=== PATIENT | male | born 1950 | race American Indian/Alaskan Native ===

== ENCOUNTER 2022-06-28 13:31 | Inpatient (IN) | payer MEDICARE ==
[2022-06-28] MEDS ORDERED: SODIUM CHLORIDE 0.9% 1000 ML IV SOLN IV ONE (14:08)
--- NOTE | 2022-06-28 14:12 | XRay Report ---
CHEST 1 VIEW 06/28/2022 1:52 PM INDICATION / CLINICAL INFORMATION: COVID + and SOB. COMPARISON: None available. FINDINGS: SUPPORT DEVICES: None. HEART / MEDIASTINUM: The heart size and pulmonary vasculature are normal. LUNGS / PLEURA: There is a focal irregular parenchymal opacity in the left retrocardiac region medial ly. The lungs are otherwise clear. No pleural effusion. No pneumothorax. ADDITIONAL FINDINGS: No significant additional findings. IMPRESSION: Irregular parenchymal opacity in the left retrocardiac region medially may be inflammator y or neoplastic. CT chest may be helpful in further evaluation. Signer Name: Ady Manzanares MD Signed: 06/28/2022 2:07 PM Workstation Name: [facility]
--- NOTE | 2022-06-28 14:14 | Emergency Department Report ---
ED Shortness of Breath HPI - General Chief Complaint: Dyspnea/Respdistress Stated Complaint: SOB Time Seen by Provider: 06/28/22 13:40 Source: EMS, old records reviewed (Patient was here in March for feeding tube placed) Mode of arrival: Stretcher Limitations: Physical Limitation - History of Present Illness Initial Comments: 72-year [facility] with COVID-19 (diagnosed 06/21/2022), chronic renal insufficiency, hypertension, cognitive communication deficit, dysphagia, DVT currently on Eliquis, and hyperlipidemia presents to the hospital with complaints of hypoxia and shortness of breath. EMS reports that patient is on 3 L of nasal cannula [facility] the jail they were unable to obtain a accurate O2 sat. Patient was placed on nonrebreather for transport to the hospital. Patient appears to have mild to moderate respiratory distress on nonrebreather upon ED presentation. Patient does not appear to have a history of diabetes or take diabetes related medication - Related Data Previous Rx's Medication Instructions Recorded Last Taken Type Aspirin 325 mg PO QDAY #30 tablet 03/07/22 Unknown Rx AtorvaSTATin [Lipitor] 40 mg PO QHS 30 Days #30 tab 03/07/22 Unknown Rx Allergies Allergy/AdvReac Type Severity Reaction Status Date / Time No Known Allergies Allergy Verified 06/28/22 13:48 ED Review of Systems ROS: Stated complaint: SOB Other details as noted in HPI Comment: All other systems reviewed and negative ED Past Medical Hx - Past Medical History Previous Medical History?: Yes Hx CVA: Yes Hx Deep Vein Thrombosis: Yes - Surgical History Additional Surgical History: PEG tube - Social History Smoking Status: Never Smoker - Medications Home Medications: Home Medications Medication Instructions Recorded Confirmed Last Taken Type Aspirin 325 mg PO QDAY #30 tablet 03/07/22 Unknown Rx AtorvaSTATin [Lipitor] 40 mg PO QHS 30 Days #30 tab 03/07/22 Unknown Rx ED Physical Exam - General Limitations: Physical Limitation - Other Other exam information: General: Mild respiratory distress Head: Atraumatic Eyes: normal appearance ENT: Dry mucous membranes Neck: Normal appearance, no midline tenderness Chest: Bilateral rhonchi, tachypnea CV: Mild tachycardia regular Abdomen: Soft, normal bowel sounds, nontender, nondistended, no rebound or guarding. No feeding tube at this time Back: Normal inspection Extremity: Normal inspection, full range of motion Neuro: Awake, oriented to self, no facial asymmetry, bilateral handgrip equal, weak bilateral foot dorsiflexion Psych: Appropriate behavior Skin: No rash ED Course Vital Signs 06/28/22 06/28/22 06/28/22 13:44 14:19 14:31 Temperature 95.7 F L Pulse Rate 99 H 121 H Respiratory 20 28 H 22 Rate Blood Pressure 126/83 Blood Pressure 95/57 [Left] O2 Sat by Pulse 94 100 Oximetry 06/28/22 06/28/22 14:45 15:15 Temperature Pulse Rate 112 H 95 H Respiratory 22 19 Rate Blood Pressure 110/90 110/90 Blood Pressure [Left] O2 Sat by Pulse 86 80 L Oximetry - Reevaluation(s) Reevaluation #1: 06/28/22 15:35 The patient had a blood glucose of 14 without sufficient IV access. Awaiting IV placement from IV nurse. Went to bedside and placed a right 20-gauge EJ which was successful after second attempt and administered 2 Amp of D50 with repeat glucose of 101 - EJ/Peripheral Line Neck R Time Out Performed: Yes Indications: nurses unable to establis Skin Cleansed in Sterile Fashion: Yes Size: 20 Dressing Placed: Tegaderm, tape Patient Tolerated Procedure: well, no complications, other (Successful on second attempt) ED Medical Decision Making - Lab Data Result diagrams: 06/28/22 14:57 06/28/22 16:11 Lab Results 06/28/22 06/28/22 06/28/22 Range/Units 14:53 14:57 14:57 WBC 3.5 L (4.5-11.0) K/mm3 RBC 3.22 L (3.65-5.03) M/mm3 Hgb 9.5 L (11.8-15.2) gm/dl Hct 29.6 L (35.5-45.6) % MCV 92 (84-94) fl MCH 30 (28-32) pg MCHC 32 (32-34) % RDW 20.0 H (13.2-15.2) % Plt Count 175 (140-440) K/mm3 Lymph % (Auto) 18.4 (13.4-35.0) % Greene % (Auto) 4.4 (0.0-7.3) % Eos % (Auto) 0.1 (0.0-4.3) % Baso % (Auto) 0.1 (0.0-1.8) % Lymph # (Auto) 0.6 L (1.2-5.4) K/mm3 Greene # (Auto) 0.2 (0.0-0.8) K/mm3 Eos # (Auto) 0.0 (0.0-0.4) K/mm3 Baso # (Auto) 0.0 (0.0-0.1) K/mm3 Seg Neutrophils % 77.0 H (40.0-70.0) % Seg Neutrophils # 2.7 (1.8-7.7) K/mm3 PT 28.4 H (12.2-14.9) Sec. INR 2.31 H (0.87-1.13) APTT 49.0 H (24.2-36.6) Sec. D-Dimer (0-234) ng/mlDDU ABG pH 7.383 (7.350-7.450) pH Units ABG pCO2 19.1 mm Hg ABG pO2 390.9 H (80.0-90.0) mm Hg ABG HCO3 11.1 L (20.0-26.0) mmol/L ABG O2 Saturation 99.5 H (95.0-99.0) % ABG O2 Content 13.5 (0.0-44) ABG Base Excess -12.3 L (-2.0-3.0) mmol/L ABG Hemoglobin 9.0 L (14.0-18.0) gm/dl ABG Carboxyhemoglobin 0.3 (0.0-5.0) % ABG Methemoglobin 0.3 (0.0-1.5) % Oxyhemoglobin 98.9 (95.0-99.0) % FiO2 100 % Sodium (137-145) mmol/L Potassium (3.6-5.0) mmol/L Chloride (98-107) mmol/L Carbon Dioxide (22-30) mmol/L Anion Gap mmol/L BUN (9-20) mg/dL Creatinine (0.8-1.3) mg/dL Estimated GFR ml/min BUN/Creatinine Ratio % Glucose (75-100) mg/dL POC Glucose (70-105) mg/dL Lactic Acid (0.7-2.0) mmol/L Calcium (8.4-10.2) mg/dL Total Bilirubin (0.1-1.2) mg/dL AST (5-40) units/L ALT (7-56) units/L Alkaline Phosphatase (35-129) units/L Lactate Dehydrogenase (91-180) units/L Troponin T (0.00-0.029) ng/mL C-Reactive Protein (0.00-1.30) mg/dL Total Protein (6.3-8.2) g/dL Albumin (3.9-5) g/dL Albumin/Globulin Ratio % Triglycerides (2-149) mg/dL Cholesterol (50-199) mg/dL LDL Cholesterol Direct (50-130) mg/dL HDL Cholesterol (40-59) mg/dL Cholesterol/HDL Ratio % 06/28/22 06/28/22 06/28/22 Range/Units 14:57 14:57 15:01 WBC (4.5-11.0) K/mm3 RBC (3.65-5.03) M/mm3 Hgb (11.8-15.2) gm/dl Hct (35.5-45.6) % MCV (84-94) fl MCH (28-32) pg MCHC (32-34) % RDW (13.2-15.2) % Plt Count (140-440) K/mm3 Lymph % (Auto) (13.4-35.0) % Greene % (Auto) (0.0-7.3) % Eos % (Auto) (0.0-4.3) % Baso % (Auto) (0.0-1.8) % Lymph # (Auto) (1.2-5.4) K/mm3 Greene # (Auto) (0.0-0.8) K/mm3 Eos # (Auto) (0.0-0.4) K/mm3 Baso # (Auto) (0.0-0.1) K/mm3 Seg Neutrophils % (40.0-70.0) % Seg Neutrophils # (1.8-7.7) K/mm3 PT (12.2-14.9) Sec. INR (0.87-1.13) APTT (24.2-36.6) Sec. D-Dimer (0-234) ng/mlDDU ABG pH (7.350-7.450) pH Units ABG pCO2 mm Hg ABG pO2 (80.0-90.0) mm Hg ABG HCO3 (20.0-26.0) mmol/L ABG O2 Saturation (95.0-99.0) % ABG O2 Content (0.0-44) ABG Base Excess (-2.0-3.0) mmol/L ABG Hemoglobin (14.0-18.0) gm/dl ABG Carboxyhemoglobin (0.0-5.0) % ABG Methemoglobin (0.0-1.5) % Oxyhemoglobin (95.0-99.0) % FiO2 % Sodium 134 L (137-145) mmol/L Potassium 4.4 (3.6-5.0) mmol/L Chloride 110.8 H (98-107) mmol/L Carbon Dioxide 13 L (22-30) mmol/L Anion Gap 15 mmol/L BUN 51 H (9-20) mg/dL Creatinine 2.7 H (0.8-1.3) mg/dL Estimated GFR 28 ml/min BUN/Creatinine Ratio 19 % Glucose 75 (75-100) mg/dL POC Glucose 14 L (70-105) mg/dL Lactic Acid 3.40 H* (0.7-2.0) mmol/L Calcium 9.1 (8.4-10.2) mg/dL Total Bilirubin 0.60 (0.1-1.2) mg/dL AST 29 (5-40) units/L ALT 15 (7-56) units/L Alkaline Phosphatase 109 (35-129) units/L Lactate Dehydrogenase (91-180) units/L Troponin T 0.135 H* (0.00-0.029) ng/mL C-Reactive Protein (0.00-1.30) mg/dL Total Protein 4.9 L (6.3-8.2) g/dL Albumin 1.6 L (3.9-5) g/dL Albumin/Globulin Ratio 0.5 % Triglycerides 95 (2-149) mg/dL Cholesterol 74 (50-199) mg/dL LDL Cholesterol Direct 21 L (50-130) mg/dL HDL Cholesterol 22 L (40-59) mg/dL Cholesterol/HDL Ratio 3.36 % 06/28/22 06/28/22 06/28/22 Range/Units 15:32 16:11 16:11 WBC (4.5-11.0) K/mm3 RBC (3.65-5.03) M/mm3 Hgb (11.8-15.2) gm/dl Hct (35.5-45.6) % MCV (84-94) fl MCH (28-32) pg MCHC (32-34) % RDW (13.2-15.2) % Plt Count (140-440) K/mm3 Lymph % (Auto) (13.4-35.0) % Greene % (Auto) (0.0-7.3) % Eos % (Auto) (0.0-4.3) % Baso % (Auto) (0.0-1.8) % Lymph # (Auto) (1.2-5.4) K/mm3 Greene # (Auto) (0.0-0.8) K/mm3 Eos # (Auto) (0.0-0.4) K/mm3 Baso # (Auto) (0.0-0.1) K/mm3 Seg Neutrophils % (40.0-70.0) % Seg Neutrophils # (1.8-7.7) K/mm3 PT (12.2-14.9) Sec. INR (0.87-1.13) APTT (24.2-36.6) Sec. D-Dimer 273.84 H (0-234) ng/mlDDU ABG pH (7.350-7.450) pH Units ABG pCO2 mm Hg ABG pO2 (80.0-90.0) mm Hg ABG HCO3 (20.0-26.0) mmol/L ABG O2 Saturation (95.0-99.0) % ABG O2 Content (0.0-44) ABG Base Excess (-2.0-3.0) mmol/L ABG Hemoglobin (14.0-18.0) gm/dl ABG Carboxyhemoglobin (0.0-5.0) % ABG Methemoglobin (0.0-1.5) % Oxyhemoglobin (95.0-99.0) % FiO2 % Sodium (137-145) mmol/L Potassium (3.6-5.0) mmol/L Chloride (98-107) mmol/L Carbon Dioxide (22-30) mmol/L Anion Gap mmol/L BUN (9-20) mg/dL Creatinine (0.8-1.3) mg/dL Estimated GFR ml/min BUN/Creatinine Ratio % Glucose (75-100) mg/dL POC Glucose 104 (70-105) mg/dL Lactic Acid 3.30 H* (0.7-2.0) mmol/L Calcium (8.4-10.2) mg/dL Total Bilirubin (0.1-1.2) mg/dL AST (5-40) units/L ALT (7-56) units/L Alkaline Phosphatase (35-129) units/L Lactate Dehydrogenase (91-180) units/L Troponin T (0.00-0.029) ng/mL C-Reactive Protein (0.00-1.30) mg/dL Total Protein (6.3-8.2) g/dL Albumin (3.9-5) g/dL Albumin/Globulin Ratio % Triglycerides (2-149) mg/dL Cholesterol (50-199) mg/dL LDL Cholesterol Direct (50-130) mg/dL HDL Cholesterol (40-59) mg/dL Cholesterol/HDL Ratio % // Range/Units 16:11 WBC (4.5-11.0) K/mm3 RBC (3.65-5.03) M/mm3 Hgb (11.8-15.2) gm/dl Hct (35.5-45.6) % MCV (84-94) fl MCH (28-32) pg MCHC (32-34) % RDW (13.2-15.2) % Plt Count (140-440) K/mm3 Lymph % (Auto) (13.4-35.0) % Greene % (Auto) (0.0-7.3) % Eos % (Auto) (0.0-4.3) % Baso % (Auto) (0.0-1.8) % Lymph # (Auto) (1.2-5.4) K/mm3 Greene # (Auto) (0.0-0.8) K/mm3 Eos # (Auto) (0.0-0.4) K/mm3 Baso # (Auto) (0.0-0.1) K/mm3 Seg Neutrophils % (40.0-70.0) % Seg Neutrophils # (1.8-7.7) K/mm3 PT (12.2-14.9) Sec. INR (0.87-1.13) APTT (24.2-36.6) Sec. D-Dimer (0-234) ng/mlDDU ABG pH (7.350-7.450) pH Units ABG pCO2 mm Hg ABG pO2 (80.0-90.0) mm Hg ABG HCO3 (20.0-26.0) mmol/L ABG O2 Saturation (95.0-99.0) % ABG O2 Content (0.0-44) ABG Base Excess (-2.0-3.0) mmol/L ABG Hemoglobin (14.0-18.0) gm/dl ABG Carboxyhemoglobin (0.0-5.0) % ABG Methemoglobin (0.0-1.5) % Oxyhemoglobin (95.0-99.0) % FiO2 % Sodium (137-145) mmol/L Potassium (3.6-5.0) mmol/L Chloride (98-107) mmol/L Carbon Dioxide (22-30) mmol/L Anion Gap mmol/L BUN (9-20) mg/dL Creatinine (0.8-1.3) mg/dL Estimated GFR ml/min BUN/Creatinine Ratio % Glucose 218 H (75-100) mg/dL POC Glucose (70-105) mg/dL Lactic Acid (0.7-2.0) mmol/L Calcium (8.4-10.2) mg/dL Total Bilirubin (0.1-1.2) mg/dL AST (5-40) units/L ALT (7-56) units/L Alkaline Phosphatase (35-129) units/L Lactate Dehydrogenase 199 H (91-180) units/L Troponin T (0.00-0.029) ng/mL C-Reactive Protein 4.60 H (0.00-1.30) mg/dL Total Protein (6.3-8.2) g/dL Albumin (3.9-5) g/dL Albumin/Globulin Ratio % Triglycerides (2-149) mg/dL Cholesterol (50-199) mg/dL LDL Cholesterol Direct (50-130) mg/dL HDL Cholesterol (40-59) mg/dL Cholesterol/HDL Ratio % - EKG Data -: EKG Interpreted by Me (Low voltage, artifact, no STEMI noted) EKG shows normal: sinus rhythm Rate: normal (92) - EKG Data When compared to previous EKG there are: previous EKG unavailable - Radiology Data Radiology results: report reviewed CHEST 1 VIEW 06/28/2022 1:52 PM INDICATION / CLINICAL INFORMATION: COVID + and SOB. COMPARISON: None available. FINDINGS: SUPPORT DEVICES: None. HEART / MEDIASTINUM: The heart size and pulmonary vasculature are normal. LUNGS / PLEURA: There is a focal irregular parenchymal opacity in the left retrocardiac region medially. The lungs are otherwise clear. No pleural effusion. No pneumothorax. ADDITIONAL FINDINGS: No significant additional findings. IMPRESSION: Irregular parenchymal opacity in the left retrocardiac region medially may be inflammatory or neoplastic. CT chest may be helpful in further evaluation. - Medical Decision Making 72-year-old male presents to the hospital with unmeasurable O2 saturation. It is unclear if patient is and how [facility] EMS reports that he is on 3 L. ABG requested on room air however, performed on 100% nonrebreather due to lack of reliable pulse oximetry measurements. This was subsequently titrated down to 50% 2 of NC with saturation 95%. patient has a compensated metabolic acidosis with elevated lactic acid. Patient has significant hypoglycemia which improved with 2 A of D50 and D5 IV drip initiated. Patient does have a history of PEG tube placement 3 months ago which is not currently present on examination. Patient treated as per sepsis protocol with IV hydration, antibiotics for possible pulmonary infiltrate and has a recent positive COVID test. Other diagnoses include acute on chronic renal sufficiency and elevated troponin as well as increased INR with chronic anticoagulation/Eliquis use. Hospitalist admit request admission to [facility] with remote telemetry Critical Care Time: Yes Critical care time in (mins) excluding proc time.: 50 Critical care attestation.: If time is entered above; I have spent that time in minutes in the direct care of this critically ill patient, excluding procedure time. Critical Care Time: 50 minutes of critical care time excluding procedures were used in the care of the patient. I came immediately to the bedside upon patient's arrival. I obtained history from EMS at the bedside. I discussed treatment plan with the nursing team members. I reviewed electronic record. I Patient required multiple interventions and reassessments. ED Disposition Clinical Impression: COVID-19, Hypoglycemia, Acute respiratory failure with hypoxia, Pulmonary infiltrate, Acute on chronic renal failure, Elevated lactic acid level, Lactic acidosis, Elevated INR, custodial current use of anticoagulant, Hx of deep venous thrombosis, Elevated troponin Disposition: 09 ADMITTED INPATIENT Is pt being admited?: Yes Condition: Stable Time of Disposition: 16:37
[2022-06-28] MEDS ORDERED: DEXTROSE 50% IN WATER (25GM) 50 ML SYRINGE IV ONE (15:02)
[2022-06-28 15:08] LABS: ABG Base Excess -12.3 mmol/L (-2.0-3.0); ABG HCO3 11.1 mmol/L (20.0-26.0); ABG Methemoglobin 0.3 % (0.0-1.5); ABG Oxygen Saturation 99.5 % (95.0-99.0); ABG PCO2 19.1 mm Hg; ABG PH 7.383 pH Units (7.350-7.450)
[2022-06-28 15:10] LABS: ABG PO2 390.9 mm Hg (80.0-90.0)
[2022-06-28 15:28] LABS: Basophils % (Auto) 0.1 % (0.0-1.8); Eosinophils % (Auto) 0.1 % (0.0-4.3); Hematocrit 29.6 % (35.5-45.6); Hemoglobin 9.5 gm/dl (11.8-15.2); Lymphocytes # (Auto) 0.6 K/mm3 (1.2-5.4); Lymphocytes % (Auto) 18.4 % (13.4-35.0); Mean Corpuscular HGB Conc 32 % (32-34); Mean Corpuscular Volume 92 fl (84-94); Monocytes # (Auto) 0.2 K/mm3 (0.0-0.8); Monocytes % (Auto) 4.4 % (0.0-7.3); Platelet Count 175 K/mm3 (140-440); Red Blood Count 3.22 M/mm3 (3.65-5.03)
[2022-06-28 15:31] LABS: INR 2.31 (0.87-1.13)
[2022-06-28 15:37] LABS: Albumin 1.6 g/dL (3.9-5); Calcium 9.1 mg/dL (8.4-10.2)
[2022-06-28] MEDS ORDERED: VANCOMYCIN 750 MG in SODIUM CHLORIDE 0.9% 500 ML 500 ML IV ONE (15:47)
[2022-06-28] MEDS ORDERED: CEFEPIME/NS 2 GM/100 ML 2 GM/100 ML BAG IV ONE (15:47)
[2022-06-28] MEDS ORDERED: VANCOMYCIN PHARMACY TO DOSE IV SCH (16:00)
[2022-06-28] MEDS: D5W/0.9% NACL 1,000 ML IV SCH (16:02)
[2022-06-28 16:14] LABS: Chol/HDL Ratio 3.36 %
[2022-06-28] MEDS ORDERED: ACETAMINOPHEN 325 MG TAB PO PRN ×2 (16:37→18:42)
[2022-06-28] MEDS ORDERED: ONDANSETRON 4 MG/2 ML INJ IV PRN ×2 (16:37→18:42)
[2022-06-28 16:47] LABS: C-Reactive Protein 4.6 mg/dL (0.00-1.30)
[2022-06-28] MEDS ORDERED: SODIUM CHLORIDE 0.9% IV SCH (17:00)
[2022-06-28] MEDS ORDERED: VANCOMYCIN IV SCH (17:00)
[2022-06-28] MEDS ORDERED: oxyCODONE /ACETAMINOPHEN 5-325MG TAB PO PRN (18:42)
[2022-06-28] MEDS ORDERED: CEFEPIME/NS 2 GM/100 ML 2 GM/100 ML BAG IV SCH (19:00)
[2022-06-28] MEDS: MORPHINE 2 MG/1 ML INJ IV PRN (19:02)
--- NOTE | 2022-06-28 19:29 | History and Physical Report ---
History of Present Illness Date of examination: 06/28/22 Date of admission: 06/28/22 16:37 Chief complaint: Persistent hypoxia and hypoglycemia 1 day History of present illness: 72-year male with history of CVA and DVT presents from group home with COVID- 19 (diagnosed 06/21/2022), chronic renal insufficiency, hypertension, cognitive communication deficit, dysphagia, DVT currently on Eliquis, and hyperlipidemia with complaints of hypoxia and shortness of breath. EMS reports that patient is on 3 L of nasal cannula at the group home they were unable to obtain a accurate O2 sat. Patient was placed on nonrebreather for transport to the hospital. Patient appears to have mild to moderate respiratory distress on nonrebreather upon ED presentation. Patient is also hyperglycemic initially - Past Medical History --Previous Medical History?: Yes --CVA: Yes --Deep Vein Thrombosis: Yes - Surgical History --Additional Surgical History: PEG tube - Social History Smoking Status: Never Smoker - Medications --Home Medications: Home Medications Medication Instructions Recorded Confirmed Last Taken Type Aspirin 325 mg PO QDAY #30 tablet 03/07/22 Unknown Rx AtorvaSTATin [Lipitor] 40 mg PO QHS 30 Days #30 tab 03/07/22 Unknown Rx Review of Systems ROS: Constitutional persistent hypoglycemia HEENT no sore throat no post nasal drip no diplopia Neck no neck stiffness no lymph gland enlargement Chest and lungs shortness of breath and hypoxia CVS no chest pain no diaphoresis no palpitations GI no nausea no vomiting no diarrhea Genitourinary system no dysuria no flank pain Musculoskeletal system no muscle pains no joint pains CUT ORDER HAND no syncope no seizures Skin no rash no itching Psychiatric no depression no homicidal or suicidal tendencies Hematologic no lymphedema or bruising Endocrine no polydipsia no polyuria no cold intolerance no heat intolerance Medications and Allergies Allergies Allergy/AdvReac Type Severity Reaction Status Date / Time No Known Allergies Allergy Verified 06/28/22 13:48 Home Medications Medication Instructions Recorded Confirmed Last Taken Type Aspirin 325 mg PO QDAY #30 tablet 03/07/22 Unknown Rx AtorvaSTATin [Lipitor] 40 mg PO QHS 30 Days #30 tab 03/07/22 Unknown Rx Active Meds: Active Medications Acetaminophen (Acetaminophen 325 Mg Tab) 650 mg PO Q4H PRN PRN Reason: Pain MILD(1-3)/Fever >100.5/GILES Acetaminophen (Acetaminophen 325 Mg Tab) 650 mg PO Q4H PRN PRN Reason: Pain MILD(1-3)/Fever >100.5/GILES Dextrose/Sodium Chloride (D5ns) 1,000 mls @ 150 mls/hr IV DIRECT PARRISH Last Admin: 06/28/22 16:02 Dose: 150 mls/hr Vancomycin HCl 500 mg/ Sodium (Chloride) 110 mls @ 130 mls/hr IV Q48H PARRISH; Protocol Last Admin: 06/28/22 17:00 Dose: 130 mls/hr Cefepime HCl (Cefepime/Ns 1 Gm/100 Ml) 2 gm in 100 mls @ 200 mls/hr IV Q12H PARRISH; Protocol Morphine Sulfate (Morphine 2 Mg/1 Ml Inj) 2 mg IV Q4H PRN PRN Reason: Pain, Moderate (4-6) Last Admin: 06/28/22 19:02 Dose: 2 mg Ondansetron HCl (Ondansetron 4 Mg/2 Ml Inj) 4 mg IV Q8H PRN PRN Reason: Nausea And Vomiting Ondansetron HCl (Ondansetron 4 Mg/2 Ml Inj) 4 mg IV Q8H PRN PRN Reason: Nausea And Vomiting Oxycodone/Acetaminophen (Oxycodone /Acetaminophen 5-325mg Tab) 1 tab PO Q6H PRN PRN Reason: Pain, Moderate (4-6) Sodium Chloride (Sodium Chloride 0.9% 10 Ml Flush Syringe) 10 ml IV BID PARRISH Sodium Chloride (Sodium Chloride 0.9% 10 Ml Flush Syringe) 10 ml IV PRN PRN PRN Reason: LINE FLUSH Sodium Chloride (Sodium Chloride 0.9% 10 Ml Flush Syringe) 10 ml IV BID PARRISH Sodium Chloride (Sodium Chloride 0.9% 10 Ml Flush Syringe) 10 ml IV PRN PRN PRN Reason: LINE FLUSH Exam - Constitutional Vitals: Temp Pulse Resp BP Pulse Ox 95.7 F L 100 H 17 110/90 68 L 06/28/22 13:44 06/28/22 16:31 06/28/22 16:31 06/28/22 16:31 06/28/22 16:31 General appearance: Present: no acute distress, well-nourished - EENT Eyes: Present: PERRL ENT: hearing intact, clear oral mucosa - Neck Neck: Present: supple, normal ROM - Respiratory Respiratory effort: normal Respiratory: bilateral: CTA - Cardiovascular Heart rate: 78 Rhythm: regular Heart Sounds: Present: S1 & S2. Absent: rub, click - Extremities Extremities: no ischemia, pulses intact, pulses symmetrical, No edema Peripheral Pulses: within normal limits - Abdominal General gastrointestinal: Present: soft, non-tender, non-distended, normal bowel sounds Male genitourinary: Present: normal - Rectal Rectal Exam: deferred - Integumentary Integumentary: Present: clear, warm, dry - Musculoskeletal Musculoskeletal: right sided weakness - Psychiatric Psychiatric: appropriate mood/affect, intact judgment & insight - Neurologic Neurologic: CNII-XII intact, focal deficits HEART Score - HEART Score History: Moderately suspicious Risk factors: 1-2 risk factors Troponin: Troponin T 0.135 ng/mL (0.00-0.029) H* 06/28/22 14:57 Troponin: < normal limit - Critical Actions Critical Actions: 0-3 pts:0.9-1.7%risk of adverse cardiac event.Candidate for discharge Results - Labs CBC & Chem 7: 06/29/22 03:57 06/29/22 03:57 Labs: Laboratory Last Values WBC 3.5 K/mm3 (4.5-11.0) L 06/28/22 14:57 RBC 3.22 M/mm3 (3.65-5.03) L 06/28/22 14:57 Hgb 9.5 gm/dl (11.8-15.2) L 06/28/22 14:57 Hct 29.6 % (35.5-45.6) L 06/28/22 14:57 MCV 92 fl (84-94) 06/28/22 14:57 MCH 30 pg (28-32) 06/28/22 14:57 MCHC 32 % (32-34) 06/28/22 14:57 RDW 20.0 % (13.2-15.2) H 06/28/22 14:57 Plt Count 175 K/mm3 (140-440) 06/28/22 14:57 Lymph % (Auto) 18.4 % (13.4-35.0) 06/28/22 14:57 [place] % (Auto) 4.4 % (0.0-7.3) 06/28/22 14:57 Eos % (Auto) 0.1 % (0.0-4.3) 06/28/22 14:57 Baso % (Auto) 0.1 % (0.0-1.8) 06/28/22 14:57 Lymph # (Auto) 0.6 K/mm3 (1.2-5.4) L 06/28/22 14:57 [place] # (Auto) 0.2 K/mm3 (0.0-0.8) 06/28/22 14:57 Eos # (Auto) 0.0 K/mm3 (0.0-0.4) 06/28/22 14:57 Baso # (Auto) 0.0 K/mm3 (0.0-0.1) 06/28/22 14:57 Seg Neutrophils % 77.0 % (40.0-70.0) H 06/28/22 14:57 Seg Neutrophils # 2.7 K/mm3 (1.8-7.7) 06/28/22 14:57 PT 28.4 Sec. (12.2-14.9) H 06/28/22 14:57 INR 2.31 (0.87-1.13) H 06/28/22 14:57 APTT 49.0 Sec. (24.2-36.6) H 06/28/22 14:57 D-Dimer 273.84 ng/mlDDU (0-234) H 06/28/22 16:11 ABG pH 7.383 pH Units (7.350-7.450) 06/28/22 14:53 ABG pCO2 19.1 mm Hg 06/28/22 14:53 ABG pO2 390.9 mm Hg (80.0-90.0) H 06/28/22 14:53 ABG HCO3 11.1 mmol/L (20.0-26.0) L 06/28/22 14:53 ABG O2 Saturation 99.5 % (95.0-99.0) H 06/28/22 14:53 ABG O2 Content 13.5 (0.0-44) 06/28/22 14:53 ABG Base Excess -12.3 mmol/L (-2.0-3.0) L 06/28/22 14:53 ABG Hemoglobin 9.0 gm/dl (14.0-18.0) L 06/28/22 14:53 ABG Carboxyhemoglobin 0.3 % (0.0-5.0) 06/28/22 14:53 ABG Methemoglobin 0.3 % (0.0-1.5) 06/28/22 14:53 Oxyhemoglobin 98.9 % (95.0-99.0) 06/28/22 14:53 FiO2 100 % 06/28/22 14:53 Sodium 134 mmol/L (137-145) L 06/28/22 14:57 Potassium 4.4 mmol/L (3.6-5.0) 06/28/22 14:57 Chloride 110.8 mmol/L (98-107) H 06/28/22 14:57 Carbon Dioxide 13 mmol/L (22-30) L 06/28/22 14:57 Anion Gap 15 mmol/L 06/28/22 14:57 BUN 51 mg/dL (9-20) H 06/28/22 14:57 Creatinine 2.7 mg/dL (0.8-1.3) H 06/28/22 14:57 Estimated GFR 28 ml/min 06/28/22 14:57 BUN/Creatinine Ratio 19 % 06/28/22 14:57 Glucose 218 mg/dL (75-100) H 06/28/22 16:11 POC Glucose 119 mg/dL (70-105) H 06/28/22 17:25 Lactic Acid 3.30 mmol/L (0.7-2.0) H* 06/28/22 16:11 Calcium 9.1 mg/dL (8.4-10.2) 06/28/22 14:57 Ferritin 2520.0 ng/mL (30.0-300.0) H 06/28/22 16:11 Total Bilirubin 0.60 mg/dL (0.1-1.2) 06/28/22 14:57 AST 29 units/L (5-40) 06/28/22 14:57 ALT 15 units/L (7-56) 06/28/22 14:57 Alkaline Phosphatase 109 units/L (35-129) 06/28/22 14:57 Lactate Dehydrogenase 199 units/L (91-180) H 06/28/22 16:11 Troponin T 0.135 ng/mL (0.00-0.029) H* 06/28/22 14:57 C-Reactive Protein 4.60 mg/dL (0.00-1.30) H 06/28/22 16:11 Total Protein 4.9 g/dL (6.3-8.2) L 06/28/22 14:57 Albumin 1.6 g/dL (3.9-5) L 06/28/22 14:57 Albumin/Globulin Ratio 0.5 % 06/28/22 14:57 Triglycerides 95 mg/dL (2-149) 06/28/22 14:57 Cholesterol 74 mg/dL (50-199) 06/28/22 14:57 LDL Cholesterol Direct 21 mg/dL (50-130) L 06/28/22 14:57 HDL Cholesterol 22 mg/dL (40-59) L 06/28/22 14:57 Cholesterol/HDL Ratio 3.36 % 06/28/22 14:57 Short CBC 06/28/22 06/29/22 06/29/22 Range/Units 14:57 00:09 03:57 WBC 3.5 L 6.2 6.7 (4.5-11.0) K/mm3 Hgb 9.5 L 7.7 L 7.8 L (11.8-15.2) gm/dl Hct 29.6 L 23.1 L D 24.4 L (35.5-45.6) % Plt Count 175 137 L 138 L (140-440) K/mm3 BMP 06/28/22 06/28/22 06/29/22 14:57 16:11 00:09 Sodium 134 L Potassium 4.4 Chloride 110.8 H Carbon Dioxide 13 L BUN 51 H Creatinine 2.7 H 2.5 H Glucose 75 218 H Calcium 9.1 06/29/22 03:57 Sodium 139 Potassium 4.1 Chloride 115.5 H Carbon Dioxide 11 L BUN 50 H Creatinine 2.5 H Glucose 183 H Calcium 8.7 Cardiac Enzymes 06/28/22 Range/Units 14:57 Troponin T 0.135 H* (0.00-0.029) ng/mL Liver Function 06/28/22 06/29/22 Range/Units 14:57 03:57 Total Bilirubin 0.60 0.40 (0.1-1.2) mg/dL AST 29 26 (5-40) units/L ALT 15 13 (7-56) units/L Alkaline Phosphatase 109 93 (35-129) units/L Albumin 1.6 L 1.4 L (3.9-5) g/dL Microbiology: Microbiology 06/28/22 14:57 Peripheral/Venous Blood Culture - Preliminary Culture in Progress - Imaging and Cardiology Imaging and Cardiology: CT chest Suspected left lower lobe pneumonia given the patient history of COVID-19 and shortness of breath which likely account for the abnormality seen on the prior chest radiograph Small left pleural effusion Cholelithiasis without evidence of acute cholecystitis Chest x-ray Irregular parenchymal opacity in the left retrocardiac region medially may be inflammatory or neoplastic. CT chest will be helpful for further evaluation. Assessment and Plan Advance Directives: Yes (Full code) VTE prophylaxis?: Chemical Plan of care discussed with patient/family: Yes - Patient Problems (1) Acute respiratory failure with hypoxia Current Visit: Yes Status: Acute Plan to address problem: Patient is persistently hypoxic Secondary to pneumonia and possibly COVID Oxygen supplementation as necessary (2) Left lower lobe pneumonia Current Visit: Yes Status: Acute Plan to address problem: Patient initiated on Zithromax and Rocephin COVID to be ruled out (3) Acute on chronic renal failure Current Visit: Yes Status: Acute Qualifiers: Acute renal failure type: unspecified Plan to address problem: IV fluids and nephrology consult (4) COVID-19 Current Visit: Yes Status: Acute Plan to address problem: Repeat COVID-19 test (5) Hypoglycemia Current Visit: Yes Status: Acute Plan to address problem: Corrected (6) Anemia Current Visit: Yes Status: Chronic Qualifiers: Anemia type: due to chronic kidney disease Chronic kidney disease stage: stage 3 (moderate) (7) Hx of deep venous thrombosis Current Visit: Yes Status: Chronic Plan to address problem: On Eliquis (8) DVT prophylaxis Current Visit: Yes Status: Acute Plan to address problem: On Eliquis and GI prophylaxis (9) Advance care planning Current Visit: Yes Status: Acute Plan to address problem: Disease education conducted, care plan discussed, diet diagnosis discussed and prognosis discussed. Patient acknowledged understanding with care plan. +30.
[2022-06-28] MEDS ORDERED: APIXABAN 5 MG TAB PO SCH (22:00)
--- NOTE | 2022-06-28 22:48 | Cat Scan Report ---
CT CHEST WITHOUT CONTRAST INDICATION / CLINICAL INFORMATION: sob, possible lung mass. TECHNIQUE: Axial CT images were obtained through the chest without contrast. All CT scans at this [facility] ation are performed using CT dose reduction for ALARA by means of automated exposure control. COMPARISON: One view of the chest performed earlier today. FINDINGS: HEART: No significant abnormality. CORONARY ARTERY CALCIFICATION: Present -- Moderate. THORACIC AORTA: Moderate atherosclerotic calcification without acute abnormality. MEDIASTINUM / SUJEY: No significant abnormality. PLEURA: Small left pleural effusion. No pneumothorax. LUNGS: There is left lower lobe atelectasis versus pneumonia. Probable mild dependent atelectasis is also noted on the right. No other significant abnormality. ADDITIONAL FINDINGS: There is generalized subcutaneous edema. UPPER ABDOMEN: Cholelithiasis is seen without evidence of acute cholecystitis. There is a small amoun t of perihepatic and perisplenic ascites. A right ureteral stent is in expected position as visualize d. There are multiple nonobstructive bilateral renal stones. There is generalized peritoneal edema. SKELETAL SYSTEM: No acute findings. There is moderate spondylosis. IMPRESSION: 1. Suspected left lower lobe pneumonia given the patient's history of covid 19 and shortness of breat h, which likely accounts for the abnormality seen on the prior chest radiograph. 2. Small left pleural effusion. 3. Additional findings as above. Signer Name: Elias Woods MD Signed: 06/28/2022 10:43 PM Workstation Name: [id number]
[2022-06-29 00:48] LABS: Hematocrit 23.1 % (35.5-45.6); Hemoglobin 7.7 gm/dl (11.8-15.2); Mean Corpuscular HGB Conc 33 % (32-34); Mean Corpuscular Volume 90 fl (84-94); Platelet Count 137 K/mm3 (140-440); Red Blood Count 2.59 M/mm3 (3.65-5.03)
[2022-06-29] MEDS: APIXABAN 2.5 MG TAB PO SCH ×3 (01:00→21:30)
[2022-06-29 01:16] LABS: INR 2.49 (0.87-1.13)
[2022-06-29 01:17] LABS: Partial Thromboplastin Time 54.1 Sec. (24.2-36.6)
[2022-06-29] MEDS: D5W/0.9% NACL 1,000 ML IV SCH ×2 (02:36→09:13)
[2022-06-29] MEDS ORDERED: NS IV SCH (04:00)
[2022-06-29] MEDS ORDERED: CEFEPIME IV SCH (04:00)
[2022-06-29 04:47] LABS: Basophils % (Auto) 0.1 % (0.0-1.8); Hematocrit 24.4 % (35.5-45.6); Hemoglobin 7.8 gm/dl (11.8-15.2); Lymphocytes # (Auto) 0.5 K/mm3 (1.2-5.4); Lymphocytes % (Auto) 7.2 % (13.4-35.0); Mean Corpuscular HGB Conc 32 % (32-34); Mean Corpuscular Volume 91 fl (84-94); Monocytes # (Auto) 0.3 K/mm3 (0.0-0.8); Monocytes % (Auto) 4.1 % (0.0-7.3); Platelet Count 138 K/mm3 (140-440); Red Blood Count 2.68 M/mm3 (3.65-5.03); Red Cell Distribution Width 19.6 % (13.2-15.2)
[2022-06-29 05:12] LABS: Albumin 1.4 g/dL (3.9-5); Calcium 8.7 mg/dL (8.4-10.2)
[2022-06-29] MEDS: AZITHROMYCIN/NS 500 MG/250 ML 500 MG/250 ML BAG IV SCH (08:59)
[2022-06-29] MEDS ORDERED: SODIUM BICARB 8.4% 50 MEQ/50 ML SYRINGE IV ONE (09:00)
[2022-06-29] MEDS: dexAMETHasone 4 MG/ML VIAL IV SCH (09:00)
[2022-06-29] MEDS: PANTOPRAZOLE 40 MG INJ IV SCH (09:13)
--- NOTE | 2022-06-29 11:14 | Electrocardiograph Report ---
[facility] Test Date: 2022-06-28 Test Time: 14:00:44 Pat Name: MARIO SANCHEZ Department: Room: A356 Gender: M [employer]: [id number] : 1950 Requested By: TONY DANIELSON Order Number: [id number] Reading MD: Clarence Rebolledo Measurements Intervals [place] Rate: 92 P: 55 DE: 154 QRS: 42 QRSD: 108 T: 81 QT: 332 QTc: 414 Interpretive Statements Poor data quality. Interpretation may be adversely affected Sinus rhythm Low voltage, extremity and precordial leads Nonspecific T abnrm, anterolateral leads No previous ECG available for comparison Electronically Signed On 06-29-2022 11:13:58 EDT by Clarence Rebolledo
--- NOTE | 2022-06-29 11:19 | Progress Note ---
Assessment and Plan Assessment and plan: Persistent hypoxia and hypoglycemia 1 day 72-year male with history of CVA and DVT presents from [facility] with COVID- 19 (diagnosed 06/21/2022), chronic renal insufficiency, hypertension, cognitive communication deficit, dysphagia, DVT currently on Eliquis, and hyperlipidemia with complaints of hypoxia and shortness of breath and hypoglycemia with a blood sugar of 14. EMS reports that patient is on 3 L of nasal cannula at the [facility] they were unable to obtain a accurate O2 sat. Patient was placed on nonrebreather for transport to the hospital. Patient appears to have mild to moderate respiratory distress on nonrebreather upon ED presentation. Patient is also hypoglycemic with a blood sugar of 14 initially 06/28/22 14:57 Peripheral/Venous Blood Culture - Preliminary Culture in Progress CT chest Suspected left lower lobe pneumonia given the patient history of COVID-19 and shortness of breath which likely account for the abnormality seen on the prior chest radiograph Small left pleural effusion Cholelithiasis without evidence of acute cholecystitis Chest x-ray Irregular parenchymal opacity in the left retrocardiac region medially may be inflammatory or neoplastic. CT chest will be helpful for further evaluation. 06/29: Patient seen and examined, Imaging studies on admission showed left lobar pneumonia. BG is improved, will monitor blood sugars patient was initially with a sugar level of 14. At this point he remains with acute encephalopathy and as a result is not tolerating anything p.o. Will obtain swallow evaluation. Keep head of bed elevated. We will continue empiric antibiotic coverage and consult infectious disease for assistance with management. I have asked to have patient wean from Venturi mask and if this is unable to be done in the next 24 hours will obtain pulmonary consultation. In addition to the management listed below he does have metabolic acidosis for which I will give him a dose of bicarb while awaiting nephrology evaluation. He did have severe protein calorie malnutrition it appeared that he had a PEG tube at some point I have tried to call the family to get more information but no one is picking up. I do not have access to the facility where he came from. In the meantime a Dobbhoff may need to be inserted if there is no improvement in mental status for diet. Anemia concern is unknown if the patient who is on Eliquis and with elevated INR has not any bleed. I have asked the nurse to check stool for occult blood. We will monitor H&H closely and start the patient on PPI. Patient remains critically ill and requires to continue in the hospital for full evaluation. (1) Acute respiratory failure with hypoxia Current Visit: Yes Status: Acute Plan to address problem: Patient is persistently hypoxic Secondary to pneumonia and possibly COVID Oxygen supplementation as necessary (2) Left lower lobe pneumonia Current Visit: Yes Status: Acute Plan to address problem: Patient initiated on Zithromax and Rocephin COVID to be ruled out (3) Acute on chronic renal failure Current Visit: Yes Status: Acute Qualifiers: Acute renal failure type: unspecified Plan to address problem: IV fluids and nephrology consult (4) COVID-19 Current Visit: Yes Status: Acute Plan to address problem: Repeat COVID-19 test (5) Acute metabolic encephalopathy Very lethargic not following any commands at this time. Baseline is unknown but apparently it appears that he was able to eat but he is not doing better right now. Aspiration precaution (6) hypoglycemia Current Visit: Yes Status: Acute Plan to address problem: Corrected (7) Anemia ? Etiology Current Visit: Yes Status: Chronic Qualifiers: Anemia type: due to chronic kidney disease Chronic kidney disease stage: stage 3 (moderate) (8) secondary coagulopathy with elevated INR (9) Hx of deep venous thrombosis Current Visit: Yes Status: Chronic Plan to address problem: On Eliquis (10) DVT prophylaxis Current Visit: Yes Status: Acute Plan to address problem: On Eliquis and GI prophylaxis (11) Advance care planning Current Visit: Yes Status: Acute Plan to address problem: Disease education conducted, care plan discussed, diet diagnosis discussed and prognosis discussed. Patient acknowledged understanding with care plan. +30. Critical care time 35 minutes History Interval history: Patient seen and examined this morning remains on 50% Venturi mask does not ap pear to be in any acute distress. He is nonverbal at this time. Hospitalist Physical - Physical exam Narrative exam: VITAL SIGNS: Reviewed. GENERAL: The patient appears normally developed, on Ventimask 50% vital signs as documented. HEAD: No signs of head trauma. EYES: Pupils are equal. Extraocular motions intact. EARS: Hearing grossly intact. MOUTH: Oropharynx is normal. NECK: No adenopathy, no JVD. CHEST: Chest with diminished breath sounds on the right with mild crackles on the left. No increased work of breathing noted. CARDIAC: Regular rate and rhythm. S1 and S2, without murmurs, gallops, or rub s. VASCULAR: No Edema. Peripheral pulses normal and equal in all extremities. ABDOMEN: Soft, non tender and non distended. No rebound or guarding, and no masses palpated. Bowel Sounds normal. MUSCULOSKELETAL: Good range of motion of all major joints on passive movement. Extremities without clubbing, cyanosis. +1 pitting edema bilateral lower extremity cool to the touch. NEUROLOGIC EXAM: Awake but not following any commands. PSYCHIATRIC: Unable to fully assess. SKIN: detail exam as documented in skin assessment - Constitutional Vitals: Temp Pulse Resp BP Pulse Ox 94.5 F L 75 14 131/89 97 06/29/22 09:21 06/29/22 06:30 06/29/22 06:30 06/29/22 09:21 06/29/22 06:30 General appearance: Present: no acute distress, well-nourished HEART Score - HEART Score Risk factors: 1-2 risk factors Troponin: Troponin T 0.135 ng/mL (0.00-0.029) H* 06/28/22 14:57 Troponin: < normal limit - Critical Actions Critical Actions: 0-3 pts:0.9-1.7%risk of adverse cardiac event.Candidate for discharge Results - Labs CBC & Chem 7: 06/29/22 03:57 06/29/22 03:57 Labs: Laboratory Last Values WBC 6.7 K/mm3 (4.5-11.0) 06/29/22 03:57 RBC 2.68 M/mm3 (3.65-5.03) L 06/29/22 03:57 Hgb 7.8 gm/dl (11.8-15.2) L 06/29/22 03:57 Hct 24.4 % (35.5-45.6) L 06/29/22 03:57 MCV 91 fl (84-94) 06/29/22 03:57 MCH 29 pg (28-32) 06/29/22 03:57 MCHC 32 % (32-34) 06/29/22 03:57 RDW 19.6 % (13.2-15.2) H 06/29/22 03:57 Plt Count 138 K/mm3 (140-440) L 06/29/22 03:57 Lymph % (Auto) 7.2 % (13.4-35.0) L 06/29/22 03:57 [place] % (Auto) 4.1 % (0.0-7.3) 06/29/22 03:57 Eos % (Auto) 0.0 % (0.0-4.3) 06/29/22 03:57 Baso % (Auto) 0.1 % (0.0-1.8) 06/29/22 03:57 Lymph # (Auto) 0.5 K/mm3 (1.2-5.4) L 06/29/22 03:57 [place] # (Auto) 0.3 K/mm3 (0.0-0.8) 06/29/22 03:57 Eos # (Auto) 0.0 K/mm3 (0.0-0.4) 06/29/22 03:57 Baso # (Auto) 0.0 K/mm3 (0.0-0.1) 06/29/22 03:57 Seg Neutrophils % 88.6 % (40.0-70.0) H 06/29/22 03:57 Seg Neutrophils # 5.9 K/mm3 (1.8-7.7) 06/29/22 03:57 PT 30.2 Sec. (12.2-14.9) H 06/29/22 00:09 INR 2.49 (0.87-1.13) H 06/29/22 00:09 APTT 54.1 Sec. (24.2-36.6) H 06/29/22 00:09 D-Dimer 273.84 ng/mlDDU (0-234) H 06/28/22 16:11 ABG pH 7.383 pH Units (7.350-7.450) 06/28/22 14:53 ABG pCO2 19.1 mm Hg 06/28/22 14:53 ABG pO2 390.9 mm Hg (80.0-90.0) H 06/28/22 14:53 ABG HCO3 11.1 mmol/L (20.0-26.0) L 06/28/22 14:53 ABG O2 Saturation 99.5 % (95.0-99.0) H 06/28/22 14:53 ABG O2 Content 13.5 (0.0-44) 06/28/22 14:53 ABG Base Excess -12.3 mmol/L (-2.0-3.0) L 06/28/22 14:53 ABG Hemoglobin 9.0 gm/dl (14.0-18.0) L 06/28/22 14:53 ABG Carboxyhemoglobin 0.3 % (0.0-5.0) 06/28/22 14:53 ABG Methemoglobin 0.3 % (0.0-1.5) 06/28/22 14:53 Oxyhemoglobin 98.9 % (95.0-99.0) 06/28/22 14:53 FiO2 100 % 06/28/22 14:53 Sodium 139 mmol/L (137-145) 06/29/22 03:57 Potassium 4.1 mmol/L (3.6-5.0) 06/29/22 03:57 Chloride 115.5 mmol/L (98-107) H 06/29/22 03:57 Carbon Dioxide 11 mmol/L (22-30) L 06/29/22 03:57 Anion Gap 17 mmol/L 06/29/22 03:57 BUN 50 mg/dL (9-20) H 06/29/22 03:57 Creatinine 2.5 mg/dL (0.8-1.3) H 06/29/22 03:57 Estimated GFR 31 ml/min 06/29/22 03:57 BUN/Creatinine Ratio 20 % 06/29/22 03:57 Glucose 183 mg/dL (75-100) H 06/29/22 03:57 POC Glucose 134 mg/dL (70-105) H 06/29/22 05:52 Lactic Acid 3.30 mmol/L (0.7-2.0) H* 06/28/22 16:11 Calcium 8.7 mg/dL (8.4-10.2) 06/29/22 03:57 Ferritin 2520.0 ng/mL (30.0-300.0) H 06/28/22 16:11 Total Bilirubin 0.40 mg/dL (0.1-1.2) 06/29/22 03:57 AST 26 units/L (5-40) 06/29/22 03:57 ALT 13 units/L (7-56) 06/29/22 03:57 Alkaline Phosphatase 93 units/L (35-129) 06/29/22 03:57 Lactate Dehydrogenase 199 units/L (91-180) H 06/28/22 16:11 Troponin T 0.135 ng/mL (0.00-0.029) H* 06/28/22 14:57 C-Reactive Protein 4.60 mg/dL (0.00-1.30) H 06/28/22 16:11 Total Protein 4.2 g/dL (6.3-8.2) L 06/29/22 03:57 Albumin 1.4 g/dL (3.9-5) L 06/29/22 03:57 Albumin/Globulin Ratio 0.5 % 06/29/22 03:57 Triglycerides 95 mg/dL (2-149) 06/28/22 14:57 Cholesterol 74 mg/dL (50-199) 06/28/22 14:57 LDL Cholesterol Direct 21 mg/dL (50-130) L 06/28/22 14:57 HDL Cholesterol 22 mg/dL (40-59) L 06/28/22 14:57 Cholesterol/HDL Ratio 3.36 % 06/28/22 14:57 Procalcitonin 1.63 ng/mL (<0.15) 06/28/22 16:11 Microbiology: Microbiology 06/28/22 14:57 Peripheral/Venous Blood Culture - Preliminary Culture in Progress 06/28/22 14:57 Peripheral/Venous Blood Culture - Preliminary Culture in Progress Boyle/IV: Voiding Method Condom Catheter Active Medications - Current Medications Current Medications: Generic Name Dose Route Start Last Admin Trade Name Freq PRN Reason Stop Dose Admin Acetaminophen 650 mg 06/28/22 18:42 Acetaminophen 325 Mg Tab PO Q4H PRN Pain MILD(1-3)/Fever >100.5/GILES Apixaban 2.5 mg 06/28/22 22:00 06/29/22 09:01 Apixaban 2.5 Mg Tab PO 2.5 mg Q12HR PARRISH Administration Protocol Dexamethasone 8 mg 06/29/22 07:00 06/29/22 09:00 Dexamethasone 4 Mg/Ml Vial IV 07/08/22 10:59 8 mg Q24H PARRISH Administration Dextrose/Sodium Chloride 1,000 mls @ 150 mls/hr 06/28/22 16:00 06/29/22 09:13 D5ns IV 100 mls/hr DIRECT PARRISH Administration Azithromycin 500 mg in 250 mls @ 250 mls/hr 06/29/22 07:00 06/29/22 08:59 Zithromax/Ns IV 07/03/22 07:59 250 mls/hr Q24H PARRISH Administration Cefepime HCl 2 gm in 100 mls @ 200 mls/hr 06/29/22 18:00 Cefepime/Ns 2 Gm/100 Ml IV 07/03/22 19:59 Q24H PARRISH Morphine Sulfate 2 mg 06/28/22 16:55 06/28/22 19:02 Morphine 2 Mg/1 Ml Inj IV 2 mg Q4H PRN Administration Pain, Moderate (4-6) Ondansetron HCl 4 mg 06/28/22 18:42 Ondansetron 4 Mg/2 Ml Inj IV Q8H PRN Nausea And Vomiting Oxycodone/Acetaminophen 1 tab 06/28/22 18:42 Oxycodone /Acetaminophen 5-325mg Tab PO Q6H PRN Pain, Moderate (4-6) Pantoprazole Sodium 40 mg 06/29/22 10:00 06/29/22 09:13 Pantoprazole 40 Mg Inj IV 40 mg QDAY PARRISH Administration Sodium Chloride 10 ml 06/28/22 22:00 06/29/22 09:00 Sodium Chloride 0.9% 10 Ml Flush Syringe IV 10 ml BID PARRISH Administration Sodium Chloride 10 ml 06/28/22 18:42 Sodium Chloride 0.9% 10 Ml Flush Syringe IV PRN PRN LINE FLUSH
--- NOTE | 2022-06-29 12:04 | Consultation ---
History of Present Illness - Reason for Consult Consult date: 06/29/22 acute renal failure Requesting physician: OLGA RYAN - History of Present Illness 72-year male with history of CVA and DVT presents from [facility] with COVID- 19 (diagnosed 06/21/2022), chronic renal insufficiency, hypertension, cognitive communication deficit, dysphagia, DVT currently on Eliquis, and hyperlipidemia with complaints of hypoxia and shortness of breath. EMS reports that patient is on 3 L of nasal cannula at the [facility] they were unable to obtain a accurate O2 sat. Patient was placed on nonrebreather for transport to the hospital. Patient appears to have mild to moderate respiratory distress on nonrebreather upon ED presentation. Patient is also hyperglycemic initially Patient is currently on 50% Ventimask. Poor historian. Unable to get any additional information from patient. Renal consult requested for serum creatinine of 2.5. Review of records indicate that he had a serum creatinine of 1.8-2.0 in March 2022. Past History Past Medical History: hypertension, stroke, other (Chronic kidney disease and history of DVT) Past Surgical History: Other (Unknown) Social history: other (Unknown) Family history: other (Unknown) Medications and Allergies Allergies Allergy/AdvReac Type Severity Reaction Status Date / Time No Known Allergies Allergy Verified 06/28/22 13:48 Home Medications Medication Instructions Recorded Confirmed Last Taken Type Aspirin 325 mg PO QDAY #30 tablet 03/07/22 Unknown Rx AtorvaSTATin [Lipitor] 40 mg PO QHS 30 Days #30 tab 03/07/22 Unknown Rx Active Meds: Active Medications Acetaminophen (Acetaminophen 325 Mg Tab) 650 mg PO Q4H PRN PRN Reason: Pain MILD(1-3)/Fever >100.5/GILES Apixaban (Apixaban 2.5 Mg Tab) 2.5 mg PO Q12HR PARRISH; Protocol Last Admin: 06/29/22 09:01 Dose: 2.5 mg Dexamethasone (Dexamethasone 4 Mg/Ml Vial) 8 mg IV Q24H PARRISH Stop: 07/08/22 10:59 Last Admin: 06/29/22 09:00 Dose: 8 mg Dextrose/Sodium Chloride (D5ns) 1,000 mls @ 150 mls/hr IV DIRECT PARRISH Last Admin: 06/29/22 09:13 Dose: 100 mls/hr Azithromycin (Zithromax/Ns) 500 mg in 250 mls @ 250 mls/hr IV Q24H [facility] Stop: 07/03/22 07:59 Last Admin: 06/29/22 08:59 Dose: 250 mls/hr Cefepime HCl (Cefepime/Ns 2 Gm/100 Ml) 2 gm in 100 mls @ 200 mls/hr IV Q24H [facility] Stop: 07/03/22 19:59 Morphine Sulfate (Morphine 2 Mg/1 Ml Inj) 2 mg IV Q4H PRN PRN Reason: Pain, Moderate (4-6) Last Admin: 06/28/22 19:02 Dose: 2 mg Ondansetron HCl (Ondansetron 4 Mg/2 Ml Inj) 4 mg IV Q8H PRN PRN Reason: Nausea And Vomiting Oxycodone/Acetaminophen (Oxycodone /Acetaminophen 5-325mg Tab) 1 tab PO Q6H PRN PRN Reason: Pain, Moderate (4-6) Pantoprazole Sodium (Pantoprazole 40 Mg Inj) 40 mg IV QDAY [facility] Last Admin: 06/29/22 09:13 Dose: 40 mg Sodium Chloride (Sodium Chloride 0.9% 10 Ml Flush Syringe) 10 ml IV BID [facility] Last Admin: 06/29/22 09:00 Dose: 10 ml Sodium Chloride (Sodium Chloride 0.9% 10 Ml Flush Syringe) 10 ml IV PRN PRN PRN Reason: LINE FLUSH Review of Systems ROS unobtainable: due to mental status Exam - Vital Signs Vital signs: Vital Signs Temp Pulse Resp BP 95.7 F L 99 H 20 95/57 06/28/22 13:44 06/28/22 13:44 06/28/22 13:44 06/28/22 13:44 - General Appearance General appearance: chronically ill, frail, other (Pleasant -[place] male.) EENT: other (Ventimask in place) Neck: Present: neck supple, trachea midline. Absent: JVD/HJR, Masses Respiratory: Ronchi (Few scattered rhonchi) Heart: regular, normal heart rate, S1S2, no murmurs Gastrointestinal: Present: normal, normoactive bowel sounds Integumentary: other (1+ edema) Results - Lab Results 06/29/22 03:57 06/29/22 03:57 Most recent lab results ABG pH 7.383 pH Units (7.350-7.450) 06/28/22 14:53 ABG pCO2 19.1 mm Hg 06/28/22 14:53 ABG pO2 390.9 mm Hg (80.0-90.0) H 06/28/22 14:53 ABG HCO3 11.1 mmol/L (20.0-26.0) L 06/28/22 14:53 ABG O2 Saturation 99.5 % (95.0-99.0) H 06/28/22 14:53 Calcium 8.7 mg/dL (8.4-10.2) 06/29/22 03:57 Assessment and Plan Impression * Acute on chronic renal failure. Baseline creatinine 1.8-2.0 from March 2022 * metabolic acidosis. Lactic acidosis * Altered mental status * Sepsis * History of CVA * History of hypertension * History of DVT * Anemia Recommendations * Shall check a UA as well as fractional excretion of sodium * Renal ultrasound to assess kidney size and echogenicity and to rule out obstruction * Shall place him on a bicarbonate drip * Check vasculitis work-up to rule out pulmonary renal syndrome * Avoid nephrotoxins * Monitor fluid status and electrolytes closely * No urgent indication for renal replacement therapy today * Thank you very much for the consultation. Shall follow along with you
[2022-06-29] MEDS: CEFEPIME/NS 2 GM/100 ML 2 GM/100 ML BAG IV SCH (18:08)
[2022-06-29] MEDS: SODIUM BICARBONATE 150 MEQ in DEXTROSE 5% IN WATER 1,000 ML IV SCH (20:17)
[2022-06-30] MEDS: dexAMETHasone 4 MG/ML VIAL IV SCH (06:24)
[2022-06-30] MEDS: AZITHROMYCIN/NS 500 MG/250 ML 500 MG/250 ML BAG IV SCH (06:25)
--- NOTE | 2022-06-30 09:51 | Progress Note ---
Assessment and Plan Assessment and plan: Persistent hypoxia and hypoglycemia 1 day 72-year male with history of CVA and DVT presents from group home with COVID- 19 (diagnosed 06/21/2022), chronic renal insufficiency, hypertension, cognitive communication deficit, dysphagia, DVT currently on Eliquis, and hyperlipidemia with complaints of hypoxia and shortness of breath and hypoglycemia with a blood sugar of 14. EMS reports that patient is on 3 L of nasal cannula at the group home they were unable to obtain a accurate O2 sat. Patient was placed on nonrebreather for transport to the hospital. Patient appears to have mild to moderate respiratory distress on nonrebreather upon ED presentation. Patient is also hypoglycemic with a blood sugar of 14 initially 06/28/22 14:57 Peripheral/Venous Blood Culture - Preliminary Culture in Progress CT chest Suspected left lower lobe pneumonia given the patient history of COVID-19 and shortness of breath which likely account for the abnormality seen on the prior chest radiograph Small left pleural effusion Cholelithiasis without evidence of acute cholecystitis Chest x-ray Irregular parenchymal opacity in the left retrocardiac region medially may be inflammatory or neoplastic. CT chest will be helpful for further evaluation. 06/29: Patient seen and examined, Imaging studies on admission showed left lobar pneumonia. BG is improved, will monitor blood sugars patient was initially with a sugar level of 14. At this point he remains with acute encephalopathy and as a result is not tolerating anything p.o. Will obtain swallow evaluation. Keep head of bed elevated. We will continue empiric antibiotic coverage and consult infectious disease for assistance with management. I have asked to have patient wean from Venturi mask and if this is unable to be done in the next 24 hours will obtain pulmonary consultation. In addition to the management listed below he does have metabolic acidosis for which I will give him a dose of bicarb while awaiting nephrology evaluation. He did have severe protein calorie malnutrition it appeared that he had a PEG tube at some point I have tried to call the family to get more information but no one is picking up. I do not have access to the facility where he came from. In the meantime a Dobbhoff may need to be inserted if there is no improvement in mental status for diet. Anemia concern is unknown if the patient who is on Eliquis and with elevated INR has not any bleed. I have asked the nurse to check stool for occult blood. We will monitor H&H closely and start the patient on PPI. Patient remains critically ill and requires to continue in the hospital for full evaluation. 06/30: Patient seen and examined this morning no worsening respiratory distress discussed with nurse and respiratory therapist to wean oxygen off. Does not have any fever. Still awaiting for a.m. labs. Was reported that he does have urinary retention mentioned yesterday on the notes. We will obtain a CT abdomen and pelvis have asked the nurse to place a Boyle catheter if unable to place and patient does not void will obtain urology consultation. He does not exhibit any pain during my examination. For now continue antibiotics continue steroids. There is no mention of hematuria or blood around the penis. (1) Acute respiratory failure with hypoxia Current Visit: Yes Status: Acute Plan to address problem: Patient is persistently hypoxic Secondary to pneumonia and possibly COVID Oxygen supplementation as necessary (2) Left lower lobe pneumonia Current Visit: Yes Status: Acute Plan to address problem: Patient initiated on Zithromax and Rocephin COVID to be ruled out (3) Acute on chronic renal failure Current Visit: Yes Status: Acute Qualifiers: Acute renal failure type: unspecified Plan to address problem: IV fluids and nephrology consult (4) COVID-19 Current Visit: Yes Status: Acute Plan to address problem: Repeat COVID-19 test (5) Acute metabolic encephalopathy Very lethargic not following any commands at this time. Baseline is unknown but apparently it appears that he was able to eat but he is not doing better right now. Aspiration precaution (6) hypoglycemia Current Visit: Yes Status: Acute Plan to address problem: Corrected (7) Anemia ? Etiology Current Visit: Yes Status: Chronic Qualifiers: Anemia type: due to chronic kidney disease Chronic kidney disease stage: stage 3 (moderate) (8) Urinary retention (9) secondary coagulopathy with elevated INR (10) Hx of deep venous thrombosis Current Visit: Yes Status: Chronic Plan to address problem: On Eliquis (11) DVT prophylaxis Current Visit: Yes Status: Acute Plan to address problem: On Eliquis and GI prophylaxis (12) Advance care planning Current Visit: Yes Status: Acute Plan to address problem: Disease education conducted, care plan discussed, diet diagnosis discussed and prognosis discussed. Patient acknowledged understanding with care plan. +30. Critical care time 35 minutes History Interval history: Patient seen and examined this morning remains on 50% Venturi mask does not appear to be in any acute distress. He does speak but appears withdrawn. Hospitalist Physical - Physical exam Narrative exam: VITAL SIGNS: Reviewed. GENERAL: The patient appears normally developed, on Ventimask 50% vital signs as documented. HEAD: No signs of head trauma. EYES: Pupils are equal. Extraocular motions intact. EARS: Hearing grossly intact. MOUTH: Oropharynx is normal. NECK: No adenopathy, no JVD. CHEST: Chest with diminished breath sounds on the right with mild crackles on the left. No increased work of breathing noted. CARDIAC: Regular rate and rhythm. S1 and S2, without murmurs, gallops, or rubs. VASCULAR: No Edema. Peripheral pulses normal and equal in all extremities. ABDOMEN: Soft, non tender and non distended. No rebound or guarding, and no masses palpated. Bowel Sounds normal. MUSCULOSKELETAL: Good range of motion of all major joints on passive movement. Extremities without clubbing, cyanosis. +1 pitting edema bilateral lower extremity cool to the touch. NEUROLOGIC EXAM: Awake but not following any commands appears to be by choice. Asked me to leave him alone [place] exam. PSYCHIATRIC: Unable to fully assess. SKIN: detail exam as documented in skin assessment - Constitutional Vitals: Temp Pulse Resp BP Pulse Ox 94 F L 84 16 100/73 97 06/29/22 17:00 06/29/22 17:00 06/30/22 05:10 06/30/22 05:10 06/29/22 20:00 General appearance: Present: no acute distress, well-nourished HEART Score - HEART Score Risk factors: 1-2 risk factors Troponin: Troponin T 0.135 ng/mL (0.00-0.029) H* 06/28/22 14:57 Troponin: < normal limit - Critical Actions Critical Actions: 0-3 pts:0.9-1.7%risk of adverse cardiac event.Candidate for discharge Results - Labs CBC & Chem 7: 06/29/22 03:57 06/29/22 03:57 Labs: Laboratory Last Values WBC 6.7 K/mm3 (4.5-11.0) 06/29/22 03:57 RBC 2.68 M/mm3 (3.65-5.03) L 06/29/22 03:57 Hgb 7.8 gm/dl (11.8-15.2) L 06/29/22 03:57 Hct 24.4 % (35.5-45.6) L 06/29/22 03:57 MCV 91 fl (84-94) 06/29/22 03:57 MCH 29 pg (28-32) 06/29/22 03:57 MCHC 32 % (32-34) 06/29/22 03:57 RDW 19.6 % (13.2-15.2) H 06/29/22 03:57 Plt Count 138 K/mm3 (140-440) L 06/29/22 03:57 Lymph % (Auto) 7.2 % (13.4-35.0) L 06/29/22 03:57 [place] % (Auto) 4.1 % (0.0-7.3) 06/29/22 03:57 Eos % (Auto) 0.0 % (0.0-4.3) 06/29/22 03:57 Baso % (Auto) 0.1 % (0.0-1.8) 06/29/22 03:57 Lymph # (Auto) 0.5 K/mm3 (1.2-5.4) L 06/29/22 03:57 [place] # (Auto) 0.3 K/mm3 (0.0-0.8) 06/29/22 03:57 Eos # (Auto) 0.0 K/mm3 (0.0-0.4) 06/29/22 03:57 Baso # (Auto) 0.0 K/mm3 (0.0-0.1) 06/29/22 03:57 Seg Neutrophils % 88.6 % (40.0-70.0) H 06/29/22 03:57 Seg Neutrophils # 5.9 K/mm3 (1.8-7.7) 06/29/22 03:57 PT 30.2 Sec. (12.2-14.9) H 06/29/22 00:09 INR 2.49 (0.87-1.13) H 06/29/22 00:09 APTT 54.1 Sec. (24.2-36.6) H 06/29/22 00:09 D-Dimer 273.84 ng/mlDDU (0-234) H 06/28/22 16:11 ABG pH 7.383 pH Units (7.350-7.450) 06/28/22 14:53 ABG pCO2 19.1 mm Hg 06/28/22 14:53 ABG pO2 390.9 mm Hg (80.0-90.0) H 06/28/22 14:53 ABG HCO3 11.1 mmol/L (20.0-26.0) L 06/28/22 14:53 ABG O2 Saturation 99.5 % (95.0-99.0) H 06/28/22 14:53 ABG O2 Content 13.5 (0.0-44) 06/28/22 14:53 ABG Base Excess -12.3 mmol/L (-2.0-3.0) L 06/28/22 14:53 ABG Hemoglobin 9.0 gm/dl (14.0-18.0) L 06/28/22 14:53 ABG Carboxyhemoglobin 0.3 % (0.0-5.0) 06/28/22 14:53 ABG Methemoglobin 0.3 % (0.0-1.5) 06/28/22 14:53 Oxyhemoglobin 98.9 % (95.0-99.0) 06/28/22 14:53 FiO2 100 % 06/28/22 14:53 Sodium 139 mmol/L (137-145) 06/29/22 03:57 Potassium 4.1 mmol/L (3.6-5.0) 06/29/22 03:57 Chloride 115.5 mmol/L (98-107) H 06/29/22 03:57 Carbon Dioxide 11 mmol/L (22-30) L 06/29/22 03:57 Anion Gap 17 mmol/L 06/29/22 03:57 BUN 50 mg/dL (9-20) H 06/29/22 03:57 Creatinine 2.5 mg/dL (0.8-1.3) H 06/29/22 03:57 Estimated GFR 31 ml/min 06/29/22 03:57 BUN/Creatinine Ratio 20 % 06/29/22 03:57 Glucose 183 mg/dL (75-100) H 06/29/22 03:57 POC Glucose 147 mg/dL (70-105) H 06/30/22 05:39 Lactic Acid 3.30 mmol/L (0.7-2.0) H* 06/28/22 16:11 Calcium 8.7 mg/dL (8.4-10.2) 06/29/22 03:57 Ferritin 2520.0 ng/mL (30.0-300.0) H 06/28/22 16:11 Total Bilirubin 0.40 mg/dL (0.1-1.2) 06/29/22 03:57 AST 26 units/L (5-40) 06/29/22 03:57 ALT 13 units/L (7-56) 06/29/22 03:57 Alkaline Phosphatase 93 units/L (35-129) 06/29/22 03:57 Lactate Dehydrogenase 199 units/L (91-180) H 06/28/22 16:11 Troponin T 0.135 ng/mL (0.00-0.029) H* 06/28/22 14:57 C-Reactive Protein 4.60 mg/dL (0.00-1.30) H 06/28/22 16:11 Total Protein 4.2 g/dL (6.3-8.2) L 06/29/22 03:57 Albumin 1.4 g/dL (3.9-5) L 06/29/22 03:57 Albumin/Globulin Ratio 0.5 % 06/29/22 03:57 Triglycerides 95 mg/dL (2-149) 06/28/22 14:57 Cholesterol 74 mg/dL (50-199) 06/28/22 14:57 LDL Cholesterol Direct 21 mg/dL (50-130) L 06/28/22 14:57 HDL Cholesterol 22 mg/dL (40-59) L 06/28/22 14:57 Cholesterol/HDL Ratio 3.36 % 06/28/22 14:57 Procalcitonin 1.63 ng/mL (<0.15) 06/28/22 16:11 Microbiology: Microbiology 06/28/22 14:57 Peripheral/Venous Blood Culture - Preliminary NO GROWTH AFTER 24 HOURS 06/28/22 14:57 Peripheral/Venous Blood Culture - Preliminary NO GROWTH AFTER 24 HOURS Boyle/IV: Voiding Method Condom Catheter Active Medications - Current Medications Current Medications: Generic Name Dose Route Start Last Admin Trade Name Freq PRN Reason Stop Dose Admin Acetaminophen 650 mg 06/28/22 18:42 Acetaminophen 325 Mg Tab PO Q4H PRN Pain MILD(1-3)/Fever >100.5/GILES Apixaban 2.5 mg 06/28/22 22:00 06/29/22 21:30 Apixaban 2.5 Mg Tab PO 2.5 mg Q12HR PARRISH Administration Protocol Dexamethasone 8 mg 06/29/22 07:00 06/30/22 06:24 Dexamethasone 4 Mg/Ml Vial IV 07/08/22 10:59 8 mg Q24H PARRISH Administration Dextrose/Sodium Chloride 1,000 mls @ 150 mls/hr 06/28/22 16:00 06/29/22 09:13 D5ns IV 100 mls/hr DIRECT PARRISH Administration Azithromycin 500 mg in 250 mls @ 250 mls/hr 06/29/22 07:00 06/30/22 07:52 Zithromax/Ns IV 07/03/22 07:59 Infused Q24H PARRISH Infusion Cefepime HCl 2 gm in 100 mls @ 200 mls/hr 06/29/22 18:00 06/29/22 18:08 Cefepime/Ns 2 Gm/100 Ml IV 07/03/22 19:59 200 mls/hr Q24H PARRISH Administration Sodium Bicarbonate 150 meq/ 1,150 mls @ 75 mls/hr 06/29/22 14:00 06/29/22 20:17 Dextrose IV 75 mls/hr DIRECT PARRISH Administration Morphine Sulfate 2 mg 06/28/22 16:55 06/28/22 19:02 Morphine 2 Mg/1 Ml Inj IV 2 mg Q4H PRN Administration Pain, Moderate (4-6) Ondansetron HCl 4 mg 06/28/22 18:42 Ondansetron 4 Mg/2 Ml Inj IV Q8H PRN Nausea And Vomiting Oxycodone/Acetaminophen 1 tab 06/28/22 18:42 Oxycodone /Acetaminophen 5-325mg Tab PO Q6H PRN Pain, Moderate (4-6) Pantoprazole Sodium 40 mg 06/29/22 10:00 06/29/22 09:13 Pantoprazole 40 Mg Inj IV 40 mg QDAY PARRISH Administration Sodium Chloride 10 ml 06/28/22 22:00 06/29/22 21:30 Sodium Chloride 0.9% 10 Ml Flush Syringe IV 10 ml BID PARRISH Administration Sodium Chloride 10 ml 06/28/22 18:42 Sodium Chloride 0.9% 10 Ml Flush Syringe IV PRN PRN LINE FLUSH
[2022-06-30] MEDS: PANTOPRAZOLE 40 MG INJ IV SCH (10:41)
[2022-06-30] MEDS: APIXABAN 2.5 MG TAB PO SCH ×2 (10:41→21:36)
--- NOTE | 2022-06-30 12:04 | Consultation ---
History of Present Illness - Reason for Consult Consult date: 06/30/22 Reason for consult: possible depression - History of Present Psychiatric Illness HPI: 72-year male presents from retirement with COVID-19 (diagnosed 06/21/2022), chronic renal insufficiency, hypertension, cognitive communication deficit, dysphagia, DVT currently on Eliquis, and hyperlipidemia presents to the hospital with complaints of hypoxia and shortness of breath. EMS reports that patient is on 3 L of nasal cannula at the retirement they were unable to obtain a accurate O2 sat. Patient was placed on nonrebreather for transport to the hospital. Patient appears to have mild to moderate respiratory distress on nonrebreather upon ED presentation. The patient was seen today. Psych services was consulted for possible depression, per statistical secretary. He is lying in bed resting. He responds when I call his name. He is confused. He says "I don't know" when I'm trying to evaluate him. PAST PSYCHIATRIC HISTORY: Unable to assess PAST MEDICAL HISTORY: Unable to obtain Family Psychiatric History Unable to obtain SOCIAL HISTORY Unable to assess REVIEW OF SYSTEMS Unable to obtain Diagnoses: Dementia w/Behavioral Disturbance Treatment Plan Start Mirtazapine 7.5 qhs to promote rest and stimulate appetite. Medical: per primary Sitter: Defer to primary Disposition: Do not recommend acute psychiatric inpatient treatment Will follow for med management. Thanks Case staffed with Dr. Arce Medications and Allergies Allergies Allergy/AdvReac Type Severity Reaction Status Date / Time No Known Allergies Allergy Verified 06/28/22 13:48 Home Medications Medication Instructions Recorded Confirmed Last Taken Type Aspirin 325 mg PO QDAY #30 tablet 03/07/22 Unknown Rx AtorvaSTATin [Lipitor] 40 mg PO QHS 30 Days #30 tab 03/07/22 Unknown Rx Active Meds: Active Medications Acetaminophen (Acetaminophen 325 Mg Tab) 650 mg PO Q4H PRN PRN Reason: Pain MILD(1-3)/Fever >100.5/GILES Apixaban (Apixaban 2.5 Mg Tab) 2.5 mg PO Q12HR PARRISH; Protocol Last Admin: 06/30/22 10:41 Dose: 2.5 mg Dexamethasone (Dexamethasone 4 Mg/Ml Vial) 8 mg IV Q24H PARRISH Stop: 07/08/22 10:59 Last Admin: 06/30/22 06:24 Dose: 8 mg Dextrose/Sodium Chloride (D5ns) 1,000 mls @ 150 mls/hr IV DIRECT PARRISH Last Admin: 06/29/22 09:13 Dose: 100 mls/hr Azithromycin (Zithromax/Ns) 500 mg in 250 mls @ 250 mls/hr IV Q24H [facility] Stop: 07/03/22 07:59 Last Infusion: 06/30/22 07:52 Dose: Infused Cefepime HCl (Cefepime/Ns 2 Gm/100 Ml) 2 gm in 100 mls @ 200 mls/hr IV Q24H [facility] Stop: 07/03/22 19:59 Last Admin: 06/29/22 18:08 Dose: 200 mls/hr Sodium Bicarbonate 150 meq/ (Dextrose) 1,150 mls @ 75 mls/hr IV DIRECT [facility] Last Admin: 06/29/22 20:17 Dose: 75 mls/hr Morphine Sulfate (Morphine 2 Mg/1 Ml Inj) 2 mg IV Q4H PRN PRN Reason: Pain, Moderate (4-6) Last Admin: 06/28/22 19:02 Dose: 2 mg Ondansetron HCl (Ondansetron 4 Mg/2 Ml Inj) 4 mg IV Q8H PRN PRN Reason: Nausea And Vomiting Oxycodone/Acetaminophen (Oxycodone /Acetaminophen 5-325mg Tab) 1 tab PO Q6H PRN PRN Reason: Pain, Moderate (4-6) Pantoprazole Sodium (Pantoprazole 40 Mg Inj) 40 mg IV QDAY [facility] Last Admin: 06/30/22 10:41 Dose: 40 mg Sodium Chloride (Sodium Chloride 0.9% 10 Ml Flush Syringe) 10 ml IV BID [facility] Last Admin: 06/30/22 10:41 Dose: 10 ml Sodium Chloride (Sodium Chloride 0.9% 10 Ml Flush Syringe) 10 ml IV PRN PRN PRN Reason: LINE FLUSH Mental Status Exam - Vital signs Last Vital Signs Temp 94 F L 06/29/22 17:00 Pulse 84 06/29/22 17:00 Resp 16 06/30/22 05:10 BP 100/73 06/30/22 05:10 Pulse Ox 100 06/30/22 09:30 Results Result Diagrams: 06/29/22 03:57 06/29/22 03:57 Abnormal lab results 06/29/22 06/29/22 06/30/22 Range/Units 23:26 Unknown 05:39 POC Glucose 170 H 147 H (70-105) mg/dL Coronavirus (PCR) Positive A (Negative) 06/30/22 Range/Units 11:32 POC Glucose 136 H (70-105) mg/dL Coronavirus (PCR) (Negative) All other labs normal.
--- NOTE | 2022-06-30 12:17 | Cat Scan Report ---
CT ABDOMEN AND PELVIS WITHOUT CONTRAST, 06/30/2022 INDICATION: Urinary retention TECHNICAL: Multiple axial CT images of the abdomen and pelvis were acquired without intravenous contr ast. Sagittal and coronal reformats were obtained. All CTs at this facility utilize dose reduction techniques including automated exposure control, iterative reconstruction and weight based dosing whe n appropriate to reduce patient radiation dose to as low as reasonable achievable. COMPARISON: No prior abdominal and pelvic imaging is available for comparison. CT of the chest withou t contrast was reviewed. FINDINGS: Lung bases: Limited imaging of the bilateral lung bases demonstrate a moderate sized left-sided pleur al effusion and associated consolidation similar to the recent previous study. ABDOMEN: Evaluation is very limited without the use of intravenous contrast and due to the paucity of abdomina l fat. LIVER/BILE DUCTS: No significant abnormality. GALL BLADDER: No significant abnormality. STOMACH: No significant abnormality. PANCREAS: No significant abnormality. SPLEEN: No significant abnormality. ADRENALS: No significant abnormality. RIGHT KIDNEY / URETER: The right kidney appears atrophic. There is a right-sided ureteral catheter wi th superior end within the right renal pelvis. LEFT KIDNEY / URETER: The left kidney appears atrophic. AORTA: The abdominal aorta is normal in caliber with dense atherosclerotic calcified calcifications. There is a filter within the infrarenal vena cava. SMALL AND LARGE BOWEL: Small and large bowel appear grossly normal in caliber. APPENDIX: The appendix is not clearly identified. PELVIS: REPRODUCTIVE: No significant abnormality. BLADDER: There is moderate circumferential thickening of the urinary bladder wall. The urinary bladde r is mildly distended. The inferior end of the right-sided ureteral catheter resides in the bladder. FREE FLUID: There is small to moderate amount of free abdominopelvic fluid and generalized mesenteric stranding. BONES : There is moderate multilevel degenerative change throughout the thoracolumbar spine. SOFT TISSUES: There is generalized soft tissue edema particularly involving the left flank and left h ip. IMPRESSION: 1. Mild distention and circumferential wall thickening of the urinary bladder. This is nonspecific bu t may suggest cystitis in the appropriate clinical setting. 2. Small to moderate amount of free abdominopelvic fluid. 3. Left basilar consolidation with associated pleural effusion. 4. Generalized anasarca. Signer Name: Roxana Hernandez MD Signed: 06/30/2022 12:13 PM Workstation Name: [email or web address]
--- NOTE | 2022-06-30 12:30 | Progress Note ---
Assessment and Plan Impression * Acute on chronic renal failure. Baseline creatinine 1.8-2.0 from March 2022 * metabolic acidosis. Lactic acidosis * Altered mental status * Sepsis * History of CVA * History of hypertension * History of DVT * Anemia Recommendations * Follow-up results of UA as well as fractional excretion of sodium * CT scan of his abdomen shows mildly distended bladder. Patient currently has a condom catheter in place. * Shall place a Boyle catheter for now * Continue bicarbonate drip * Follow-up results of vasculitis work-up to rule out pulmonary renal syndrome * Avoid nephrotoxins * Monitor fluid status and electrolytes closely * No urgent indication for renal replacement therapy today * Today's labs are still pending Subjective Date of service: 06/30/22 Interval history: Patient is comfortable today. Currently on oxygen at 2 L/min via nasal cannula. He has a condom catheter in place. Objective - Vital Signs Vital signs: Vital Signs - 12hr 06/30/22 06/30/22 05:10 09:30 Respiratory 16 Rate Blood Pressure 100/73 O2 Sat by Pulse 100 Oximetry - General Appearance General appearance: well-developed, well-nourished, appears stated age EENT: PERRL, mucous membranes moist Neck: no JVD, no thyromegaly, no carotid bruit, supple Respiratory: Present: Clear to Ascultation Cardiology: regular, normal heart rate Gastrointestinal: normal, normoactive bowel sounds Integumentary: other (1+ edema) - Lab 06/29/22 03:57 06/29/22 03:57 Most recent lab results ABG pH 7.383 pH Units (7.350-7.450) 06/28/22 14:53 ABG pCO2 19.1 mm Hg 06/28/22 14:53 ABG pO2 390.9 mm Hg (80.0-90.0) H 06/28/22 14:53 ABG HCO3 11.1 mmol/L (20.0-26.0) L 06/28/22 14:53 ABG O2 Saturation 99.5 % (95.0-99.0) H 06/28/22 14:53 Calcium 8.7 mg/dL (8.4-10.2) 06/29/22 03:57 Medications & Allergies - Medications Allergies/Adverse Reactions: Allergies No Known Allergies Allergy (Verified 06/28/22 13:48) Home Medications: Home Medications Medication Instructions Recorded Confirmed Last Taken Type Aspirin 325 mg PO QDAY #30 tablet 03/07/22 Unknown Rx AtorvaSTATin [Lipitor] 40 mg PO QHS 30 Days #30 tab 03/07/22 Unknown Rx Active Medications: Generic Name Dose Route Start Last Admin Trade Name Freq PRN Reason Stop Dose Admin Acetaminophen 650 mg 06/28/22 18:42 Acetaminophen 325 Mg Tab PO Q4H PRN Pain MILD(1-3)/Fever >100.5/GILES Apixaban 2.5 mg 06/28/22 22:00 06/30/22 10:41 Apixaban 2.5 Mg Tab PO 2.5 mg Q12HR PARRISH Administration Protocol Dexamethasone 8 mg 06/29/22 07:00 06/30/22 06:24 Dexamethasone 4 Mg/Ml Vial IV 07/08/22 10:59 8 mg Q24H PARRISH Administration Dextrose/Sodium Chloride 1,000 mls @ 150 mls/hr 06/28/22 16:00 06/29/22 09:13 D5ns IV 100 mls/hr DIRECT PARRISH Administration Azithromycin 500 mg in 250 mls @ 250 mls/hr 06/29/22 07:00 06/30/22 07:52 Zithromax/Ns IV 07/03/22 07:59 Infused Q24H PARRISH Infusion Cefepime HCl 2 gm in 100 mls @ 200 mls/hr 06/29/22 18:00 06/29/22 18:08 Cefepime/Ns 2 Gm/100 Ml IV 07/03/22 19:59 200 mls/hr Q24H PARRISH Administration Sodium Bicarbonate 150 meq/ 1,150 mls @ 75 mls/hr 06/29/22 14:00 06/29/22 20:17 Dextrose IV 75 mls/hr DIRECT PARRISH Administration Mirtazapine 7.5 mg 06/30/22 22:00 Mirtazapine 15 Mg Tab PO QHS PARRISH Morphine Sulfate 2 mg 06/28/22 16:55 06/28/22 19:02 Morphine 2 Mg/1 Ml Inj IV 2 mg Q4H PRN Administration Pain, Moderate (4-6) Ondansetron HCl 4 mg 06/28/22 18:42 Ondansetron 4 Mg/2 Ml Inj IV Q8H PRN Nausea And Vomiting Oxycodone/Acetaminophen 1 tab 06/28/22 18:42 Oxycodone /Acetaminophen 5-325mg Tab PO Q6H PRN Pain, Moderate (4-6) Pantoprazole Sodium 40 mg 06/29/22 10:00 06/30/22 10:41 Pantoprazole 40 Mg Inj IV 40 mg QDAY PARRISH Administration Sodium Chloride 10 ml 06/28/22 22:00 06/30/22 10:41 Sodium Chloride 0.9% 10 Ml Flush Syringe IV 10 ml BID PARRISH Administration Sodium Chloride 10 ml 06/28/22 18:42 Sodium Chloride 0.9% 10 Ml Flush Syringe IV PRN PRN LINE FLUSH
[2022-06-30] MEDS: CEFEPIME/NS 2 GM/100 ML 2 GM/100 ML BAG IV SCH (18:21)
[2022-06-30] MEDS: MIRTAZAPINE 15 MG TAB PO SCH (21:35)
[2022-06-30] MEDS: SODIUM BICARBONATE 150 MEQ in DEXTROSE 5% IN WATER 1,000 ML IV SCH (22:29)
[2022-07-01] MEDS: dexAMETHasone 4 MG/ML VIAL IV SCH (06:07)
[2022-07-01] MEDS: AZITHROMYCIN/NS 500 MG/250 ML 500 MG/250 ML BAG IV SCH (06:08)
[2022-07-01] MEDS: APIXABAN 2.5 MG TAB PO SCH (10:37)
[2022-07-01] MEDS: PANTOPRAZOLE 40 MG TAB PO SCH (10:37)
--- NOTE | 2022-07-01 10:44 | Consultation ---
History of Present Illness - Reason for Consult Consult date: 07/01/22 COVID, LLL pneumonia Requesting physician: ANIL GROVE - History of Present Illness The patient is a 72-year-old male with prior CVA, DVT on anticoagulation, CKD, hypertension, dysphagia [facility] being diagnosed with COVID and noted to have shortness of breath with hypoxia. Upon evaluation in the ED, he was on nonrebreather. Hypothermic, labs showed leukopenia, mild thrombocytopenia, creatinine 2.7, elevated lactate, procalcitonin 1.63, CRP 4.6, ferritin 2520. Tested positive for COVID-19. Infectious diseases was consulted for additional evaluation. CT abdomen and pelvis showed left basilar consolidation, pleural effusion, generalized anasarca, mild distention and wall thickening of urinary bladder suggesting possible cystitis. Chest x-ray showed a subtle left retrocardiac opacity. CT chest showed left lower lobe pneumonia. Patient currently on 2 L oxygen by nasal cannula, mild bradycardia. Receiving azithromycin, cefepime, Decadron. Review of Systems: Drowsy, limited due to mental status Past History Past Medical History: hypertension, stroke, other (Chronic kidney disease and history of DVT) Past Surgical History: Other (Unknown) Social history: other (Unknown) Family history: other (Unknown) Medications and Allergies Allergies Allergy/AdvReac Type Severity Reaction Status Date / Time No Known Allergies Allergy Verified 06/28/22 13:48 Home Medications Medication Instructions Recorded Confirmed Last Taken Type Aspirin 325 mg PO QDAY #30 tablet 03/07/22 Unknown Rx AtorvaSTATin [Lipitor] 40 mg PO QHS 30 Days #30 tab 03/07/22 Unknown Rx Active Meds: Active Medications Acetaminophen (Acetaminophen 325 Mg Tab) 650 mg PO Q4H PRN PRN Reason: Pain MILD(1-3)/Fever >100.5/GILES Apixaban (Apixaban 2.5 Mg Tab) 2.5 mg PO Q12HR [facility]; Protocol Last Admin: 07/01/22 10:37 Dose: 2.5 mg Dexamethasone (Dexamethasone 4 Mg/Ml Vial) 8 mg IV Q24H [facility] Stop: 07/08/22 10:59 Last Admin: 07/01/22 06:07 Dose: 8 mg Azithromycin (Zithromax/Ns) 500 mg in 250 mls @ 250 mls/hr IV Q24H [facility] Stop: 07/03/22 07:59 Last Admin: 07/01/22 06:08 Dose: 250 mls/hr Cefepime HCl (Cefepime/Ns 2 Gm/100 Ml) 2 gm in 100 mls @ 200 mls/hr IV Q24H [facility] Stop: 07/03/22 19:59 Last Admin: 06/30/22 18:21 Dose: 200 mls/hr Sodium Bicarbonate 150 meq/ (Dextrose) 1,150 mls @ 75 mls/hr IV DIRECT [facility] Last Admin: 06/30/22 22:29 Dose: 75 mls/hr Mirtazapine (Mirtazapine 15 Mg Tab) 7.5 mg PO QHS [facility] Last Admin: 06/30/22 21:35 Dose: 7.5 mg Morphine Sulfate (Morphine 2 Mg/1 Ml Inj) 2 mg IV Q4H PRN PRN Reason: Pain, Moderate (4-6) Last Admin: 06/28/22 19:02 Dose: 2 mg Ondansetron HCl (Ondansetron 4 Mg/2 Ml Inj) 4 mg IV Q8H PRN PRN Reason: Nausea And Vomiting Oxycodone/Acetaminophen (Oxycodone /Acetaminophen 5-325mg Tab) 1 tab PO Q6H PRN PRN Reason: Pain, Moderate (4-6) Pantoprazole Sodium (Pantoprazole 40 Mg Tab) 40 mg PO QAMDIAB [facility] Last Admin: 07/01/22 10:37 Dose: 40 mg Sodium Chloride (Sodium Chloride 0.9% 10 Ml Flush Syringe) 10 ml IV BID [facility] Last Admin: 07/01/22 10:37 Dose: 10 ml Sodium Chloride (Sodium Chloride 0.9% 10 Ml Flush Syringe) 10 ml IV PRN PRN PRN Reason: LINE FLUSH Physical Examination - Physical Exam Narrative exam: Physical Exam: Constitutional: Drowsy, no distress Head, Ears, Nose: Normocephalic, atraumatic. External ears, nose normal Eyes: Conjunctivae/corneas clear. No icterus. No ptosis. Neck: Supple, no meningeal signs Oral: Unable to examine Cardiovascular: S1, S2 + Respiratory: Good air entry, clear to auscultation bilaterally GI: Soft, non-tender; bowel sounds normal. No peritoneal signs Musculoskeletal: No pedal edema, no cyanosis. Skin: No rash or abscess Hem/Lymphatic: No palpable cervical or supraclavicular nodes. No lymphangitis Psych: Drowsy, no agitation Neurological: Drowsy - Constitutional Vitals: Vital Signs Temp Pulse Resp BP Pulse Ox 97.9 F 53 L 16 91/61 94 07/01/22 04:28 07/01/22 04:28 07/01/22 04:28 07/01/22 04:28 07/01/22 07:47 Temperature -Last 24 Hours Temperature 97.9 F Temperature 91 F Results - Labs CBC & Chem 7: 06/29/22 03:57 06/29/22 03:57 Labs: Abnormal lab results 06/29/22 06/30/22 06/30/22 Range/Units Unknown 11:32 17:33 POC Glucose 136 H 136 H (70-105) mg/dL Coronavirus (PCR) Positive A (Negative) 06/30/22 07/01/22 Range/Units 21:42 06:26 POC Glucose 125 H 130 H (70-105) mg/dL Coronavirus (PCR) (Negative) - Imaging and Cardiology Chest x-ray: report reviewed, image reviewed (LLL pna) CT scan - chest: report reviewed, image reviewed (LLL pneumonia. ) Assessment and Plan Cultures: SARS CoV2 PCR: positive 06/28/2022 blood culture: No growth A/P: 72-year-old male with prior CVA, DVT on anticoagulation, CKD, hypertension, dysphagia [facility] after being diagnosed with COVID and noted to have shortness of breath with hypoxia: #COVID-19 pneumonia: PCR positive, hypoxic requiring supplemental oxygen. CT chest with left lower lobe pneumonia. #Acute hypoxic respiratory failure: On nasal cannula #MALIHA on CKD: Renally adjust antibiotics. Nephrology following. #Leukopenia: Likely related to viral illness. Improved. #Mild thrombocytopenia Recs: -Continue IV/PO Dexamethasone x 10 days -Not a candidate for remdesivir due to CKD/elevated creatinine -Complete 5 days of cefepime (renally dosed), azithromycin, will cover for bacterial pneumonia due to elevated procalcitonin and also cover for possible cy stitis. No UA available -Already on apixaban for anticoagulation -trend CRP every 2-3 days Deyanira Sutherland MD, FACP, [facility] O: [phone] F: [phone] C: [phone]
--- NOTE | 2022-07-01 10:51 | Consultation ---
History of Present Illness - Reason for Consult Consult date: 07/01/22 - History of Present Illness NEW TO [facility] COVID 19 INFECTION RENAL INSUFFICIENCY 72-year male with history of CVA and DVT [facility]- [facility] (diagnosed 06/21/2022), chronic renal insufficiency, hypertension, cognitive communication deficit, dysphagia, DVT currently on Eliquis, and hyperlipid emia with complaints of hypoxia and shortness of breath. EMS reports that patient is on 3 L of nasal cannula [facility] they were unable to obtain a accurate O2 sat. Patient was placed on nonrebreather for transport to the hospital. Patient appears to have mild to moderate respiratory distress on nonrebreather upon ED presentation. Pt resting well, hard to wake up. Nurse just spoke with pt and he was fine. Recently voided 300cc per nurse. g-tube from last visit removed. pt eating. + blood thinner CTAP--- mild bladder distenstion, rt jj stent ( not placed here) --- bilat atrophic kidneys abd soft condom catheter a/p bph atrophic kidneys blood thinner creatinine 2.5 now---- last visit 1.8--2 start flomax 1qd hold newberry for now Past History Past Medical History: hypertension, stroke, other (Chronic kidney disease and history of DVT) Past Surgical History: Other (Unknown) Social history: other (Unknown) Family history: other (Unknown) Medications and Allergies Allergies Allergy/AdvReac Type Severity Reaction Status Date / Time No Known Allergies Allergy Verified 06/28/22 13:48 Home Medications Medication Instructions Recorded Confirmed Last Taken Type Aspirin 325 mg PO QDAY #30 tablet 03/07/22 Unknown Rx AtorvaSTATin [Lipitor] 40 mg PO QHS 30 Days #30 tab 03/07/22 Unknown Rx Active Meds: Active Medications Acetaminophen (Acetaminophen 325 Mg Tab) 650 mg PO Q4H PRN PRN Reason: Pain MILD(1-3)/Fever >100.5/GILES Apixaban (Apixaban 2.5 Mg Tab) 2.5 mg PO Q12HR [facility]; Protocol Last Admin: 07/01/22 10:37 Dose: 2.5 mg Dexamethasone (Dexamethasone 4 Mg/Ml Vial) 8 mg IV Q24H [facility] Stop: 07/08/22 10:59 Last Admin: 07/01/22 06:07 Dose: 8 mg Azithromycin (Zithromax/Ns) 500 mg in 250 mls @ 250 mls/hr IV Q24H [facility] Stop: 07/03/22 07:59 Last Admin: 07/01/22 06:08 Dose: 250 mls/hr Cefepime HCl (Cefepime/Ns 2 Gm/100 Ml) 2 gm in 100 mls @ 200 mls/hr IV Q24H [facility] Stop: 07/03/22 19:59 Last Admin: 06/30/22 18:21 Dose: 200 mls/hr Sodium Bicarbonate 150 meq/ (Dextrose) 1,150 mls @ 75 mls/hr IV DIRECT [facility] Last Admin: 06/30/22 22:29 Dose: 75 mls/hr Mirtazapine (Mirtazapine 15 Mg Tab) 7.5 mg PO QHS [facility] Last Admin: 06/30/22 21:35 Dose: 7.5 mg Morphine Sulfate (Morphine 2 Mg/1 Ml Inj) 2 mg IV Q4H PRN PRN Reason: Pain, Moderate (4-6) Last Admin: 06/28/22 19:02 Dose: 2 mg Ondansetron HCl (Ondansetron 4 Mg/2 Ml Inj) 4 mg IV Q8H PRN PRN Reason: Nausea And Vomiting Oxycodone/Acetaminophen (Oxycodone /Acetaminophen 5-325mg Tab) 1 tab PO Q6H PRN PRN Reason: Pain, Moderate (4-6) Pantoprazole Sodium (Pantoprazole 40 Mg Tab) 40 mg PO QAMDIAB [facility] Last Admin: 07/01/22 10:37 Dose: 40 mg Sodium Chloride (Sodium Chloride 0.9% 10 Ml Flush Syringe) 10 ml IV BID [facility] Last Admin: 07/01/22 10:37 Dose: 10 ml Sodium Chloride (Sodium Chloride 0.9% 10 Ml Flush Syringe) 10 ml IV PRN PRN PRN Reason: LINE FLUSH Exam - Constitutional Vitals: Temp Pulse Resp BP Pulse Ox 97.9 F 53 L 16 91/61 94 07/01/22 04:28 07/01/22 04:28 07/01/22 04:28 07/01/22 04:28 07/01/22 07:47 Results - Labs CBC & Chem 7: 06/29/22 03:57 06/29/22 03:57 Labs: Abnormal lab results 06/29/22 06/30/22 06/30/22 Range/Units Unknown 11:32 17:33 POC Glucose 136 H 136 H (70-105) mg/dL Coronavirus (PCR) Positive A (Negative) 06/30/22 07/01/22 Range/Units 21:42 06:26 POC Glucose 125 H 130 H (70-105) mg/dL Coronavirus (PCR) (Negative)
--- NOTE | 2022-07-01 12:45 | Progress Note ---
Subjective - Reason for Consult Consult date: 07/01/22 Reason for consult: AMS - Chief Complaint Chief complaint: The patient was seen today. Consulted psych for possible depression, poor intake. The patient was sleeping and could not be arouses enough to engage in the evaluation. PAST PSYCHIATRIC HISTORY: Unable to assess PAST MEDICAL HISTORY: Unable to obtain Family Psychiatric History Unable to obtain SOCIAL HISTORY Unable to assess REVIEW OF SYSTEMS Unable to obtain Diagnoses: Dementia w/Behavioral Disturbance Treatment Plan Continue Mirtazapine 7.5 qhs to promote rest and stimulate appetite. Medical: per primary Sitter: Defer to primary Disposition: Do not recommend acute psychiatric inpatient treatment Will follow for med management. Thanks Case staffed with Dr. Arce Mental Status Exam - Vital signs Last Vital Signs Temp 97.9 F 07/01/22 04:28 Pulse 53 L 07/01/22 04:28 Resp 16 07/01/22 04:28 BP 91/61 07/01/22 04:28 Pulse Ox 94 07/01/22 07:47
[2022-07-01] MEDS: TAMSULOSIN 0.4 MG CAP PO SCH (13:45)
--- NOTE | 2022-07-01 13:51 | Progress Note ---
Assessment and Plan Assessment and plan: Persistent hypoxia and hypoglycemia 1 day 72-year male with history of CVA and DVT presents from retirement with COVID- 19 (diagnosed 06/21/2022), chronic renal insufficiency, hypertension, cognitive communication deficit, dysphagia, DVT currently on Eliquis, and hyperlipidemia with complaints of hypoxia and shortness of breath and hypoglycemia with a blood sugar of 14. EMS reports that patient is on 3 L of nasal cannula at the retirement they were unable to obtain a accurate O2 sat. Patient was placed on nonrebreather for transport to the hospital. Patient appears to have mild to moderate respiratory distress on nonrebreather upon ED presentation. Patient is also hypoglycemic with a blood sugar of 14 initially 06/28/22 14:57 Peripheral/Venous Blood Culture - Preliminary Culture in Progress CT chest Suspected left lower lobe pneumonia given the patient history of COVID-19 and shortness of breath which likely account for the abnormality seen on the prior chest radiograph Small left pleural effusion Cholelithiasis without evidence of acute cholecystitis Chest x-ray Irregular parenchymal opacity in the left retrocardiac region medially may be inflammatory or neoplastic. CT chest will be helpful for further evaluation. 06/29: Patient seen and examined, Imaging studies on admission showed left lobar pneumonia. BG is improved, will monitor blood sugars patient was initially with a sugar level of 14. At this point he remains with acute encephalopathy and as a result is not tolerating anything p.o. Will obtain swallow evaluation. Keep head of bed elevated. We will continue empiric antibiotic coverage and consult infectious disease for assistance with management. I have asked to have patient wean from Venturi mask and if this is unable to be done in the next 24 hours will obtain pulmonary consultation. In addition to the management listed below he does have metabolic acidosis for which I will give him a dose of bicarb while awaiting nephrology evaluation. He did have severe protein calorie malnutrition it appeared that he had a PEG tube at some point I have tried to call the family to get more information but no one is picking up. I do not have access to the facility where he came from. In the meantime a Dobbhoff may need to be inserted if there is no improvement in mental status for diet. Anemia concern is unknown if the patient who is on Eliquis and with elevated INR has not any bleed. I have asked the nurse to check stool for occult blood. We will monitor H&H closely and start the patient on PPI. Patient remains critically ill and requires to continue in the hospital for full evaluation. 06/30: Patient seen and examined this morning no worsening respiratory distress discussed with nurse and respiratory therapist to wean oxygen off. Does not have any fever. Still awaiting for a.m. labs. Was reported that he does have urinary retention mentioned yesterday on the notes. We will obtain a CT abdomen and pelvis have asked the nurse to place a Boyle catheter if unable to place and patient does not void will obtain urology consultation. He does not exhibit any pain during my examination. For now continue antibiotics continue steroids. There is no mention of hematuria or blood around the penis. 07/01: Patient seen and examined no worsening distress. Unable to place Boyle due to pain and hematuria. Urologist input noted CTAP showed mild bladder distention with right JJ stent that was placed elsewhere. Bilateral atrophic kidneys. Patient remains on Eliquis and could be the consideration of the hematuria. Urology recommends to start Flomax on hold Boyle at this time. Still waiting for repeat labs from yesterday and today. ID input is also noted patient was restarted on steroid therapy. Again does not appear to be in any significant distress. Speech therapist recommended pured diet with nectar thick fluids. Patient will need assistance with home enteral feeding at this time. I have tried to call the family multiple times unable to reach family Case management is also assisting. Would like to discuss goals of care with the family. Anticipate discharge in 24 to 48 hours once all goals of care is established (1) Acute respiratory failure with hypoxia Current Visit: Yes Status: Acute Plan to address problem: Patient is persistently hypoxic Secondary to pneumonia and possibly COVID Oxygen supplementation as necessary (2) Left lower lobe pneumonia Current Visit: Yes Status: Acute Plan to address problem: Patient initiated on Zithromax and Rocephin COVID to be ruled out (3) Acute on chronic renal failure Current Visit: Yes Status: Acute Qualifiers: Acute renal failure type: unspecified Plan to address problem: IV fluids and nephrology consult (4) COVID-19 Current Visit: Yes Status: Acute Plan to address problem: Repeat COVID-19 test (5) Acute metabolic encephalopathy Very lethargic not following any commands at this time. Baseline is unknown but apparently it appears that he was able to eat but he is not doing better right now. Aspiration precaution (6) hypoglycemia Current Visit: Yes Status: Acute Plan to address problem: Corrected (7) Anemia ? Etiology Current Visit: Yes Status: Chronic Qualifiers: Anemia type: due to chronic kidney disease Chronic kidney disease stage: stage 3 (moderate) (8) Urinary retention (9) secondary coagulopathy with elevated INR (10) Hx of deep venous thrombosis Current Visit: Yes Status: Chronic Plan to address problem: On Eliquis (11) DVT prophylaxis Current Visit: Yes Status: Acute Plan to address problem: On Eliquis and GI prophylaxis (12) Advance care planning Current Visit: Yes Status: Acute Plan to address problem: Disease education conducted, care plan discussed, diet diagnosis discussed and prognosis discussed. Patient acknowledged understanding with care plan. +30. Critical care time 35 minutes History Interval history: Patient seen and examined this morning not on 2 L nasal cannula no acute distress. Does not follow commands but responds to noxious stimuli and actually does speak. Hospitalist Physical - Physical exam Narrative exam: VITAL SIGNS: Reviewed. GENERAL: The patient appears normally developed, on 2 L nasal cannula vital signs as documented. HEAD: No signs of head trauma. EYES: Pupils are equal. Extraocular motions intact. EARS: Hearing grossly intact. MOUTH: Oropharynx is normal. NECK: No adenopathy, no JVD. CHEST: Chest with diminished breath sounds on the right with mild crackles on the left. No increased work of breathing noted. CARDIAC: Regular rate and rhythm. S1 and S2, without murmurs, gallops, or rubs. VASCULAR: No Edema. Peripheral pulses normal and equal in all extremities. ABDOMEN: Soft, non tender and non distended. No rebound or guarding, and no masses palpated. Bowel Sounds normal. MUSCULOSKELETAL: Good range of motion of all major joints on passive movement. Extremities without clubbing, cyanosis. +1 pitting edema bilateral lower extremity cool to the touch. NEUROLOGIC EXAM: Awake but not following any commands appears to be by choice. Asked me to leave him alone [place] exam. PSYCHIATRIC: Unable to fully assess. SKIN: detail exam as documented in skin assessment - Constitutional Vitals: Temp Pulse Resp BP Pulse Ox 97.9 F 53 L 16 91/61 94 07/01/22 04:28 07/01/22 04:28 07/01/22 04:28 07/01/22 04:28 07/01/22 07:47 General appearance: Present: no acute distress, well-nourished HEART Score - HEART Score Risk factors: 1-2 risk factors Troponin: Troponin T 0.135 ng/mL (0.00-0.029) H* 06/28/22 14:57 Troponin: < normal limit - Critical Actions Critical Actions: 0-3 pts:0.9-1.7%risk of adverse cardiac event.Candidate for discharge Results - Labs CBC & Chem 7: 06/29/22 03:57 06/29/22 03:57 Labs: Laboratory Last Values WBC 6.7 K/mm3 (4.5-11.0) 06/29/22 03:57 RBC 2.68 M/mm3 (3.65-5.03) L 06/29/22 03:57 Hgb 7.8 gm/dl (11.8-15.2) L 06/29/22 03:57 Hct 24.4 % (35.5-45.6) L 06/29/22 03:57 MCV 91 fl (84-94) 06/29/22 03:57 MCH 29 pg (28-32) 06/29/22 03:57 MCHC 32 % (32-34) 06/29/22 03:57 RDW 19.6 % (13.2-15.2) H 06/29/22 03:57 Plt Count 138 K/mm3 (140-440) L 06/29/22 03:57 Lymph % (Auto) 7.2 % (13.4-35.0) L 06/29/22 03:57 [place] % (Auto) 4.1 % (0.0-7.3) 06/29/22 03:57 Eos % (Auto) 0.0 % (0.0-4.3) 06/29/22 03:57 Baso % (Auto) 0.1 % (0.0-1.8) 06/29/22 03:57 Lymph # (Auto) 0.5 K/mm3 (1.2-5.4) L 06/29/22 03:57 [place] # (Auto) 0.3 K/mm3 (0.0-0.8) 06/29/22 03:57 Eos # (Auto) 0.0 K/mm3 (0.0-0.4) 06/29/22 03:57 Baso # (Auto) 0.0 K/mm3 (0.0-0.1) 06/29/22 03:57 Seg Neutrophils % 88.6 % (40.0-70.0) H 06/29/22 03:57 Seg Neutrophils # 5.9 K/mm3 (1.8-7.7) 06/29/22 03:57 PT 30.2 Sec. (12.2-14.9) H 06/29/22 00:09 INR 2.49 (0.87-1.13) H 06/29/22 00:09 APTT 54.1 Sec. (24.2-36.6) H 06/29/22 00:09 D-Dimer 273.84 ng/mlDDU (0-234) H 06/28/22 16:11 ABG pH 7.383 pH Units (7.350-7.450) 06/28/22 14:53 ABG pCO2 19.1 mm Hg 06/28/22 14:53 ABG pO2 390.9 mm Hg (80.0-90.0) H 06/28/22 14:53 ABG HCO3 11.1 mmol/L (20.0-26.0) L 06/28/22 14:53 ABG O2 Saturation 99.5 % (95.0-99.0) H 06/28/22 14:53 ABG O2 Content 13.5 (0.0-44) 06/28/22 14:53 ABG Base Excess -12.3 mmol/L (-2.0-3.0) L 06/28/22 14:53 ABG Hemoglobin 9.0 gm/dl (14.0-18.0) L 06/28/22 14:53 ABG Carboxyhemoglobin 0.3 % (0.0-5.0) 06/28/22 14:53 ABG Methemoglobin 0.3 % (0.0-1.5) 06/28/22 14:53 Oxyhemoglobin 98.9 % (95.0-99.0) 06/28/22 14:53 FiO2 100 % 06/28/22 14:53 Sodium 139 mmol/L (137-145) 06/29/22 03:57 Potassium 4.1 mmol/L (3.6-5.0) 06/29/22 03:57 Chloride 115.5 mmol/L (98-107) H 06/29/22 03:57 Carbon Dioxide 11 mmol/L (22-30) L 06/29/22 03:57 Anion Gap 17 mmol/L 06/29/22 03:57 BUN 50 mg/dL (9-20) H 06/29/22 03:57 Creatinine 2.5 mg/dL (0.8-1.3) H 06/29/22 03:57 Estimated GFR 31 ml/min 06/29/22 03:57 BUN/Creatinine Ratio 20 % 06/29/22 03:57 Glucose 183 mg/dL (75-100) H 06/29/22 03:57 POC Glucose 135 mg/dL (70-105) H 07/01/22 11:01 Lactic Acid 3.30 mmol/L (0.7-2.0) H* 06/28/22 16:11 Calcium 8.7 mg/dL (8.4-10.2) 06/29/22 03:57 Ferritin 2520.0 ng/mL (30.0-300.0) H 06/28/22 16:11 Total Bilirubin 0.40 mg/dL (0.1-1.2) 06/29/22 03:57 AST 26 units/L (5-40) 06/29/22 03:57 ALT 13 units/L (7-56) 06/29/22 03:57 Alkaline Phosphatase 93 units/L (35-129) 06/29/22 03:57 Lactate Dehydrogenase 199 units/L (91-180) H 06/28/22 16:11 Troponin T 0.135 ng/mL (0.00-0.029) H* 06/28/22 14:57 C-Reactive Protein 4.60 mg/dL (0.00-1.30) H 06/28/22 16:11 Total Protein 4.2 g/dL (6.3-8.2) L 06/29/22 03:57 Albumin 1.4 g/dL (3.9-5) L 06/29/22 03:57 Albumin/Globulin Ratio 0.5 % 06/29/22 03:57 Triglycerides 95 mg/dL (2-149) 06/28/22 14:57 Cholesterol 74 mg/dL (50-199) 06/28/22 14:57 LDL Cholesterol Direct 21 mg/dL (50-130) L 06/28/22 14:57 HDL Cholesterol 22 mg/dL (40-59) L 06/28/22 14:57 Cholesterol/HDL Ratio 3.36 % 06/28/22 14:57 Procalcitonin 1.63 ng/mL (<0.15) 06/28/22 16:11 Coronavirus (PCR) Positive (Negative) A 06/29/22 Unknown Microbiology: Microbiology 06/28/22 14:57 Peripheral/Venous Blood Culture - Preliminary NO GROWTH AFTER 48 HOURS 06/28/22 14:57 Peripheral/Venous Blood Culture - Preliminary NO GROWTH AFTER 48 HOURS Boyle/IV: Voiding Method Condom Catheter Active Medications - Current Medications Current Medications: Generic Name Dose Route Start Last Admin Trade Name Freq PRN Reason Stop Dose Admin Acetaminophen 650 mg 06/28/22 18:42 Acetaminophen 325 Mg Tab PO Q4H PRN Pain MILD(1-3)/Fever >100.5/GILES Apixaban 2.5 mg 06/28/22 22:00 07/01/22 10:37 Apixaban 2.5 Mg Tab PO 2.5 mg Q12HR PARRISH Administration Protocol Dexamethasone 8 mg 06/29/22 07:00 07/01/22 06:07 Dexamethasone 4 Mg/Ml Vial IV 07/08/22 10:59 8 mg Q24H PARRISH Administration Azithromycin 500 mg in 250 mls @ 250 mls/hr 06/29/22 07:00 07/01/22 06:08 Zithromax/Ns IV 07/03/22 07:59 250 mls/hr Q24H PARRISH Administration Cefepime HCl 2 gm in 100 mls @ 200 mls/hr 06/29/22 18:00 06/30/22 18:21 Cefepime/Ns 2 Gm/100 Ml IV 07/03/22 19:59 200 mls/hr Q24H PARRISH Administration Sodium Bicarbonate 150 meq/ 1,150 mls @ 75 mls/hr 06/29/22 14:00 06/30/22 22:29 Dextrose IV 75 mls/hr DIRECT PARRISH Administration Mirtazapine 7.5 mg 06/30/22 22:00 06/30/22 21:35 Mirtazapine 15 Mg Tab PO 7.5 mg QHS PARRISH Administration Morphine Sulfate 2 mg 06/28/22 16:55 06/28/22 19:02 Morphine 2 Mg/1 Ml Inj IV 2 mg Q4H PRN Administration Pain, Moderate (4-6) Ondansetron HCl 4 mg 06/28/22 18:42 Ondansetron 4 Mg/2 Ml Inj IV Q8H PRN Nausea And Vomiting Oxycodone/Acetaminophen 1 tab 06/28/22 18:42 Oxycodone /Acetaminophen 5-325mg Tab PO Q6H PRN Pain, Moderate (4-6) Pantoprazole Sodium 40 mg 07/01/22 09:30 07/01/22 10:37 Pantoprazole 40 Mg Tab PO 40 mg QAMDIAB PARRISH Administration Sodium Chloride 10 ml 06/28/22 22:00 07/01/22 10:37 Sodium Chloride 0.9% 10 Ml Flush Syringe IV 10 ml BID PARRISH Administration Sodium Chloride 10 ml 06/28/22 18:42 Sodium Chloride 0.9% 10 Ml Flush Syringe IV PRN PRN LINE FLUSH Tamsulosin HCl 0.4 mg 07/01/22 11:00 07/01/22 13:45 Tamsulosin 0.4 Mg Cap PO 0.4 mg QDAY PARRISH Administration Nutrition/Malnutrition Assess - Dietary Evaluation Nutrition/Malnutrition Findings: Nutrition Notes Start: 06/30/22 11:11 Freq: Status: Active Protocol: Document 06/30/22 11:11 TW (Rec: 06/30/22 12:02 TW [id number]) Nutrition Notes Need for Assessment generated from: planning rn Initial or Follow up Assessment Current Diagnosis Hypertension,Respiratory Failure,Hyperlipidemia Other Pertinent Diagnosis CVA, DVT, Covid, dysphagia, chronic renal insufficiency, anemia Current Diet Renal diet Labs/Tests POC Glucose 147, Glucose 183, Cl 115, CO2 11, BUN 50, Creatinine 2.5, Total Protein 4.2, Albumin 1.4 Pertinent Medications Eliquis, Cefepime, Decardon, Zofran, Protonix Height 5 ft 11 in Weight 40.832 kg [place] Body Weight (kg) 78.18 BMI 12.5 Weight Status Underweight Subjective/Other Information RD consult for hx of difficulty chewing. Pt presents with persistent hypoxia and hypoglycemia. Notes state pt eats very little and refuses most things /let it roll out of mouth. 0% of meals consumed will assess at F/U. Burn Absent Trauma Absent Difficulty In Chewing #1 Nutrition Diagnosis Inadequate protein-energy intake Etiology acute encephalopathy and difficulty chewing As Evidenced by Signs and Symptoms PO intake 0% of meals since admission Is patient on ventilator? No Is Patient Ambulatory and/or Out of Bed No REE-([facility]-confined to bed) 4548.864 Calculation Used for Recommendations Kcal/kg Additional Notes 1985 kcal for weight gain 24-33g Protein/day Fluid 1ml/kcal or per MD Nutrition Intervention Change Diet Order: Continue Renal Diet. Recommend ONS Add Supplement/Snack (indicate name/kcal Start 8 fl oz Nepro w/ /protein ) Carbsteady, TID Provides kCal: 1,275 Provides Protein (gm) 57 Goal #1 Pt to tolerate ONS and advance PO intake. Follow-Up By: 07/02/22
--- NOTE | 2022-07-01 14:13 | Ultrasound Report ---
ULTRASOUND RENAL INDICATION / CLINICAL INFORMATION: Acute on chronic renal failure. COMPARISON: None available. FINDINGS: RIGHT KIDNEY: Length = 7.5 cm. - Echogenicity: Normal. - Cortical Thickness: Normal. - Hydronephrosis: None. - Cyst or mass: No significant abnormality. - Stones: Nonobstructing right renal stones Examination is limited due to ascites, bowel loops. Left kidney is not visualized. ADDITIONAL FINDING S: None. IMPRESSION: 1. Nonobstructing right renal stones. Right kidney atrophy 2. Limited examination. Abdominal ascites. Left kidney is not well-seen 3. Single stone with complex density in the bladder Signer Name: Claudy Choudhary MD Signed: 07/01/2022 2:09 PM Workstation Name: [email or web address]
--- NOTE | 2022-07-01 14:33 | Progress Note ---
Subjective Date of service: 07/01/22 Principal diagnosis: monica on ckd Interval history: Impression * Acute on chronic renal failure. Baseline creatinine 1.8-2.0 from March 2022 * metabolic acidosis. Lactic acidosis * Altered mental status * Sepsis * History of CVA * History of hypertension * History of DVT * Anemia Recommendations * Follow-up results of UA as well as fractional excretion of sodium * CT scan of his abdomen shows mildly distended bladder. Patient currently has a condom catheter in place. * urology consult noted * Continue iVFS * follow up am lytes * Follow-up results of vasculitis work-up to rule out pulmonary renal syndrome * Avoid nephrotoxins * Monitor fluid status and electrolytes closely * No urgent indication for renal replacement therapy today Subjective Interval history: Patient is comfortable today. labs and chart reviewed Objective - General Appearance General appearance: well-developed, well-nourished, appears stated age EENT: PERRL, mucous membranes moist Neck: no JVD, no thyromegaly, no carotid bruit, supple Respiratory: Present: Clear to Ascultation Cardiology: regular, normal heart rate Gastrointestinal: normal, normoactive bowel sounds Integumentary: other (1+ edema) Objective - Vital Signs Vital signs: Vital Signs - 12hr 07/01/22 07/01/22 04:28 07:47 Temperature 97.9 F Pulse Rate 53 L Respiratory 16 Rate Blood Pressure 91/61 O2 Sat by Pulse 85 94 Oximetry - Lab 06/29/22 03:57 06/29/22 03:57 Most recent lab results ABG pH 7.383 pH Units (7.350-7.450) 06/28/22 14:53 ABG pCO2 19.1 mm Hg 06/28/22 14:53 ABG pO2 390.9 mm Hg (80.0-90.0) H 06/28/22 14:53 ABG HCO3 11.1 mmol/L (20.0-26.0) L 06/28/22 14:53 ABG O2 Saturation 99.5 % (95.0-99.0) H 06/28/22 14:53 Calcium 8.7 mg/dL (8.4-10.2) 06/29/22 03:57 Medications & Allergies - Medications Allergies/Adverse Reactions: Allergies No Known Allergies Allergy (Verified 06/28/22 13:48) Home Medications: Home Medications Medication Instructions Recorded Confirmed Last Taken Type Aspirin 325 mg PO QDAY #30 tablet 03/07/22 Unknown Rx AtorvaSTATin [Lipitor] 40 mg PO QHS 30 Days #30 tab 03/07/22 Unknown Rx Active Medications: Generic Name Dose Route Start Last Admin Trade Name Freq PRN Reason Stop Dose Admin Acetaminophen 650 mg 06/28/22 18:42 Acetaminophen 325 Mg Tab PO Q4H PRN Pain MILD(1-3)/Fever >100.5/GILES Dexamethasone 8 mg 06/29/22 07:00 07/01/22 06:07 Dexamethasone 4 Mg/Ml Vial IV 07/08/22 10:59 8 mg Q24H PARRISH Administration Azithromycin 500 mg in 250 mls @ 250 mls/hr 06/29/22 07:00 07/01/22 13:47 Zithromax/Ns IV 07/03/22 07:59 Infused Q24H PARRISH Infusion Cefepime HCl 2 gm in 100 mls @ 200 mls/hr 06/29/22 18:00 06/30/22 18:21 Cefepime/Ns 2 Gm/100 Ml IV 07/03/22 19:59 200 mls/hr Q24H PARRISH Administration Sodium Bicarbonate 150 meq/ 1,150 mls @ 75 mls/hr 06/29/22 14:00 06/30/22 22:29 Dextrose IV 75 mls/hr DIRECT PARRISH Administration Mirtazapine 7.5 mg 06/30/22 22:00 06/30/22 21:35 Mirtazapine 15 Mg Tab PO 7.5 mg QHS PARRISH Administration Morphine Sulfate 2 mg 06/28/22 16:55 06/28/22 19:02 Morphine 2 Mg/1 Ml Inj IV 2 mg Q4H PRN Administration Pain, Moderate (4-6) Ondansetron HCl 4 mg 06/28/22 18:42 Ondansetron 4 Mg/2 Ml Inj IV Q8H PRN Nausea And Vomiting Oxycodone/Acetaminophen 1 tab 06/28/22 18:42 Oxycodone /Acetaminophen 5-325mg Tab PO Q6H PRN Pain, Moderate (4-6) Pantoprazole Sodium 40 mg 07/01/22 09:30 07/01/22 10:37 Pantoprazole 40 Mg Tab PO 40 mg QAMDIAB PARRISH Administration Sodium Chloride 10 ml 06/28/22 22:00 07/01/22 10:37 Sodium Chloride 0.9% 10 Ml Flush Syringe IV 10 ml BID PARRISH Administration Sodium Chloride 10 ml 06/28/22 18:42 Sodium Chloride 0.9% 10 Ml Flush Syringe IV PRN PRN LINE FLUSH Tamsulosin HCl 0.4 mg 07/01/22 11:00 07/01/22 13:45 Tamsulosin 0.4 Mg Cap PO 0.4 mg QDAY PARRISH Administration
[2022-07-01] MEDS: CEFEPIME/NS 2 GM/100 ML 2 GM/100 ML BAG IV SCH (17:36)
[2022-07-01 19:49] LABS: Hematocrit 23.1 % (35.5-45.6); Hemoglobin 7.7 gm/dl (11.8-15.2); Mean Corpuscular HGB Conc 33 % (32-34); Mean Corpuscular Volume 90 fl (84-94); Red Blood Count 2.57 M/mm3 (3.65-5.03)
[2022-07-01 19:53] LABS: Platelet Count 68 K/mm3 (140-440)
[2022-07-01 20:02] LABS: INR 2.16 (0.87-1.13)
[2022-07-01 20:05] LABS: Hepatitis B Surface Antigen Non-Reactive (Negative); Hepatitis C Virus Antibody Non-Reactive (NonReactive)
[2022-07-01] MEDS: MIRTAZAPINE 15 MG TAB PO SCH (22:14)
[2022-07-02 08:01] LABS: Hematocrit 22.5 % (35.5-45.6); Hemoglobin 7.7 gm/dl (11.8-15.2); Mean Corpuscular HGB Conc 34 % (32-34); Mean Corpuscular Volume 89 fl (84-94); Red Blood Count 2.54 M/mm3 (3.65-5.03); Red Cell Distribution Width 19.4 % (13.2-15.2)
[2022-07-02 08:18] LABS: Calcium 8.7 mg/dL (8.4-10.2)
[2022-07-02 08:39] LABS: Platelet Count 60 K/mm3 (140-440)
[2022-07-02] MEDS: dexAMETHasone 4 MG/ML VIAL IV SCH (08:50)
[2022-07-02] MEDS: PANTOPRAZOLE 40 MG TAB PO SCH (08:50)
[2022-07-02] MEDS: AZITHROMYCIN/NS 500 MG/250 ML 500 MG/250 ML BAG IV SCH (08:50)
[2022-07-02] MEDS: TAMSULOSIN 0.4 MG CAP PO SCH (08:55)
[2022-07-02 09:52] LABS: Basophils % (Manual) 0 % (0.0-1.8); Eosinophils % (Manual) 0 % (0.0-4.3); Monocytes % (Manual) 0 % (0.0-7.3); Total Cells Counted 100
[2022-07-02 09:55] LABS: Anisocytosis 1+; Hypochromasia 2+; Poikilocytosis 1+
[2022-07-02 09:56] LABS: Platelet Estimate 1; Spherocytes 1+; Target Cells 1+
--- NOTE | 2022-07-02 09:58 | Progress Note ---
Assessment and Plan Assessment and plan: 72-year male with history of CVA and DVT presents from [facility] with COVID- 19 (diagnosed 06/21/2022), chronic renal insufficiency, hypertension, cognitive communication deficit, dysphagia, DVT currently on Eliquis, and hyperlipidemia with complaints of hypoxia and shortness of breath and hypoglycemia with a blood sugar of 14. EMS reports that patient is on 3 L of nasal cannula at the alf they were unable to obtain a accurate O2 sat. Patient was placed on nonrebreather for transport to the hospital. Patient appears to have mild to moderate respiratory distress on nonrebreather upon ED presentation. Patient is also hypoglycemic with a blood sugar of 14 initially Acute hypoxic respiratory failure Left lower lobe pneumonia/COVID-19 Sepsis Acute on chronic renal failure Toxic metabolic encephalopathy Hypoglycemia Anemia Urinary retention Coagulopathy/elevated INR History of DVT 06/28/22 Peripheral/Venous Blood Culture - Preliminary Culture in Progress CT chest Suspected left lower lobe pneumonia given the patient history of COVID-19 and shortness of breath which likely account for the abnormality seen on the prior chest radiograph Small left pleural effusion Cholelithiasis without evidence of acute cholecystitis Chest x-ray Irregular parenchymal opacity in the left retrocardiac region medially may be inflammatory or neoplastic. CT chest will be helpful for further evaluation. 06/29: Patient seen and examined, Imaging studies on admission showed left lobar pneumonia. BG is improved, will monitor blood sugars patient was initially with a sugar level of 14. At this point he remains with acute encephalopathy and as a result is not tolerating anything p.o. Will obtain swallow evaluation. Keep head of bed elevated. We will continue empiric antibiotic coverage and consult infectious disease for assistance with management. I have asked to have patient wean from Venturi mask and if this is unable to be done in the next 24 hours will obtain pulmonary consultation. In addition to the management listed below he does have metabolic acidosis for which I will give him a dose of bicarb while awaiting nephrology evaluation. He did have severe protein calorie malnutrition it appeared that he had a PEG tube at some point I have tried to call the family to get more information but no one is picking up. I do not have access to the facility where he came from. In the meantime a Dobbhoff may need to be inserted if there is no improvement in mental status for diet. Anemia concern is unknown if the patient who is on Eliquis and with elevated INR has not any bleed. I have asked the nurse to check stool for occult blood. We will monitor H&H closely and start the patient on PPI. Patient remains critically ill and requires to continue in the hospital for full evaluation. 06/30: Patient seen and examined this morning no worsening respiratory distress discussed with nurse and respiratory therapist to wean oxygen off. Does not have any fever. Still awaiting for a.m. labs. Was reported that he does have urinary retention mentioned yesterday on the notes. We will obtain a CT abdomen and pelvis have asked the nurse to place a Boyle catheter if unable to place and patient does not void will obtain urology consultation. He does not exhibit any pain during my examination. For now continue antibiotics continue steroids. There is no mention of hematuria or blood around the penis. 07/01: Patient seen and examined no worsening distress. Unable to place Boyle due to pain and hematuria. Urologist input noted CTAP showed mild bladder dis tention with right JJ stent that was placed elsewhere. Bilateral atrophic kidneys. Patient remains on Eliquis and could be the consideration of the hematuria. Urology recommends to start Flomax on hold Boyle at this time. Still waiting for repeat labs from yesterday and today. ID input is also noted patient was restarted on steroid therapy. Again does not appear to be in any significant distress. Speech therapist recommended pured diet with nectar thick fluids. Patient will need assistance with home enteral feeding at this time. I have tried to call the family multiple times unable to reach family Case management is also assisting. Would like to discuss goals of care with the family. Anticipate discharge in 24 to 48 hours once all goals of care is established Dr. Fam SPOKE to daughter who told himn that the patient was very conversational although has not been able to walk for years but regressed in the last month due Covid. Daughter stated that the patient was feeding himself and was ordering stuff on [facility] [employer]. She acknowledges that while he may be stubborn and sometimes does not want to interact that he is also been depressed since losing his in January. She informed us that he had a gastric bypass a few years ago and had lost significant amount of weight since then. She states that if he continues refusing diet that we should go ahead and proceed placing a feeding tube in place. We will consult surgery to evaluate in the meantime we will hold the Eliquis. 07/02: I attempted to reach the daughter and spouse but unsuccessful. We need to obtain information/old records regarding gastric bypass regarding anatomy for possible PEG placement. Eliquis stopped in anticipation for possible PEG placement. CTAP showed mild bladder distention with right JJ stent that was placed elsewhere. Bilateral atrophic kidneys. Urology recommended Flomax and hold on Boyle for now. We will continue dexamethasone for total of 10 days. Patient not a candidate for remdesivir due to CKD. Complete 5 days of cefepime, azithromycin for superimposed bacterial pneumonia with elevated procalcitonin. Continue to trend CRP. ID following History Interval history: No new issues overnight Hospitalist Physical - Constitutional Vitals: Temp Pulse Resp BP Pulse Ox 97.5 F L 99 H 16 104/83 93 07/02/22 05:01 07/02/22 05:01 07/02/22 05:01 07/02/22 05:01 07/02/22 05:01 General appearance: Present: no acute distress, well-nourished - EENT Eyes: Present: PERRL, EOM intact ENT: hearing intact, clear oral mucosa, dentition normal - Neck Neck: Present: supple, normal ROM - Respiratory Respiratory effort: normal Respiratory: bilateral: CTA - Cardiovascular Rhythm: regular Heart Sounds: Present: S1 & S2. Absent: gallop, rub - Extremities Extremities: no ischemia, No edema, Full ROM - Abdominal General gastrointestinal: soft, non-tender, non-distended, normal bowel sounds - Integumentary Integumentary: Present: clear, warm, dry - Neurologic Neurologic: CNII-XII intact, moves all extremities HEART Score - HEART Score Risk factors: 1-2 risk factors Troponin: Troponin T 0.135 ng/mL (0.00-0.029) H* 06/28/22 14:57 Troponin: < normal limit - Critical Actions Critical Actions: 0-3 pts:0.9-1.7%risk of adverse cardiac event.Candidate for discharge Results - Labs CBC & Chem 7: 07/02/22 07:18 07/02/22 07:18 Labs: Laboratory Last Values WBC 7.9 K/mm3 (4.5-11.0) 07/02/22 07:18 RBC 2.54 M/mm3 (3.65-5.03) L 07/02/22 07:18 Hgb 7.7 gm/dl (11.8-15.2) L 07/02/22 07:18 Hct 22.5 % (35.5-45.6) L 07/02/22 07:18 MCV 89 fl (84-94) 07/02/22 07:18 MCH 30 pg (28-32) 07/02/22 07:18 MCHC 34 % (32-34) 07/02/22 07:18 RDW 19.4 % (13.2-15.2) H 07/02/22 07:18 Plt Count 60 K/mm3 (140-440) L 07/02/22 07:18 Lymph % (Auto) 7.2 % (13.4-35.0) L 06/29/22 03:57 [place] % (Auto) 4.1 % (0.0-7.3) 06/29/22 03:57 Eos % (Auto) 0.0 % (0.0-4.3) 06/29/22 03:57 Baso % (Auto) 0.1 % (0.0-1.8) 06/29/22 03:57 Lymph # (Auto) 0.5 K/mm3 (1.2-5.4) L 06/29/22 03:57 [place] # (Auto) 0.3 K/mm3 (0.0-0.8) 06/29/22 03:57 Eos # (Auto) 0.0 K/mm3 (0.0-0.4) 06/29/22 03:57 Baso # (Auto) 0.0 K/mm3 (0.0-0.1) 06/29/22 03:57 Seg Neutrophils % Employment Programs Analyst 07/02/22 07:18 Seg Neutrophils # 5.9 K/mm3 (1.8-7.7) 06/29/22 03:57 PT 27.4 Sec. (12.2-14.9) H 07/01/22 19:20 INR 2.16 (0.87-1.13) H 07/01/22 19:20 APTT 54.1 Sec. (24.2-36.6) H 06/29/22 00:09 D-Dimer 273.84 ng/mlDDU (0-234) H 06/28/22 16:11 ABG pH 7.383 pH Units (7.350-7.450) 06/28/22 14:53 ABG pCO2 19.1 mm Hg 06/28/22 14:53 ABG pO2 390.9 mm Hg (80.0-90.0) H 06/28/22 14:53 ABG HCO3 11.1 mmol/L (20.0-26.0) L 06/28/22 14:53 ABG O2 Saturation 99.5 % (95.0-99.0) H 06/28/22 14:53 ABG O2 Content 13.5 (0.0-44) 06/28/22 14:53 ABG Base Excess -12.3 mmol/L (-2.0-3.0) L 06/28/22 14:53 ABG Hemoglobin 9.0 gm/dl (14.0-18.0) L 06/28/22 14:53 ABG Carboxyhemoglobin 0.3 % (0.0-5.0) 06/28/22 14:53 ABG Methemoglobin 0.3 % (0.0-1.5) 06/28/22 14:53 Oxyhemoglobin 98.9 % (95.0-99.0) 06/28/22 14:53 FiO2 100 % 06/28/22 14:53 Sodium 141 mmol/L (137-145) 07/02/22 07:18 Potassium 3.6 mmol/L (3.6-5.0) 07/02/22 07:18 Chloride 114.0 mmol/L (98-107) H 07/02/22 07:18 Carbon Dioxide 19 mmol/L (22-30) L 07/02/22 07:18 Anion Gap 12 mmol/L 07/02/22 07:18 BUN 45 mg/dL (9-20) H 07/02/22 07:18 Creatinine 2.5 mg/dL (0.8-1.3) H 07/02/22 07:18 Estimated GFR 31 ml/min 07/02/22 07:18 BUN/Creatinine Ratio 18 % 07/02/22 07:18 Glucose 110 mg/dL (75-100) H 07/02/22 07:18 POC Glucose 102 mg/dL (70-105) 07/02/22 08:14 Lactic Acid 3.30 mmol/L (0.7-2.0) H* 06/28/22 16:11 Calcium 8.7 mg/dL (8.4-10.2) 07/02/22 07:18 Ferritin 2520.0 ng/mL (30.0-300.0) H 06/28/22 16:11 Total Bilirubin 0.40 mg/dL (0.1-1.2) 06/29/22 03:57 AST 26 units/L (5-40) 06/29/22 03:57 ALT 13 units/L (7-56) 06/29/22 03:57 Alkaline Phosphatase 93 units/L (35-129) 06/29/22 03:57 Lactate Dehydrogenase 199 units/L (91-180) H 06/28/22 16:11 Troponin T 0.135 ng/mL (0.00-0.029) H* 06/28/22 14:57 C-Reactive Protein 4.60 mg/dL (0.00-1.30) H 06/28/22 16:11 Total Protein 4.2 g/dL (6.3-8.2) L 06/29/22 03:57 Albumin 1.4 g/dL (3.9-5) L 06/29/22 03:57 Albumin/Globulin Ratio 0.5 % 06/29/22 03:57 Triglycerides 95 mg/dL (2-149) 06/28/22 14:57 Cholesterol 74 mg/dL (50-199) 06/28/22 14:57 LDL Cholesterol Direct 21 mg/dL (50-130) L 06/28/22 14:57 HDL Cholesterol 22 mg/dL (40-59) L 06/28/22 14:57 Cholesterol/HDL Ratio 3.36 % 06/28/22 14:57 Procalcitonin 0.47 ng/mL (<0.15) 07/01/22 19:20 Coronavirus (PCR) Positive (Negative) A 06/29/22 Unknown Hepatitis A IgM Ab Non-reactive (NonReactive) 07/01/22 19:20 Hep Bs Antigen Non-reactive (Negative) 07/01/22 19:20 Hep B Core IgM Ab Non-reactive (NonReactive) 07/01/22 19:20 Hepatitis C Antibody Non-reactive (NonReactive) 07/01/22 19:20 Microbiology: Microbiology 06/28/22 14:57 Peripheral/Venous Blood Culture - Preliminary NO GROWTH AFTER 72 HOURS 06/28/22 14:57 Peripheral/Venous Blood Culture - Preliminary NO GROWTH AFTER 72 HOURS Boyle/IV: Voiding Method Condom Catheter Active Medications - Current Medications Current Medications: Generic Name Dose Route Start Last Admin Trade Name Freq PRN Reason Stop Dose Admin Acetaminophen 650 mg 06/28/22 18:42 Acetaminophen 325 Mg Tab PO Q4H PRN Pain MILD(1-3)/Fever >100.5/GILES Dexamethasone 8 mg 06/29/22 07:00 07/02/22 08:50 Dexamethasone 4 Mg/Ml Vial IV 07/08/22 10:59 8 mg Q24H PARRISH Administration Azithromycin 500 mg in 250 mls @ 250 mls/hr 06/29/22 07:00 07/02/22 08:50 Zithromax/Ns IV 07/03/22 07:59 250 mls/hr Q24H PARRISH Administration Cefepime HCl 2 gm in 100 mls @ 200 mls/hr 06/29/22 18:00 07/01/22 18:46 Cefepime/Ns 2 Gm/100 Ml IV 07/03/22 19:59 Infused Q24H PARRISH Infusion Sodium Bicarbonate 150 meq/ 1,150 mls @ 75 mls/hr 06/29/22 14:00 06/30/22 22:29 Dextrose IV 75 mls/hr DIRECT PARRISH Administration Mirtazapine 7.5 mg 06/30/22 22:00 07/01/22 22:14 Mirtazapine 15 Mg Tab PO 7.5 mg QHS PARRISH Administration Morphine Sulfate 2 mg 06/28/22 16:55 06/28/22 19:02 Morphine 2 Mg/1 Ml Inj IV 2 mg Q4H PRN Administration Pain, Moderate (4-6) Ondansetron HCl 4 mg 06/28/22 18:42 Ondansetron 4 Mg/2 Ml Inj IV Q8H PRN Nausea And Vomiting Oxycodone/Acetaminophen 1 tab 06/28/22 18:42 Oxycodone /Acetaminophen 5-325mg Tab PO Q6H PRN Pain, Moderate (4-6) Pantoprazole Sodium 40 mg 07/01/22 09:30 07/02/22 08:50 Pantoprazole 40 Mg Tab PO 40 mg QAMDIAB APRRISH Administration Sodium Chloride 10 ml 06/28/22 22:00 07/01/22 22:17 Sodium Chloride 0.9% 10 Ml Flush Syringe IV 10 ml BID PARRISH Administration Sodium Chloride 10 ml 06/28/22 18:42 Sodium Chloride 0.9% 10 Ml Flush Syringe IV PRN PRN LINE FLUSH Tamsulosin HCl 0.4 mg 07/01/22 11:00 07/01/22 13:45 Tamsulosin 0.4 Mg Cap PO 0.4 mg QDAY PARRISH Administration Nutrition/Malnutrition Assess - Dietary Evaluation Nutrition/Malnutrition Findings: Nutrition Notes Start: 06/30/22 1 1:11 Freq: Status: Active Protocol: Document 07/01/22 16:33 LEANNA (Rec: 07/01/22 17:13 LEANNA [id number]) Nutrition Notes Initial or Follow up Brief Note Current Diagnosis Acute Kidney Injury,CKD(stage I-IV),Sepsis,Hypertension, Respiratory Failure,Stroke, Hyperlipidemia Other Pertinent Diagnosis DVT, COVID-19, Dysphagia, Pneumonia, Anemia, Metabolic & Lactic Acidosis... Current Diet Pureed Diet (since L 07/01), D Suppl (from B 07/02). 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 No body weight change reported in 1 day. Weight Status Underweight Subjective/Other Information RD consult for Low BMI assessment. Pt's PO intake of meals has been Negligible (0%), according to ADL notes. This morning OBSTETRICS SPECIALIST recommended Mechanical/Textural change in PO diet, will assess advancement at F/U. OBSTETRICS SPECIALIST note on 07/01/22 10:39: Swallowing function has been conducted. Patient demonstrates an oral/ pharyngeal phase dysphagia with prolonged mastication with pureed and aspiration on thins. Patient exhibits a wet vocal quality indicative of laryngeal penetration. Recommend downgrading the patient's diet to a pureed with nectar thickened liquids. Informed the patient's nurse Vianey. Will continue to follow. - END OF NOTE Pt is on Nasal Cannula, O2 saturation @ 94%, according to Physical Assessment History notes. Pt has missing teeth, according to Physical Assessment History notes. has discussed with family the possibility for PEG-tube placement before discharging back to SNF, according to Progress notes. Pt presents bilateral -LE Pitting Edema 2+, according to Physical Assessment History notes. Pt is a SNF resident, according to Progress notes. Pt's Low BMI seems to correspond to a natural body composition, and not related to a sudden loss of body weight but possibly to chronic malnutrition, since some signs of concern were mentioned in the Physical Assessment History or the Progress notes.Pt's Low BMI seems to correspond to a natural body composition, and not related to a sudden loss of body weight but possibly to chronic malnutrition, since some signs of concern were mentioned in the Physical Assessment History or the Progress notes. Percent of energy/protein needs met: Prescribed Pureed Diet provides for energy/protein needs (1,804 Kcal/77 g) during LOS. Burn Absent Trauma Absent GI Symptoms None Difficulty In Swallowing Food Allergy No Current % PO Negligible Minimum of two criteria No Fluid Accumulation Moderate to Severe (severe) Reduced Supply Analyst Strength N/A (non-severe) Protein-Calorie Malnutrition N\A #2 Nutrition Diagnosis Underweight Comments: Pt's Low BMI seems to correspond to a natural body composition, and not related to a sudden loss of body weight but possibly to chronic malnutrition, since some signs of concern were mentioned in the Physical Assessment History or the Progress notes. Etiology Possibly associated with CVA. As Evidenced by Signs and Symptoms BMI: 12.5 Kg/m2. Pt presents bilateral -LE Pitting Edema 2+ , according to Physical Assessment History notes. #1 Nutrition Diagnosis Inadequate protein-energy intake Comments: Pt's PO intake of meals has been Negligible (0%), according to ADL notes. This morning OBSTETRICS SPECIALIST recommended Mechanical/Textural change in PO diet, will assess advancement at F/U. OBSTETRICS SPECIALIST note on 07/01/22 10:39: Swallowing function has been conducted. Patient demonstrates an oral/ pharyngeal phase dysphagia with prolonged mastication with pureed and aspiration on thins. Patient exhibits a wet vocal quality indicative of laryngeal penetration. Recommend downgrading the patient's diet to a pureed with nectar thickened liquids. Informed the patient's nurse Vianey. Will continue to follow. - END OF NOTE Etiology Dysphagia. Diagnosis Progress(for reassessment Continues documentation) Is patient on ventilator? No Is Patient Ambulatory and/or Out of Bed No REE-([facility]-confined to bed) 1428.864 Kcal/Kg value to use for calculation 52 Approximate Energy Requirements Using 2123 kcal/Kg Calculation Used for Recommendations Kcal/kg Additional Notes Protein: 1-1.2 g/Kg ABW; 41-49 g/day. Fluids: 1 ml/Kcal, or as per MD. Nutrition Intervention Change Diet Order: Continue Pureed Diet. Nutrition Support: Strongly recommend start TF. Add Supplement/Snack (indicate name/kcal Continue 8 fl oz Nepro w/ /protein ) CARBSTEADY; TID. Provides kCal: 1,275 Provides Protein (gm) 57 Goal #1 Compensate, through dietary supplementation, for possible poor or insufficient PO intake of meals during LOS. Goal #2 Facilitate PO intake of meals with elemental, textural, or mechanical modification during LOS. Follow-Up By: 07/02/22 Additional Comments Continue monitoring food tolerance, %PO intake of meals , dietary supplements, and BM.
--- NOTE | 2022-07-02 11:04 | Consultation ---
History of Present Illness Consult date: 07/02/22 - History of present illness History of present illness: 72-year male with history of CVA and DVT presents from assisted with COVID- 19 (diagnosed 06/21/2022), chronic renal insufficiency, hypertension, cognitive communication deficit, dysphagia, DVT currently on Eliquis, and hyperlipidemia with complaints of hypoxia and shortness of breath and hypoglycemia with a blood sugar of 14. EMS reports that patient is on 3 L of nasal cannula at the assisted they were unable to obtain a accurate O2 sat. Patient was placed on nonrebreather for transport to the hospital. Patient appears to have mild to moderate respiratory distress on nonrebreather upon ED presentation. Patient is also hypoglycemic with a blood sugar of 14 initially. Surgical consult is for placement of a feeding tube. Pt records indicate that he is sp a gastric bypass. Not clear if an op report can be found and it is not clear where the surgery was done. Pt is unable to help with the history. Past History Past Medical History: hypertension, stroke, other (Chronic kidney disease and history of DVT) Past Surgical History: Other (Unknown) Social history: other (Unknown) Family history: other (Unknown) Medications and Allergies Allergies Allergy/AdvReac Type Severity Reaction Status Date / Time No Known Allergies Allergy Verified 06/28/22 13:48 Home Medications Medication Instructions Recorded Confirmed Last Taken Type Aspirin 325 mg PO QDAY #30 tablet 03/07/22 07/01/22 Unknown Rx AtorvaSTATin [Lipitor] 40 mg PO QHS 30 Days #30 tab 03/07/22 07/01/22 Unknown Rx Active Meds: Active Medications Acetaminophen (Acetaminophen 325 Mg Tab) 650 mg PO Q4H PRN PRN Reason: Pain MILD(1-3)/Fever >100.5/GILES Dexamethasone (Dexamethasone 4 Mg/Ml Vial) 8 mg IV Q24H PARRISH Stop: 07/08/22 10:59 Last Admin: 07/02/22 08:50 Dose: 8 mg Azithromycin (Zithromax/Ns) 500 mg in 250 mls @ 250 mls/hr IV Q24H PARRISH Stop: 07/03/22 07:59 Last Admin: 07/02/22 08:50 Dose: 250 mls/hr Cefepime HCl (Cefepime/Ns 2 Gm/100 Ml) 2 gm in 100 mls @ 200 mls/hr IV Q24H PARRISH Stop: 07/03/22 19:59 Last Infusion: 07/01/22 18:46 Dose: Infused Sodium Bicarbonate 150 meq/ (Dextrose) 1,150 mls @ 75 mls/hr IV DIRECT [facility] Last Admin: 06/30/22 22:29 Dose: 75 mls/hr Mirtazapine (Mirtazapine 15 Mg Tab) 7.5 mg PO QHS [facility] Last Admin: 07/01/22 22:14 Dose: 7.5 mg Morphine Sulfate (Morphine 2 Mg/1 Ml Inj) 2 mg IV Q4H PRN PRN Reason: Pain, Moderate (4-6) Last Admin: 06/28/22 19:02 Dose: 2 mg Ondansetron HCl (Ondansetron 4 Mg/2 Ml Inj) 4 mg IV Q8H PRN PRN Reason: Nausea And Vomiting Oxycodone/Acetaminophen (Oxycodone /Acetaminophen 5-325mg Tab) 1 tab PO Q6H PRN PRN Reason: Pain, Moderate (4-6) Pantoprazole Sodium (Pantoprazole 40 Mg Tab) 40 mg PO QAMDIAB [facility] Last Admin: 07/02/22 08:50 Dose: 40 mg Sodium Chloride (Sodium Chloride 0.9% 10 Ml Flush Syringe) 10 ml IV BID [facility] Last Admin: 07/01/22 22:17 Dose: 10 ml Sodium Chloride (Sodium Chloride 0.9% 10 Ml Flush Syringe) 10 ml IV PRN PRN PRN Reason: LINE FLUSH Tamsulosin HCl (Tamsulosin 0.4 Mg Cap) 0.4 mg PO QDAY [facility] Last Admin: 07/01/22 13:45 Dose: 0.4 mg Exam Vital Signs Temp Pulse Resp BP 95.7 F L 99 H 20 95/57 06/28/22 13:44 06/28/22 13:44 06/28/22 13:44 06/28/22 13:44 - General physical appearance Positive: well developed, other (does not respond to verbal stim) - Eyes Positive: PERRL - Neck Positive: no masses, no bruits, trachea midline - Respiratory Positive: normal expansion - Cardiovascular Rhythm: regular - Extremities Extremities: no ischemia, No edema - Abdomen Abdomen: Present: soft. Absent: tender, distended, masses Hernia: none Results - Labs 07/02/22 07:18 07/02/22 07:18 Abnormal lab results 07/01/22 07/01/22 07/01/22 Range/Units 11:01 17:18 19:20 RBC 2.57 L (3.65-5.03) M/mm3 Hgb 7.7 L (11.8-15.2) gm/dl Hct 23.1 L (35.5-45.6) % RDW 20.0 H (13.2-15.2) % Plt Count 68 L (140-440) K/mm3 Seg Neuts % (Manual) (40.0-70.0) % Lymphocytes % (Manual) (13.4-35.0) % Seg Neutrophils # Man (1.8-7.7) K/mm3 Lymphocytes # (Manual) (1.2-5.4) K/mm3 PT (12.2-14.9) Sec. INR (0.87-1.13) Chloride (98-107) mmol/L Carbon Dioxide (22-30) mmol/L BUN (9-20) mg/dL Creatinine (0.8-1.3) mg/dL Glucose (75-100) mg/dL POC Glucose 135 H 119 H (70-105) mg/dL 07/01/22 07/01/22 07/01/22 Range/Units 19:20 19:20 23:19 RBC (3.65-5.03) M/mm3 Hgb (11.8-15.2) gm/dl Hct (35.5-45.6) % RDW (13.2-15.2) % Plt Count (140-440) K/mm3 Seg Neuts % (Manual) (40.0-70.0) % Lymphocytes % (Manual) (13.4-35.0) % Seg Neutrophils # Man (1.8-7.7) K/mm3 Lymphocytes # (Manual) (1.2-5.4) K/mm3 PT 27.4 H (12.2-14.9) Sec. INR 2.16 H (0.87-1.13) Chloride 113.0 H (98-107) mmol/L Carbon Dioxide 18 L D (22-30) mmol/L BUN 46 H (9-20) mg/dL Creatinine 2.3 H (0.8-1.3) mg/dL Glucose 181 H (75-100) mg/dL POC Glucose 121 H (70-105) mg/dL 07/02/22 07/02/22 Range/Units 07:18 07:18 RBC 2.54 L (3.65-5.03) M/mm3 Hgb 7.7 L (11.8-15.2) gm/dl Hct 22.5 L (35.5-45.6) % RDW 19.4 H (13.2-15.2) % Plt Count 60 L (140-440) K/mm3 Seg Neuts % (Manual) 99.0 H (40.0-70.0) % Lymphocytes % (Manual) 1.0 L (13.4-35.0) % Seg Neutrophils # Man 7.8 H (1.8-7.7) K/mm3 Lymphocytes # (Manual) 0.1 L (1.2-5.4) K/mm3 PT (12.2-14.9) Sec. INR (0.87-1.13) Chloride 114.0 H (98-107) mmol/L Carbon Dioxide 19 L (22-30) mmol/L BUN 45 H (9-20) mg/dL Creatinine 2.5 H (0.8-1.3) mg/dL Glucose 110 H (75-100) mg/dL POC Glucose (70-105) mg/dL Diabetes panel 07/01/22 07/02/22 Range/Units 19:20 07:18 Sodium 143 141 (137-145) mmol/L Potassium 3.8 3.6 (3.6-5.0) mmol/L Chloride 113.0 H 114.0 H (98-107) mmol/L Carbon Dioxide 18 L D 19 L (22-30) mmol/L BUN 46 H 45 H (9-20) mg/dL Creatinine 2.3 H 2.5 H (0.8-1.3) mg/dL Glucose 181 H 110 H (75-100) mg/dL Calcium 9.0 8.7 (8.4-10.2) mg/dL Calcium panel 07/01/22 07/02/22 Range/Units 19:20 07:18 Calcium 9.0 8.7 (8.4-10.2) mg/dL Pituitary panel 08/01/22 08/02/22 Range/Units 19:20 07:18 Sodium 143 141 (137-145) mmol/L Potassium 3.8 3.6 (3.6-5.0) mmol/L Chloride 113.0 H 114.0 H (98-107) mmol/L Carbon Dioxide 18 L D 19 L (22-30) mmol/L BUN 46 H 45 H (9-20) mg/dL Creatinine 2.3 H 2.5 H (0.8-1.3) mg/dL Glucose 181 H 110 H (75-100) mg/dL Calcium 9.0 8.7 (8.4-10.2) mg/dL Adrenal panel 07/01/22 07/02/22 Range/Units 19:20 07:18 Sodium 143 141 (137-145) mmol/L Potassium 3.8 3.6 (3.6-5.0) mmol/L Chloride 113.0 H 114.0 H (98-107) mmol/L Carbon Dioxide 18 L D 19 L (22-30) mmol/L BUN 46 H 45 H (9-20) mg/dL Creatinine 2.3 H 2.5 H (0.8-1.3) mg/dL Glucose 181 H 110 H (75-100) mg/dL Calcium 9.0 8.7 (8.4-10.2) mg/dL Assessment and Plan Surgical consult is for placement of a feeding tube. Pt records indicate that he is sp a gastric bypass. Not clear if an op report can be found and it is not clear where the surgery was done. Pt is unable to help with the history. Pt with positive covid on 06/21/22, pos retest on 06/29/22. No further testing is needed. Will schedule feeding tube placement for two weeks from 06/21/22. Which would put surgical date on Friday07/08/22. Pt will need to have elliquist held on Friday07/05/22. All tube feeding should be held after midnight on Friday07/07/22. Will need to find family and surgical report.
--- NOTE | 2022-07-02 12:27 | Progress Note ---
Subjective - Reason for Consult Consult date: 07/02/22 Reason for consult: not eating - Chief Complaint Chief complaint: The patient was seen today. He is sleeping. The patient moves slightly when I call his name, other than that he does not respond. PAST PSYCHIATRIC HISTORY: Unable to assess PAST MEDICAL HISTORY: Unable to obtain Family Psychiatric History Unable to obtain SOCIAL HISTORY Unable to assess REVIEW OF SYSTEMS Unable to obtain Diagnoses: Dementia w/Behavioral Disturbance Treatment Plan Continue Mirtazapine 7.5 qhs to promote rest and stimulate appetite. Medical: per primary Sitter: Defer to primary Disposition: Do not recommend acute psychiatric inpatient treatment. This patient is unlikely to benefit from psychiatric services due to acute and complex medical conditions. Will sign off. Thanks Case staffed with Dr. Arce Mental Status Exam - Vital signs Last Vital Signs Temp 97.5 F L 07/02/22 05:01 Pulse 99 H 07/02/22 05:01 Resp 16 07/02/22 05:01 BP 104/83 07/02/22 05:01 Pulse Ox 93 07/02/22 05:01
--- NOTE | 2022-07-02 12:45 | Progress Note ---
Subjective Date of service: 07/02/22 Principal diagnosis: monica on ckd Interval history: NEW TO OUR SERV[facility] COVID 19 INFECTION RENAL INSUFFICIENCY 72-year male with history of CVA and DVT presents from sn[facility] with COVID- 19 (diagnosed 06/21/2022), chronic renal insufficiency, hypertension, cognitive communication deficit, dysphagia, DVT currently on Eliquis, and hyperlipidemia with complaints of hypoxia and shortness of breath. EMS reports that patient is on 3 L of nasal cannula at the sn[facility] they were unable to obtain a accurate O2 sat. Patient was placed on nonrebreather for transport to the hospital. Patient appears to have mild to moderate respiratory distress on nonrebreather upon ED presentation. Pt resting well, hard to wake up. Nurse just spoke with pt and he was fine. Recently voided 300cc per nurse. g-tube from last visit removed. pt eating. + blood thinner obtain op note from [facility]--- pt had removal of penile prosthesis & stent placement by Dr. Gabe Gordon [facility] CTAP--- mild bladder distenstion, rt jj stent ( not placed here) --- bilat atrophic kidneys abd soft condom catheter a/p bph atrophic kidneys blood thinner creatinine 2.5 now---- last visit 1.8--2 started flomax 1qd yesterday hold newberry for now re eval in am---consider newberry placement Objective - Constitutional Vitals: Vital Signs - 12hr 07/02/22 05:01 Temperature 97.5 F L Pulse Rate 99 H Respiratory 16 Rate Blood Pressure 104/83 [Left] O2 Sat by Pulse 93 Oximetry - Labs CBC & Chem 7: 07/02/22 07:18 07/02/22 07:18 Labs: Abnormal lab results 07/01/22 07/01/22 07/01/22 Range/Units 17:18 19:20 19:20 RBC 2.57 L (3.65-5.03) M/mm3 Hgb 7.7 L (11.8-15.2) gm/dl Hct 23.1 L (35.5-45.6) % RDW 20.0 H (13.2-15.2) % Plt Count 68 L (140-440) K/mm3 Seg Neuts % (Manual) (40.0-70.0) % Lymphocytes % (Manual) (13.4-35.0) % Seg Neutrophils # Man (1.8-7.7) K/mm3 Lymphocytes # (Manual) (1.2-5.4) K/mm3 PT (12.2-14.9) Sec. INR (0.87-1.13) Chloride 113.0 H (98-107) mmol/L Carbon Dioxide 18 L D (22-30) mmol/L BUN 46 H (9-20) mg/dL Creatinine 2.3 H (0.8-1.3) mg/dL Glucose 181 H (75-100) mg/dL POC Glucose 119 H (70-105) mg/dL 07/01/22 07/01/22 07/02/22 Range/Units 19:20 23:19 07:18 RBC 2.54 L (3.65-5.03) M/mm3 Hgb 7.7 L (11.8-15.2) gm/dl Hct 22.5 L (35.5-45.6) % RDW 19.4 H (13.2-15.2) % Plt Count 60 L (140-440) K/mm3 Seg Neuts % (Manual) 99.0 H (40.0-70.0) % Lymphocytes % (Manual) 1.0 L (13.4-35.0) % Seg Neutrophils # Man 7.8 H (1.8-7.7) K/mm3 Lymphocytes # (Manual) 0.1 L (1.2-5.4) K/mm3 PT 27.4 H (12.2-14.9) Sec. INR 2.16 H (0.87-1.13) Chloride (98-107) mmol/L Carbon Dioxide (22-30) mmol/L BUN (9-20) mg/dL Creatinine (0.8-1.3) mg/dL Glucose (75-100) mg/dL POC Glucose 121 H (70-105) mg/dL 07/02/22 Range/Units 07:18 RBC (3.65-5.03) M/mm3 Hgb (11.8-15.2) gm/dl Hct (35.5-45.6) % RDW (13.2-15.2) % Plt Count (140-440) K/mm3 Seg Neuts % (Manual) (40.0-70.0) % Lymphocytes % (Manual) (13.4-35.0) % Seg Neutrophils # Man (1.8-7.7) K/mm3 Lymphocytes # (Manual) (1.2-5.4) K/mm3 PT (12.2-14.9) Sec. INR (0.87-1.13) Chloride 114.0 H (98-107) mmol/L Carbon Dioxide 19 L (22-30) mmol/L BUN 45 H (9-20) mg/dL Creatinine 2.5 H (0.8-1.3) mg/dL Glucose 110 H (75-100) mg/dL POC Glucose (70-105) mg/dL Medications & Allergies - Medications Allergies/Adverse Reactions: Allergies No Known Allergies Allergy (Verified 06/28/22 13:48) Home Medications: Home Medications Medication Instructions Recorded Confirmed Last Taken Type Aspirin 325 mg PO QDAY #30 tablet 03/07/22 07/01/22 Unknown Rx AtorvaSTATin [Lipitor] 40 mg PO QHS 30 Days #30 tab 03/07/22 07/01/22 Unknown Rx Active Medications: Generic Name Dose Route Start Last Admin Trade Name Freq PRN Reason Stop Dose Admin Acetaminophen 650 mg 06/28/22 18:42 Acetaminophen 325 Mg Tab PO Q4H PRN Pain MILD(1-3)/Fever >100.5/GILES Dexamethasone 8 mg 06/29/22 07:00 07/02/22 08:50 Dexamethasone 4 Mg/Ml Vial IV 07/08/22 10:59 8 mg Q24H PARRISH Administration Azithromycin 500 mg in 250 mls @ 250 mls/hr 06/29/22 07:00 07/02/22 08:50 Zithromax/Ns IV 07/03/22 07:59 250 mls/hr Q24H PARRISH Administration Cefepime HCl 2 gm in 100 mls @ 200 mls/hr 06/29/22 18:00 07/01/22 18:46 Cefepime/Ns 2 Gm/100 Ml IV 07/03/22 19:59 Infused Q24H PARRISH Infusion Sodium Bicarbonate 150 meq/ 1,150 mls @ 75 mls/hr 06/29/22 14:00 06/30/22 22:29 Dextrose IV 75 mls/hr DIRECT PARRISH Administration Mirtazapine 7.5 mg 06/30/22 22:00 07/01/22 22:14 Mirtazapine 15 Mg Tab PO 7.5 mg QHS PARRISH Administration Morphine Sulfate 2 mg 06/28/22 16:55 06/28/22 19:02 Morphine 2 Mg/1 Ml Inj IV 2 mg Q4H PRN Administration Pain, Moderate (4-6) Ondansetron HCl 4 mg 06/28/22 18:42 Ondansetron 4 Mg/2 Ml Inj IV Q8H PRN Nausea And Vomiting Oxycodone/Acetaminophen 1 tab 06/28/22 18:42 Oxycodone /Acetaminophen 5-325mg Tab PO Q6H PRN Pain, Moderate (4-6) Pantoprazole Sodium 40 mg 07/01/22 09:30 07/02/22 08:50 Pantoprazole 40 Mg Tab PO 40 mg QAMDIAB PARRISH Administration Sodium Chloride 10 ml 06/28/22 22:00 07/01/22 22:17 Sodium Chloride 0.9% 10 Ml Flush Syringe IV 10 ml BID PARRISH Administration Sodium Chloride 10 ml 06/28/22 18:42 Sodium Chloride 0.9% 10 Ml Flush Syringe IV PRN PRN LINE FLUSH Tamsulosin HCl 0.4 mg 07/01/22 11:00 07/01/22 13:45 Tamsulosin 0.4 Mg Cap PO 0.4 mg QDAY PARRISH Administration HEART Score - HEART Score Risk factors: 1-2 risk factors Troponin: Troponin T 0.135 ng/mL (0.00-0.029) H* 06/28/22 14:57 Troponin: < normal limit - Critical Actions Critical Actions: 0-3 pts:0.9-1.7%risk of adverse cardiac event.Candidate for discharge
--- NOTE | 2022-07-02 12:50 | Progress Note ---
Assessment and Plan Cultures: SARS CoV2 PCR: positive 06/28/2022 blood culture: No growth A/P: 72-year-old male with prior CVA, DVT on anticoagulation, CKD, hypertension, dysphagia was admitted from the [facility] after being diagnosed with COVID and noted to have shortness of breath with hypoxia: #COVID-19 pneumonia: PCR positive, hypoxic requiring supplemental oxygen. CT chest with left lower lobe pneumonia. #Acute hypoxic respiratory failure: On nasal cannula #MALIHA on CKD: Renally adjust antibiotics. Nephrology following. #Leukopenia: Likely related to viral illness. Improved. #Mild thrombocytopenia Recs: -Continue IV/PO Dexamethasone x 10 days -Not a candidate for remdesivir due to CKD/elevated creatinine -Complete 5 days of cefepime (renally dosed), azithromycin, will cover for bacterial pneumonia due to elevated procalcitonin and also cover for possible cystitis. No UA available -Already on apixaban for anticoagulation -trend CRP every 2-3 days Deyanira Sutherland MD, FACP, [facility] ([facility] O: [phone] F: [phone] C: [phone] Subjective Date of service: 07/02/22 Principal diagnosis: maliha on ckd Interval history: No fever. Stable on 2 L/min by nasal cannula. Drowsy. Objective - Exam Narrative Exam: Physical Exam: Constitutional: Drowsy, no distress Head, Ears, Nose: Normocephalic, atraumatic. External ears, nose normal Eyes: Conjunctivae/corneas clear. No icterus. No ptosis. Neck: Supple, no meningeal signs Oral: Unable to examine Cardiovascular: S1, S2 + Respiratory: Good air entry, clear to auscultation bilaterally GI: Soft, non-tender; bowel sounds normal. No peritoneal signs Musculoskeletal: No pedal edema, no cyanosis. Skin: No rash or abscess Hem/Lymphatic: No palpable cervical or supraclavicular nodes. No lymphangitis Psych: Drowsy, no agitation Neurological: Drowsy - Constitutional Vitals: Vital Signs Temp Pulse Resp BP Pulse Ox 97.5 F L 99 H 16 104/83 93 07/02/22 05:01 07/02/22 05:01 07/02/22 05:01 07/02/22 05:01 07/02/22 05:01 Temperature -Last 24 Hours Temperature 97.5 F - Labs CBC & Chem 7: 07/02/22 07:18 07/02/22 07:18 Labs: Abnormal lab results 07/01/22 07/01/22 07/01/22 Range/Units 17:18 19:20 19:20 RBC 2.57 L (3.65-5.03) M/mm3 Hgb 7.7 L (11.8-15.2) gm/dl Hct 23.1 L (35.5-45.6) % RDW 20.0 H (13.2-15.2) % Plt Count 68 L (140-440) K/mm3 Seg Neuts % (Manual) (40.0-70.0) % Lymphocytes % (Manual) (13.4-35.0) % Seg Neutrophils # Man (1.8-7.7) K/mm3 Lymphocytes # (Manual) (1.2-5.4) K/mm3 PT (12.2-14.9) Sec. INR (0.87-1.13) Chloride 113.0 H (98-107) mmol/L Carbon Dioxide 18 L D (22-30) mmol/L BUN 46 H (9-20) mg/dL Creatinine 2.3 H (0.8-1.3) mg/dL Glucose 181 H (75-100) mg/dL POC Glucose 119 H (70-105) mg/dL 07/01/22 07/01/22 07/02/22 Range/Units 19:20 23:19 07:18 RBC 2.54 L (3.65-5.03) M/mm3 Hgb 7.7 L (11.8-15.2) gm/dl Hct 22.5 L (35.5-45.6) % RDW 19.4 H (13.2-15.2) % Plt Count 60 L (140-440) K/mm3 Seg Neuts % (Manual) 99.0 H (40.0-70.0) % Lymphocytes % (Manual) 1.0 L (13.4-35.0) % Seg Neutrophils # Man 7.8 H (1.8-7.7) K/mm3 Lymphocytes # (Manual) 0.1 L (1.2-5.4) K/mm3 PT 27.4 H (12.2-14.9) Sec. INR 2.16 H (0.87-1.13) Chloride (98-107) mmol/L Carbon Dioxide (22-30) mmol/L BUN (9-20) mg/dL Creatinine (0.8-1.3) mg/dL Glucose (75-100) mg/dL POC Glucose 121 H (70-105) mg/dL 07/02/22 Range/Units 07:18 RBC (3.65-5.03) M/mm3 Hgb (11.8-15.2) gm/dl Hct (35.5-45.6) % RDW (13.2-15.2) % Plt Count (140-440) K/mm3 Seg Neuts % (Manual) (40.0-70.0) % Lymphocytes % (Manual) (13.4-35.0) % Seg Neutrophils # Man (1.8-7.7) K/mm3 Lymphocytes # (Manual) (1.2-5.4) K/mm3 PT (12.2-14.9) Sec. INR (0.87-1.13) Chloride 114.0 H (98-107) mmol/L Carbon Dioxide 19 L (22-30) mmol/L BUN 45 H (9-20) mg/dL Creatinine 2.5 H (0.8-1.3) mg/dL Glucose 110 H (75-100) mg/dL POC Glucose (70-105) mg/dL
--- NOTE | 2022-07-02 13:22 | Progress Note ---
Subjective Date of service: 07/02/22 Principal diagnosis: monica on ckd Interval history: Impression * Acute on chronic renal failure. Baseline creatinine 1.8-2.0 from March 2022 * metabolic acidosis. Lactic acidosis * Altered mental status * Sepsis * History of CVA * History of hypertension * History of DVT * Anemia Recommendations * Follow-up results of UA as well as fractional excretion of sodium * CT scan of his abdomen shows mildly distended bladder. Patient currently has a condom catheter in place. * urology consult noted * Continue iVFS * follow up am lytes * Follow-up results of vasculitis work-up to rule out pulmonary renal syndrome * Avoid nephrotoxins * Monitor fluid status and electrolytes closely * No urgent indication for renal replacement therapy today Subjective Interval history: Patient is comfortable today. labs and chart reviewed Objective - General Appearance General appearance: well-developed, well-nourished, appears stated age EENT: PERRL, mucous membranes moist Neck: no JVD, no thyromegaly, no carotid bruit, supple Respiratory: Present: Clear to Ascultation Cardiology: regular, normal heart rate Gastrointestinal: normal, normoactive bowel sounds Integumentary: other (1+ edema) Objective - Vital Signs Vital signs: Vital Signs - 12hr 07/02/22 05:01 Temperature 97.5 F L Pulse Rate 99 H Respiratory 16 Rate Blood Pressure 104/83 [Left] O2 Sat by Pulse 93 Oximetry - Lab 07/02/22 07:18 07/02/22 07:18 Most recent lab results ABG pH 7.383 pH Units (7.350-7.450) 06/28/22 14:53 ABG pCO2 19.1 mm Hg 06/28/22 14:53 ABG pO2 390.9 mm Hg (80.0-90.0) H 06/28/22 14:53 ABG HCO3 11.1 mmol/L (20.0-26.0) L 06/28/22 14:53 ABG O2 Saturation 99.5 % (95.0-99.0) H 06/28/22 14:53 Calcium 8.7 mg/dL (8.4-10.2) 07/02/22 07:18 Medications & Allergies - Medications Allergies/Adverse Reactions: Allergies No Known Allergies Allergy (Verified 06/28/22 13:48) Home Medications: Home Medications Medication Instructions Recorded Confirmed Last Taken Type Aspirin 325 mg PO QDAY #30 tablet 03/07/22 07/01/22 Unknown Rx AtorvaSTATin [Lipitor] 40 mg PO QHS 30 Days #30 tab 03/07/22 07/01/22 Unknown Rx Active Medications: Generic Name Dose Route Start Last Admin Trade Name Freq PRN Reason Stop Dose Admin Acetaminophen 650 mg 06/28/22 18:42 Acetaminophen 325 Mg Tab PO Q4H PRN Pain MILD(1-3)/Fever >100.5/GILES Dexamethasone 8 mg 06/29/22 07:00 07/02/22 08:50 Dexamethasone 4 Mg/Ml Vial IV 07/08/22 10:59 8 mg Q24H PARRISH Administration Azithromycin 500 mg in 250 mls @ 250 mls/hr 06/29/22 07:00 07/02/22 08:50 Zithromax/Ns IV 07/03/22 07:59 250 mls/hr Q24H PARRISH Administration Cefepime HCl 2 gm in 100 mls @ 200 mls/hr 06/29/22 18:00 07/01/22 18:46 Cefepime/Ns 2 Gm/100 Ml IV 07/03/22 19:59 Infused Q24H PARRISH Infusion Sodium Bicarbonate 150 meq/ 1,150 mls @ 75 mls/hr 06/29/22 14:00 06/30/22 22:29 Dextrose IV 75 mls/hr DIRECT PARRISH Administration Mirtazapine 7.5 mg 06/30/22 22:00 07/01/22 22:14 Mirtazapine 15 Mg Tab PO 7.5 mg QHS PARRISH Administration Morphine Sulfate 2 mg 06/28/22 16:55 06/28/22 19:02 Morphine 2 Mg/1 Ml Inj IV 2 mg Q4H PRN Administration Pain, Moderate (4-6) Ondansetron HCl 4 mg 06/28/22 18:42 Ondansetron 4 Mg/2 Ml Inj IV Q8H PRN Nausea And Vomiting Oxycodone/Acetaminophen 1 tab 06/28/22 18:42 Oxycodone /Acetaminophen 5-325mg Tab PO Q6H PRN Pain, Moderate (4-6) Pantoprazole Sodium 40 mg 07/01/22 09:30 07/02/22 08:50 Pantoprazole 40 Mg Tab PO 40 mg QAMDIAB PARRISH Administration Sodium Chloride 10 ml 06/28/22 22:00 07/01/22 22:17 Sodium Chloride 0.9% 10 Ml Flush Syringe IV 10 ml BID PARRISH Administration Sodium Chloride 10 ml 06/28/22 18:42 Sodium Chloride 0.9% 10 Ml Flush Syringe IV PRN PRN LINE FLUSH Tamsulosin HCl 0.4 mg 07/01/22 11:00 07/01/22 13:45 Tamsulosin 0.4 Mg Cap PO 0.4 mg QDAY PARRISH Administration
[2022-07-02] MEDS: CEFEPIME/NS 2 GM/100 ML 2 GM/100 ML BAG IV SCH (18:44)
[2022-07-02] MEDS: MIRTAZAPINE 15 MG TAB PO SCH (22:02)
[2022-07-03] MEDS: MORPHINE 2 MG/1 ML INJ IV PRN (01:48)
--- NOTE | 2022-07-03 08:14 | Progress Note ---
Assessment and Plan Cultures: SARS CoV2 PCR: positive 06/28/2022 blood culture: No growth A/P: 72-year-old male with prior CVA, DVT on anticoagulation, CKD, hypertension, dysphagia was admitted from the skilled nursing after being diagnosed with COVID and noted to have shortness of breath with hypoxia: #COVID-19 pneumonia: PCR positive, hypoxic requiring supplemental oxygen. CT chest with left lower lobe pneumonia. #Acute hypoxic respiratory failure: On nasal cannula #MALIHA on CKD: Renally adjust antibiotics. Nephrology following. #Leukopenia: Likely related to viral illness. Improved. #Mild thrombocytopenia Recs: -Continue IV/PO Dexamethasone x 10 days -Not a candidate for remdesivir due to CKD/elevated creatinine -Completed azithromycin. Completes 5 days of cefepime today -Already on apixaban for anticoagulation Deyanira Sutherland MD, FACP, [facility] ([facility] O: [phone] F: [phone] C: [phone] Subjective Date of service: 07/03/22 Principal diagnosis: maliha on ckd Interval history: No fever. Stable on oxygen - 2 L/min by nasal cannula. Drowsy. Objective - Exam Narrative Exam: Physical Exam: Constitutional: Drowsy, no distress Head, Ears, Nose: Normocephalic, atraumatic. External ears, nose normal Eyes: Conjunctivae/corneas clear. No icterus. No ptosis. Neck: Supple, no meningeal signs Oral: Unable to examine Cardiovascular: S1, S2 + Respiratory: Good air entry, clear to auscultation bilaterally GI: Soft, non-tender; bowel sounds normal. No peritoneal signs Musculoskeletal: No pedal edema, no cyanosis. Skin: No rash or abscess Hem/Lymphatic: No palpable cervical or supraclavicular nodes. No lymphangitis Psych: Drowsy, no agitation Neurological: Drowsy - Constitutional Vitals: Vital Signs Temp Pulse Resp BP Pulse Ox 97.5 F L 119 H 22 102/57 94 07/03/22 05:53 07/03/22 05:53 07/03/22 05:53 07/03/22 05:53 07/03/22 05:53 Temperature -Last 24 Hours Temperature 97.5 F Temperature 98.0 F Temperature 97.0 F - Labs CBC & Chem 7: 07/02/22 07:18 07/02/22 07:18 Labs: Abnormal lab results 07/02/22 07/02/22 Range/Units 07:18 07:18 RBC 2.54 L (3.65-5.03) M/mm3 Hgb 7.7 L (11.8-15.2) gm/dl Hct 22.5 L (35.5-45.6) % RDW 19.4 H (13.2-15.2) % Plt Count 60 L (140-440) K/mm3 Seg Neuts % (Manual) 99.0 H (40.0-70.0) % Lymphocytes % (Manual) 1.0 L (13.4-35.0) % Seg Neutrophils # Man 7.8 H (1.8-7.7) K/mm3 Lymphocytes # (Manual) 0.1 L (1.2-5.4) K/mm3 Chloride 114.0 H (98-107) mmol/L Carbon Dioxide 19 L (22-30) mmol/L BUN 45 H (9-20) mg/dL Creatinine 2.5 H (0.8-1.3) mg/dL Glucose 110 H (75-100) mg/dL
--- NOTE | 2022-07-03 08:50 | Progress Note ---
Assessment and Plan Assessment and plan: 72-year male with history of CVA and DVT presents from shelter with COVID- 19 (diagnosed 06/21/2022), chronic renal insufficiency, hypertension, cognitive communication deficit, dysphagia, DVT currently on Eliquis, and hyperlipidemia with complaints of hypoxia and shortness of breath and hypoglycemia with a blood sugar of 14. EMS reports that patient is on 3 L of nasal cannula at the shelter they were unable to obtain a accurate O2 sat. Patient was placed on nonrebreather for transport to the hospital. Patient appears to have mild to moderate respiratory distress on nonrebreather upon ED presentation. Patient is also hypoglycemic with a blood sugar of 14 initially Acute hypoxic respiratory failure Left lower lobe pneumonia/COVID-19 Sepsis Acute on chronic renal failure Toxic metabolic encephalopathy Hypoglycemia Anemia Urinary retention Coagulopathy/elevated INR History of DVT 06/28/22 Peripheral/Venous Blood Culture - Preliminary Culture in Progress CT chest Suspected left lower lobe pneumonia given the patient history of COVID-19 and shortness of breath which likely account for the abnormality seen on the prior chest radiograph Small left pleural effusion Cholelithiasis without evidence of acute cholecystitis Chest x-ray Irregular parenchymal opacity in the left retrocardiac region medially may be inflammatory or neoplastic. CT chest will be helpful for further evaluation. 06/29: Patient seen and examined, Imaging studies on admission showed left lobar pneumonia. BG is improved, will monitor blood sugars patient was initially with a sugar level of 14. At this point he remains with acute encephalopathy and as a result is not tolerating anything p.o. Will obtain swallow evaluation. Keep head of bed elevated. We will continue empiric antibiotic coverage and consult infectious disease for assistance with management. I have asked to have patient wean from Venturi mask and if this is unable to be done in the next 24 hours will obtain pulmonary consultation. In addition to the management listed below he does have metabolic acidosis for which I will give him a dose of bicarb while awaiting nephrology evaluation. He did have severe protein calorie malnutrition it appeared that he had a PEG tube at some point I have tried to call the family to get more information but no one is picking up. I do not have access to the facility where he came from. In the meantime a Dobbhoff may need to be inserted if there is no improvement in mental status for diet. Anemia concern is unknown if the patient who is on Eliquis and with elevated INR has not any bleed. I have asked the nurse to check stool for occult blood. We will monitor H&H closely and start the patient on PPI. Patient remains critically ill and requires to continue in the hospital for full evaluation. 06/30: Patient seen and examined this morning no worsening respiratory distress discussed with nurse and respiratory therapist to wean oxygen off. Does not have any fever. Still awaiting for a.m. labs. Was reported that he does have urinary retention mentioned yesterday on the notes. We will obtain a CT abdomen and pelvis have asked the nurse to place a Boyle catheter if unable to place and patient does not void will obtain urology consultation. He does not exhibit any pain during my examination. For now continue antibiotics continue steroids. There is no mention of hematuria or blood around the penis. 07/01: Patient seen and examined no worsening distress. Unable to place Boyle due to pain and hematuria. Urologist input noted CTAP showed mild bladder dis tention with right JJ stent that was placed elsewhere. Bilateral atrophic kidneys. Patient remains on Eliquis and could be the consideration of the hematuria. Urology recommends to start Flomax on hold Boyle at this time. Still waiting for repeat labs from yesterday and today. ID input is also noted patient was restarted on steroid therapy. Again does not appear to be in any significant distress. Speech therapist recommended pured diet with nectar thick fluids. Patient will need assistance with home enteral feeding at this time. I have tried to call the family multiple times unable to reach family Case management is also assisting. Would like to discuss goals of care with the family. Anticipate discharge in 24 to 48 hours once all goals of care is established Dr. Fam SPOKE to daughter who told himn that the patient was very conversational although has not been able to walk for years but regressed in the last month due Covid. Daughter stated that the patient was feeding himself and was ordering stuff on [employer]. She acknowledges that while he may be stubborn and sometimes does not want to interact that he is also been depressed since losing his in January. She informed us that he had a gastric bypass a few years ago and had lost significant amount of weight since then. She states that if he continues refusing diet that we should go ahead and proceed placing a feeding tube in place. We will consult surgery to evaluate in the meantime we will hold the Eliquis. 07/02: I attempted to reach the daughter and spouse but unsuccessful. We need to obtain information/old records regarding gastric bypass regarding anatomy for possible PEG placement. Eliquis stopped in anticipation for possible PEG placement. CTAP showed mild bladder distention with right JJ stent that was placed elsewhere. Bilateral atrophic kidneys. Urology recommended Flomax and hold on Boyle for now. We will continue dexamethasone for total of 10 days. Patient not a candidate for remdesivir due to CKD. Complete 5 days of cefepime, azithromycin for superimposed bacterial pneumonia with elevated procalcitonin. Continue to trend CRP. ID following 07/03: We will continue to attempt to contact the family regarding records of gastric bypass surgery for PEG placement. Eliquis stopped in anticipation for possible PEG placement. Continue dexamethasone. Patient with saturations at 95% on 2 L nasal cannula. Complete 5 days of cefepime, azithromycin for superimposed bacterial pneumonia with elevated procalcitonin per ID recommendations. Continue to trend CRP. ID following History Interval history: No new issues overnight Hospitalist Physical - Constitutional Vitals: Temp Pulse Resp BP Pulse Ox 97.5 F L 119 H 22 102/57 94 07/03/22 05:53 07/03/22 05:53 07/03/22 05:53 07/03/22 05:53 07/03/22 05:53 General appearance: Present: no acute distress, well-nourished - EENT Eyes: Present: PERRL, EOM intact ENT: hearing intact, clear oral mucosa, dentition normal - Neck Neck: Present: supple, normal ROM - Respiratory Respiratory effort: normal Respiratory: bilateral: CTA - Cardiovascular Rhythm: regular Heart Sounds: Present: S1 & S2. Absent: gallop, rub - Extremities Extremities: no ischemia, No edema, Full ROM - Abdominal General gastrointestinal: soft, non-tender, non-distended, normal bowel sounds - Integumentary Integumentary: Present: clear, warm, dry - Neurologic Neurologic: CNII-XII intact, moves all extremities HEART Score - HEART Score Risk factors: 1-2 risk factors Troponin: Troponin T 0.135 ng/mL (0.00-0.029) H* 06/28/22 14:57 Troponin: < normal limit - Critical Actions Critical Actions: 0-3 pts:0.9-1.7%risk of adverse cardiac event.Candidate for discharge Results - Labs CBC & Chem 7: 07/02/22 07:18 07/02/22 07:18 Labs: Laboratory Last Values WBC 7.9 K/mm3 (4.5-11.0) 07/02/22 07:18 RBC 2.54 M/mm3 (3.65-5.03) L 07/02/22 07:18 Hgb 7.7 gm/dl (11.8-15.2) L 07/02/22 07:18 Hct 22.5 % (35.5-45.6) L 07/02/22 07:18 MCV 89 fl (84-94) 07/02/22 07:18 MCH 30 pg (28-32) 07/02/22 07:18 MCHC 34 % (32-34) 07/02/22 07:18 RDW 19.4 % (13.2-15.2) H 07/02/22 07:18 Plt Count 60 K/mm3 (140-440) L 07/02/22 07:18 Lymph % (Auto) 7.2 % (13.4-35.0) L 06/29/22 03:57 [place] % (Auto) 4.1 % (0.0-7.3) 06/29/22 03:57 Eos % (Auto) 0.0 % (0.0-4.3) 06/29/22 03:57 Baso % (Auto) 0.1 % (0.0-1.8) 06/29/22 03:57 Lymph # (Auto) 0.5 K/mm3 (1.2-5.4) L 06/29/22 03:57 [place] # (Auto) 0.3 K/mm3 (0.0-0.8) 06/29/22 03:57 Eos # (Auto) 0.0 K/mm3 (0.0-0.4) 06/29/22 03:57 Baso # (Auto) 0.0 K/mm3 (0.0-0.1) 06/29/22 03:57 Add Manual Diff Complete 07/02/22 07:18 Total Counted 100 07/02/22 07:18 Seg Neutrophils % Finished Metal Repairer 07/02/22 07:18 Seg Neuts % (Manual) 99.0 % (40.0-70.0) H 07/02/22 07:18 Band Neutrophils % 0 % 07/02/22 07:18 Lymphocytes % (Manual) 1.0 % (13.4-35.0) L 07/02/22 07:18 Reactive Lymphs % (Man) 0 % 07/02/22 07:18 Monocytes % (Manual) 0 % (0.0-7.3) 07/02/22 07:18 Eosinophils % (Manual) 0 % (0.0-4.3) 07/02/22 07:18 Basophils % (Manual) 0 % (0.0-1.8) 07/02/22 07:18 Metamyelocytes % 0 % 07/02/22 07:18 Myelocytes % 0 % 07/02/22 07:18 Promyelocytes % 0 % 07/02/22 07:18 Blast Cells % 0 % 07/02/22 07:18 Nucleated RBC % Not Reportable 07/02/22 07:18 Seg Neutrophils # 5.9 K/mm3 (1.8-7.7) 06/29/22 03:57 Seg Neutrophils # Man 7.8 K/mm3 (1.8-7.7) H 07/02/22 07:18 Band Neutrophils # 0.0 K/mm3 07/02/22 07:18 Lymphocytes # (Manual) 0.1 K/mm3 (1.2-5.4) L 07/02/22 07:18 Abs React Lymphs (Man) 0.0 K/mm3 07/02/22 07:18 Monocytes # (Manual) 0.0 K/mm3 (0.0-0.8) 07/02/22 07:18 Eosinophils # (Manual) 0.0 K/mm3 (0.0-0.4) 07/02/22 07:18 Basophils # (Manual) 0.0 K/mm3 (0.0-0.1) 07/02/22 07:18 Metamyelocytes # 0.0 K/mm3 07/02/22 07:18 Myelocytes # 0.0 K/mm3 07/02/22 07:18 Promyelocytes # 0.0 K/mm3 07/02/22 07:18 Blast Cells # 0.0 K/mm3 07/02/22 07:18 WBC Morphology Not Reportable 07/02/22 07:18 Hypersegmented Neuts Not Reportable 07/02/22 07:18 Hyposegmented Neuts Not Reportable 07/02/22 07:18 Hypogranular Neuts Not Reportable 07/02/22 07:18 Smudge Cells Not Reportable 07/02/22 07:18 Toxic Granulation Not Reportable 07/02/22 07:18 Toxic Vacuolation Not Reportable 07/02/22 07:18 Dohle Bodies Not Reportable 07/02/22 07:18 Pelger-Huet Anomaly Not Reportable 07/02/22 07:18 Sonja Rods Not Reportable 07/02/22 07:18 Platelet Estimate 1 07/02/22 07:18 Clumped Platelets Not Reportable 07/02/22 07:18 Plt Clumps, EDTA Not Reportable 07/02/22 07:18 Large Platelets Not Reportable 07/02/22 07:18 Giant Platelets Not Reportable 07/02/22 07:18 Platelet Satelliting Not Reportable 07/02/22 07:18 Plt Morphology Comment Not Reportable 07/02/22 07:18 RBC Morphology Not Reportable 07/02/22 07:18 Dimorphic RBCs Not Reportable 07/02/22 07:18 Polychromasia Not Reportable 07/02/22 07:18 Hypochromasia 2+ 07/02/22 07:18 Poikilocytosis 1+ 07/02/22 07:18 Anisocytosis 1+ 07/02/22 07:18 Microcytosis 1+ 07/02/22 07:18 Macrocytosis Not Reportable 07/02/22 07:18 Spherocytes 1+ 07/02/22 07:18 Pappenheimer Bodies Not Reportable 07/02/22 07:18 Sickle Cells Not Reportable 07/02/22 07:18 Target Cells 1+ 07/02/22 07:18 Tear Drop Cells Not Reportable 07/02/22 07:18 Ovalocytes Not Reportable 07/02/22 07:18 Helmet Cells Not Reportable 07/02/22 07:18 Herrera-Gypsy Bodies Not Reportable 07/02/22 07:18 [place] Rings Not Reportable 07/02/22 07:18 [place] Cells Not Reportable 07/02/22 07:18 Bite Cells Not Reportable 07/02/22 07:18 Crenated Cell Not Reportable 07/02/22 07:18 Elliptocytes Not Reportable 07/02/22 07:18 Acanthocytes (Spur) Not Reportable 07/02/22 07:18 Rouleaux Not Reportable 07/02/22 07:18 Hemoglobin C Crystals Not Reportable 07/02/22 07:18 Schistocytes Not Reportable 07/02/22 07:18 Malaria parasites Not Reportable 07/02/22 07:18 Isaac Bodies Not Reportable 07/02/22 07:18 Hem Pathologist Commnt No 07/02/22 07:18 PT 27.4 Sec. (12.2-14.9) H 07/01/22 19:20 INR 2.16 (0.87-1.13) H 07/01/22 19:20 APTT 54.1 Sec. (24.2-36.6) H 06/29/22 00:09 D-Dimer 273.84 ng/mlDDU (0-234) H 06/28/22 16:11 ABG pH 7.383 pH Units (7.350-7.450) 06/28/22 14:53 ABG pCO2 19.1 mm Hg 06/28/22 14:53 ABG pO2 390.9 mm Hg (80.0-90.0) H 06/28/22 14:53 ABG HCO3 11.1 mmol/L (20.0-26.0) L 06/28/22 14:53 ABG O2 Saturation 99.5 % (95.0-99.0) H 06/28/22 14:53 ABG O2 Content 13.5 (0.0-44) 06/28/22 14:53 ABG Base Excess -12.3 mmol/L (-2.0-3.0) L 06/28/22 14:53 ABG Hemoglobin 9.0 gm/dl (14.0-18.0) L 06/28/22 14:53 ABG Carboxyhemoglobin 0.3 % (0.0-5.0) 06/28/22 14:53 ABG Methemoglobin 0.3 % (0.0-1.5) 06/28/22 14:53 Oxyhemoglobin 98.9 % (95.0-99.0) 06/28/22 14:53 FiO2 100 % 06/28/22 14:53 Sodium 141 mmol/L (137-145) 07/02/22 07:18 Potassium 3.6 mmol/L (3.6-5.0) 07/02/22 07:18 Chloride 114.0 mmol/L (98-107) H 07/02/22 07:18 Carbon Dioxide 19 mmol/L (22-30) L 07/02/22 07:18 Anion Gap 12 mmol/L 07/02/22 07:18 BUN 45 mg/dL (9-20) H 07/02/22 07:18 Creatinine 2.5 mg/dL (0.8-1.3) H 07/02/22 07:18 Estimated GFR 31 ml/min 07/02/22 07:18 BUN/Creatinine Ratio 18 % 07/02/22 07:18 Glucose 110 mg/dL (75-100) H 07/02/22 07:18 POC Glucose 94 mg/dL (70-105) 07/03/22 06:16 Lactic Acid 3.30 mmol/L (0.7-2.0) H* 06/28/22 16:11 Calcium 8.7 mg/dL (8.4-10.2) 07/02/22 07:18 Ferritin 2520.0 ng/mL (30.0-300.0) H 06/28/22 16:11 Total Bilirubin 0.40 mg/dL (0.1-1.2) 06/29/22 03:57 AST 26 units/L (5-40) 06/29/22 03:57 ALT 13 units/L (7-56) 06/29/22 03:57 Alkaline Phosphatase 93 units/L (35-129) 06/29/22 03:57 Lactate Dehydrogenase 199 units/L (91-180) H 06/28/22 16:11 Troponin T 0.135 ng/mL (0.00-0.029) H* 06/28/22 14:57 C-Reactive Protein 4.60 mg/dL (0.00-1.30) H 06/28/22 16:11 Total Protein 4.2 g/dL (6.3-8.2) L 06/29/22 03:57 Albumin 1.4 g/dL (3.9-5) L 06/29/22 03:57 Albumin/Globulin Ratio 0.5 % 06/29/22 03:57 Triglycerides 95 mg/dL (2-149) 06/28/22 14:57 Cholesterol 74 mg/dL (50-199) 06/28/22 14:57 LDL Cholesterol Direct 21 mg/dL (50-130) L 06/28/22 14:57 HDL Cholesterol 22 mg/dL (40-59) L 06/28/22 14:57 Cholesterol/HDL Ratio 3.36 % 06/28/22 14:57 Procalcitonin 0.47 ng/mL (<0.15) 07/01/22 19:20 Coronavirus (PCR) Positive (Negative) A 06/29/22 Unknown Hepatitis A IgM Ab Non-reactive (NonReactive) 07/01/22 19:20 Hep Bs Antigen Non-reactive (Negative) 07/01/22 19:20 Hep B Core IgM Ab Non-reactive (NonReactive) 07/01/22 19:20 Hepatitis C Antibody Non-reactive (NonReactive) 07/01/22 19:20 Microbiology: Microbiology 06/28/22 14:57 Peripheral/Venous Blood Culture - Preliminary NO GROWTH AFTER 4 DAYS 06/28/22 14:57 Peripheral/Venous Blood Culture - Preliminary NO GROWTH AFTER 4 DAYS Boyle/IV: Voiding Method Condom Catheter Active Medications - Current Medications Current Medications: Generic Name Dose Route Start Last Admin Trade Name Freq PRN Reason Stop Dose Admin Acetaminophen 650 mg 06/28/22 18:42 Acetaminophen 325 Mg Tab PO Q4H PRN Pain MILD(1-3)/Fever >100.5/GILES Dexamethasone 8 mg 06/29/22 07:00 07/02/22 08:50 Dexamethasone 4 Mg/Ml Vial IV 07/08/22 10:59 8 mg Q24H PARRISH Administration Cefepime HCl 2 gm in 100 mls @ 200 mls/hr 06/29/22 18:00 07/02/22 22:03 Cefepime/Ns 2 Gm/100 Ml IV 07/03/22 19:59 Infused Q24H PARRISH Infusion Sodium Bicarbonate 150 meq/ 1,150 mls @ 75 mls/hr 06/29/22 14:00 06/30/22 22:29 Dextrose IV 75 mls/hr DIRECT PARRISH Administration Mirtazapine 7.5 mg 06/30/22 22:00 07/02/22 22:02 Mirtazapine 15 Mg Tab PO Not Given QHS PARRISH Morphine Sulfate 2 mg 06/28/22 16:55 07/03/22 01:48 Morphine 2 Mg/1 Ml Inj IV 2 mg Q4H PRN Administration Pain, Moderate (4-6) Ondansetron HCl 4 mg 06/28/22 18:42 Ondansetron 4 Mg/2 Ml Inj IV Q8H PRN Nausea And Vomiting Oxycodone/Acetaminophen 1 tab 06/28/22 18:42 Oxycodone /Acetaminophen 5-325mg Tab PO Q6H PRN Pain, Moderate (4-6) Pantoprazole Sodium 40 mg 07/01/22 09:30 07/02/22 08:50 Pantoprazole 40 Mg Tab PO 40 mg QAMDIAB PARRISH Administration Sodium Chloride 10 ml 06/28/22 22:00 07/02/22 22:01 Sodium Chloride 0.9% 10 Ml Flush Syringe IV 10 ml BID PARRISH Administration Sodium Chloride 10 ml 06/28/22 18:42 Sodium Chloride 0.9% 10 Ml Flush Syringe IV PRN PRN LINE FLUSH Tamsulosin HCl 0.4 mg 07/01/22 11:00 07/02/22 08:55 Tamsulosin 0.4 Mg Cap PO 0.4 mg QDAY PARRISH Administration Nutrition/Malnutrition Assess - Dietary Evaluation Nutrition/Malnutrition Findings: Nutrition Notes Start: 06/30/22 11:11 Freq: Status: Active Protocol: Document 07/02/22 10:21 LEANNA (Rec: 07/02/22 10:38 LEANNA [id number]) Nutrition Notes Initial or Follow up Brief Note Current Diagnosis Acute Kidney Injury,CKD(stage I-IV),Sepsis,Hypertension, Respiratory Failure,Stroke, Hyperlipidemia Other Pertinent Diagnosis DVT, COVID-19, Dysphagia, Pneumonia, Anemia, Metabolic & Lactic Acidosis... Current Diet Pureed Diet (since L 07/01), D Suppl (from B 07/02). Height 5 ft 11 in Weight 40.832 kg [place] Body Weight (kg) 78.18 BMI 12.5 Weight change and time frame No body weight change reported in 2 days. Weight Status Underweight Subjective/Other Information RD consult for routine F/U on Possible PEG-tube placement. MD has not been able to locate family and obtain consent and additional information regarding PEG-tube placement at the time, will continue to follow. Pt's PO intake of meals continues to be Negligible (0% ), according to ADL notes. Pt is on Nasal Cannula, O2 saturation @ 95%, according to Physical Assessment History notes. Percent of energy/protein needs met: Prescribed Pureed Diet provides for energy/protein needs (1,804 Kcal/77 g) during LOS; additionally, Dietary Supplements will compensate for possible poor or insufficient PO intake of meals with 1,275 Kcal and 57 g of protein. #2 Nutrition Diagnosis Underweight Diagnosis Progress(for reassessment Continues documentation) #1 Nutrition Diagnosis Inadequate energy intake Diagnosis Progress(for reassessment Continues documentation) Is patient on ventilator? No Is Patient Ambulatory and/or Out of Bed No REE-([place]-St. Jeor-confined to bed) 1428.864 Kcal/Kg value to use for calculation 52 Approximate Energy Requirements Using 2123 kcal/Kg Calculation Used for Recommendations Kcal/kg Additional Notes Protein: 1-1.2 g/Kg ABW; 41-49 g/day. Fluids: 1 ml/Kcal, or as per MD. Nutrition Intervention Change Diet Order: Continue Pureed Diet. Nutrition Support: Strongly recommend start TF. Add Supplement/Snack (indicate name/kcal Continue 8 fl oz Nepro w/ /protein ) CARBSTEADY; TID. Provides kCal: 1,275 Provides Protein (gm) 57 Goal #1 Compensate, through dietary supplementation, for possible poor or insufficient PO intake of meals during LOS. Goal #2 Facilitate PO intake of meals with elemental, textural, or mechanical modification during LOS. Follow-Up By: 07/04/22 Additional Comments Continue monitoring food tolerance, %PO intake of meals , dietary supplements, and BM.
[2022-07-03] MEDS: TAMSULOSIN 0.4 MG CAP PO SCH (09:38)
[2022-07-03] MEDS: PANTOPRAZOLE 40 MG TAB PO SCH (09:38)
[2022-07-03] MEDS: dexAMETHasone 4 MG/ML VIAL IV SCH (09:39)
[2022-07-03] MEDS: DEXAMETHASONE 4 MG TAB PO SCH (09:39)
[2022-07-03] MEDS: AZITHROMYCIN/NS 500 MG/250 ML 500 MG/250 ML BAG IV SCH (09:43)
[2022-07-03] MEDS ORDERED: HEPARIN 10,000 UNITS/10 ML VIAL IV NR (10:30)
--- NOTE | 2022-07-03 10:33 | Progress Note ---
Assessment and Plan Surgical consult is for placement of a feeding tube. Pt records indicate that he is sp a gastric bypass. Not clear if an op report can be found and it is not clear where the surgery was done. Pt is unable to help with the history. Pt with positive covid on 06/21/22, pos retest on 06/29/22. No further testing is needed. Will schedule feeding tube placement for two weeks from 06/21/22. Which would put surgical date on Friday07/08/22. All tube feeding should be held after midnight on Friday07/07/22. Will need to find family and surgical report. Eliquis stopped yesterday. Would suggest bridging with heparin until Friday. Subjective Date of service: 07/03/22 Narrative: Patient being seen by general surgery for feeding tube placement. Patient's history is suggestive of gastric bypass. Unable to contact patient for additional information. In addition patient with COVID-positive testing on 06/21 and 06/29. Feeding tube with surgery planned for 07/08/2022. Eliquis being held at this time for DVTs. Suggest bridging with heparin until Friday. We will con tinue to follow patient with you. Objective Vital Signs - 12hr 07/03/22 07/03/22 05:53 09:55 Temperature 97.5 F L Pulse Rate 119 H Respiratory 22 Rate Blood Pressure 102/57 [Left] O2 Sat by Pulse 94 91 Oximetry - Labs 07/02/22 07:18 07/02/22 07:18
[2022-07-03] MEDS: HEPARIN/ 0.45% NACL DRIP 25,000 UNIT/500 ML BAG IV SCH (10:59)
--- NOTE | 2022-07-03 12:08 | Progress Note ---
Subjective Date of service: 07/03/22 Principal diagnosis: monica on ckd Interval history: NEW TO [facility] COVID 19 INFECTION RENAL INSUFFICIENCY 72-year male with history of CVA and DVT presents from shelter with COVID- 19 (diagnosed 06/21/2022), chronic renal insufficiency, hypertension, cognitive communication deficit, dysphagia, DVT currently on Eliquis, and hyperlipidemia with complaints of hypoxia and shortness of breath. EMS reports that patient is on 3 L of nasal cannula at the shelter they were unable to obtain a accurate O2 sat. Patient was placed on nonrebreather for transport to the hospital. Patient appears to have mild to moderate respiratory distress on nonrebreather upon ED presentation. Pt resting well, hard to wake up. Nurse just spoke with pt and he was fine. Recently voided 300cc per nurse. g-tube from last visit removed. pt eating. + blood thinner obtain op note from [facility] 2020--- pt had removal of penile prosthesis & stent placement by Dr. Gabe Gordon [facility] CTAP--- mild bladder distenstion, rt jj stent ( not placed here) --- bilat atrophic kidneys abd soft 16F WIRE MULLEN-PLACED --NO PROBLEM a/p bph atrophic kidneys blood thinner creatinine 2.5 now---- last visit 1.8--2 started flomax 1qd yesterday Objective - Constitutional Vitals: Vital Signs - 12hr 07/03/22 07/03/22 05:53 09:55 Temperature 97.5 F L Pulse Rate 119 H Respiratory 22 Rate Blood Pressure 102/57 [Left] O2 Sat by Pulse 94 91 Oximetry - Labs CBC & Chem 7: 07/02/22 07:18 07/02/22 07:18 Medications & Allergies - Medications Allergies/Adverse Reactions: Allergies No Known Allergies Allergy (Verified 06/28/22 13:48) Home Medications: Home Medications Medication Instructions Recorded Confirmed Last Taken Type Aspirin 325 mg PO QDAY #30 tablet 03/07/22 07/01/22 Unknown Rx AtorvaSTATin [Lipitor] 40 mg PO QHS 30 Days #30 tab 03/07/22 07/01/22 Unknown Rx Active Medications: Generic Name Dose Route Start Last Admin Trade Name Freq PRN Reason Stop Dose Admin Acetaminophen 650 mg 06/28/22 18:42 Acetaminophen 325 Mg Tab PO Q4H PRN Pain MILD(1-3)/Fever >100.5/GILES Dexamethasone 8 mg 07/03/22 10:00 07/03/22 09:39 Dexamethasone 4 Mg Tab PO 07/08/22 10:59 8 mg DAILY PARRISH Administration Heparin Sodium (Porcine) 1,700 unit 07/03/22 10:30 07/03/22 11:00 Heparin 10,000 Units/10 Ml Vial 40 unit/kg (1700 unit) 07/03/22 13:00 1,700 unit IV Administration ONCE@1030 NR Heparin Sodium (Porcine) 1,700 unit 07/03/22 16:00 Heparin 10,000 Units/10 Ml Vial 40 unit/kg (1700 unit) IV Q6H PRN Anti-Xa Assay < 0.1 units/ml Cefepime HCl 2 gm in 100 mls @ 200 mls/hr 06/29/22 18:00 07/02/22 22:03 Cefepime/Ns 2 Gm/100 Ml IV 07/03/22 19:59 Infused Q24H PARRISH Infusion Sodium Bicarbonate 150 meq/ 1,150 mls @ 75 mls/hr 06/29/22 14:00 06/30/22 22:29 Dextrose IV 75 mls/hr DIRECT PARRISH Administration Heparin Sodium/Sodium Chloride 25,000 unit in 500 mls @ 12 mls/hr 07/03/22 11:00 07/03/22 10:59 Heparin/ 0.45% Nacl-25,000 Unit/500 Ml IV 600 units/hr TITR PARRISH 12 mls/hr Administration Protocol 600 UNITS/HR Mirtazapine 7.5 mg 06/30/22 22:00 07/02/22 22:02 Mirtazapine 15 Mg Tab PO Not Given QHS [facility] Morphine Sulfate 2 mg 06/28/22 16:55 07/03/22 01:48 Morphine 2 Mg/1 Ml Inj IV 2 mg Q4H PRN Administration Pain, Moderate (4-6) Ondansetron HCl 4 mg 06/28/22 18:42 Ondansetron 4 Mg/2 Ml Inj IV Q8H PRN Nausea And Vomiting Oxycodone/Acetaminophen 1 tab 06/28/22 18:42 Oxycodone /Acetaminophen 5-325mg Tab PO Q6H PRN Pain, Moderate (4-6) Pantoprazole Sodium 40 mg 07/01/22 09:30 07/03/22 09:38 Pantoprazole 40 Mg Tab PO 40 mg QAMDIAB PARRISH Administration Sodium Chloride 10 ml 06/28/22 22:00 07/03/22 09:55 Sodium Chloride 0.9% 10 Ml Flush Syringe IV 10 ml BID PARRISH Administration Sodium Chloride 10 ml 06/28/22 18:42 Sodium Chloride 0.9% 10 Ml Flush Syringe IV PRN PRN LINE FLUSH Tamsulosin HCl 0.4 mg 07/01/22 11:00 07/03/22 09:38 Tamsulosin 0.4 Mg Cap PO 0.4 mg QDAY PARRISH Administration HEART Score - HEART Score Risk factors: 1-2 risk factors Troponin: Troponin T 0.135 ng/mL (0.00-0.029) H* 06/28/22 14:57 Troponin: < normal limit - Critical Actions Critical Actions: 0-3 pts:0.9-1.7%risk of adverse cardiac event.Candidate for discharge
--- NOTE | 2022-07-03 12:29 | Progress Note ---
Subjective Date of service: 07/03/22 Principal diagnosis: monica on ckd Interval history: Impression * Acute on chronic renal failure. Baseline creatinine 1.8-2.0 from March 2022 * metabolic acidosis. Lactic acidosis * Altered mental status * Sepsis * History of CVA * History of hypertension * History of DVT * Anemia Recommendations * Follow-up results of UA as well as fractional excretion of sodium * CT scan of his abdomen shows mildly distended bladder. Patient currently has a condom catheter in place. * urology consult noted * Continue iVFS * follow up am lytes * Follow-up results of vasculitis work-up to rule out pulmonary renal syndrome * Avoid nephrotoxins * Monitor fluid status and electrolytes closely * No urgent indication for renal replacement therapy today * cr 2.5 at last check, follow up daily lytes Subjective Interval history: Patient is comfortable today. labs and chart reviewed Objective - General Appearance General appearance: well-developed, well-nourished, appears stated age EENT: PERRL, mucous membranes moist Neck: no JVD, no thyromegaly, no carotid bruit, supple Respiratory: Present: Clear to Ascultation Cardiology: regular, normal heart rate Gastrointestinal: normal, normoactive bowel sounds Integumentary: other (1+ edema) Objective - Vital Signs Vital signs: Vital Signs - 12hr 07/03/22 07/03/22 05:53 09:55 Temperature 97.5 F L Pulse Rate 119 H Respiratory 22 Rate Blood Pressure 102/57 [Left] O2 Sat by Pulse 94 91 Oximetry - Lab 07/02/22 07:18 07/02/22 07:18 Most recent lab results ABG pH 7.383 pH Units (7.350-7.450) 06/28/22 14:53 ABG pCO2 19.1 mm Hg 06/28/22 14:53 ABG pO2 390.9 mm Hg (80.0-90.0) H 06/28/22 14:53 ABG HCO3 11.1 mmol/L (20.0-26.0) L 06/28/22 14:53 ABG O2 Saturation 99.5 % (95.0-99.0) H 06/28/22 14:53 Calcium 8.7 mg/dL (8.4-10.2) 07/02/22 07:18 Medications & Allergies - Medications Allergies/Adverse Reactions: Allergies No Known Allergies Allergy (Verified 06/28/22 13:48) Home Medications: Home Medications Medication Instructions Recorded Confirmed Last Taken Type Aspirin 325 mg PO QDAY #30 tablet 03/07/22 07/01/22 Unknown Rx AtorvaSTATin [Lipitor] 40 mg PO QHS 30 Days #30 tab 03/07/22 07/01/22 Unknown Rx Active Medications: Generic Name Dose Route Start Last Admin Trade Name Emmanuel PRN Reason Stop Dose Admin Acetaminophen 650 mg 06/28/22 18:42 Acetaminophen 325 Mg Tab PO Q4H PRN Pain MILD(1-3)/Fever >100.5/GILES Dexamethasone 8 mg 07/03/22 10:00 07/03/22 09:39 Dexamethasone 4 Mg Tab PO 07/08/22 10:59 8 mg DAILY PARRISH Administration Heparin Sodium (Porcine) 1,700 unit 07/03/22 10:30 07/03/22 11:00 Heparin 10,000 Units/10 Ml Vial 40 unit/kg (1700 unit) 07/03/22 13:00 1,700 unit IV Administration ONCE@1030 NR Heparin Sodium (Porcine) 1,700 unit 07/03/22 16:00 Heparin 10,000 Units/10 Ml Vial 40 unit/kg (1700 unit) IV Q6H PRN Anti-Xa Assay < 0.1 units/ml Cefepime HCl 2 gm in 100 mls @ 200 mls/hr 06/29/22 18:00 07/02/22 22:03 Cefepime/Ns 2 Gm/100 Ml IV 07/03/22 19:59 Infused Q24H PARRISH Infusion Sodium Bicarbonate 150 meq/ 1,150 mls @ 75 mls/hr 06/29/22 14:00 06/30/22 22:29 Dextrose IV 75 mls/hr DIRECT PARRISH Administration Heparin Sodium/Sodium Chloride 25,000 unit in 500 mls @ 12 mls/hr 07/03/22 11:00 07/03/22 10:59 Heparin/ 0.45% Nacl-25,000 Unit/500 Ml IV 600 units/hr TITR PARRISH 12 mls/hr Administration Protocol 600 UNITS/HR Mirtazapine 7.5 mg 06/30/22 22:00 07/02/22 22:02 Mirtazapine 15 Mg Tab PO Not Given QHS PARRISH Morphine Sulfate 2 mg 06/28/22 16:55 07/03/22 01:48 Morphine 2 Mg/1 Ml Inj IV 2 mg Q4H PRN Administration Pain, Moderate (4-6) Ondansetron HCl 4 mg 06/28/22 18:42 Ondansetron 4 Mg/2 Ml Inj IV Q8H PRN Nausea And Vomiting Oxycodone/Acetaminophen 1 tab 06/28/22 18:42 Oxycodone /Acetaminophen 5-325mg Tab PO Q6H PRN Pain, Moderate (4-6) Pantoprazole Sodium 40 mg 07/01/22 09:30 07/03/22 09:38 Pantoprazole 40 Mg Tab PO 40 mg QAMDIAB PARRISH Administration Sodium Chloride 10 ml 06/28/22 22:00 07/03/22 09:55 Sodium Chloride 0.9% 10 Ml Flush Syringe IV 10 ml BID PARRISH Administration Sodium Chloride 10 ml 06/28/22 18:42 Sodium Chloride 0.9% 10 Ml Flush Syringe IV PRN PRN LINE FLUSH Tamsulosin HCl 0.4 mg 07/01/22 11:00 07/03/22 09:38 Tamsulosin 0.4 Mg Cap PO 0.4 mg QDAY PARRISH Administration
[2022-07-03] MEDS ORDERED: HEPARIN 10,000 UNITS/10 ML VIAL IV PRN (16:00)
[2022-07-03] MEDS: CEFEPIME/NS 2 GM/100 ML 2 GM/100 ML BAG IV SCH (17:02)
[2022-07-03 20:44] LABS: Hematocrit 25.4 % (35.5-45.6); Hemoglobin 8.4 gm/dl (11.8-15.2)
[2022-07-03 21:33] LABS: INR 2.15 (0.87-1.13)
[2022-07-03 22:08] LABS: Partial Thromboplastin Time > 240.0 Sec. (24.2-36.6)
[2022-07-03] MEDS: MIRTAZAPINE 15 MG TAB PO SCH (23:22)
[2022-07-03] MEDS ORDERED: SODIUM BICARB 8.4% 50 MEQ/50 ML SYRINGE IV ONE ×2 (23:41)
[2022-07-03] MEDS ORDERED: NORepinephrine/NS 8 MG-250 ML 8 MG/250 ML INFUS..BTL IV SCH (23:45)
[2022-07-03 23:48] LABS: ABG Base Excess -8.9 mmol/L (-2.0-3.0); ABG HCO3 14.9 mmol/L (20.0-26.0); ABG Methemoglobin 0.2 % (0.0-1.5); ABG Oxygen Saturation 98.8 % (95.0-99.0); ABG PCO2 24.5 mm Hg; ABG PH 7.4 pH Units (7.350-7.450); ABG PO2 149.9 mm Hg (80.0-90.0)
--- NOTE | 2022-07-04 01:47 | XRay Report ---
CHEST 1 VIEW 07/04/2022 1:15 AM INDICATION / CLINICAL INFORMATION: low oxygen saturations. COMPARISON: CT chest without contrast and 1 view of the chest performed on 06/28/2022. FINDINGS: SUPPORT DEVICES: None. HEART / MEDIASTINUM: No significant abnormality. LUNGS / PLEURA: There are persistent left lower lobe opacities. No new significant pulmonary abnormal ity. No significant pleural effusion. No pneumothorax. ADDITIONAL FINDINGS: No significant additional findings. IMPRESSION: Persistent left lower lobe pneumonia. No new acute findings. Signer Name: Elias Woods MD Signed: 07/04/2022 1:42 AM Workstation Name: [id number]
[2022-07-04] MEDS: HEPARIN/ 0.45% NACL DRIP 25,000 UNIT/500 ML BAG IV SCH (02:43)
[2022-07-04] MEDS: SODIUM BICARBONATE 150 MEQ in DEXTROSE 5% IN WATER 1,000 ML IV SCH (02:44)
--- NOTE | 2022-07-04 07:50 | Event Note ---
Date: 07/04/22 Code med called on 72-year-old male who has been on admission for pneumonia/COVID. He had become less responsive, hypotensive and was in respirat ory distress. Patient was suctioned and was placed on BiPAP. Patient commenced on a pressor for his hypotension. He transferred into the intensive care unit for close monitoring. Will follow up on labs and chest x-ray.
[2022-07-04 08:35] LABS: Hematocrit 25.8 % (35.5-45.6); Hemoglobin 8.5 gm/dl (11.8-15.2); Mean Corpuscular HGB Conc 33 % (32-34); Mean Corpuscular Volume 90 fl (84-94); Red Blood Count 2.88 M/mm3 (3.65-5.03)
[2022-07-04 08:44] LABS: Red Cell Distribution Width 20.1 % (13.2-15.2)
--- NOTE | 2022-07-04 10:06 | Progress Note ---
<GRETEL VERA - Last Filed: 07/04/22 16:55> Assessment and Plan Assessment and plan: This is a 72-year-old male who is a care home resident, with known past medical history of CVA, recent COVID 19 infection, chronic renal insufficiency, hypertension, cognitive communication deficit, dysphagia, DVT s/p IVC filter and was on Eliquis at home, and hyperlipidemia initially admitted to the floor for sepsis and acute hypoxic respiratory failure 2/2 pneumonia. Patient was transferred to the ICU overnight due to hypotension and hypoxia now on continuous Bipap. Hospital Course to Date: 06/29: Patient seen and examined, Imaging studies on admission showed left lobar pneumonia. BG is improved, will monitor blood sugars patient was initially with a sugar level of 14. At this point he remains with acute encephalopathy and as a result is not tolerating anything p.o. Will obtain swallow evaluation. Keep head of bed elevated. We will continue empiric antibiotic coverage and consult infectious disease for assistance with management. I have asked to have patient wean from Venturi mask and if this is unable to be done in the next 24 hours will obtain pulmonary consultation. In addition to the management listed below he does have metabolic acidosis for which I will give him a dose of bicarb while awaiting nephrology evaluation. He did have severe protein calorie malnutrition it appeared that he had a PEG tube at some point I have tried to call the family to get more information but no one is picking up. I do not have access to the facility where he came from. In the meantime a Dobbhoff may need to be inserted if there is no improvement in mental status for diet. Anemia concern is unknown if the patient who is on Eliquis and with elevated INR has not any bleed. I have asked the nurse to check stool for occult blood. We will monitor H&H closely and start the patient on PPI. Patient remains critically ill and requires to continue in the hospital for full evaluation. 06/30: Patient seen and examined this morning no worsening respiratory distress discussed with nurse and respiratory therapist to wean oxygen off. Does not have any fever. Still awaiting for a.m. labs. Was reported that he does have urinary retention mentioned yesterday on the notes. We will obtain a CT abdomen and pelvis have asked the nurse to place a Boyle catheter if unable to place and patient does not void will obtain urology consultation. He does not exhibit any pain during my examination. For now continue antibiotics continue steroids. There is no mention of hematuria or blood around the penis. 07/01: Patient seen and examined no worsening distress. Unable to place Boyle due to pain and hematuria. Urologist input noted CTAP showed mild bladder distention with right JJ stent that was placed elsewhere. Bilateral atrophic kidneys. Patient remains on Eliquis and could be the consideration of the hematuria. Urology recommends to start Flomax on hold Boyle at this time. Still waiting for repeat labs from yesterday and today. ID input is also noted patient was restarted on steroid therapy. Again does not appear to be in any significant distress. Speech therapist recommended pured diet with nectar thick fluids. Patient will need assistance with home enteral feeding at this time. I have tried to call the family multiple times unable to reach family Case management is also assisting. Would like to discuss goals of care with the family. Anticipate discharge in 24 to 48 hours once all goals of care is established Dr. Fam SPOKE to daughter who told himn that the patient was very conversational although has not been able to walk for years but regressed in the last month due Covid. Daughter stated that the patient was feeding himself and was ordering stuff on [employer]. She acknowledges that while he may be stubborn and sometimes does not want to interact that he is also been depressed since losing his in January. She informed us that he had a gastric bypass a few years ago and had lost significant amount of weight since then. She states that if he continues refusing diet that we should go ahead and proceed placing a feeding tube in place. We will consult surgery to evaluate in the meantime we will hold the Eliquis. 07/02: I attempted to reach the daughter and spouse but unsuccessful. We need to obtain information/old records regarding gastric bypass regarding anatomy for possible PEG placement. Eliquis stopped in anticipation for possible PEG placement. CTAP showed mild bladder distention with right JJ stent that was placed elsewhere. Bilateral atrophic kidneys. Urology recommended Flomax and hold on Boyle for now. We will continue dexamethasone for total of 10 days. Patient not a candidate for remdesivir due to CKD. Complete 5 days of cefepime, azithromycin for superimposed bacterial pneumonia with elevated procalcitonin. Continue to trend CRP. ID following 07/03: We will continue to attempt to contact the family regarding records of gastric bypass surgery for PEG placement. Eliquis stopped in anticipation for possible PEG placement. Continue dexamethasone. Patient with saturations at 95% on 2 L nasal cannula. Complete 5 days of cefepime, azithromycin for superimposed bacterial pneumonia with elevated procalcitonin per ID recommenda tions. Continue to trend CRP. ID following 07/04: Code met overnight due to hypotension and hypoxia. BP improved after 1amp of bcarb, Levophed was never initiated. Patient remains on bcarb gtt per Nephro. Patient mentation is unchanged- lethargic and only arousable to tactile stimuli. On continuous bipap, unable to potato picker O2 stat probably due to hypothermia. Warming blanket applied. This am ABG and CXR reviewed, patient remains on PO steroids per ID wean O2 supplementation as tolerated. Heparin gtt held this am due to worsen thrombocytopenia and coagulopathy. Possible hematology consult per CCM. Possible CT head/brain once more stable. General surgery also on consult for possible PEG-tube placement, procedure on hold awaiting on medical records from Joaquin Scherer[facility] office, from [facility]. [facility], will insert NGT for now for meds and enteral nutrition. Assessment and Plan #Hypotension-resolved #Metabolic Acidosis - Initially presented for sepsis 2/2 PNA, COVID +. completed IV Abx course - Patient was with low Co2 level on Bcarb gtt - 07/04 Code met overnight due to hypotension and hypoxia, transferred to ICU - BP improved after 1amp of bcarb, Levophed was never initiated - Remains on Bcarb gtt per Nephro - Continue blood pressure monitor per protocol - Maintain MAP above 65 #Acute Hypoxic Respiratory Failure #Left Lower Lobe Pneumonia #COVID-19 Infection - Presented with hypoxia and SOB - COVID PCR positive - Completed X5 days course of Cefepine and Azithro and on PO Steroids X10 days - ID is following. Patient not candidate for remdesevir due to acute on CKD - Code met overnight due to Hypoxia and hypotension requiring continuous Bipap - This am ABG with low bcarb, otherwise unremarkable - CXR noted with persistent LLL PNA, no acute findings - Unable to potato picker O2 sat, patient is hypothermic-warming blanket applied - Continue O2 supplementation and wean down as tolerated - Aspiration precaution HOB above 30 - Continue SPO2 monitoring for SPO2 goal above 92% - CCM consulted, appreciate recommendations #Sepsis #Left Lower Lobe Pneumonia #COVID-19 Infection #Metabolic Acidosis - Presented with hypoxia and SOB - COVID PCR positive - Imaging revealed LLE PNA - ID is following, appreciate recommendations - Completed X5 days course of Cefepine and Azithro and on PO Steroids X10 days - Patient not candidate for remdesevir due to acute on CKD - Blood cultures negative - Code met overnight due to Hypoxia and hypotension requiring continuous Bipap - BP improved post 1amp of bcarb. Hypothermic with low CO2 from this am ABG. WBCs wnr - On bcarb gtt - Continue to trend CBC - Panculture if febrile and leukocytosis worsen #Toxic Metabolic Encephalopathy #H/o CVA & Cognitive Communication Deficit - Remains lethargic and only arousable to tactile stimuli - Possible CT head/brain once more stable - check ammonia level - Avoid benzodiazepine to reduce the possibility of delirium - PRN Analgesia for pain control - Maintenance of sleep-wake cycle #Acute on Chronic Renal Failure #Urinary Retention - Nephrology on consult, appreciated recommendation - Coude catheter inserted by Urology. Will low UOP today - On bcarb gtt per Nephro - Strict intake and output - Avoid nephrotoxic medications; Renally dose medications - Monitor and replace electrolytes as needed #Thrombocytopenia #Coagulopathy/Elevated INR #Normocytic Anemia #H/o DVT s/p IVC Filter was on Eliquis at home - Plt count countinue to worsen today, INR is elevated with anemia - H&H remains stable - No s/s of any active bleeding - Heparin gtt held due to worsen thrombocytopenia - Continue to trend CBC and coags - Hematology consulted - Transfuse for hgb less than 7 - SCDs to bilateral lower extremities while in bed #Dysphagia - Per family patient had a PEG-tube 3months ago, however not present on admit - Per record, patient was admitted on march 2022 because his G-tube fell out. Patient was AAO and was eating at the time, decision was made not to replace G- tube - General Surgery consulted this am for PEG-tube placement - Procedure on hold for now, awaiting on medical records from Dr. Vazquez,from [place] due to patient's history of gastric bypass - Will insert NGT for meds and enteral nutrition for now - Continue current IVF for now #Hypoglycemia - Presented with a BG level of 14 - Currently on continuous IVF - Continue BG check Q6hrs - Avoid Hypoglycemia - Continue hypoglycemic protocol #GI/DVT Prophylaxis - PPI- Lansoprazole - SCDs to bilateral lower extremities while in bed The high probability of a clinically significant, sudden or life threatening deterioration of the [multiple] system(s) required my full and direct attention, intervention and personal management. The aggregate critical care time was [60] minutes. This time is in addition to time spent performing reported procedures but includes the following: [x] Data Review and interpretation [x] Patient assessment and monitoring of vital signs [x] Documentation [x] Medication orders and management Disposition Plan: ICU Total Time Spent with Patient (Minutes): 60 History Interval history: Patient seen and examined at the bedside. Lethargic, only arousable to tactile stimuli. On Continuos bipap, unable to potato picker patient's O2 stat. Patient is hypothermic this am, warming blanket applied. VSS, levophed gtt was never initiated. On Bcarb gtt. Hospitalist Physical - Constitutional Vitals: Temp Pulse Resp BP Pulse Ox 97.2 F L 85 11 L 128/65 75 L 07/03/22 23:08 07/04/22 09:00 07/04/22 09:00 07/04/22 09:00 07/04/22 09:00 General appearance: Present: no acute distress, cachectic - EENT Eyes: Present: PERRL ENT: other - Neck Neck: Present: normal ROM - Respiratory Respiratory effort: normal Respiratory: bilateral: diminished - Cardiovascular Rhythm: regular Heart Sounds: Present: S1 & S2 - Extremities Extremities: no ischemia, pulses intact, pulses symmetrical Extremity abnormal: edema - Peripheral Assessment Bilateral Upper Extremity Edema Type: Pitting Edema Degree: 3+ Capillary Refill: < 3 seconds Skin Temperature: Warm Bilateral Lower Extremity Edema Type: Pitting Edema Degree: 2+ Capillary Refill: < 3 seconds Skin Temperature: Warm Peripheral Pulses: within normal limits - Abdominal General gastrointestinal: soft, non-distended, normal bowel sounds - Integumentary Integumentary: Present: warm, dry - Psychiatric Psychiatric: other (Lethargic, only arousable to tactile stimuli) - Neurologic Neurologic: moves all extremities, other (Lethargic, only arousable to tactile stimuli) - Allied Health Allied health notes reviewed: nursing, case management HEART Score - HEART Score Risk factors: 1-2 risk factors Troponin: Troponin T 0.135 ng/mL (0.00-0.029) H* 06/28/22 14:57 Troponin: < normal limit - Critical Actions Critical Actions: 0-3 pts:0.9-1.7%risk of adverse cardiac event.Candidate for discharge Results - Labs CBC & Chem 7: 07/04/22 07:56 07/04/22 07:56 Labs: Laboratory Last Values WBC 11.2 K/mm3 (4.5-11.0) H 07/04/22 07:56 RBC 2.88 M/mm3 (3.65-5.03) L 07/04/22 07:56 Hgb 8.5 gm/dl (11.8-15.2) L 07/04/22 07:56 Hct 25.8 % (35.5-45.6) L 07/04/22 07:56 MCV 90 fl (84-94) 07/04/22 07:56 MCH 30 pg (28-32) 07/04/22 07:56 MCHC 33 % (32-34) 07/04/22 07:56 RDW 20.1 % (13.2-15.2) H 07/04/22 07:56 Plt Count 56 K/mm3 (140-440) L 07/03/22 20:32 Lymph % (Auto) 7.2 % (13.4-35.0) L 06/29/22 03:57 Camb[place] % (Auto) 4.1 % (0.0-7.3) 06/29/22 03:57 Eos % (Auto) 0.0 % (0.0-4.3) 06/29/22 03:57 Baso % (Auto) 0.1 % (0.0-1.8) 06/29/22 03:57 Lymph # (Auto) 0.5 K/mm3 (1.2-5.4) L 06/29/22 03:57 [place] # (Auto) 0.3 K/mm3 (0.0-0.8) 06/29/22 03:57 Eos # (Auto) 0.0 K/mm3 (0.0-0.4) 06/29/22 03:57 Baso # (Auto) 0.0 K/mm3 (0.0-0.1) 06/29/22 03:57 Add Manual Diff Complete 07/02/22 07:18 Total Counted 100 07/02/22 07:18 Seg Neutrophils % Occupational Therapy Director 07/04/22 07:56 Seg Neuts % (Manual) 99.0 % (40.0-70.0) H 07/02/22 07:18 Band Neutrophils % 0 % 07/02/22 07:18 Lymphocytes % (Manual) 1.0 % (13.4-35.0) L 07/02/22 07:18 Reactive Lymphs % (Man) 0 % 07/02/22 07:18 Monocytes % (Manual) 0 % (0.0-7.3) 07/02/22 07:18 Eosinophils % (Manual) 0 % (0.0-4.3) 07/02/22 07:18 Basophils % (Manual) 0 % (0.0-1.8) 07/02/22 07:18 Metamyelocytes % 0 % 07/02/22 07:18 Myelocytes % 0 % 07/02/22 07:18 Promyelocytes % 0 % 07/02/22 07:18 Blast Cells % 0 % 07/02/22 07:18 Nucleated RBC % Not Reportable 07/02/22 07:18 Seg Neutrophils # 5.9 K/mm3 (1.8-7.7) 06/29/22 03:57 Seg Neutrophils # Man 7.8 K/mm3 (1.8-7.7) H 07/02/22 07:18 Band Neutrophils # 0.0 K/mm3 07/02/22 07:18 Lymphocytes # (Manual) 0.1 K/mm3 (1.2-5.4) L 07/02/22 07:18 Abs React Lymphs (Man) 0.0 K/mm3 07/02/22 07:18 Monocytes # (Manual) 0.0 K/mm3 (0.0-0.8) 07/02/22 07:18 Eosinophils # (Manual) 0.0 K/mm3 (0.0-0.4) 07/02/22 07:18 Basophils # (Manual) 0.0 K/mm3 (0.0-0.1) 07/02/22 07:18 Metamyelocytes # 0.0 K/mm3 07/02/22 07:18 Myelocytes # 0.0 K/mm3 07/02/22 07:18 Promyelocytes # 0.0 K/mm3 07/02/22 07:18 Blast Cells # 0.0 K/mm3 07/02/22 07:18 WBC Morphology Not Reportable 07/02/22 07:18 Hypersegmented Neuts Not Reportable 07/02/22 07:18 Hyposegmented Neuts Not Reportable 07/02/22 07:18 Hypogranular Neuts Not Reportable 07/02/22 07:18 Smudge Cells Not Reportable 07/02/22 07:18 Toxic Granulation Not Reportable 07/02/22 07:18 Toxic Vacuolation Not Reportable 07/02/22 07:18 Dohle Bodies Not Reportable 07/02/22 07:18 Pelger-Huet Anomaly Not Reportable 07/02/22 07:18 Sonja Rods Not Reportable 07/02/22 07:18 Platelet Estimate 1 07/02/22 07:18 Clumped Platelets Not Reportable 07/02/22 07:18 Plt Clumps, EDTA Not Reportable 07/02/22 07:18 Large Platelets Not Reportable 07/02/22 07:18 Giant Platelets Not Reportable 07/02/22 07:18 Platelet Satelliting Not Reportable 07/02/22 07:18 Plt Morphology Comment Not Reportable 07/02/22 07:18 RBC Morphology Not Reportable 07/02/22 07:18 Dimorphic RBCs Not Reportable 07/02/22 07:18 Polychromasia Not Reportable 07/02/22 07:18 Hypochromasia 2+ 07/02/22 07:18 Poikilocytosis 1+ 07/02/22 07:18 Anisocytosis 1+ 07/02/22 07:18 Microcytosis 1+ 07/02/22 07:18 Macrocytosis Not Reportable 07/02/22 07:18 Spherocytes 1+ 07/02/22 07:18 Pappenheimer Bodies Not Reportable 07/02/22 07:18 Sickle Cells Not Reportable 07/02/22 07:18 Target Cells 1+ 07/02/22 07:18 Tear Drop Cells Not Reportable 07/02/22 07:18 Ovalocytes Not Reportable 07/02/22 07:18 Helmet Cells Not Reportable 07/02/22 07:18 [place] Bodies Not Reportable 07/02/22 07:18 Frederick Rings Not Reportable 07/02/22 07:18 [place] Cells Not Reportable 07/02/22 07:18 Bite Cells Not Reportable 07/02/22 07:18 Crenated Cell Not Reportable 07/02/22 07:18 Elliptocytes Not Reportable 07/02/22 07:18 Acanthocytes (Spur) Not Reportable 07/02/22 07:18 Rouleaux Not Reportable 07/02/22 07:18 Hemoglobin C Crystals Not Reportable 07/02/22 07:18 Schistocytes Not Reportable 07/02/22 07:18 Malaria parasites Not Reportable 07/02/22 07:18 Isaac Bodies Not Reportable 07/02/22 07:18 Hem Pathologist Commnt No 07/02/22 07:18 PT 27.3 Sec. (12.2-14.9) H 07/03/22 21:15 INR 2.15 (0.87-1.13) H 07/03/22 21:15 APTT > 240.0 Sec. (24.2-36.6) H* 07/03/22 21:15 D-Dimer 273.84 ng/mlDDU (0-234) H 06/28/22 16:11 Heparin Anti-Xa Level 1.86 U.I./ml (0.3-0.7) H 07/03/22 21:15 ABG pH 7.400 pH Units (7.350-7.450) 07/03/22 23:35 ABG pCO2 24.5 mm Hg 07/03/22 23:35 ABG pO2 149.9 mm Hg (80.0-90.0) H 07/03/22 23:35 ABG HCO3 14.9 mmol/L (20.0-26.0) L 07/03/22 23:35 ABG O2 Saturation 98.8 % (95.0-99.0) 07/03/22 23:35 ABG O2 Content 10.8 (0.0-44) 07/03/22 23:35 ABG Base Excess -8.9 mmol/L (-2.0-3.0) L 07/03/22 23:35 ABG Hemoglobin 7.6 gm/dl (14.0-18.0) L 07/03/22 23:35 ABG Carboxyhemoglobin 0.6 % (0.0-5.0) 07/03/22 23:35 ABG Methemoglobin 0.2 % (0.0-1.5) 07/03/22 23:35 Oxyhemoglobin 98.0 % (95.0-99.0) 07/03/22 23:35 FiO2 100 % 07/03/22 23:35 Sodium 146 mmol/L (137-145) H 07/04/22 07:56 Potassium 3.6 mmol/L (3.6-5.0) 07/04/22 07:56 Chloride 115.7 mmol/L (98-107) H 07/04/22 07:56 Carbon Dioxide 16 mmol/L (22-30) L 07/04/22 07:56 Anion Gap 18 mmol/L 07/04/22 07:56 BUN 51 mg/dL (9-20) H 07/04/22 07:56 Creatinine 2.9 mg/dL (0.8-1.3) H 07/04/22 07:56 Estimated GFR 26 ml/min 07/04/22 07:56 BUN/Creatinine Ratio 18 % 07/04/22 07:56 Glucose 86 mg/dL (75-100) 07/04/22 07:56 POC Glucose 85 mg/dL (70-105) 07/04/22 09:09 Lactic Acid 3.30 mmol/L (0.7-2.0) H* 06/28/22 16:11 Calcium 9.0 mg/dL (8.4-10.2) 07/04/22 07:56 Ferritin 2520.0 ng/mL (30.0-300.0) H 06/28/22 16:11 Total Bilirubin 0.40 mg/dL (0.1-1.2) 06/29/22 03:57 AST 26 units/L (5-40) 06/29/22 03:57 ALT 13 units/L (7-56) 06/29/22 03:57 Alkaline Phosphatase 93 units/L (35-129) 06/29/22 03:57 Lactate Dehydrogenase 199 units/L (91-180) H 06/28/22 16:11 Troponin T 0.135 ng/mL (0.00-0.029) H* 06/28/22 14:57 C-Reactive Protein 4.60 mg/dL (0.00-1.30) H 06/28/22 16:11 Total Protein 4.2 g/dL (6.3-8.2) L 06/29/22 03:57 Albumin 1.4 g/dL (3.9-5) L 06/29/22 03:57 Albumin/Globulin Ratio 0.5 % 06/29/22 03:57 Triglycerides 95 mg/dL (2-149) 06/28/22 14:57 Cholesterol 74 mg/dL (50-199) 06/28/22 14:57 LDL Cholesterol Direct 21 mg/dL (50-130) L 06/28/22 14:57 HDL Cholesterol 22 mg/dL (40-59) L 06/28/22 14:57 Cholesterol/HDL Ratio 3.36 % 06/28/22 14:57 Procalcitonin 0.47 ng/mL (<0.15) 07/01/22 19:20 Coronavirus (PCR) Positive (Negative) A 06/29/22 Unknown Hepatitis A IgM Ab Non-reactive (NonReactive) 07/01/22 19:20 Hep Bs Antigen Non-reactive (Negative) 07/01/22 19:20 Hep B Core IgM Ab Non-reactive (NonReactive) 07/01/22 19:20 Hepatitis C Antibody Non-reactive (NonReactive) 07/01/22 19:20 Microbiology: Microbiology 06/28/22 14:57 Peripheral/Venous Blood Culture - Final NO GROWTH AFTER 5 DAYS 06/28/22 14:57 Peripheral/Venous Blood Culture - Final NO GROWTH AFTER 5 DAYS Boyle/IV: Voiding Method Indwelling Catheter Active Medications - Current Medications Current Medications: Generic Name Dose Route Start Last Admin Trade Name Freq PRN Reason Stop Dose Admin Acetaminophen 650 mg 06/28/22 18:42 Acetaminophen 325 Mg Tab PO Q4H PRN Pain MILD(1-3)/Fever >100.5/GILES Dexamethasone 8 mg 07/03/22 10:00 07/03/22 09:39 Dexamethasone 4 Mg Tab PO 07/08/22 10:59 8 mg DAILY PARRISH Administration Sodium Bicarbonate 150 meq/ 1,150 mls @ 75 mls/hr 06/29/22 14:00 07/04/22 02:44 Dextrose IV 75 mls/hr DIRECT PARRISH Administration NORepinephrine/NS 8 MG-250 ML 8 mg in 250 mls @ 3.75 mls/hr 07/03/22 23:45 Norepinephrine/Ns 8 Mg-250 Ml (Double Conc) IV TITRATE PARRISH Protocol 2 MCG/MIN Mirtazapine 7.5 mg 06/30/22 22:00 07/03/22 23:22 Mirtazapine 15 Mg Tab PO Not Given QHS PARRISH Morphine Sulfate 2 mg 06/28/22 16:55 07/03/22 01:48 Morphine 2 Mg/1 Ml Inj IV 2 mg Q4H PRN Administration Pain, Moderate (4-6) Ondansetron HCl 4 mg 06/28/22 18:42 Ondansetron 4 Mg/2 Ml Inj IV Q8H PRN Nausea And Vomiting Oxycodone/Acetaminophen 1 tab 06/28/22 18:42 Oxycodone /Acetaminophen 5-325mg Tab PO Q6H PRN Pain, Moderate (4-6) Pantoprazole Sodium 40 mg 07/01/22 09:30 07/03/22 09:38 Pantoprazole 40 Mg Tab PO 40 mg QAMDIAB PARRISH Administration Sodium Chloride 10 ml 06/28/22 22:00 07/03/22 23:44 Sodium Chloride 0.9% 10 Ml Flush Syringe IV 10 ml BID PARRISH Administration Sodium Chloride 10 ml 06/28/22 18:42 Sodium Chloride 0.9% 10 Ml Flush Syringe IV PRN PRN LINE FLUSH Tamsulosin HCl 0.4 mg 07/01/22 11:00 07/03/22 09:38 Tamsulosin 0.4 Mg Cap PO 0.4 mg QDAY PARRISH Administration Nutrition/Malnutrition Assess - Dietary Evaluation Nutrition/Malnutrition Findings: Nutrition Notes Start: 06/30/22 11:11 Freq: Status: Active Protocol: Document 07/02/22 10:21 LEANNA (Rec: 07/02/22 10:38 LEANNA [id number]) Nutrition Notes Initial or Follow up Brief Note Current Diagnosis Acute Kidney Injury,CKD(stage I-IV),Sepsis,Hypertension, Respiratory Failure,Stroke, Hyperlipidemia Other Pertinent Diagnosis DVT, COVID-19, Dysphagia, Pneumonia, Anemia, Metabolic & Lactic Acidosis... Current Diet Pureed Diet (since L 07/01), D Suppl (from B 07/02). Height 5 ft 11 in Weight 40.832 kg [place] Body Weight (kg) 78.18 BMI 12.5 Weight change and time frame No body weight change reported in 2 days. Weight Status Underweight Subjective/Other Information RD consult for routine F/U on Possible PEG-tube placement. MD has not been able to locate family and obtain consent and additional information regarding PEG-tube placement at the time, will continue to follow. Pt's PO intake of meals continues to be Negligible (0% ), according to ADL notes. Pt is on Nasal Cannula, O2 saturation @ 95%, according to Physical Assessment History notes. Percent of energy/protein needs met: Prescribed Pureed Diet provides for energy/protein needs (1,804 Kcal/77 g) during LOS; additionally, Dietary Supplements will compensate for possible poor or insufficient PO intake of meals with 1,275 Kcal and 57 g of protein. #2 Nutrition Diagnosis Underweight Diagnosis Progress(for reassessment Continues documentation) #1 Nutrition Diagnosis Inadequate energy intake Diagnosis Progress(for reassessment Continues documentation) Is patient on ventilator? No Is Patient Ambulatory and/or Out of Bed No REE-([facility]-confined to bed) 1428.864 Kcal/Kg value to use for calculation 52 Approximate Energy Requirements Using 2123 kcal/Kg Calculation Used for Recommendations Kcal/kg Additional Notes Protein: 1-1.2 g/Kg ABW; 41-49 g/day. Fluids: 1 ml/Kcal, or as per MD. Nutrition Intervention Change Diet Order: Continue Pureed Diet. Nutrition Support: Strongly recommend start TF. Add Supplement/Snack (indicate name/kcal Continue 8 fl oz Nepro w/ /protein ) CARBSTEADY; TID. Provides kCal: 1,275 Provides Protein (gm) 57 Goal #1 Compensate, through dietary supplementation, for possible poor or insufficient PO intake of meals during LOS. Goal #2 Facilitate PO intake of meals with elemental, textural, or mechanical modification during LOS. Follow-Up By: 07/04/22 Additional Comments Continue monitoring food tolerance, %PO intake of meals , dietary supplements, and BM. <ANIL FAM - Last Filed: 07/05/22 07:52> Assessment and Plan Assessment and plan: I saw and evaluated the patient. I agree with the findings and the plan of care as documented in the Nurse Practitioner's~note, with the following corrections and additions. Hospitalist Physical - Constitutional Vitals: Temp Pulse Resp BP Pulse Ox 97.4 F L 84 11 L 113/56 100 07/05/22 03:26 07/05/22 06:00 07/05/22 06:00 07/05/22 06:00 07/05/22 04:00 HEART Score - HEART Score Troponin: Troponin T 0.135 ng/mL (0.00-0.029) H* 06/28/22 14:57 Results - Labs CBC & Chem 7: 07/05/22 04:14 07/05/22 04:14 Labs: Laboratory Last Values WBC 7.7 K/mm3 (4.5-11.0) 07/05/22 04:14 RBC 2.22 M/mm3 (3.65-5.03) L 07/05/22 04:14 Hgb 6.5 gm/dl (11.8-15.2) L 07/05/22 04:14 Hct 19.7 % (35.5-45.6) L* D 07/05/22 04:14 MCV 89 fl (84-94) 07/05/22 04:14 MCH 29 pg (28-32) 07/05/22 04:14 MCHC 33 % (32-34) 07/05/22 04:14 RDW 19.4 % (13.2-15.2) H 07/05/22 04:14 Plt Count 41 K/mm3 (140-440) L 07/05/22 04:14 Lymph % (Auto) 7.2 % (13.4-35.0) L 06/29/22 03:57 [place] % (Auto) 3.5 % (0.0-7.3) 07/04/22 07:56 Eos % (Auto) 0.0 % (0.0-4.3) 07/04/22 07:56 Baso % (Auto) 0.1 % (0.0-1.8) 06/29/22 03:57 Lymph # (Auto) 0.5 K/mm3 (1.2-5.4) L 06/29/22 03:57 [place] # (Auto) 0.4 K/mm3 (0.0-0.8) 07/04/22 07:56 Eos # (Auto) 0.0 K/mm3 (0.0-0.4) 07/04/22 07:56 Baso # (Auto) 0.2 K/mm3 (0.0-0.1) H 07/04/22 07:56 Add Manual Diff Complete 07/04/22 07:56 Total Counted 100 07/04/22 07:56 Seg Neutrophils % Occupational Therapy Director 07/04/22 07:56 Seg Neuts % (Manual) 96.0 % (40.0-70.0) H 07/04/22 07:56 Band Neutrophils % 2.0 % 07/04/22 07:56 Lymphocytes % (Manual) 0 % (13.4-35.0) L 07/04/22 07:56 Reactive Lymphs % (Man) 0 % 07/04/22 07:56 Monocytes % (Manual) 2.0 % (0.0-7.3) 07/04/22 07:56 Eosinophils % (Manual) 0 % (0.0-4.3) 07/04/22 07:56 Basophils % (Manual) 0 % (0.0-1.8) 07/04/22 07:56 Metamyelocytes % 0 % 07/04/22 07:56 Myelocytes % 0 % 07/04/22 07:56 Promyelocytes % 0 % 07/04/22 07:56 Blast Cells % 0 % 07/04/22 07:56 Nucleated RBC % 2.0 % (0.0-0.9) H 07/04/22 07:56 Seg Neutrophils # 10.0 K/mm3 (1.8-7.7) H 07/04/22 07:56 Seg Neutrophils # Man 10.8 K/mm3 (1.8-7.7) H 07/04/22 07:56 Band Neutrophils # 0.2 K/mm3 07/04/22 07:56 Lymphocytes # (Manual) 0.0 K/mm3 (1.2-5.4) L 07/04/22 07:56 Abs React Lymphs (Man) 0.0 K/mm3 07/04/22 07:56 Monocytes # (Manual) 0.2 K/mm3 (0.0-0.8) 07/04/22 07:56 Eosinophils # (Manual) 0.0 K/mm3 (0.0-0.4) 07/04/22 07:56 Basophils # (Manual) 0.0 K/mm3 (0.0-0.1) 07/04/22 07:56 Metamyelocytes # 0.0 K/mm3 07/04/22 07:56 Myelocytes # 0.0 K/mm3 07/04/22 07:56 Promyelocytes # 0.0 K/mm3 07/04/22 07:56 Blast Cells # 0.0 K/mm3 07/04/22 07:56 WBC Morphology Not Reportable 07/04/22 07:56 Hypersegmented Neuts Not Reportable 07/04/22 07:56 Hyposegmented Neuts Not Reportable 07/04/22 07:56 Hypogranular Neuts Not Reportable 07/04/22 07:56 Smudge Cells Not Reportable 07/04/22 07:56 Toxic Granulation Not Reportable 07/04/22 07:56 Toxic Vacuolation Not Reportable 07/04/22 07:56 Dohle Bodies Not Reportable 07/04/22 07:56 Pelger-Huet Anomaly Not Reportable 07/04/22 07:56 Sonja Rods Not Reportable 07/04/22 07:56 Platelet Estimate Consistent w auto 07/04/22 07:56 Clumped Platelets Not Reportable 07/04/22 07:56 Plt Clumps, EDTA Not Reportable 07/04/22 07:56 Large Platelets Not Reportable 07/04/22 07:56 Giant Platelets Not Reportable 07/04/22 07:56 Platelet Satelliting Not Reportable 07/04/22 07:56 Plt Morphology Comment Not Reportable 07/04/22 07:56 RBC Morphology Not Reportable 07/04/22 07:56 Dimorphic RBCs Not Reportable 07/04/22 07:56 Polychromasia Not Reportable 07/04/22 07:56 Hypochromasia 2+ 07/04/22 07:56 Poikilocytosis 1+ 07/04/22 07:56 Anisocytosis 1+ 07/04/22 07:56 Microcytosis 1+ 07/04/22 07:56 Macrocytosis Not Reportable 07/04/22 07:56 Spherocytes 1+ 07/04/22 07:56 Pappenheimer Bodies Not Reportable 07/04/22 07:56 Sickle Cells Not Reportable 07/04/22 07:56 Target Cells 1+ 07/04/22 07:56 Tear Drop Cells Not Reportable 07/04/22 07:56 Ovalocytes Not Reportable 07/04/22 07:56 Helmet Cells Not Reportable 07/04/22 07:56 [place] Bodies Not Reportable 07/04/22 07:56 Frederick Rings Not Reportable 07/04/22 07:56 [place] Cells Not Reportable 07/04/22 07:56 Bite Cells Not Reportable 07/04/22 07:56 Crenated Cell Not Reportable 07/04/22 07:56 Elliptocytes Not Reportable 07/04/22 07:56 Acanthocytes (Spur) Not Reportable 07/04/22 07:56 Rouleaux Not Reportable 07/04/22 07:56 Hemoglobin C Crystals Not Reportable 07/04/22 07:56 Schistocytes Not Reportable 07/04/22 07:56 Malaria parasites Not Reportable 07/04/22 07:56 Percent Retic 0.79 % (0.78-2.58) 07/05/22 04:14 Isaac Bodies Not Reportable 07/04/22 07:56 Hem Pathologist Commnt No 07/04/22 07:56 PT 24.7 Sec. (12.2-14.9) H 07/05/22 04:14 INR 1.90 (0.87-1.13) H 07/05/22 04:14 APTT 37.7 Sec. (24.2-36.6) H 07/05/22 04:14 Fibrinogen 110 mg/dl (211-480) L* 07/05/22 04:14 D-Dimer 273.84 ng/mlDDU (0-234) H 06/28/22 16:11 Heparin Anti-Xa Level 1.86 U.I./ml (0.3-0.7) H 07/03/22 21:15 ABG pH 7.451 pH Units (7.350-7.450) H 07/04/22 21:00 ABG pCO2 28.9 mm Hg 07/04/22 21:00 ABG pO2 375.8 mm Hg (80.0-90.0) H 07/04/22 21:00 ABG HCO3 19.7 mmol/L (20.0-26.0) L 07/04/22 21:00 ABG O2 Saturation 99.5 % (95.0-99.0) H 07/04/22 21:00 ABG O2 Content 10.1 (0.0-44) 07/04/22 21:00 ABG Base Excess -3.8 mmol/L (-2.0-3.0) L 07/04/22 21:00 ABG Hemoglobin 6.5 gm/dl (14.0-18.0) L 07/04/22 21:00 ABG Carboxyhemoglobin 0.3 % (0.0-5.0) 07/04/22 21:00 ABG Methemoglobin 0.3 % (0.0-1.5) 07/04/22 21:00 Oxyhemoglobin 98.9 % (95.0-99.0) 07/04/22 21:00 FiO2 90 % 07/04/22 21:00 Sodium 142 mmol/L (137-145) 07/05/22 04:14 Potassium 3.1 mmol/L (3.6-5.0) L 07/05/22 04:14 Chloride 113.8 mmol/L (98-107) H 07/05/22 04:14 Carbon Dioxide 19 mmol/L (22-30) L 07/05/22 04:14 Anion Gap 12 mmol/L 07/05/22 04:14 BUN 52 mg/dL (9-20) H 07/05/22 04:14 Creatinine 3.1 mg/dL (0.8-1.3) H 07/05/22 04:14 Estimated GFR 24 ml/min 07/05/22 04:14 BUN/Creatinine Ratio 17 % 07/05/22 04:14 Glucose 135 mg/dL (75-100) H 07/05/22 04:14 POC Glucose 118 mg/dL (70-105) H 07/05/22 05:16 Lactic Acid 2.20 mmol/L (0.7-2.0) H* 07/05/22 04:14 Calcium 8.4 mg/dL (8.4-10.2) 07/05/22 04:14 Iron 40 ug/dL (49-181) L 07/05/22 04:14 TIBC 31 mcg/dL (250-450) L 07/05/22 04:14 Ferritin 2520.0 ng/mL (30.0-300.0) H 06/28/22 16:11 Total Bilirubin 0.40 mg/dL (0.1-1.2) 07/05/22 04:14 AST 28 units/L (5-40) 07/05/22 04:14 ALT 17 units/L (7-56) 07/05/22 04:14 Alkaline Phosphatase 84 units/L (35-129) 07/05/22 04:14 Ammonia 29.0 umol/L (25-60) 07/05/22 04:14 Lactate Dehydrogenase 199 units/L (91-180) H 06/28/22 16:11 Troponin T 0.135 ng/mL (0.00-0.029) H* 06/28/22 14:57 C-Reactive Protein 2.90 mg/dL (0.00-1.30) H 07/05/22 04:14 Total Protein 3.7 g/dL (6.3-8.2) L 07/05/22 04:14 Albumin 1.5 g/dL (3.9-5) L 07/05/22 04:14 Albumin/Globulin Ratio 0.7 % 07/05/22 04:14 Triglycerides 95 mg/dL (2-149) 06/28/22 14:57 Cholesterol 74 mg/dL (50-199) 06/28/22 14:57 LDL Cholesterol Direct 21 mg/dL (50-130) L 06/28/22 14:57 HDL Cholesterol 22 mg/dL (40-59) L 06/28/22 14:57 Cholesterol/HDL Ratio 3.36 % 06/28/22 14:57 Procalcitonin 0.47 ng/mL (<0.15) 07/01/22 19:20 Coronavirus (PCR) Positive (Negative) A 06/29/22 Unknown Hepatitis A IgM Ab Non-reactive (NonReactive) 07/01/22 19:20 Hep Bs Antigen Non-reactive (Negative) 07/01/22 19:20 Hep B Core IgM Ab Non-reactive (NonReactive) 07/01/22 19:20 Hepatitis C Antibody Non-reactive (NonReactive) 07/01/22 19:20 Boyle/IV: Voiding Method Indwelling Catheter Active Medications - Current Medications Current Medications: Generic Name Dose Route Start Last Admin Trade Name Freq PRN Reason Stop Dose Admin Acetaminophen 650 mg 06/28/22 18:42 Acetaminophen 325 Mg Tab PO Q4H PRN Pain MILD(1-3)/Fever >100.5/GILES Dexamethasone 8 mg 07/03/22 10:00 07/04/22 15:22 Dexamethasone 4 Mg Tab PO 07/08/22 10:59 8 mg DAILY PARRISH Administration Dextrose 50 ml 07/04/22 15:07 Dextrose 50% In Water (25gm) 50 Ml Syringe IV Q30MIN PRN Hypoglycemia Protocol NORepinephrine/NS 8 MG-250 ML 8 mg in 250 mls @ 3.75 mls/hr 07/03/22 23:45 Norepinephrine/Ns 8 Mg-250 Ml (Double Conc) IV TITRATE PARRISH Protocol 2 MCG/MIN Sodium Bicarbonate 50 meq/ 1,050 mls @ 100 mls/hr 07/04/22 13:00 07/05/22 03:38 Sodium Chloride IV 100 mls/hr DIRECT PARRISH Administration Potassium Chloride 10 meq in 100 mls @ 100 mls/hr 07/05/22 07:00 07/05/22 07:32 Kcl 10meq/100ml IV 07/05/22 08:59 100 mls/hr Q1H PARRISH Administration Lansoprazole 30 mg 07/05/22 10:00 Lansoprazole 30 Mg Solutab FEEDTUBE QDAY PARRISH Mirtazapine 7.5 mg 06/30/22 22:00 07/04/22 22:13 Mirtazapine 15 Mg Tab PO 7.5 mg QHS APRRISH Administration Morphine Sulfate 2 mg 06/28/22 16:55 07/03/22 01:48 Morphine 2 Mg/1 Ml Inj IV 2 mg Q4H PRN Administration Pain, Moderate (4-6) Ondansetron HCl 4 mg 06/28/22 18:42 Ondansetron 4 Mg/2 Ml Inj IV Q8H PRN Nausea And Vomiting Oxycodone/Acetaminophen 1 tab 06/28/22 18:42 Oxycodone /Acetaminophen 5-325mg Tab PO Q6H PRN Pain, Moderate (4-6) Sodium Chloride 10 ml 06/28/22 22:00 07/04/22 22:13 Sodium Chloride 0.9% 10 Ml Flush Syringe IV 10 ml BID PARRISH Administration Sodium Chloride 10 ml 06/28/22 18:42 Sodium Chloride 0.9% 10 Ml Flush Syringe IV PRN PRN LINE FLUSH Tamsulosin HCl 0.4 mg 07/01/22 11:00 07/04/22 15:22 Tamsulosin 0.4 Mg Cap PO 0.4 mg QDAY PARRISH Administration Nutrition/Malnutrition Assess - Dietary Evaluation Nutrition/Malnutrition Findings: Nutrition Notes Start: 06/30/22 11:11 Freq: Status: Active Protocol: Document 07/04/22 13:50 LEANNA (Rec: 07/04/22 14:19 LEANNA [id number]) Nutrition Notes Initial or Follow up Brief Note Current Diagnosis Acute Kidney Injury,CKD(stage I-IV),Sepsis,Hypertension, Respiratory Failure,Stroke, Hyperlipidemia Other Pertinent Diagnosis DVT, COVID-19, Dysphagia, Pneumonia, Anemia, Metabolic & Lactic Acidosis... Current Diet TF-Nepro w/CARBSTEADY @ 40 ml/ hr (from D 07/04). Height 5 ft 11 in Weight 43.5 kg [place] Body Weight (kg) 78.18 BMI 13.4 Weight change and time frame 2.668 Kg body weight gain in 2 days reported. Weight Status Underweight Subjective/Other Information RD consult for write/manage TF . I will prescribe TF to provide Pt with energy/protein needs during LOS. Percent of energy/protein needs met: Prescribed TF-Nepro w/ CARBSTEADY @ 40 ml/hr provides for energy/protein needs (1, 745 Kcal/79 g) during LOS, 82% Kcal; 148% AA. #2 Nutrition Diagnosis Underweight Diagnosis Progress(for reassessment Continues documentation) #1 Nutrition Diagnosis Inadequate protein-energy intake Comments: Prescribed TF-Nepro w/ CARBSTEADY @ 40 ml/hr provides for energy/protein needs (1, 745 Kcal/79 g) during LOS, 82% Kcal; 148% AA. Diagnosis Progress(for reassessment Resolved documentation) Is patient on ventilator? No Is Patient Ambulatory and/or Out of Bed No REE-([facility]-confined to bed) 1460.844 Kcal/Kg value to use for calculation 49 Approximate Energy Requirements Using 2132 kcal/Kg Calculation Used for Recommendations Kcal/kg Additional Notes Protein: 0.8-1.2 g/Kg ABW; 35- 53 g/day. Fluids: 1 ml/Kcal, or as per MD. Nutrition Intervention Change Diet Order: Discontinue. Nutrition Support: Start TF-Nepro w/CARBSTEADY @ 40 ml/hr. Flush: 250 ml water Q 4 hr, or as per MD. Kcal 1,745 Protein (gm) 79 Carbohydrates (gm) 156 Fat (gm) 93 Fluid (mL) 705 Fiber (gm) 12 % RDI: 82% Kcal; 148% AA. Add Supplement/Snack (indicate name/kcal Discontinue. /protein ) Goal #1 Provide at least 75% of energy /protein needs through Enteral Feeding during LOS. Follow-Up By: 07/06/22 Additional Comments Start monitoring TF tolerance and BM.
--- NOTE | 2022-07-04 10:28 | Progress Note ---
Assessment and Plan - continue Daily SAT and SBT assessment as tolerated - continue accuchecks with glycemic control per SSI (While critically ill target blood glucose of 140-180 mg/dL; avoid hypoglycemia) - sedation prn for target RASS 0 to -1 - continue to wean supplemental oxygen for target O2 sat's > 90% acutely - VAP bundle addressed - continue lung protective strategies - continue bronchodilators with pulmonary hygiene per RT - wean per pulmonary driven protocols otherwise - avoid nephrotoxins, renally dose all medications - continue to avoid benzodiazepine's, reduce the possibility of delirium - completed AB's per ID rec's - prn analgesia per CPOT score - Maintenance of sleep-wake cycle, avoid delirium - continue enteral nutritional support at goal rate as tolerated - G.I. & VTE prophylaxis - PT/OT/ROM exercises - continue mobility protocols for pressure ulcer prophylaxis - Monitor hemodynamics closely - continue other care per attending / other consultants - discharge planning ongoing concurrently COVID SPECIFIC INTERVENTIONS - Remdesivir as per ID/Pulmonary developed protocols - continue systemic steroids for severe COVID-19 infection empirically - follow repeat COVID tests results - zinc and vitamin C supplementation - Monitor inflammatory markers per facility protocol - ferritin, Ddimer, CRP - therapeutic anticoagulation per system Protocol based on d-dimer and clinical considerations - Continue contact and airborne isolation .... Re-evaluate in am & prn CONDITION: CRITICAL PROGNOSIS: GUARDED CODE STATUS: FULL CODE The high probability of a clinically significant, sudden or life-threatening deterioration of the [respiratory, cardiovascular, GI & neurologic] system(s) required my full and direct attention, intervention and personal management. The aggregate critical care time was [31] minutes without overlap. Time includes spent on; [x] Data Review and interpretation [x] Patient assessment and monitoring of vital signs [x] Documentation [x] Medication orders and management Subjective Date of service: 07/04/22 Principal diagnosis: monica on ckd Interval history: Patient is seen today for: Seen and examined at bedside; 24hour events reviewed; nursing and respiratory care staff consulted; no adverse overnight events reported to me; resting peacefully in bed; Objective Vital Signs - 12hr 07/03/22 07/03/22 07/04/22 23:08 23:25 00:00 Temperature 97.2 F L Pulse Rate 94 H Pulse Rate [ 112 H Left Radial] Pulse Rate [ 112 H Right Radial] Respiratory 20 20 14 Rate Blood Pressure 81/56 O2 Sat by Pulse 54 L 65 L 100 Oximetry 07/04/22 07/04/22 07/04/22 00:04 00:18 00:21 Temperature Pulse Rate 92 H 100 H Pulse Rate [ Left Radial] Pulse Rate [ Right Radial] Respiratory 22 20 Rate Blood Pressure 72/54 O2 Sat by Pulse 86 51 L Oximetry 07/04/22 07/04/22 07/04/22 00:22 00:30 00:46 Temperature Pulse Rate 113 H 111 H Pulse Rate [ Left Radial] Pulse Rate [ Right Radial] Respiratory 18 19 Rate Blood Pressure 123/89 123/89 O2 Sat by Pulse 90 72 L Oximetry 07/04/22 07/04/22 07/04/22 01:00 01:16 01:30 Temperature Pulse Rate 114 H 114 H 113 H Pulse Rate [ Left Radial] Pulse Rate [ Right Radial] Respiratory 19 29 H 22 Rate Blood Pressure 156/89 108/82 108/82 O2 Sat by Pulse 65 L Oximetry 07/04/22 07/04/22 07/04/22 01:46 02:00 02:15 Temperature Pulse Rate 111 H 108 H 104 H Pulse Rate [ Left Radial] Pulse Rate [ Right Radial] Respiratory 21 22 19 Rate Blood Pressure 133/75 133/75 116/83 O2 Sat by Pulse 32 L Oximetry 07/04/22 07/04/22 07/04/22 02:30 02:45 03:00 Temperature Pulse Rate 105 H 99 H 104 H Pulse Rate [ Left Radial] Pulse Rate [ Right Radial] Respiratory 16 14 17 Rate Blood Pressure 116/83 142/76 142/76 O2 Sat by Pulse Oximetry 07/04/22 07/04/22 07/04/22 03:16 03:30 03:46 Temperature Pulse Rate 103 H 101 H 106 H Pulse Rate [ Left Radial] Pulse Rate [ Right Radial] Respiratory 17 16 18 Rate Blood Pressure 142/76 142/76 142/76 O2 Sat by Pulse Oximetry 07/04/22 07/04/22 07/04/22 04:00 04:16 04:31 Temperature Pulse Rate 92 H 104 H Pulse Rate [ Left Radial] Pulse Rate [ Right Radial] Respiratory 28 H 18 Rate Blood Pressure 110/82 135/85 O2 Sat by Pulse 97 Oximetry 07/04/22 07/04/22 07/04/22 04:45 05:00 06:00 Temperature Pulse Rate 94 H 87 Pulse Rate [ 112 H Left Radial] Pulse Rate [ 112 H Right Radial] Respiratory 14 14 10 L Rate Blood Pressure 135/85 130/89 O2 Sat by Pulse 100 81 L Oximetry 07/04/22 07/04/22 07/04/22 07:00 08:00 08:16 Temperature Pulse Rate 87 87 84 Pulse Rate [ Left Radial] Pulse Rate [ Right Radial] Respiratory 12 11 L 23 Rate Blood Pressure 130/89 136/63 133/73 O2 Sat by Pulse 91 92 Oximetry 07/04/22 07/04/22 08:18 09:00 Temperature Pulse Rate 85 Pulse Rate [ Left Radial] Pulse Rate [ Right Radial] Respiratory 11 L Rate Blood Pressure 128/65 O2 Sat by Pulse 92 75 L Oximetry CBC and BMP: 07/04/22 07:56 07/04/22 07:56 ABG, PT/INR, D-dimer: ABG ABG pH 7.400 pH Units (7.350-7.450) 07/03/22 23:35 ABG pCO2 24.5 mm Hg 07/03/22 23:35 ABG pO2 149.9 mm Hg (80.0-90.0) H 07/03/22 23:35 ABG O2 Saturation 98.8 % (95.0-99.0) 07/03/22 23:35 PT/INR, D-dimer PT 27.3 Sec. (12.2-14.9) H 07/03/22 21:15 INR 2.15 (0.87-1.13) H 07/03/22 21:15 D-Dimer 273.84 ng/mlDDU (0-234) H 06/28/22 16:11 Abnormal lab findings: Abnormal Labs 06/28/22 06/28/22 06/28/22 14:53 14:57 14:57 WBC 3.5 L RBC 3.22 L Hgb 9.5 L Hct 29.6 L RDW 20.0 H Plt Count Lymph % (Auto) Lymph # (Auto) 0.6 L Seg Neutrophils % 77.0 H Seg Neuts % (Manual) Lymphocytes % (Manual) Seg Neutrophils # Man Lymphocytes # (Manual) PT 28.4 H INR 2.31 H APTT 49.0 H D-Dimer Heparin Anti-Xa Level ABG pO2 390.9 H ABG HCO3 11.1 L ABG O2 Saturation 99.5 H ABG Base Excess -12.3 L ABG Hemoglobin 9.0 L Sodium Chloride Carbon Dioxide BUN Creatinine Glucose POC Glucose Lactic Acid Ferritin Lactate Dehydrogenase Troponin T C-Reactive Protein Total Protein Albumin LDL Cholesterol Direct HDL Cholesterol Coronavirus (PCR) 06/28/22 06/28/22 06/28/22 14:57 14:57 15:01 WBC RBC Hgb Hct RDW Plt Count Lymph % (Auto) Lymph # (Auto) Seg Neutrophils % Seg Neuts % (Manual) Lymphocytes % (Manual) Seg Neutrophils # Man Lymphocytes # (Manual) PT INR APTT D-Dimer Heparin Anti-Xa Level ABG pO2 ABG HCO3 ABG O2 Saturation ABG Base Excess ABG Hemoglobin Sodium 134 L Chloride 110.8 H Carbon Dioxide 13 L BUN 51 H Creatinine 2.7 H Glucose POC Glucose 14 L Lactic Acid 3.40 H* Ferritin Lactate Dehydrogenase Troponin T 0.135 H* C-Reactive Protein Total Protein 4.9 L Albumin 1.6 L LDL Cholesterol Direct 21 L HDL Cholesterol 22 L Coronavirus (PCR) 06/28/22 06/28/22 06/28/22 16:11 16:11 16:11 WBC RBC Hgb Hct RDW Plt Count Lymph % (Auto) Lymph # (Auto) Seg Neutrophils % Seg Neuts % (Manual) Lymphocytes % (Manual) Seg Neutrophils # Man Lymphocytes # (Manual) PT INR APTT D-Dimer 273.84 H Heparin Anti-Xa Level ABG pO2 ABG HCO3 ABG O2 Saturation ABG Base Excess ABG Hemoglobin Sodium Chloride Carbon Dioxide BUN Creatinine Glucose 218 H POC Glucose Lactic Acid 3.30 H* Ferritin Lactate Dehydrogenase 199 H Troponin T C-Reactive Protein 4.60 H Total Protein Albumin LDL Cholesterol Direct HDL Cholesterol Coronavirus (PCR) 06/28/22 06/28/22 06/28/22 16:11 17:25 22:14 WBC RBC Hgb Hct RDW Plt Count Lymph % (Auto) Lymph # (Auto) Seg Neutrophils % Seg Neuts % (Manual) Lymphocytes % (Manual) Seg Neutrophils # Man Lymphocytes # (Manual) PT INR APTT D-Dimer Heparin Anti-Xa Level ABG pO2 ABG HCO3 ABG O2 Saturation ABG Base Excess ABG Hemoglobin Sodium Chloride Carbon Dioxide BUN Creatinine Glucose POC Glucose 119 H 137 H Lactic Acid Ferritin 2520.0 H Lactate Dehydrogenase Troponin T C-Reactive Protein Total Protein Albumin LDL Cholesterol Direct HDL Cholesterol Coronavirus (PCR) 06/29/22 06/29/22 06/29/22 00:09 00:09 00:09 WBC RBC 2.59 L Hgb 7.7 L Hct 23.1 L D RDW 19.0 H Plt Count 137 L Lymph % (Auto) Lymph # (Auto) Seg Neutrophils % Seg Neuts % (Manual) Lymphocytes % (Manual) Seg Neutrophils # Man Lymphocytes # (Manual) PT 30.2 H INR 2.49 H APTT 54.1 H D-Dimer Heparin Anti-Xa Level ABG pO2 ABG HCO3 ABG O2 Saturation ABG Base Excess ABG Hemoglobin Sodium Chloride Carbon Dioxide BUN Creatinine 2.5 H Glucose POC Glucose Lactic Acid Ferritin Lactate Dehydrogenase Troponin T C-Reactive Protein Total Protein Albumin LDL Cholesterol Direct HDL Cholesterol Coronavirus (PCR) 06/29/22 06/29/22 06/29/22 03:57 03:57 05:52 WBC RBC 2.68 L Hgb 7.8 L Hct 24.4 L RDW 19.6 H Plt Count 138 L Lymph % (Auto) 7.2 L Lymph # (Auto) 0.5 L Seg Neutrophils % 88.6 H Seg Neuts % (Manual) Lymphocytes % (Manual) Seg Neutrophils # Man Lymphocytes # (Manual) PT INR APTT D-Dimer Heparin Anti-Xa Level ABG pO2 ABG HCO3 ABG O2 Saturation ABG Base Excess ABG Hemoglobin Sodium Chloride 115.5 H Carbon Dioxide 11 L BUN 50 H Creatinine 2.5 H Glucose 183 H POC Glucose 134 H Lactic Acid Ferritin Lactate Dehydrogenase Troponin T C-Reactive Protein Total Protein 4.2 L Albumin 1.4 L LDL Cholesterol Direct HDL Cholesterol Coronavirus (PCR) 06/29/22 06/29/22 06/29/22 11:16 23:26 Unknown WBC RBC Hgb Hct RDW Plt Count Lymph % (Auto) Lymph # (Auto) Seg Neutrophils % Seg Neuts % (Manual) Lymphocytes % (Manual) Seg Neutrophils # Man Lymphocytes # (Manual) PT INR APTT D-Dimer Heparin Anti-Xa Level ABG pO2 ABG HCO3 ABG O2 Saturation ABG Base Excess ABG Hemoglobin Sodium Chloride Carbon Dioxide BUN Creatinine Glucose POC Glucose 148 H 170 H Lactic Acid Ferritin Lactate Dehydrogenase Troponin T C-Reactive Protein Total Protein Albumin LDL Cholesterol Direct HDL Cholesterol Coronavirus (PCR) Positive A 06/30/22 06/30/22 06/30/22 05:39 11:32 17:33 WBC RBC Hgb Hct RDW Plt Count Lymph % (Auto) Lymph # (Auto) Seg Neutrophils % Seg Neuts % (Manual) Lymphocytes % (Manual) Seg Neutrophils # Man Lymphocytes # (Manual) PT INR APTT D-Dimer Heparin Anti-Xa Level ABG pO2 ABG HCO3 ABG O2 Saturation ABG Base Excess ABG Hemoglobin Sodium Chloride Carbon Dioxide BUN Creatinine Glucose POC Glucose 147 H 136 H 136 H Lactic Acid Ferritin Lactate Dehydrogenase Troponin T C-Reactive Protein Total Protein Albumin LDL Cholesterol Direct HDL Cholesterol Coronavirus (PCR) 06/30/22 07/01/22 07/01/22 21:42 06:26 11:01 WBC RBC Hgb Hct RDW Plt Count Lymph % (Auto) Lymph # (Auto) Seg Neutrophils % Seg Neuts % (Manual) Lymphocytes % (Manual) Seg Neutrophils # Man Lymphocytes # (Manual) PT INR APTT D-Dimer Heparin Anti-Xa Level ABG pO2 ABG HCO3 ABG O2 Saturation ABG Base Excess ABG Hemoglobin Sodium Chloride Carbon Dioxide BUN Creatinine Glucose POC Glucose 125 H 130 H 135 H Lactic Acid Ferritin Lactate Dehydrogenase Troponin T C-Reactive Protein Total Protein Albumin LDL Cholesterol Direct HDL Cholesterol Coronavirus (PCR) 07/01/22 07/01/22 07/01/22 17:18 19:20 19:20 WBC RBC 2.57 L Hgb 7.7 L Hct 23.1 L RDW 20.0 H Plt Count 68 L Lymph % (Auto) Lymph # (Auto) Seg Neutrophils % Seg Neuts % (Manual) Lymphocytes % (Manual) Seg Neutrophils # Man Lymphocytes # (Manual) PT INR APTT D-Dimer Heparin Anti-Xa Level ABG pO2 ABG HCO3 ABG O2 Saturation ABG Base Excess ABG Hemoglobin Sodium Chloride 113.0 H Carbon Dioxide 18 L D BUN 46 H Creatinine 2.3 H Glucose 181 H POC Glucose 119 H Lactic Acid Ferritin Lactate Dehydrogenase Troponin T C-Reactive Protein Total Protein Albumin LDL Cholesterol Direct HDL Cholesterol Coronavirus (PCR) 07/01/22 07/01/22 07/02/22 19:20 23:19 07:18 WBC RBC 2.54 L Hgb 7.7 L Hct 22.5 L RDW 19.4 H Plt Count 60 L Lymph % (Auto) Lymph # (Auto) Seg Neutrophils % Seg Neuts % (Manual) 99.0 H Lymphocytes % (Manual) 1.0 L Seg Neutrophils # Man 7.8 H Lymphocytes # (Manual) 0.1 L PT 27.4 H INR 2.16 H APTT D-Dimer Heparin Anti-Xa Level ABG pO2 ABG HCO3 ABG O2 Saturation ABG Base Excess ABG Hemoglobin Sodium Chloride Carbon Dioxide BUN Creatinine Glucose POC Glucose 121 H Lactic Acid Ferritin Lactate Dehydrogenase Troponin T C-Reactive Protein Total Protein Albumin LDL Cholesterol Direct HDL Cholesterol Coronavirus (PCR) 07/02/22 07/03/22 07/03/22 07:18 20:32 21:15 WBC RBC Hgb 8.4 L Hct 25.4 L RDW Plt Count 56 L Lymph % (Auto) Lymph # (Auto) Seg Neutrophils % Seg Neuts % (Manual) Lymphocytes % (Manual) Seg Neutrophils # Man Lymphocytes # (Manual) PT 27.3 H INR 2.15 H APTT > 240.0 H* D-Dimer Heparin Anti-Xa Level 1.86 H ABG pO2 ABG HCO3 ABG O2 Saturation ABG Base Excess ABG Hemoglobin Sodium Chloride 114.0 H Carbon Dioxide 19 L BUN 45 H Creatinine 2.5 H Glucose 110 H POC Glucose Lactic Acid Ferritin Lactate Dehydrogenase Troponin T C-Reactive Protein Total Protein Albumin LDL Cholesterol Direct HDL Cholesterol Coronavirus (PCR) 07/03/22 07/04/22 07/04/22 23:35 07:56 07:56 WBC 11.2 H RBC 2.88 L Hgb 8.5 L Hct 25.8 L RDW 20.1 H Plt Count Lymph % (Auto) Lymph # (Auto) Seg Neutrophils % Seg Neuts % (Manual) Lymphocytes % (Manual) Seg Neutrophils # Man Lymphocytes # (Manual) PT INR APTT D-Dimer Heparin Anti-Xa Level ABG pO2 149.9 H ABG HCO3 14.9 L ABG O2 Saturation ABG Base Excess -8.9 L ABG Hemoglobin 7.6 L Sodium 146 H Chloride 115.7 H Carbon Dioxide 16 L BUN 51 H Creatinine 2.9 H Glucose POC Glucose Lactic Acid Ferritin Lactate Dehydrogenase Troponin T C-Reactive Protein Total Protein Albumin LDL Cholesterol Direct HDL Cholesterol Coronavirus (PCR)
--- NOTE | 2022-07-04 10:30 | Consultation ---
History of Present Illness Consult date: 07/04/22 Requesting physician: KOMAL BUNN Reason for consult: other (Acute Hypoxemic Respiratory Failure; COVID-19 infection; AMS) History of present illness: PULMONARY/CCM CONSULT NOTE (Full dictation # [id number]) Please see dictated notes for full details Past History Past Medical History: hypertension, stroke, other (Chronic kidney disease and history of DVT) Past Surgical History: Other (Unknown) Social history: other (Unknown) Family history: other (Unknown) Medications and Allergies Allergies Allergy/AdvReac Type Severity Reaction Status Date / Time No Known Allergies Allergy Verified 06/28/22 13:48 Home Medications Medication Instructions Recorded Confirmed Last Taken Type RX: Aspirin 325 mg PO QDAY #30 tablet 03/07/22 07/01/22 Unknown Rx RX: AtorvaSTATin [Lipitor] 40 mg PO QHS 30 Days #30 tab 03/07/22 07/01/22 Unknown Rx Active Meds: Active Medications Acetaminophen (Acetaminophen 325 Mg Tab) 650 mg PO Q4H PRN PRN Reason: Pain MILD(1-3)/Fever >100.5/GILES Dexamethasone (Dexamethasone 4 Mg Tab) 8 mg PO DAILY PARRISH Stop: 07/08/22 10:59 Last Admin: 07/03/22 09:39 Dose: 8 mg Sodium Bicarbonate 150 meq/ (Dextrose) 1,150 mls @ 75 mls/hr IV DIRECT PARRISH Last Admin: 07/04/22 02:44 Dose: 75 mls/hr NORepinephrine/NS 8 MG-250 ML (Norepinephrine/Ns 8 Mg-250 Ml (Double Conc)) 8 mg in 250 mls @ 3.75 mls/hr IV TITRATE PARRISH; Protocol Mirtazapine (Mirtazapine 15 Mg Tab) 7.5 mg PO QHS PARRISH Last Admin: 07/03/22 23:22 Dose: Not Given Morphine Sulfate (Morphine 2 Mg/1 Ml Inj) 2 mg IV Q4H PRN PRN Reason: Pain, Moderate (4-6) Last Admin: 07/03/22 01:48 Dose: 2 mg Ondansetron HCl (Ondansetron 4 Mg/2 Ml Inj) 4 mg IV Q8H PRN PRN Reason: Nausea And Vomiting Oxycodone/Acetaminophen (Oxycodone /Acetaminophen 5-325mg Tab) 1 tab PO Q6H PRN PRN Reason: Pain, Moderate (4-6) Pantoprazole Sodium (Pantoprazole 40 Mg Tab) 40 mg PO QAMDIAB [facility] Last Admin: 07/03/22 09:38 Dose: 40 mg Sodium Chloride (Sodium Chloride 0.9% 10 Ml Flush Syringe) 10 ml IV BID [facility] Last Admin: 07/03/22 23:44 Dose: 10 ml Sodium Chloride (Sodium Chloride 0.9% 10 Ml Flush Syringe) 10 ml IV PRN PRN PRN Reason: LINE FLUSH Tamsulosin HCl (Tamsulosin 0.4 Mg Cap) 0.4 mg PO QDAY [facility] Last Admin: 07/03/22 09:38 Dose: 0.4 mg Physical Examination Vital signs: Vital Signs Temp Pulse Resp BP 95.7 F L 99 H 20 95/57 06/28/22 13:44 06/28/22 13:44 06/28/22 13:44 06/28/22 13:44 Results - Laboratory Findings CBC and BMP: 07/04/22 07:56 07/04/22 07:56 ABG ABG pH 7.400 pH Units (7.350-7.450) 07/03/22 23:35 ABG pCO2 24.5 mm Hg 07/03/22 23:35 ABG pO2 149.9 mm Hg (80.0-90.0) H 07/03/22 23:35 ABG O2 Saturation 98.8 % (95.0-99.0) 07/03/22 23:35 PT/INR, D-dimer PT 27.3 Sec. (12.2-14.9) H 07/03/22 21:15 INR 2.15 (0.87-1.13) H 07/03/22 21:15 D-Dimer 273.84 ng/mlDDU (0-234) H 06/28/22 16:11 Abnormal lab findings: Abnormal Labs 06/28/22 06/28/22 06/28/22 14:53 14:57 14:57 WBC 3.5 L RBC 3.22 L Hgb 9.5 L Hct 29.6 L RDW 20.0 H Plt Count Lymph % (Auto) Lymph # (Auto) 0.6 L Seg Neutrophils % 77.0 H Seg Neuts % (Manual) Lymphocytes % (Manual) Seg Neutrophils # Man Lymphocytes # (Manual) PT 28.4 H INR 2.31 H APTT 49.0 H D-Dimer Heparin Anti-Xa Level ABG pO2 390.9 H ABG HCO3 11.1 L ABG O2 Saturation 99.5 H ABG Base Excess -12.3 L ABG Hemoglobin 9.0 L Sodium Chloride Carbon Dioxide BUN Creatinine Glucose POC Glucose Lactic Acid Ferritin Lactate Dehydrogenase Troponin T C-Reactive Protein Total Protein Albumin LDL Cholesterol Direct HDL Cholesterol Coronavirus (PCR) 06/28/22 06/28/22 06/28/22 14:57 14:57 15:01 WBC RBC Hgb Hct RDW Plt Count Lymph % (Auto) Lymph # (Auto) Seg Neutrophils % Seg Neuts % (Manual) Lymphocytes % (Manual) Seg Neutrophils # Man Lymphocytes # (Manual) PT INR APTT D-Dimer Heparin Anti-Xa Level ABG pO2 ABG HCO3 ABG O2 Saturation ABG Base Excess ABG Hemoglobin Sodium 134 L Chloride 110.8 H Carbon Dioxide 13 L BUN 51 H Creatinine 2.7 H Glucose POC Glucose 14 L Lactic Acid 3.40 H* Ferritin Lactate Dehydrogenase Troponin T 0.135 H* C-Reactive Protein Total Protein 4.9 L Albumin 1.6 L LDL Cholesterol Direct 21 L HDL Cholesterol 22 L Coronavirus (PCR) 06/28/22 06/28/22 06/28/22 16:11 16:11 16:11 WBC RBC Hgb Hct RDW Plt Count Lymph % (Auto) Lymph # (Auto) Seg Neutrophils % Seg Neuts % (Manual) Lymphocytes % (Manual) Seg Neutrophils # Man Lymphocytes # (Manual) PT INR APTT D-Dimer 273.84 H Heparin Anti-Xa Level ABG pO2 ABG HCO3 ABG O2 Saturation ABG Base Excess ABG Hemoglobin Sodium Chloride Carbon Dioxide BUN Creatinine Glucose 218 H POC Glucose Lactic Acid 3.30 H* Ferritin Lactate Dehydrogenase 199 H Troponin T C-Reactive Protein 4.60 H Total Protein Albumin LDL Cholesterol Direct HDL Cholesterol Coronavirus (PCR) 06/28/22 06/28/22 06/28/22 16:11 17:25 22:14 WBC RBC Hgb Hct RDW Plt Count Lymph % (Auto) Lymph # (Auto) Seg Neutrophils % Seg Neuts % (Manual) Lymphocytes % (Manual) Seg Neutrophils # Man Lymphocytes # (Manual) PT INR APTT D-Dimer Heparin Anti-Xa Level ABG pO2 ABG HCO3 ABG O2 Saturation ABG Base Excess ABG Hemoglobin Sodium Chloride Carbon Dioxide BUN Creatinine Glucose POC Glucose 119 H 137 H Lactic Acid Ferritin 2520.0 H Lactate Dehydrogenase Troponin T C-Reactive Protein Total Protein Albumin LDL Cholesterol Direct HDL Cholesterol Coronavirus (PCR) 06/29/22 06/29/22 06/29/22 00:09 00:09 00:09 WBC RBC 2.59 L Hgb 7.7 L Hct 23.1 L D RDW 19.0 H Plt Count 137 L Lymph % (Auto) Lymph # (Auto) Seg Neutrophils % Seg Neuts % (Manual) Lymphocytes % (Manual) Seg Neutrophils # Man Lymphocytes # (Manual) PT 30.2 H INR 2.49 H APTT 54.1 H D-Dimer Heparin Anti-Xa Level ABG pO2 ABG HCO3 ABG O2 Saturation ABG Base Excess ABG Hemoglobin Sodium Chloride Carbon Dioxide BUN Creatinine 2.5 H Glucose POC Glucose Lactic Acid Ferritin Lactate Dehydrogenase Troponin T C-Reactive Protein Total Protein Albumin LDL Cholesterol Direct HDL Cholesterol Coronavirus (PCR) 06/29/22 06/29/22 06/29/22 03:57 03:57 05:52 WBC RBC 2.68 L Hgb 7.8 L Hct 24.4 L RDW 19.6 H Plt Count 138 L Lymph % (Auto) 7.2 L Lymph # (Auto) 0.5 L Seg Neutrophils % 88.6 H Seg Neuts % (Manual) Lymphocytes % (Manual) Seg Neutrophils # Man Lymphocytes # (Manual) PT INR APTT D-Dimer Heparin Anti-Xa Level ABG pO2 ABG HCO3 ABG O2 Saturation ABG Base Excess ABG Hemoglobin Sodium Chloride 115.5 H Carbon Dioxide 11 L BUN 50 H Creatinine 2.5 H Glucose 183 H POC Glucose 134 H Lactic Acid Ferritin Lactate Dehydrogenase Troponin T C-Reactive Protein Total Protein 4.2 L Albumin 1.4 L LDL Cholesterol Direct HDL Cholesterol Coronavirus (PCR) 06/29/22 06/29/22 06/29/22 11:16 23:26 Unknown WBC RBC Hgb Hct RDW Plt Count Lymph % (Auto) Lymph # (Auto) Seg Neutrophils % Seg Neuts % (Manual) Lymphocytes % (Manual) Seg Neutrophils # Man Lymphocytes # (Manual) PT INR APTT D-Dimer Heparin Anti-Xa Level ABG pO2 ABG HCO3 ABG O2 Saturation ABG Base Excess ABG Hemoglobin Sodium Chloride Carbon Dioxide BUN Creatinine Glucose POC Glucose 148 H 170 H Lactic Acid Ferritin Lactate Dehydrogenase Troponin T C-Reactive Protein Total Protein Albumin LDL Cholesterol Direct HDL Cholesterol Coronavirus (PCR) Positive A 06/30/22 06/30/22 06/30/22 05:39 11:32 17:33 WBC RBC Hgb Hct RDW Plt Count Lymph % (Auto) Lymph # (Auto) Seg Neutrophils % Seg Neuts % (Manual) Lymphocytes % (Manual) Seg Neutrophils # Man Lymphocytes # (Manual) PT INR APTT D-Dimer Heparin Anti-Xa Level ABG pO2 ABG HCO3 ABG O2 Saturation ABG Base Excess ABG Hemoglobin Sodium Chloride Carbon Dioxide BUN Creatinine Glucose POC Glucose 147 H 136 H 136 H Lactic Acid Ferritin Lactate Dehydrogenase Troponin T C-Reactive Protein Total Protein Albumin LDL Cholesterol Direct HDL Cholesterol Coronavirus (PCR) 06/30/22 07/01/22 07/01/22 21:42 06:26 11:01 WBC RBC Hgb Hct RDW Plt Count Lymph % (Auto) Lymph # (Auto) Seg Neutrophils % Seg Neuts % (Manual) Lymphocytes % (Manual) Seg Neutrophils # Man Lymphocytes # (Manual) PT INR APTT D-Dimer Heparin Anti-Xa Level ABG pO2 ABG HCO3 ABG O2 Saturation ABG Base Excess ABG Hemoglobin Sodium Chloride Carbon Dioxide BUN Creatinine Glucose POC Glucose 125 H 130 H 135 H Lactic Acid Ferritin Lactate Dehydrogenase Troponin T C-Reactive Protein Total Protein Albumin LDL Cholesterol Direct HDL Cholesterol Coronavirus (PCR) 07/01/22 07/01/22 07/01/22 17:18 19:20 19:20 WBC RBC 2.57 L Hgb 7.7 L Hct 23.1 L RDW 20.0 H Plt Count 68 L Lymph % (Auto) Lymph # (Auto) Seg Neutrophils % Seg Neuts % (Manual) Lymphocytes % (Manual) Seg Neutrophils # Man Lymphocytes # (Manual) PT INR APTT D-Dimer Heparin Anti-Xa Level ABG pO2 ABG HCO3 ABG O2 Saturation ABG Base Excess ABG Hemoglobin Sodium Chloride 113.0 H Carbon Dioxide 18 L D BUN 46 H Creatinine 2.3 H Glucose 181 H POC Glucose 119 H Lactic Acid Ferritin Lactate Dehydrogenase Troponin T C-Reactive Protein Total Protein Albumin LDL Cholesterol Direct HDL Cholesterol Coronavirus (PCR) 07/01/22 07/01/22 07/02/22 19:20 23:19 07:18 WBC RBC 2.54 L Hgb 7.7 L Hct 22.5 L RDW 19.4 H Plt Count 60 L Lymph % (Auto) Lymph # (Auto) Seg Neutrophils % Seg Neuts % (Manual) 99.0 H Lymphocytes % (Manual) 1.0 L Seg Neutrophils # Man 7.8 H Lymphocytes # (Manual) 0.1 L PT 27.4 H INR 2.16 H APTT D-Dimer Heparin Anti-Xa Level ABG pO2 ABG HCO3 ABG O2 Saturation ABG Base Excess ABG Hemoglobin Sodium Chloride Carbon Dioxide BUN Creatinine Glucose POC Glucose 121 H Lactic Acid Ferritin Lactate Dehydrogenase Troponin T C-Reactive Protein Total Protein Albumin LDL Cholesterol Direct HDL Cholesterol Coronavirus (PCR) 07/02/22 07/03/22 07/03/22 07:18 20:32 21:15 WBC RBC Hgb 8.4 L Hct 25.4 L RDW Plt Count 56 L Lymph % (Auto) Lymph # (Auto) Seg Neutrophils % Seg Neuts % (Manual) Lymphocytes % (Manual) Seg Neutrophils # Man Lymphocytes # (Manual) PT 27.3 H INR 2.15 H APTT > 240.0 H* D-Dimer Heparin Anti-Xa Level 1.86 H ABG pO2 ABG HCO3 ABG O2 Saturation ABG Base Excess ABG Hemoglobin Sodium Chloride 114.0 H Carbon Dioxide 19 L BUN 45 H Creatinine 2.5 H Glucose 110 H POC Glucose Lactic Acid Ferritin Lactate Dehydrogenase Troponin T C-Reactive Protein Total Protein Albumin LDL Cholesterol Direct HDL Cholesterol Coronavirus (PCR) 07/03/22 07/04/22 07/04/22 23:35 07:56 07:56 WBC 11.2 H RBC 2.88 L Hgb 8.5 L Hct 25.8 L RDW 20.1 H Plt Count Lymph % (Auto) Lymph # (Auto) Seg Neutrophils % Seg Neuts % (Manual) Lymphocytes % (Manual) Seg Neutrophils # Man Lymphocytes # (Manual) PT INR APTT D-Dimer Heparin Anti-Xa Level ABG pO2 149.9 H ABG HCO3 14.9 L ABG O2 Saturation ABG Base Excess -8.9 L ABG Hemoglobin 7.6 L Sodium 146 H Chloride 115.7 H Carbon Dioxide 16 L BUN 51 H Creatinine 2.9 H Glucose POC Glucose Lactic Acid Ferritin Lactate Dehydrogenase Troponin T C-Reactive Protein Total Protein Albumin LDL Cholesterol Direct HDL Cholesterol Coronavirus (PCR)
[2022-07-04 10:36] LABS: Basophils # (Auto) 0.2 K/mm3 (0.0-0.1); Monocytes # (Auto) 0.4 K/mm3 (0.0-0.8); Monocytes % (Auto) 3.5 % (0.0-7.3)
[2022-07-04 10:39] LABS: Platelet Count 52 K/mm3 (140-440)
[2022-07-04 10:41] LABS: Anisocytosis 1+; Band Neutrophils # (Manual) 0.2 K/mm3; Basophils % (Manual) 0 % (0.0-1.8); Eosinophils % (Manual) 0 % (0.0-4.3); Hypochromasia 2+; Platelet Estimate Consistent w Auto; Poikilocytosis 1+; Spherocytes 1+; Target Cells 1+; Total Cells Counted 100
--- NOTE | 2022-07-04 12:17 | Progress Note ---
Subjective Date of service: 07/04/22 Principal diagnosis: monica on ckd Interval history: Impression * Acute on chronic renal failure. Baseline creatinine 1.8-2.0 from March 2022 * metabolic acidosis. Lactic acidosis * Altered mental status * Sepsis * History of CVA * History of hypertension * History of DVT * Anemia Recommendations * Follow-up results of UA as well as fractional excretion of sodium * CT scan of his abdomen shows mildly distended bladder. Patient currently has a condom catheter in place. * urology consult noted * Continue iVFS * follow up am lytes * Follow-up results of vasculitis work-up to rule out pulmonary renal syndrome * Avoid nephrotoxins * Monitor fluid status and electrolytes closely * No urgent indication for renal replacement therapy today * cr 2.5 at last check, follow up daily lytes Subjective Interval history: events noted labs and chart reviewed Objective Physical exam: primary team exam noted full exam deferred for preservation of PPE Objective - Vital Signs Vital signs: Vital Signs - 12hr 07/04/22 07/04/22 07/04/22 00:18 00:21 00:22 Pulse Rate 92 H 100 H Pulse Rate [ Left Radial] Pulse Rate [ Right Radial] Respiratory 22 20 Rate Blood Pressure 72/54 O2 Sat by Pulse 51 L 90 Oximetry 07/04/22 07/04/22 07/04/22 00:30 00:46 01:00 Pulse Rate 113 H 111 H 114 H Pulse Rate [ Left Radial] Pulse Rate [ Right Radial] Respiratory 18 19 19 Rate Blood Pressure 123/89 123/89 156/89 O2 Sat by Pulse 72 L Oximetry 07/04/22 07/04/22 07/04/22 01:16 01:30 01:46 Pulse Rate 114 H 113 H 111 H Pulse Rate [ Left Radial] Pulse Rate [ Right Radial] Respiratory 29 H 22 21 Rate Blood Pressure 108/82 108/82 133/75 O2 Sat by Pulse 65 L Oximetry 07/04/22 07/04/22 07/04/22 02:00 02:15 02:30 Pulse Rate 108 H 104 H 105 H Pulse Rate [ Left Radial] Pulse Rate [ Right Radial] Respiratory 22 19 16 Rate Blood Pressure 133/75 116/83 116/83 O2 Sat by Pulse 32 L Oximetry 07/04/22 07/04/22 07/04/22 02:45 03:00 03:16 Pulse Rate 99 H 104 H 103 H Pulse Rate [ Left Radial] Pulse Rate [ Right Radial] Respiratory 14 17 17 Rate Blood Pressure 142/76 142/76 142/76 O2 Sat by Pulse Oximetry 07/04/22 07/04/22 07/04/22 03:30 03:46 04:00 Pulse Rate 101 H 106 H 92 H Pulse Rate [ Left Radial] Pulse Rate [ Right Radial] Respiratory 16 18 28 H Rate Blood Pressure 142/76 142/76 110/82 O2 Sat by Pulse Oximetry 07/04/22 07/04/22 07/04/22 04:16 04:31 04:45 Pulse Rate 104 H Pulse Rate [ 112 H Left Radial] Pulse Rate [ 112 H Right Radial] Respiratory 18 14 Rate Blood Pressure 135/85 O2 Sat by Pulse 97 100 Oximetry 07/04/22 07/04/22 07/04/22 05:00 06:00 07:00 Pulse Rate 94 H 87 87 Pulse Rate [ Left Radial] Pulse Rate [ Right Radial] Respiratory 14 10 L 12 Rate Blood Pressure 135/85 130/89 130/89 O2 Sat by Pulse 81 L 91 Oximetry 07/04/22 07/04/22 07/04/22 08:00 08:16 08:18 Pulse Rate 87 84 Pulse Rate [ Left Radial] Pulse Rate [ Right Radial] Respiratory 11 L 23 Rate Blood Pressure 136/63 133/73 O2 Sat by Pulse 92 92 Oximetry 07/04/22 07/04/22 09:00 10:00 Pulse Rate 85 89 Pulse Rate [ Left Radial] Pulse Rate [ Right Radial] Respiratory 11 L 13 Rate Blood Pressure 128/65 128/65 O2 Sat by Pulse 75 L Oximetry - Lab 07/04/22 07:56 07/04/22 07:56 Most recent lab results ABG pH 7.400 pH Units (7.350-7.450) 07/03/22 23:35 ABG pCO2 24.5 mm Hg 07/03/22 23:35 ABG pO2 149.9 mm Hg (80.0-90.0) H 07/03/22 23:35 ABG HCO3 14.9 mmol/L (20.0-26.0) L 07/03/22 23:35 ABG O2 Saturation 98.8 % (95.0-99.0) 07/03/22 23:35 Calcium 9.0 mg/dL (8.4-10.2) 07/04/22 07:56 Medications & Allergies - Medications Allergies/Adverse Reactions: Allergies No Known Allergies Allergy (Verified 06/28/22 13:48) Home Medications: Home Medications Medication Instructions Recorded Confirmed Last Taken Type Aspirin 325 mg PO QDAY #30 tablet 03/07/22 07/01/22 Unknown Rx AtorvaSTATin [Lipitor] 40 mg PO QHS 30 Days #30 tab 03/07/22 07/01/22 Unknown Rx Active Medications: Generic Name Dose Route Start Last Admin Trade Name Freq PRN Reason Stop Dose Admin Acetaminophen 650 mg 06/28/22 18:42 Acetaminophen 325 Mg Tab PO Q4H PRN Pain MILD(1-3)/Fever >100.5/GILES Dexamethasone 8 mg 07/03/22 10:00 07/03/22 09:39 Dexamethasone 4 Mg Tab PO 07/08/22 10:59 8 mg DAILY PARRISH Administration NORepinephrine/NS 8 MG-250 ML 8 mg in 250 mls @ 3.75 mls/hr 07/03/22 23:45 Norepinephrine/Ns 8 Mg-250 Ml (Double Conc) IV TITRATE PARRISH Protocol 2 MCG/MIN Mirtazapine 7.5 mg 06/30/22 22:00 07/03/22 23:22 Mirtazapine 15 Mg Tab PO Not Given QHS PARRISH Morphine Sulfate 2 mg 06/28/22 16:55 07/03/22 01:48 Morphine 2 Mg/1 Ml Inj IV 2 mg Q4H PRN Administration Pain, Moderate (4-6) Ondansetron HCl 4 mg 06/28/22 18:42 Ondansetron 4 Mg/2 Ml Inj IV Q8H PRN Nausea And Vomiting Oxycodone/Acetaminophen 1 tab 06/28/22 18:42 Oxycodone /Acetaminophen 5-325mg Tab PO Q6H PRN Pain, Moderate (4-6) Pantoprazole Sodium 40 mg 07/01/22 09:30 07/03/22 09:38 Pantoprazole 40 Mg Tab PO 40 mg QAMDIAB PARRISH Administration Sodium Chloride 10 ml 06/28/22 22:00 07/03/22 23:44 Sodium Chloride 0.9% 10 Ml Flush Syringe IV 10 ml BID PARRISH Administration Sodium Chloride 10 ml 06/28/22 18:42 Sodium Chloride 0.9% 10 Ml Flush Syringe IV PRN PRN LINE FLUSH Tamsulosin HCl 0.4 mg 07/01/22 11:00 07/03/22 09:38 Tamsulosin 0.4 Mg Cap PO 0.4 mg QDAY PARRISH Administration
--- NOTE | 2022-07-04 12:21 | XRay Report ---
ABDOMEN 1 VIEW(S) INDICATION / CLINICAL INFORMATION: NGT placement. COMPARISON: CT 06/30/2020 FINDINGS: TUBES / LINES: IVC filter and right ureteral stent are noted. Inferior right ureteral stent is not in cluded. NG tube tip and side-port are in the proximal stomach. BOWEL GAS PATTERN: No significant abnormality. FREE AIR / EXTRALUMINAL GAS: None seen. ADDITIONAL FINDINGS: No significant additional findings. IMPRESSION: 1. NG tube tip and side-port are in the proximal stomach. Signer Name: Devaughn Dickinson MD Signed: 07/04/2022 12:16 PM Workstation Name: [id number]
--- NOTE | 2022-07-04 14:33 | Progress Note ---
Assessment and Plan Cultures: SARS CoV2 PCR: positive 06/28/2022 blood culture: No growth A/P: 72-year-old male with prior CVA, DVT on anticoagulation, CKD, hypertension, dysphagia was admitted from the senior living after being diagnosed with COVID and noted to have shortness of breath with hypoxia: #COVID-19 pneumonia: PCR positive, hypoxic requiring supplemental oxygen. CT chest with left lower lobe pneumonia. #Acute hypoxic respiratory failure: with worsening, now on BiPAP #MALIHA on CKD: Renally adjust antibiotics. Nephrology following. #Leukopenia: Likely related to viral illness. Improved. #Mild thrombocytopenia Recs: -patient is s/p empiric course of Cefepime and Azithromycin. Rechecking WBC and CRP in AM -Continue IV/PO Dexamethasone x 10 days -Not a candidate for remdesivir due to CKD/elevated creatinine -Already on apixaban for anticoagulation Deyanira Sutherland MD, FACP, [facility] O: [phone] F: [phone] C: [phone] Subjective Date of service: 07/04/22 Principal diagnosis: mailha on ckd Interval history: Patient became hypotensive, hypoxic yesterday, was moved to ICU, now on BiPAP. Otherwise afebrile. Objective - Exam Narrative Exam: Physical Exam: On BiPAP. Exam deferred due to COVID-19, to minimize transmission risk - Constitutional Vitals: Vital Signs Temp Pulse Resp BP Pulse Ox 97.2 F L 89 13 128/65 75 L 07/03/22 23:08 07/04/22 10:00 07/04/22 10:00 07/04/22 10:00 07/04/22 09:00 Temperature -Last 24 Hours Temperature 97.2 F Temperature 97.1 F - Labs CBC & Chem 7: 07/04/22 07:56 07/04/22 07:56 Labs: Abnormal lab results 07/03/22 07/03/22 07/03/22 Range/Units 20:32 21:15 23:35 WBC (4.5-11.0) K/mm3 RBC (3.65-5.03) M/mm3 Hgb 8.4 L (11.8-15.2) gm/dl Hct 25.4 L (35.5-45.6) % RDW (13.2-15.2) % Plt Count 56 L (140-440) K/mm3 Baso # (Auto) (0.0-0.1) K/mm3 Seg Neuts % (Manual) (40.0-70.0) % Lymphocytes % (Manual) (13.4-35.0) % Nucleated RBC % (0.0-0.9) % Seg Neutrophils # (1.8-7.7) K/mm3 Seg Neutrophils # Man (1.8-7.7) K/mm3 Lymphocytes # (Manual) (1.2-5.4) K/mm3 PT 27.3 H (12.2-14.9) Sec. INR 2.15 H (0.87-1.13) APTT > 240.0 H* (24.2-36.6) Sec. Heparin Anti-Xa Level 1.86 H (0.3-0.7) U.I./ml ABG pO2 149.9 H (80.0-90.0) mm Hg ABG HCO3 14.9 L (20.0-26.0) mmol/L ABG Base Excess -8.9 L (-2.0-3.0) mmol/L ABG Hemoglobin 7.6 L (14.0-18.0) gm/dl Sodium (137-145) mmol/L Chloride (98-107) mmol/L Carbon Dioxide (22-30) mmol/L BUN (9-20) mg/dL Creatinine (0.8-1.3) mg/dL 07/04/22 07/04/22 Range/Units 07:56 07:56 WBC 11.2 H (4.5-11.0) K/mm3 RBC 2.88 L (3.65-5.03) M/mm3 Hgb 8.5 L (11.8-15.2) gm/dl Hct 25.8 L (35.5-45.6) % RDW 20.1 H (13.2-15.2) % Plt Count 52 L (140-440) K/mm3 Baso # (Auto) 0.2 H (0.0-0.1) K/mm3 Seg Neuts % (Manual) 96.0 H (40.0-70.0) % Lymphocytes % (Manual) 0 L (13.4-35.0) % Nucleated RBC % 2.0 H (0.0-0.9) % Seg Neutrophils # 10.0 H (1.8-7.7) K/mm3 Seg Neutrophils # Man 10.8 H (1.8-7.7) K/mm3 Lymphocytes # (Manual) 0.0 L (1.2-5.4) K/mm3 PT (12.2-14.9) Sec. INR (0.87-1.13) APTT (24.2-36.6) Sec. Heparin Anti-Xa Level (0.3-0.7) U.I./ml ABG pO2 (80.0-90.0) mm Hg ABG HCO3 (20.0-26.0) mmol/L ABG Base Excess (-2.0-3.0) mmol/L ABG Hemoglobin (14.0-18.0) gm/dl Sodium 146 H (137-145) mmol/L Chloride 115.7 H (98-107) mmol/L Carbon Dioxide 16 L (22-30) mmol/L BUN 51 H (9-20) mg/dL Creatinine 2.9 H (0.8-1.3) mg/dL
[2022-07-04] MEDS ORDERED: DEXTROSE 50% IN WATER (25GM) 50 ML SYRINGE IV PRN (15:07)
[2022-07-04] MEDS: TAMSULOSIN 0.4 MG CAP PO SCH (15:22)
[2022-07-04] MEDS: PANTOPRAZOLE 40 MG TAB PO SCH (15:22)
[2022-07-04] MEDS: DEXAMETHASONE 4 MG TAB PO SCH (15:22)
[2022-07-04] MEDS: SODIUM BICARBONATE 50 MEQ in SODIUM CHLORIDE 0.9% 1000 ML 1,000 ML IV SCH (16:28)
[2022-07-04 21:19] LABS: ABG Base Excess -3.8 mmol/L (-2.0-3.0); ABG HCO3 19.7 mmol/L (20.0-26.0); ABG Methemoglobin 0.3 % (0.0-1.5); ABG Oxygen Saturation 99.5 % (95.0-99.0); ABG PCO2 28.9 mm Hg; ABG PH 7.451 pH Units (7.350-7.450)
[2022-07-04 21:24] LABS: ABG PO2 375.8 mm Hg (80.0-90.0)
--- NOTE | 2022-07-04 21:41 | Hem/Onc Consultation ---
History of Present Illness - Reason for Consult Consult date: 07/04/22 thrombocytopenia, DVT s/p IVC filter and possible PE. - History of Present Illness Heme Data Review CPT 73875 Dx Thrombocytopenia This is a 72 yo male who presented to [facility] ED from assisted with hypoxia and shortness of breath. 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 Initially admitted to the floor for sepsis and acute hypoxic respiratory failure 2/2 pneumonia; covid-19 positive. Patient was transferred to the ICU due to hypotension and hypoxia; now on continuous Bipap. Hematology was consulted for evaluation of thrombocytopenia, DVT s/p IVC filter and possible PE. Chest CT revealed suspected left lower lobe pneumonia given history of covid-19 infection and shortness of breath. Small left pleural effusion. Abd/Pel CT revealed mild distention and circumferential wall thickening of the urinary bladder. May suggest cystitis. Small to moderate amount of free abdominopelvic fluid. Left basilar consolidation with associated pleural effusi on. Generalized anasarca. Planning for PEG placement 07/08/22. 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 infection and underlying liver dysfunction --HIT is also possible; follow PF4 ab Coagulopathy History of DVT s/p IVC filter on Eliquis at home --> Heparin gtt on hold Normocytic anemia likely secondary to acute on chronic renal insufficiency and iron deficiency due to malabsorption of oral iron post gastric bypass surgery PLAN: Monitor CBC Risk outweighs the benefit for anticoagulation at this time due to degree of thrombocytopenia and coagulopathy AM labs to include retic, spep w.MISTI, iron studies, PT/INR, fibrinogen U/S BL extremities Brain CT to rule out ICH Follow PF4 ab Standing orders: -Transfuse 1 unit pRBC whenever hct <23 -Transfuse 1 dose of platelets whenever plt count <20 -Transfuse 2 units FFP Q6 x 24 hours if bleeding -Transfuse 2 units FFP pre-procedure Formal consult in AM Laboratory Last Values WBC 11.2 K/mm3 (4.5-11.0) H 07/04/22 07:56 Hgb 8.5 gm/dl (11.8-15.2) L 07/04/22 07:56 Hct 25.8 % (35.5-45.6) L 07/04/22 07:56 MCV 90 fl (84-94) 07/04/22 07:56 Plt Count 52 K/mm3 (140-440) L 07/04/22 07:56 Lymph % (Auto) 7.2 % (13.4-35.0) L 06/29/22 03:57 Lymph # (Auto) 0.5 K/mm3 (1.2-5.4) L 06/29/22 03:57 Baso # (Auto) 0.2 K/mm3 (0.0-0.1) H 07/04/22 07:56 Seg Neuts % (Manual) 96.0 % (40.0-70.0) H 07/04/22 07:56 Lymphocytes % (Manual) 0 % (13.4-35.0) L 07/04/22 07:56 Nucleated RBC % 2.0 % (0.0-0.9) H 07/04/22 07:56 Seg Neutrophils # 10.0 K/mm3 (1.8-7.7) H 07/04/22 07:56 Seg Neutrophils # Man 10.8 K/mm3 (1.8-7.7) H 07/04/22 07:56 Lymphocytes # (Manual) 0.0 K/mm3 (1.2-5.4) L 07/04/22 07:56 PT 27.3 Sec. (12.2-14.9) H 07/03/22 21:15 INR 2.15 (0.87-1.13) H 07/03/22 21:15 APTT > 240.0 Sec. (24.2-36.6) H* 07/03/22 21:15 D-Dimer 273.84 ng/mlDDU (0-234) H 06/28/22 16:11 Heparin Anti-Xa Level 1.86 U.I./ml (0.3-0.7) H 07/03/22 21:15 Creatinine 2.9 mg/dL (0.8-1.3) H 07/04/22 07:56 Lactic Acid 3.30 mmol/L (0.7-2.0) H* 06/28/22 16:11 Ferritin 2520.0 ng/mL (30.0-300.0) H 06/28/22 16:11 AST 26 units/L (5-40) 06/29/22 03:57 ALT 13 units/L (7-56) 06/29/22 03:57 Alkaline Phosphatase 93 units/L (35-129) 06/29/22 03:57 Lactate Dehydrogenase 199 units/L (91-180) H 06/28/22 16:11 Coronavirus (PCR) Positive (Negative) A 06/29/22 Unknown Past History Past Medical History: hypertension, stroke, other (Chronic kidney disease and history of DVT) Past Surgical History: Other (Unknown) Social history: other (Unknown) Family history: other (Unknown) Medications and Allergies Allergies Allergy/AdvReac Type Severity Reaction Status Date / Time No Known Allergies Allergy Verified 06/28/22 13:48 Home Medications Medication Instructions Recorded Confirmed Last Taken Type Aspirin 325 mg PO QDAY #30 tablet 03/07/22 07/01/22 Unknown Rx AtorvaSTATin [Lipitor] 40 mg PO QHS 30 Days #30 tab 03/07/22 07/01/22 Unknown Rx Active Meds: Active Medications Acetaminophen (Acetaminophen 325 Mg Tab) 650 mg PO Q4H PRN PRN Reason: Pain MILD(1-3)/Fever >100.5/GILES Dexamethasone (Dexamethasone 4 Mg Tab) 8 mg PO DAILY PARRISH Stop: 07/08/22 10:59 Last Admin: 07/04/22 15:22 Dose: 8 mg Dextrose (Dextrose 50% In Water (25gm) 50 Ml Syringe) 50 ml IV Q30MIN PRN; Protocol PRN Reason: Hypoglycemia NORepinephrine/NS 8 MG-250 ML (Norepinephrine/Ns 8 Mg-250 Ml (Double Conc)) 8 mg in 250 mls @ 3.75 mls/hr IV TITRATE PARRISH; Protocol Sodium Bicarbonate 50 meq/ (Sodium Chloride) 1,050 mls @ 100 mls/hr IV DIRECT PARRISH Last Admin: 07/04/22 16:28 Dose: 100 mls/hr Lansoprazole (Lansoprazole 30 Mg Solutab) 30 mg FEEDTUBE QDAY PARRISH Mirtazapine (Mirtazapine 15 Mg Tab) 7.5 mg PO QHS PARRISH Last Admin: 07/03/22 23:22 Dose: Not Given Morphine Sulfate (Morphine 2 Mg/1 Ml Inj) 2 mg IV Q4H PRN PRN Reason: Pain, Moderate (4-6) Last Admin: 07/03/22 01:48 Dose: 2 mg Ondansetron HCl (Ondansetron 4 Mg/2 Ml Inj) 4 mg IV Q8H PRN PRN Reason: Nausea And Vomiting Oxycodone/Acetaminophen (Oxycodone /Acetaminophen 5-325mg Tab) 1 tab PO Q6H PRN PRN Reason: Pain, Moderate (4-6) Sodium Chloride (Sodium Chloride 0.9% 10 Ml Flush Syringe) 10 ml IV BID [facility] Last Admin: 07/04/22 15:23 Dose: 10 ml Sodium Chloride (Sodium Chloride 0.9% 10 Ml Flush Syringe) 10 ml IV PRN PRN PRN Reason: LINE FLUSH Tamsulosin HCl (Tamsulosin 0.4 Mg Cap) 0.4 mg PO QDAY [facility] Last Admin: 07/04/22 15:22 Dose: 0.4 mg Exam - Constitutional Vitals: Last Vital Signs Temp 99.1 F 07/04/22 19:35 Pulse 95 H 07/04/22 21:00 Resp 12 07/04/22 21:00 BP 112/83 07/04/22 21:00 Pulse Ox 67 L 07/04/22 21:00 Results - Labs lab Results: Laboratory Results - last 24 hr 07/03/22 07/03/22 07/03/22 21:15 22:58 23:34 WBC RBC Hgb Hct MCV MCH MCHC RDW Plt Count Cameron % (Auto) Eos % (Auto) Cameron # (Auto) Eos # (Auto) Baso # (Auto) Add Manual Diff Total Counted Seg Neutrophils % Seg Neuts % (Manual) Band Neutrophils % Lymphocytes % (Manual) Reactive Lymphs % (Man) Monocytes % (Manual) Eosinophils % (Manual) Basophils % (Manual) Metamyelocytes % Myelocytes % Promyelocytes % Blast Cells % Nucleated RBC % Seg Neutrophils # Seg Neutrophils # Man Band Neutrophils # Lymphocytes # (Manual) Abs React Lymphs (Man) Monocytes # (Manual) Eosinophils # (Manual) Basophils # (Manual) Metamyelocytes # Myelocytes # Promyelocytes # Blast Cells # WBC Morphology Hypersegmented Neuts Hyposegmented Neuts Hypogranular Neuts Smudge Cells Toxic Granulation Toxic Vacuolation Dohle Bodies Pelger-Huet Anomaly Sonja Rods Platelet Estimate Clumped Platelets Plt Clumps, EDTA Large Platelets Giant Platelets Platelet Satelliting Plt Morphology Comment RBC Morphology Dimorphic RBCs Polychromasia Hypochromasia Poikilocytosis Anisocytosis Microcytosis Macrocytosis Spherocytes Pappenheimer Bodies Sickle Cells Target Cells Tear Drop Cells Ovalocytes Helmet Cells Herrera-[place] Bodies [place] Rings [place] Cells Bite Cells Crenated Cell Elliptocytes Acanthocytes (Spur) Rouleaux Hemoglobin C Crystals Schistocytes Malaria parasites Isaac Bodies Hem Pathologist Commnt APTT > 240.0 H* ABG pH ABG pCO2 ABG pO2 ABG HCO3 ABG O2 Saturation ABG O2 Content ABG Base Excess ABG Hemoglobin ABG Carboxyhemoglobin ABG Methemoglobin Oxyhemoglobin FiO2 Sodium Potassium Chloride Carbon Dioxide Anion Gap BUN Creatinine Estimated GFR BUN/Creatinine Ratio Glucose POC Glucose 98 88 Calcium 07/03/22 07/04/22 07/04/22 23:35 07:56 07:56 WBC 11.2 H RBC 2.88 L Hgb 8.5 L Hct 25.8 L MCV 90 MCH 30 MCHC 33 RDW 20.1 H Plt Count 52 L Cameron % (Auto) 3.5 Eos % (Auto) 0.0 Cameron # (Auto) 0.4 Eos # (Auto) 0.0 Baso # (Auto) 0.2 H Add Manual Diff Complete Total Counted 100 Seg Neutrophils % Drywall Hanger Seg Neuts % (Manual) 96.0 H Band Neutrophils % 2.0 Lymphocytes % (Manual) 0 L Reactive Lymphs % (Man) 0 Monocytes % (Manual) 2.0 Eosinophils % (Manual) 0 Basophils % (Manual) 0 Metamyelocytes % 0 Myelocytes % 0 Promyelocytes % 0 Blast Cells % 0 Nucleated RBC % 2.0 H Seg Neutrophils # 10.0 H Seg Neutrophils # Man 10.8 H Band Neutrophils # 0.2 Lymphocytes # (Manual) 0.0 L Abs React Lymphs (Man) 0.0 Monocytes # (Manual) 0.2 Eosinophils # (Manual) 0.0 Basophils # (Manual) 0.0 Metamyelocytes # 0.0 Myelocytes # 0.0 Promyelocytes # 0.0 Blast Cells # 0.0 WBC Morphology Not Reportable Hypersegmented Neuts Not Reportable Hyposegmented Neuts Not Reportable Hypogranular Neuts Not Reportable Smudge Cells Not Reportable Toxic Granulation Not Reportable Toxic Vacuolation Not Reportable Dohle Bodies Not Reportable Pelger-Huet Anomaly Not Reportable Sonja Rods Not Reportable Platelet Estimate Consistent w auto Clumped Platelets Not Reportable Plt Clumps, EDTA Not Reportable Large Platelets Not Reportable Giant Platelets Not Reportable Platelet Satelliting Not Reportable Plt Morphology Comment Not Reportable RBC Morphology Not Reportable Dimorphic RBCs Not Reportable Polychromasia Not Reportable Hypochromasia 2+ Poikilocytosis 1+ Anisocytosis 1+ Microcytosis 1+ Macrocytosis Not Reportable Spherocytes 1+ Pappenheimer Bodies Not Reportable Sickle Cells Not Reportable Target Cells 1+ Tear Drop Cells Not Reportable Ovalocytes Not Reportable Helmet Cells Not Reportable Herrera-[place] Bodies Not Reportable [place] Rings Not Reportable [place] Cells Not Reportable Bite Cells Not Reportable Crenated Cell Not Reportable Elliptocytes Not Reportable Acanthocytes (Spur) Not Reportable Rouleaux Not Reportable Hemoglobin C Crystals Not Reportable Schistocytes Not Reportable Malaria parasites Not Reportable Isaac Bodies Not Reportable Hem Pathologist Commnt No APTT ABG pH 7.400 ABG pCO2 24.5 ABG pO2 149.9 H ABG HCO3 14.9 L ABG O2 Saturation 98.8 ABG O2 Content 10.8 ABG Base Excess -8.9 L ABG Hemoglobin 7.6 L ABG Carboxyhemoglobin 0.6 ABG Methemoglobin 0.2 Oxyhemoglobin 98.0 FiO2 100 Sodium 146 H Potassium 3.6 Chloride 115.7 H Carbon Dioxide 16 L Anion Gap 18 BUN 51 H Creatinine 2.9 H Estimated GFR 26 BUN/Creatinine Ratio 18 Glucose 86 POC Glucose Calcium 9.0 07/04/22 07/04/22 07/04/22 09:09 17:23 21:00 WBC RBC Hgb Hct MCV MCH MCHC RDW Plt Count Cameron % (Auto) Eos % (Auto) Cameron # (Auto) Eos # (Auto) Baso # (Auto) Add Manual Diff Total Counted Seg Neutrophils % Seg Neuts % (Manual) Band Neutrophils % Lymphocytes % (Manual) Reactive Lymphs % (Man) Monocytes % (Manual) Eosinophils % (Manual) Basophils % (Manual) Metamyelocytes % Myelocytes % Promyelocytes % Blast Cells % Nucleated RBC % Seg Neutrophils # Seg Neutrophils # Man Band Neutrophils # Lymphocytes # (Manual) Abs React Lymphs (Man) Monocytes # (Manual) Eosinophils # (Manual) Basophils # (Manual) Metamyelocytes # Myelocytes # Promyelocytes # Blast Cells # WBC Morphology Hypersegmented Neuts Hyposegmented Neuts Hypogranular Neuts Smudge Cells Toxic Granulation Toxic Vacuolation Dohle Bodies Pelger-Huet Anomaly Sonja Rods Platelet Estimate Clumped Platelets Plt Clumps, EDTA Large Platelets Giant Platelets Platelet Satelliting Plt Morphology Comment RBC Morphology Dimorphic RBCs Polychromasia Hypochromasia Poikilocytosis Anisocytosis Microcytosis Macrocytosis Spherocytes Pappenheimer Bodies Sickle Cells Target Cells Tear Drop Cells Ovalocytes Helmet Cells Herrera-[place] Bodies [place] Rings [place] Cells Bite Cells Crenated Cell Elliptocytes Acanthocytes (Spur) Rouleaux Hemoglobin C Crystals Schistocytes Malaria parasites Isaac Bodies Hem Pathologist Commnt APTT ABG pH 7.451 H ABG pCO2 28.9 ABG pO2 375.8 H ABG HCO3 19.7 L ABG O2 Saturation 99.5 H ABG O2 Content 10.1 ABG Base Excess -3.8 L ABG Hemoglobin 6.5 L ABG Carboxyhemoglobin 0.3 ABG Methemoglobin 0.3 Oxyhemoglobin 98.9 FiO2 90 Sodium Potassium Chloride Carbon Dioxide Anion Gap BUN Creatinine Estimated GFR BUN/Creatinine Ratio Glucose POC Glucose 85 108 H Calcium
[2022-07-04] MEDS: MIRTAZAPINE 15 MG TAB PO SCH (22:13)
--- NOTE | 2022-07-05 00:42 | Cat Scan Report ---
CT HEAD WITHOUT CONTRAST INDICATION / CLINICAL INFORMATION: Rule out ICH; reports of lethargy. TECHNIQUE: All CT scans at this location are performed using CT dose reduction for ALARA by means of automated exposure control. COMPARISON: None available. FINDINGS: BRAIN PARENCHYMA: No acute intracranial hemorrhage. No evidence of recent infarct. No mass effect or midline shift. Probable chronic microvascular ischemic changes are seen along the periventricular whi te matter. There is age-appropriate generalized atrophy. VENTRICULAR SYSTEM/EXTRA-AXIAL SPACES: Ventricles are normal for age. No extra-axial fluid collection . ORBITS: Normal as visualized. SKELETAL SYSTEM/SOFT TISSUES: Normal bones and soft tissues. PARANASAL SINUSES/MASTOID AIR CELLS: No significant abnormality. ADDITIONAL FINDINGS: None. IMPRESSION: 1. No acute intracranial abnormality. 2. Additional findings as above. Signer Name: Elias Woods MD Signed: 07/05/2022 12:37 AM Workstation Name: [id number]
--- NOTE | 2022-07-05 03:34 | Consultation ---
DATE OF CONSULTATION: 07/04/2022 PULMONARY CRITICAL CARE CONSULT NOTE CONSULTING PHYSICIAN: Dr. Rahman. REASON FOR CONSULTATION: 1. Acute toxic metabolic encephalopathy. 2. Acute hypoxemic respiratory failure. 3. COVID-19 infection. CHIEF COMPLAINT AND HISTORY OF PRESENT ILLNESS: The patient is a now 72-year-old male with past medical history significant amongst other things for a cerebrovascular accident and a deep venous thrombosis for which he was on Eliquis, retirement patient, diagnosed with COVID-19 infection on 06/21/2022, so about a couple of weeks ago. He also has a history of chronic renal insufficiency. He was brought into the Emergency Room with complaints of hypoxemia and shortness of breath. He was on supplemental oxygen of about 3 liters at the retirement. In the Emergency Room, he was evaluated. He was found amongst other things to be hyperglycemic. A CT of the chest was suspicious for a left lower lobe pneumonia and was admitted with an acute hypoxemic respiratory failure as well as a left lower lobe pneumonia and COVID-19 infection. He was admitted to the medical floor and had apparently been doing well reportedly. Surgery had also been consulted for placement of a PEG tube. The patient reportedly has been status post gastric bypass surgery. Early this morning, a rapid response call was made. The evaluating physician, found him hypotensive, hypoxemic. He was suctioned, placed on bilevel positive airway pressure ventilation therapy, was transferred to the intensive care unit. We are asked to assist with management. When I stopped by to see him, he was resting in bed, was on a BiPAP machine, IPAP 13, EPAP 8, backup rate of 20. His pulse oximeter was not picking up sats well, was showing around 78-79% on 75% FiO2. His mental status was altered. He was unable to give me history. There had been no vomiting. No fevers or chills. According to the ICU nurse, the patient on admission to the intensive care unit, had a normal blood pressure and did not need any vasopressor support, but definitely was hypoxemic. I do not have any history of vomiting or overt aspiration. The patient is not a current smoker, remote history is unknown. The above is as much of the history of presentation as I have. PAST MEDICAL HISTORY: Again, cerebrovascular accident, history of a deep venous thrombosis, history of chronic encephalopathy, history of hyperlipidemia, history of chronic kidney disease. PAST SURGICAL HISTORY: He is status post PEG tube placement. MEDICATIONS: He was on at the time I stopped by to see him, according to the medication administration record included the following: Tylenol 650 mg p.o. q. 4 hours p.r.n. mild pain or fevers, Decadron 8 mg p.o. daily, morphine sulfate 2 mg IV q. 4 hours p.r.n. moderate pain, Levophed drip had been started earlier at 2 mcg per minute, Zofran 4 mg IV q. 8 hours p.r.n. nausea and vomiting, Percocet 5/325 one tablet p.o. q. 6 hours p.r.n. moderate pain, Protonix 40 mg p.o. daily. He was on a sodium bicarbonate drip, 50 mEq of sodium bicarbonate per liter, sodium chloride running at 100 mL per hour, tamsulosin 0.4 mg p.o. daily. He had received cefepime 2 grams IV daily at admission. He had been on a heparin drip earlier on. ALLERGIES: No known drug allergies. DIET: Thin gentleman with central obesity. FAMILY AND SOCIAL HISTORY: Reportedly, has a daughter, retirement resident. Again, no current alcohol, tobacco or illicit drug use or abuse. Remote history is unknown. FAMILY HISTORY: Otherwise unknown. REVIEW OF SYSTEMS: Unobtainable secondary to the patient's medical and mental condition. Since he has been here, no gross hematochezia or melena, no gross hematuria, no hematemesis, no hemoptysis, no witnessed seizures. Review of systems otherwise unobtainable or as in body of history above. PHYSICAL EXAMINATION: VITAL SIGNS: At presentation, he was hypothermic, temperature 95.7 degrees Fahrenheit, pulse of 99, respiratory rate of 20, blood pressure 95/57, O2 sats were 94%, inspired oxygen concentration at that time was not recorded. He has been intermittently hypothermic since admission and is currently on a Rosalia Hugger to keep his temperature up. GENERAL: Elderly and chronically ill looking male, normocephalic, atraumatic on the noninvasive ventilator with mildly increased respiratory effort at rest. HEAD, EYES, EARS, NOSE AND THROAT: Anicteric. No conjunctival erythema. Oropharynx was dry. NECK: No gross jugular venous distention, no thyromegaly. Grossly, there were no palpable lymph nodes in the supraclavicular or submandibular lymph node chains. LUNGS: Auscultation of both lung hayes unremarkable. Clear bilaterally with good bilateral air movement. HEART: Sounds 1 and 2 are heard at the time of my evaluation, with regular rate and rhythm with occasional PVCs. No rubs or murmurs. ABDOMEN: Soft, full, bowel sounds are positive, nontender, no palpable hepatosplenomegaly. In the right lower thoracic area/upper abdominal area, there is a bandage over about a 1 cm incision in the skin that was reportedly the site of the PEG tube was removed in the ER according to the records. No significant bleeding around this incision. EXTREMITIES: Without overt digital clubbing or cyanosis. He had 2-3+ bipedal pitting edema. Pedal pulses were 2+ bilaterally. NEUROLOGIC: Pupils were equal, round, about 3 mm, reactive to light. Extraocular muscle movements could not be assessed. He had some spontaneous movements to his extremities, was not following commands. SKIN: Poor turgor without overt cellulitis or rash in the areas I examined. Please see the wound care nurses' notes for full description of his skin. PSYCHIATRIC: Mood and affect could not be assessed. He did not have intact judgment and insight. LABORATORY DATA: From my review are as follows: Admission white cell count was 3500, hemoglobin 9.5, hematocrit 29.6, platelet count 175. INR was 2.31 at presentation. D-dimer slightly elevated 273. Arterial blood gas at presentation showed a pH of 7.38, pCO2 of 19, pO2 of 391 on 100% FiO2. Serum sodium was 134, potassium 4.4, chloride 101, bicarbonate was 13, BUN was 51, creatinine was 2.7, glucose was 104. Lactic acid level was 3.4. Liver function tests essentially within normal limits. Troponin was up at 0.135. Albumin was low at 1.6. Procalcitonin 1.63. Coronavirus PCR testing was positive on 06/29/2022. Hepatitis screen was negative. White count is 11,200 at this time, platelet count has dropped to 52. INR yesterday was 2.15. Serum bicarbonate is up at 16. Two sets of blood cultures, no growth after 5 days. Chest x-ray at admission was clear. CT scan of the chest was also done at admission, it is a noncontrast CT. He has a left pleural effusion. Lung windows do not reveal significant emphysema, but shows some infiltrate/atelectasis in the left lower lobe region, certainly could not rule out a pneumonia. CT of the abdomen, nonspecific findings of mild distention and circumferential wall thickening of the urinary bladder, free abdominal/pelvic fluid and a small left pleural effusion. Chest x-ray this morning, again no new infiltrate. KUB has just been done post-NG tube placement, it shows NG tube and what I am assuming is the gastric pouch. He appears to have a right nephrostomy tube, and I see an IVC filter in place. ASSESSMENT: 1. Acute hypoxemic respiratory failure, now on noninvasive ventilation. 2. Possible sepsis with hypotension, altered mental status and leukocytosis. 3. Left lower lobe pneumonia, healthcare associated. 4. Acute on chronic kidney failure. 5. COVID-19 infection with pneumonia. 6. Anemia that is normocytic and probably of chronic disease. 7. Oropharyngeal dysphagia. 8. History of deep venous thrombosis. 9. Thrombocytopenia, possible heparin induced. 10. Metabolic acidosis. 11. Hypernatremia. PLAN: He has not made much urine overnight. He put out over a liter yesterday. I believe Urology was consulted during this admission for placement of a coude catheter. It is really unclear what was pulled out in the Emergency Room if anything, the site of the incision I see he is incompatible with really a PEG placement. I do not see any evidence of a pneumothorax in this gentleman. From a respiratory standpoint with a history of DVT, I cannot rule out a pulmonary embolism. His INR is therapeutic at this point in time. I will be sending an order of heparin-induced thrombocytopenia assay to evaluate for possible reason for drop in his platelet count. He does have an IVC filter in place. Hematology consultation will be of benefit. We will hold IV heparin for now and watch him clinically. We will continue bilevel positive airway pressure ventilation therapy while monitoring his oxygenation and ventilation. I will repeat an arterial blood gas tonight as we are not really picking up O2 sats well on the monitor. I have increased his FiO2 to 90%. Aspiration precautions have been placed. A feeding tube has been placed, and he will begin enteral nutrition until he can get a PEG replacement surgery. He has received 5 days of cefepime. I will go ahead and repeat a CRP level, procalcitonin level to help guide clinical decision making Fractional excretion of sodium will be calculated. I will get urine electrolytes. He has been seen by the finishing supervisor plastic sheets. We will continue bicarbonate supplementation; however, with his hypernatremia, I will switch the fluids to D5W with 2 amps of sodium bicarbonate per liter and keep an eye on his hypernatremia. The volume resuscitation hopefully should improve urine output. A bladder scan will be ordered to ensure that he is not retaining urine. Again, Nephrology has been consulted and I will defer to them otherwise. Strict I's and O's will be monitored. We will keep the Boyle in place for now. I will repeat the lactic acid level. He is appropriately on GI prophylaxis. He is anticoagulated. He will continue Decadron for COVID-19 infection with significant hypoxemia, not a candidate for remdesivir therapy and recast his renal function at this time. He will be started on zinc and vitamin C replacement therapy. Flu and pneumonia vaccination will be addressed per protocol. Advance care planning will be discussed with the family. Thank you very much for the consult. We will follow along and make further recommendations as picture progresses/becomes clearer. He is critically ill, on life-sustaining interventions including continuous noninvasive ventilation, at very high risk of from cardiopulmonary system decompensation. At this time, I spent about 35-40 minutes of critical care time without overlap and excluding any procedural time that may be necessary. TID: [id number] RECEIPT: [id number] SANG/HUY
[2022-07-05] MEDS: SODIUM BICARBONATE 50 MEQ in SODIUM CHLORIDE 0.9% 1000 ML 1,000 ML IV SCH (03:38)
[2022-07-05 04:52] LABS: Hemoglobin 6.5 gm/dl (11.8-15.2); Mean Corpuscular HGB Conc 33 % (32-34); Mean Corpuscular Volume 89 fl (84-94); Red Blood Count 2.22 M/mm3 (3.65-5.03); Red Cell Distribution Width 19.4 % (13.2-15.2)
[2022-07-05 04:54] LABS: Hematocrit 19.7 % (35.5-45.6); Platelet Count 41 K/mm3 (140-440)
[2022-07-05 04:58] LABS: INR 1.9 (0.87-1.13)
[2022-07-05 04:59] LABS: Partial Thromboplastin Time 37.7 Sec. (24.2-36.6)
[2022-07-05] MEDS ORDERED: SODIUM CHLORIDE 0.9% 500 ML 500 ML IV ONE (05:12)
[2022-07-05 05:14] LABS: Albumin 1.5 g/dL (3.9-5); Calcium 8.4 mg/dL (8.4-10.2)
[2022-07-05 05:37] LABS: C-Reactive Protein 2.9 mg/dL (0.00-1.30)
[2022-07-05] MEDS: POTASSIUM CHLORIDE 10 MEQ 10 MEQ/100 ML BAG IV SCH ×2 (07:32→10:03)
--- NOTE | 2022-07-05 09:33 | Hem/Onc Progress Note ---
Subjective Date of service: 07/05/22 Interval history: Heme Progress Note Seen via [facility] CPT 28935 Dx Thrombocytopenia This is a 72 yo male who presented to [facility] ED from custodial with hypoxia and shortness of breath. 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 Initially admitted to the floor for sepsis and acute hypoxic respiratory failure 2/2 pneumonia; covid-19 positive. Patient was transferred to the ICU due to hypotension and hypoxia; now on continuous Bipap. Hematology was consulted for evaluation of thrombocytopenia, DVT s/p IVC filter and possible PE. No reports of active bleeding at this time. Remains minimally responsive and on bipap. Chest CT revealed suspected left lower lobe pneumonia given history of covid-19 infection and shortness of breath. Small left pleural effusion. Abd/Pel CT revealed mild distention and circumferential wall thickening of the urinary bladder. May suggest cystitis. Small to moderate amount of free abdominopelvic fluid. Left basilar consolidation with associated pleural effusion. Generalized anasarca. Planning for PEG placement 07/08/22. 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 and underlying liver dysfunction --HIT is also possible; follow PF4 ab Coagulopathy, low fibrinogen, DIC is possible History of DVT s/p IVC filter on Eliquis at home --> Heparin gtt on hold Normocytic anemia likely secondary to acute on chronic renal insufficiency and iron deficiency due to malabsorption of oral iron post gastric bypass surgery PLAN: Transfuse 5 units of cryo today and 1 unit pRBC Risks outweigh the benefits of anticoagulation at this time due to degree of coagulopathy Follow PF4 ab If strong positive PF4 ab, consider low dose Argatroban U/S BL extremities pending Start IV Ferrlicet for severe iron deficiency anemia Monitor CBC Standing orders: -Transfuse 1 unit pRBC whenever hct <23 -Transfuse 1 dose of platelets whenever plt count <20 -Transfuse 2 units FFP Q6 x 24 hours if bleeding -Transfuse 2 units FFP pre-procedure Laboratory Last Values WBC 7.7 K/mm3 (4.5-11.0) 07/05/22 04:14 Hgb 6.5 gm/dl (11.8-15.2) L 07/05/22 04:14 Hct 19.7 % (35.5-45.6) L* D 07/05/22 04:14 MCV 89 fl (84-94) 07/05/22 04:14 Plt Count 41 K/mm3 (140-440) L 07/05/22 04:14 Lymph % (Auto) 7.2 % (13.4-35.0) L 06/29/22 03:57 Lymph # (Auto) 0.5 K/mm3 (1.2-5.4) L 06/29/22 03:57 Baso # (Auto) 0.2 K/mm3 (0.0-0.1) H 07/04/22 07:56 Seg Neuts % (Manual) 96.0 % (40.0-70.0) H 07/04/22 07:56 Lymphocytes % (Manual) 0 % (13.4-35.0) L 07/04/22 07:56 Nucleated RBC % 2.0 % (0.0-0.9) H 07/04/22 07:56 Seg Neutrophils # 10.0 K/mm3 (1.8-7.7) H 07/04/22 07:56 Seg Neutrophils # Man 10.8 K/mm3 (1.8-7.7) H 07/04/22 07:56 Lymphocytes # (Manual) 0.0 K/mm3 (1.2-5.4) L 07/04/22 07:56 Percent Retic 0.79 % (0.78-2.58) 07/05/22 04:14 PT 24.7 Sec. (12.2-14.9) H 07/05/22 04:14 INR 1.90 (0.87-1.13) H 07/05/22 04:14 APTT 37.7 Sec. (24.2-36.6) H 07/05/22 04:14 Fibrinogen 110 mg/dl (211-480) L* 07/05/22 04:14 D-Dimer 273.84 ng/mlDDU (0-234) H 06/28/22 16:11 Heparin Anti-Xa Level 1.86 U.I./ml (0.3-0.7) H 07/03/22 21:15 Creatinine 3.1 mg/dL (0.8-1.3) H 07/05/22 04:14 Lactic Acid 2.20 mmol/L (0.7-2.0) H* 07/05/22 04:14 Iron 40 ug/dL (49-181) L 07/05/22 04:14 TIBC 31 mcg/dL (250-450) L 07/05/22 04:14 Ferritin 2520.0 ng/mL (30.0-300.0) H 06/28/22 16:11 Total Bilirubin 0.40 mg/dL (0.1-1.2) 07/05/22 04:14 AST 28 units/L (5-40) 07/05/22 04:14 ALT 17 units/L (7-56) 07/05/22 04:14 Alkaline Phosphatase 84 units/L (35-129) 07/05/22 04:14 Lactate Dehydrogenase 199 units/L (91-180) H 06/28/22 16:11 Coronavirus (PCR) Positive (Negative) A 06/29/22 Unknown Hepatitis A IgM Ab Non-reactive (NonReactive) 07/01/22 19:20 Hep Bs Antigen Non-reactive (Negative) 07/01/22 19:20 Hep B Core IgM Ab Non-reactive (NonReactive) 07/01/22 19:20 Hepatitis C Antibody Non-reactive (NonReactive) 07/01/22 19:20 Objective - Constitutional Vitals: Last Vital Signs Temp 97.4 F L 07/05/22 03:26 Pulse 82 07/05/22 07:52 Resp 20 07/05/22 07:52 BP 106/50 07/05/22 07:52 Pulse Ox 100 07/05/22 07:54 - Labs Lab Results: Laboratory Results - last 24 hr 07/04/22 07/04/22 07/04/22 07:56 17:23 21:00 WBC RBC Hgb Hct MCV MCH MCHC RDW Plt Count 52 L Summers % (Auto) 3.5 Eos % (Auto) 0.0 Summers # (Auto) 0.4 Eos # (Auto) 0.0 Baso # (Auto) 0.2 H Add Manual Diff Complete Total Counted 100 Seg Neuts % (Manual) 96.0 H Band Neutrophils % 2.0 Lymphocytes % (Manual) 0 L Reactive Lymphs % (Man) 0 Monocytes % (Manual) 2.0 Eosinophils % (Manual) 0 Basophils % (Manual) 0 Metamyelocytes % 0 Myelocytes % 0 Promyelocytes % 0 Blast Cells % 0 Nucleated RBC % 2.0 H Seg Neutrophils # 10.0 H Seg Neutrophils # Man 10.8 H Band Neutrophils # 0.2 Lymphocytes # (Manual) 0.0 L Abs React Lymphs (Man) 0.0 Monocytes # (Manual) 0.2 Eosinophils # (Manual) 0.0 Basophils # (Manual) 0.0 Metamyelocytes # 0.0 Myelocytes # 0.0 Promyelocytes # 0.0 Blast Cells # 0.0 WBC Morphology Not Reportable Hypersegmented Neuts Not Reportable Hyposegmented Neuts Not Reportable Hypogranular Neuts Not Reportable Smudge Cells Not Reportable Toxic Granulation Not Reportable Toxic Vacuolation Not Reportable Dohle Bodies Not Reportable Pelger-Huet Anomaly Not Reportable Sonja Rods Not Reportable Platelet Estimate Consistent w auto Clumped Platelets Not Reportable Plt Clumps, EDTA Not Reportable Large Platelets Not Reportable Giant Platelets Not Reportable Platelet Satelliting Not Reportable Plt Morphology Comment Not Reportable RBC Morphology Not Reportable Dimorphic RBCs Not Reportable Polychromasia Not Reportable Hypochromasia 2+ Poikilocytosis 1+ Anisocytosis 1+ Microcytosis 1+ Macrocytosis Not Reportable Spherocytes 1+ Pappenheimer Bodies Not Reportable Sickle Cells Not Reportable Target Cells 1+ Tear Drop Cells Not Reportable Ovalocytes Not Reportable Helmet Cells Not Reportable Herrera-[place] Bodies Not Reportable [place]add[place] Rings Not Reportable [place] Cells Not Reportable Bite Cells Not Reportable Crenated Cell Not Reportable Elliptocytes Not Reportable Acanthocytes (Spur) Not Reportable Rouleaux Not Reportable Hemoglobin C Crystals Not Reportable Schistocytes Not Reportable Malaria parasites Not Reportable Percent Retic Iasac Bodies Not Reportable Hem Pathologist Commnt No PT INR APTT Fibrinogen ABG pH 7.451 H ABG pCO2 28.9 ABG pO2 375.8 H ABG HCO3 19.7 L ABG O2 Saturation 99.5 H ABG O2 Content 10.1 ABG Base Excess -3.8 L ABG Hemoglobin 6.5 L ABG Carboxyhemoglobin 0.3 ABG Methemoglobin 0.3 Oxyhemoglobin 98.9 FiO2 90 Sodium Potassium Chloride Carbon Dioxide Anion Gap BUN Creatinine Estimated GFR BUN/Creatinine Ratio Glucose POC Glucose 108 H Lactic Acid Calcium Iron TIBC Total Bilirubin AST ALT Alkaline Phosphatase Ammonia C-Reactive Protein Total Protein Albumin Albumin/Globulin Ratio 07/04/22 07/05/22 07/05/22 22:45 04:14 04:14 WBC 7.7 RBC 2.22 L Hgb 6.5 L Hct 19.7 L* D MCV 89 MCH 29 MCHC 33 RDW 19.4 H Plt Count 41 L Summers % (Auto) Eos % (Auto) Summers # (Auto) Eos # (Auto) Baso # (Auto) Add Manual Diff Total Counted Seg Neuts % (Manual) Band Neutrophils % Lymphocytes % (Manual) Reactive Lymphs % (Man) Monocytes % (Manual) Eosinophils % (Manual) Basophils % (Manual) Metamyelocytes % Myelocytes % Promyelocytes % Blast Cells % Nucleated RBC % Seg Neutrophils # Seg Neutrophils # Man Band Neutrophils # Lymphocytes # (Manual) Abs React Lymphs (Man) Monocytes # (Manual) Eosinophils # (Manual) Basophils # (Manual) Metamyelocytes # Myelocytes # Promyelocytes # Blast Cells # WBC Morphology Hypersegmented Neuts Hyposegmented Neuts Hypogranular Neuts Smudge Cells Toxic Granulation Toxic Vacuolation Dohle Bodies Pelger-Huet Anomaly Sonja Rods Platelet Estimate Clumped Platelets Plt Clumps, EDTA Large Platelets Giant Platelets Platelet Satelliting Plt Morphology Comment RBC Morphology Dimorphic RBCs Polychromasia Hypochromasia Poikilocytosis Anisocytosis Microcytosis Macrocytosis Spherocytes Pappenheimer Bodies Sickle Cells Target Cells Tear Drop Cells Ovalocytes Helmet Cells Herrera-[place] Bodies [place] Cells Bite Cells Crenated Cell Elliptocytes Acanthocytes (Spur) Rouleaux Hemoglobin C Crystals Schistocytes Malaria parasites Percent Retic 0.79 Isaac Bodies Hem Pathologist Commnt PT INR APTT Fibrinogen ABG pH ABG pCO2 ABG pO2 ABG HCO3 ABG O2 Saturation ABG O2 Content ABG Base Excess ABG Hemoglobin ABG Carboxyhemoglobin ABG Methemoglobin Oxyhemoglobin FiO2 Sodium 142 Potassium 3.1 L Chloride 113.8 H Carbon Dioxide 19 L Anion Gap 12 BUN 52 H Creatinine 3.1 H Estimated GFR 24 BUN/Creatinine Ratio 17 Glucose 135 H POC Glucose 78 Lactic Acid Calcium 8.4 Iron 40 L TIBC 31 L Total Bilirubin 0.40 AST 28 ALT 17 Alkaline Phosphatase 84 Ammonia C-Reactive Protein 2.90 H Total Protein 3.7 L Albumin 1.5 L Albumin/Globulin Ratio 0.7 07/05/22 07/05/22 07/05/22 04:14 04:14 04:14 WBC RBC Hgb Hct MCV MCH MCHC RDW Plt Count Summers % (Auto) Eos % (Auto) Summers # (Auto) Eos # (Auto) Baso # (Auto) Add Manual Diff Total Counted Seg Neuts % (Manual) Band Neutrophils % Lymphocytes % (Manual) Reactive Lymphs % (Man) Monocytes % (Manual) Eosinophils % (Manual) Basophils % (Manual) Metamyelocytes % Myelocytes % Promyelocytes % Blast Cells % Nucleated RBC % Seg Neutrophils # Seg Neutrophils # Man Band Neutrophils # Lymphocytes # (Manual) Abs React Lymphs (Man) Monocytes # (Manual) Eosinophils # (Manual) Basophils # (Manual) Metamyelocytes # Myelocytes # Promyelocytes # Blast Cells # WBC Morphology Hypersegmented Neuts Hyposegmented Neuts Hypogranular Neuts Smudge Cells Toxic Granulation Toxic Vacuolation Dohle Bodies Pelger-Huet Anomaly Sonja Rods Platelet Estimate Clumped Platelets Plt Clumps, EDTA Large Platelets Giant Platelets Platelet Satelliting Plt Morphology Comment RBC Morphology Dimorphic RBCs Polychromasia Hypochromasia Poikilocytosis Anisocytosis Microcytosis Macrocytosis Spherocytes Pappenheimer Bodies Sickle Cells Target Cells Tear Drop Cells Ovalocytes Helmet Cells Herrera-[place] Bodies [place] Rings [place] Cells Bite Cells Crenated Cell Elliptocytes Acanthocytes (Spur) Rouleaux Hemoglobin C Crystals Schistocytes Malaria parasites Percent Retic Isaac Bodies Hem Pathologist Commnt PT 24.7 H INR 1.90 H APTT 37.7 H Fibrinogen 110 L* ABG pH ABG pCO2 ABG pO2 ABG HCO3 ABG O2 Saturation ABG O2 Content ABG Base Excess ABG Hemoglobin ABG Carboxyhemoglobin ABG Methemoglobin Oxyhemoglobin FiO2 Sodium Potassium Chloride Carbon Dioxide Anion Gap BUN Creatinine Estimated GFR BUN/Creatinine Ratio Glucose POC Glucose Lactic Acid 2.20 H* Calcium Iron TIBC Total Bilirubin AST ALT Alkaline Phosphatase Ammonia 29.0 C-Reactive Protein Total Protein Albumin Albumin/Globulin Ratio 07/05/22 05:16 WBC RBC Hgb Hct MCV MCH MCHC RDW Plt Count Summers % (Auto) Eos % (Auto) Summers # (Auto) Eos # (Auto) Baso # (Auto) Add Manual Diff Total Counted Seg Neuts % (Manual) Band Neutrophils % Lymphocytes % (Manual) Reactive Lymphs % (Man) Monocytes % (Manual) Eosinophils % (Manual) Basophils % (Manual) Metamyelocytes % Myelocytes % Promyelocytes % Blast Cells % Nucleated RBC % Seg Neutrophils # Seg Neutrophils # Man Band Neutrophils # Lymphocytes # (Manual) Abs React Lymphs (Man) Monocytes # (Manual) Eosinophils # (Manual) Basophils # (Manual) Metamyelocytes # Myelocytes # Promyelocytes # Blast Cells # WBC Morphology Hypersegmented Neuts Hyposegmented Neuts Hypogranular Neuts Smudge Cells Toxic Granulation Toxic Vacuolation Dohle Bodies Pelger-Huet Anomaly Sonja Rods Platelet Estimate Clumped Platelets Plt Clumps, EDTA Large Platelets Giant Platelets Platelet Satelliting Plt Morphology Comment RBC Morphology Dimorphic RBCs Polychromasia Hypochromasia Poikilocytosis Anisocytosis Microcytosis Macrocytosis Spherocytes Pappenheimer Bodies Sickle Cells Target Cells Tear Drop Cells Ovalocytes Helmet Cells Herrera-[place] Bodies [place] Cells Bite Cells Crenated Cell Elliptocytes Acanthocytes (Spur) Rouleaux Hemoglobin C Crystals Schistocytes Malaria parasites Percent Retic Isaac Bodies Hem Pathologist Commnt PT INR APTT Fibrinogen ABG pH ABG pCO2 ABG pO2 ABG HCO3 ABG O2 Saturation ABG O2 Content ABG Base Excess ABG Hemoglobin ABG Carboxyhemoglobin ABG Methemoglobin Oxyhemoglobin FiO2 Sodium Potassium Chloride Carbon Dioxide Anion Gap BUN Creatinine Estimated GFR BUN/Creatinine Ratio Glucose POC Glucose 118 H Lactic Acid Calcium Iron TIBC Total Bilirubin AST ALT Alkaline Phosphatase Ammonia C-Reactive Protein Total Protein Albumin Albumin/Globulin Ratio Medications & Allergies - Medications Allergies/Adverse Reactions: Allergies No Known Allergies Allergy (Verified 06/28/22 13:48) Home Medications: Home Medications Medication Instructions Recorded Confirmed Last Taken Type Aspirin 325 mg PO QDAY #30 tablet 03/07/22 07/01/22 Unknown Rx AtorvaSTATin [Lipitor] 40 mg PO QHS 30 Days #30 tab 03/07/22 07/01/22 Unknown Rx Active Medications: Generic Name Dose Route Start Last Admin Trade Name Freq PRN Reason Stop Dose Admin Acetaminophen 650 mg 06/28/22 18:42 Acetaminophen 325 Mg Tab PO Q4H PRN Pain MILD(1-3)/Fever >100.5/GILES Dexamethasone 8 mg 07/03/22 10:00 07/04/22 15:22 Dexamethasone 4 Mg Tab PO 07/08/22 10:59 8 mg DAILY PARRISH Administration Dextrose 50 ml 07/04/22 15:07 Dextrose 50% In Water (25gm) 50 Ml Syringe IV Q30MIN PRN Hypoglycemia Protocol NORepinephrine/NS 8 MG-250 ML 8 mg in 250 mls @ 3.75 mls/hr 07/03/22 23:45 Norepinephrine/Ns 8 Mg-250 Ml (Double Conc) IV TITRATE PARRISH Protocol 2 MCG/MIN Sodium Bicarbonate 50 meq/ 1,050 mls @ 100 mls/hr 07/04/22 13:00 07/05/22 03:38 Sodium Chloride IV 100 mls/hr DIRECT PARRISH Administration Lansoprazole 30 mg 07/05/22 10:00 Lansoprazole 30 Mg Solutab FEEDTUBE QDAY PARRISH Mirtazapine 7.5 mg 06/30/22 22:00 07/04/22 22:13 Mirtazapine 15 Mg Tab PO 7.5 mg QHS PARRISH Administration Morphine Sulfate 2 mg 06/28/22 16:55 07/03/22 01:48 Morphine 2 Mg/1 Ml Inj IV 2 mg Q4H PRN Administration Pain, Moderate (4-6) Ondansetron HCl 4 mg 06/28/22 18:42 Ondansetron 4 Mg/2 Ml Inj IV Q8H PRN Nausea And Vomiting Oxycodone/Acetaminophen 1 tab 06/28/22 18:42 Oxycodone /Acetaminophen 5-325mg Tab PO Q6H PRN Pain, Moderate (4-6) Sodium Chloride 10 ml 06/28/22 22:00 07/04/22 22:13 Sodium Chloride 0.9% 10 Ml Flush Syringe IV 10 ml BID PARRISH Administration Sodium Chloride 10 ml 06/28/22 18:42 Sodium Chloride 0.9% 10 Ml Flush Syringe IV PRN PRN LINE FLUSH Tamsulosin HCl 0.4 mg 07/01/22 11:00 07/04/22 15:22 Tamsulosin 0.4 Mg Cap PO 0.4 mg QDAY PARRISH Administration
[2022-07-05] MEDS ORDERED: SODIUM CHLORIDE 0.9% 500 ML 500 ML ONE ×2 (10:50→14:51)
[2022-07-05] MEDS: LANSOPRAZOLE 30 MG SOLUTAB FEEDTUBE SCH (10:51)
[2022-07-05] MEDS: DEXAMETHASONE 4 MG TAB PO SCH (10:51)
[2022-07-05] MEDS: TAMSULOSIN 0.4 MG CAP PO SCH ×2 (10:51→11:06)
--- NOTE | 2022-07-05 11:18 | Vascular Lab Report ---
DUPLEX DOPPLER LOWER EXTREMITY VEINS, BILATERAL INDICATION: DVTs. Swelling. Covid pneumonia TECHNIQUE: Duplex doppler imaging was performed through the veins of both lower extremities using ve nous compression and other maneuvers. COMPARISON: No relevant prior imaging study available. FINDINGS: Right Common femoral vein: Negative. Right Superficial femoral vein: Negative. Right Popliteal vein: Negative. Right Calf veins: Negative. Left Common femoral vein: Negative. Left Superficial femoral vein: Negative. Left Popliteal vein: Negative. Left Calf veins: Negative. Additional findings: None. IMPRESSION: No sonographic evidence for DVT in either lower extremity. He Signer Name: Johnny Recinos Jr, MD Signed: 07/05/2022 11:14 AM Workstation Name: [id number]
--- NOTE | 2022-07-05 11:25 | Progress Note ---
Assessment and Plan Acute hypoxemic respiratory failure Possible sepsis with hypotension, altered mental status and leukocytosis Left lower lobe pneumonia Acute on chronic kidney failure COVID-19 infection Anemia Oropharyngeal dysphagia H/O deep venous thrombosis Thrombocytopenia Metabolic acidosis Hypernatremia - discussed with his daughter who states that her Dad wants full resuscitation and was recently intubated at [facility] also needing Hemodialysis for a few sessions - repeat ABG at 4 pm to evaluate for hypercapnia - CT head negative but AMS is persistent; will consult neurology and get EEG - lactic acidosis noted and will continue gentle hydration with bicarbonate supplementation - to receive cryoprecipitate and 1 unit PRBC re: Anemia - get LDH & Haptoglobin level reL Anemia - continue to wean supplemental oxygen for target O2 sat's > 90% acutely - continue aspiration precautions - prn bronchodilators with pulmonary hygiene per RT - avoid nephrotoxins, renally dose all medications - continue to avoid benzodiazepine's, reduce the possibility of delirium - completed AB's per ID rec's; follow clinically re: WBC / Fevers - continue accuchecks with glycemic control per SSI (While critically ill target blood glucose of 140-180 mg/dL; avoid hypoglycemia) - prn analgesia per CPOT score - Maintenance of sleep-wake cycle, avoid delirium - continue enteral nutritional support at goal rate as tolerated - G.I. & VTE prophylaxis - PT/OT/ROM exercises - continue mobility protocols for pressure ulcer prophylaxis - Monitor hemodynamics closely - continue other care per attending / other consultants - discharge planning ongoing concurrently COVID SPECIFIC INTERVENTIONS - Remdesivir as per ID/Pulmonary developed protocols (not a candidate) - continue systemic steroids for severe COVID-19 infection empirically - follow repeat COVID tests results - zinc and vitamin C supplementation - Monitor inflammatory markers per facility protocol - ferritin, Ddimer, CRP - therapeutic anticoagulation per system Protocol based on d-dimer and clinical considerations - Continue contact and airborne isolation .... Re-evaluate in am & prn CONDITION: CRITICAL PROGNOSIS: GUARDED CODE STATUS: FULL CODE The high probability of a clinically significant, sudden or life-threatening deterioration of the [respiratory, hematologic & neurologic] system(s) required my full and direct attention, intervention and personal management. The aggregate critical care time was [36] minutes without overlap. Time includes spent on; [x] Data Review and interpretation [x] Patient assessment and monitoring of vital signs [x] Documentation [x] Medication orders and management Subjective Date of service: 07/05/22 Principal diagnosis: AHRF; Sepsis; AMS; Pneumonia; MALIHA; COVID-19 infxn; Anemia; Thrombocytopenia Interval history: Patient is seen today for: Acute hypoxemic respiratory failure; Sepsis; AMS; Pneumonia; MALIHA; COVID-19 infection Anemia; DVT; DIC; Thrombocytopenia Seen and examined at bedside; 24hour events reviewed; nursing and respiratory care staff consulted; no adverse overnight events reported to me; resting peacefully in bed; off BIPAP but AMS is persistent; no emesis or overt aspiration; remains hypothermic; discussed care plan with daughter Objective Vital Signs - 12hr 07/04/22 07/04/22 07/05/22 23:48 23:55 00:00 Temperature 94.8 F L Pulse Rate 88 92 H Pulse Rate [ 88 Left Radial] Pulse Rate [ 88 Right Radial] Respiratory 27 H 12 Rate Blood Pressure 140/45 O2 Sat by Pulse 100 Oximetry 07/05/22 07/05/22 07/05/22 01:01 02:00 03:00 Temperature Pulse Rate 92 H 92 H 91 H Pulse Rate [ Left Radial] Pulse Rate [ Right Radial] Respiratory 12 14 14 Rate Blood Pressure 138/52 155/47 143/52 O2 Sat by Pulse Oximetry 07/05/22 07/05/22 07/05/22 03:26 04:00 04:01 Temperature 97.4 F L Pulse Rate 88 89 Pulse Rate [ 90 Left Radial] Pulse Rate [ 90 Right Radial] Respiratory 12 12 Rate Blood Pressure 112/48 O2 Sat by Pulse 100 Oximetry 07/05/22 07/05/22 07/05/22 05:00 06:00 07:01 Temperature Pulse Rate 84 84 87 Pulse Rate [ Left Radial] Pulse Rate [ Right Radial] Respiratory 10 L 11 L 11 L Rate Blood Pressure 128/55 113/56 106/50 O2 Sat by Pulse Oximetry 07/05/22 07/05/22 07/05/22 07:52 07:54 08:01 Temperature Pulse Rate 82 84 Pulse Rate [ Left Radial] Pulse Rate [ Right Radial] Respiratory 20 10 L Rate Blood Pressure 106/50 110/51 O2 Sat by Pulse 100 100 98 Oximetry 07/05/22 07/05/22 07/05/22 09:00 09:50 10:00 Temperature Pulse Rate Pulse Rate [ Left Radial] Pulse Rate [ Right Radial] Respiratory 14 9 L Rate Blood Pressure 131/67 153/58 O2 Sat by Pulse 100 100 Oximetry Constitutional: no acute distress, other (elderly and chronically ill looking male with normal but shallow respiratory effort at rest) Eyes: non-icteric ENT: oropharynx moist Neck: supple, no lymphadenopathy, no JVD Effort: normal Ascultation: Bilateral: clear, diminished breath sounds Percussion: Bilateral: not dull Cardiovascular: regular rate and rhythm, other (+ ocassional extrasystole's) Gastrointestinal: normoactive bowel sounds, soft, non-tender, non-distended Integumentary: other (poor turgor) Extremities: no cyanosis, pulses normal, edema (2+) Neurologic: pupils equal and round, unable to assess Psychiatric: other (unable to assess re: AMS) CBC and BMP: 07/05/22 04:14 07/05/22 04:14 ABG, PT/INR, D-dimer: ABG ABG pH 7.451 pH Units (7.350-7.450) H 07/04/22 21:00 ABG pCO2 28.9 mm Hg 07/04/22 21:00 ABG pO2 375.8 mm Hg (80.0-90.0) H 07/04/22 21:00 ABG O2 Saturation 99.5 % (95.0-99.0) H 07/04/22 21:00 PT/INR, D-dimer PT 24.7 Sec. (12.2-14.9) H 07/05/22 04:14 INR 1.90 (0.87-1.13) H 07/05/22 04:14 D-Dimer 273.84 ng/mlDDU (0-234) H 06/28/22 16:11 Abnormal lab findings: Abnormal Labs 06/28/22 06/28/22 06/28/22 14:53 14:57 14:57 WBC 3.5 L RBC 3.22 L Hgb 9.5 L Hct 29.6 L RDW 20.0 H Plt Count Lymph % (Auto) Lymph # (Auto) 0.6 L Baso # (Auto) Seg Neutrophils % 77.0 H Seg Neuts % (Manual) Lymphocytes % (Manual) Nucleated RBC % Seg Neutrophils # Seg Neutrophils # Man Lymphocytes # (Manual) PT 28.4 H INR 2.31 H APTT 49.0 H Fibrinogen D-Dimer Heparin Anti-Xa Level ABG pH ABG pO2 390.9 H ABG HCO3 11.1 L ABG O2 Saturation 99.5 H ABG Base Excess -12.3 L ABG Hemoglobin 9.0 L Sodium Potassium Chloride Carbon Dioxide BUN Creatinine Glucose POC Glucose Lactic Acid Iron TIBC Ferritin Lactate Dehydrogenase Troponin T C-Reactive Protein Total Protein Albumin LDL Cholesterol Direct HDL Cholesterol Coronavirus (PCR) Crossmatch 06/28/22 06/28/22 06/28/22 14:57 14:57 15:01 WBC RBC Hgb Hct RDW Plt Count Lymph % (Auto) Lymph # (Auto) Baso # (Auto) Seg Neutrophils % Seg Neuts % (Manual) Lymphocytes % (Manual) Nucleated RBC % Seg Neutrophils # Seg Neutrophils # Man Lymphocytes # (Manual) PT INR APTT Fibrinogen D-Dimer Heparin Anti-Xa Level ABG pH ABG pO2 ABG HCO3 ABG O2 Saturation ABG Base Excess ABG Hemoglobin Sodium 134 L Potassium Chloride 110.8 H Carbon Dioxide 13 L BUN 51 H Creatinine 2.7 H Glucose POC Glucose 14 L Lactic Acid 3.40 H* Iron TIBC Ferritin Lactate Dehydrogenase Troponin T 0.135 H* C-Reactive Protein Total Protein 4.9 L Albumin 1.6 L LDL Cholesterol Direct 21 L HDL Cholesterol 22 L Coronavirus (PCR) Crossmatch 06/28/22 06/28/22 06/28/22 16:11 16:11 16:11 WBC RBC Hgb Hct RDW Plt Count Lymph % (Auto) Lymph # (Auto) Baso # (Auto) Seg Neutrophils % Seg Neuts % (Manual) Lymphocytes % (Manual) Nucleated RBC % Seg Neutrophils # Seg Neutrophils # Man Lymphocytes # (Manual) PT INR APTT Fibrinogen D-Dimer 273.84 H Heparin Anti-Xa Level ABG pH ABG pO2 ABG HCO3 ABG O2 Saturation ABG Base Excess ABG Hemoglobin Sodium Potassium Chloride Carbon Dioxide BUN Creatinine Glucose 218 H POC Glucose Lactic Acid 3.30 H* Iron TIBC Ferritin Lactate Dehydrogenase 199 H Troponin T C-Reactive Protein 4.60 H Total Protein Albumin LDL Cholesterol Direct HDL Cholesterol Coronavirus (PCR) Crossmatch 06/28/22 06/28/22 06/28/22 16:11 17:25 22:14 WBC RBC Hgb Hct RDW Plt Count Lymph % (Auto) Lymph # (Auto) Baso # (Auto) Seg Neutrophils % Seg Neuts % (Manual) Lymphocytes % (Manual) Nucleated RBC % Seg Neutrophils # Seg Neutrophils # Man Lymphocytes # (Manual) PT INR APTT Fibrinogen D-Dimer Heparin Anti-Xa Level ABG pH ABG pO2 ABG HCO3 ABG O2 Saturation ABG Base Excess ABG Hemoglobin Sodium Potassium Chloride Carbon Dioxide BUN Creatinine Glucose POC Glucose 119 H 137 H Lactic Acid Iron TIBC Ferritin 2520.0 H Lactate Dehydrogenase Troponin T C-Reactive Protein Total Protein Albumin LDL Cholesterol Direct HDL Cholesterol Coronavirus (PCR) Crossmatch 06/29/22 06/29/22 06/29/22 00:09 00:09 00:09 WBC RBC 2.59 L Hgb 7.7 L Hct 23.1 L D RDW 19.0 H Plt Count 137 L Lymph % (Auto) Lymph # (Auto) Baso # (Auto) Seg Neutrophils % Seg Neuts % (Manual) Lymphocytes % (Manual) Nucleated RBC % Seg Neutrophils # Seg Neutrophils # Man Lymphocytes # (Manual) PT 30.2 H INR 2.49 H APTT 54.1 H Fibrinogen D-Dimer Heparin Anti-Xa Level ABG pH ABG pO2 ABG HCO3 ABG O2 Saturation ABG Base Excess ABG Hemoglobin Sodium Potassium Chloride Carbon Dioxide BUN Creatinine 2.5 H Glucose POC Glucose Lactic Acid Iron TIBC Ferritin Lactate Dehydrogenase Troponin T C-Reactive Protein Total Protein Albumin LDL Cholesterol Direct HDL Cholesterol Coronavirus (PCR) Crossmatch 06/29/22 06/29/22 06/29/22 03:57 03:57 05:52 WBC RBC 2.68 L Hgb 7.8 L Hct 24.4 L RDW 19.6 H Plt Count 138 L Lymph % (Auto) 7.2 L Lymph # (Auto) 0.5 L Baso # (Auto) Seg Neutrophils % 88.6 H Seg Neuts % (Manual) Lymphocytes % (Manual) Nucleated RBC % Seg Neutrophils # Seg Neutrophils # Man Lymphocytes # (Manual) PT INR APTT Fibrinogen D-Dimer Heparin Anti-Xa Level ABG pH ABG pO2 ABG HCO3 ABG O2 Saturation ABG Base Excess ABG Hemoglobin Sodium Potassium Chloride 115.5 H Carbon Dioxide 11 L BUN 50 H Creatinine 2.5 H Glucose 183 H POC Glucose 134 H Lactic Acid Iron TIBC Ferritin Lactate Dehydrogenase Troponin T C-Reactive Protein Total Protein 4.2 L Albumin 1.4 L LDL Cholesterol Direct HDL Cholesterol Coronavirus (PCR) Crossmatch 06/29/22 06/29/22 06/29/22 11:16 23:26 Unknown WBC RBC Hgb Hct RDW Plt Count Lymph % (Auto) Lymph # (Auto) Baso # (Auto) Seg Neutrophils % Seg Neuts % (Manual) Lymphocytes % (Manual) Nucleated RBC % Seg Neutrophils # Seg Neutrophils # Man Lymphocytes # (Manual) PT INR APTT Fibrinogen D-Dimer Heparin Anti-Xa Level ABG pH ABG pO2 ABG HCO3 ABG O2 Saturation ABG Base Excess ABG Hemoglobin Sodium Potassium Chloride Carbon Dioxide BUN Creatinine Glucose POC Glucose 148 H 170 H Lactic Acid Iron TIBC Ferritin Lactate Dehydrogenase Troponin T C-Reactive Protein Total Protein Albumin LDL Cholesterol Direct HDL Cholesterol Coronavirus (PCR) Positive A Crossmatch 06/30/22 06/30/22 06/30/22 05:39 11:32 17:33 WBC RBC Hgb Hct RDW Plt Count Lymph % (Auto) Lymph # (Auto) Baso # (Auto) Seg Neutrophils % Seg Neuts % (Manual) Lymphocytes % (Manual) Nucleated RBC % Seg Neutrophils # Seg Neutrophils # Man Lymphocytes # (Manual) PT INR APTT Fibrinogen D-Dimer Heparin Anti-Xa Level ABG pH ABG pO2 ABG HCO3 ABG O2 Saturation ABG Base Excess ABG Hemoglobin Sodium Potassium Chloride Carbon Dioxide BUN Creatinine Glucose POC Glucose 147 H 136 H 136 H Lactic Acid Iron TIBC Ferritin Lactate Dehydrogenase Troponin T C-Reactive Protein Total Protein Albumin LDL Cholesterol Direct HDL Cholesterol Coronavirus (PCR) Crossmatch 06/30/22 07/01/22 07/01/22 21:42 06:26 11:01 WBC RBC Hgb Hct RDW Plt Count Lymph % (Auto) Lymph # (Auto) Baso # (Auto) Seg Neutrophils % Seg Neuts % (Manual) Lymphocytes % (Manual) Nucleated RBC % Seg Neutrophils # Seg Neutrophils # Man Lymphocytes # (Manual) PT INR APTT Fibrinogen D-Dimer Heparin Anti-Xa Level ABG pH ABG pO2 ABG HCO3 ABG O2 Saturation ABG Base Excess ABG Hemoglobin Sodium Potassium Chloride Carbon Dioxide BUN Creatinine Glucose POC Glucose 125 H 130 H 135 H Lactic Acid Iron TIBC Ferritin Lactate Dehydrogenase Troponin T C-Reactive Protein Total Protein Albumin LDL Cholesterol Direct HDL Cholesterol Coronavirus (PCR) Crossmatch 07/01/22 07/01/22 07/01/22 17:18 19:20 19:20 WBC RBC 2.57 L Hgb 7.7 L Hct 23.1 L RDW 20.0 H Plt Count 68 L Lymph % (Auto) Lymph # (Auto) Baso # (Auto) Seg Neutrophils % Seg Neuts % (Manual) Lymphocytes % (Manual) Nucleated RBC % Seg Neutrophils # Seg Neutrophils # Man Lymphocytes # (Manual) PT INR APTT Fibrinogen D-Dimer Heparin Anti-Xa Level ABG pH ABG pO2 ABG HCO3 ABG O2 Saturation ABG Base Excess ABG Hemoglobin Sodium Potassium Chloride 113.0 H Carbon Dioxide 18 L D BUN 46 H Creatinine 2.3 H Glucose 181 H POC Glucose 119 H Lactic Acid Iron TIBC Ferritin Lactate Dehydrogenase Troponin T C-Reactive Protein Total Protein Albumin LDL Cholesterol Direct HDL Cholesterol Coronavirus (PCR) Crossmatch 07/01/22 07/01/22 07/02/22 19:20 23:19 07:18 WBC RBC 2.54 L Hgb 7.7 L Hct 22.5 L RDW 19.4 H Plt Count 60 L Lymph % (Auto) Lymph # (Auto) Baso # (Auto) Seg Neutrophils % Seg Neuts % (Manual) 99.0 H Lymphocytes % (Manual) 1.0 L Nucleated RBC % Seg Neutrophils # Seg Neutrophils # Man 7.8 H Lymphocytes # (Manual) 0.1 L PT 27.4 H INR 2.16 H APTT Fibrinogen D-Dimer Heparin Anti-Xa Level ABG pH ABG pO2 ABG HCO3 ABG O2 Saturation ABG Base Excess ABG Hemoglobin Sodium Potassium Chloride Carbon Dioxide BUN Creatinine Glucose POC Glucose 121 H Lactic Acid Iron TIBC Ferritin Lactate Dehydrogenase Troponin T C-Reactive Protein Total Protein Albumin LDL Cholesterol Direct HDL Cholesterol Coronavirus (PCR) Crossmatch 07/02/22 07/03/22 07/03/22 07:18 20:32 21:15 WBC RBC Hgb 8.4 L Hct 25.4 L RDW Plt Count 56 L Lymph % (Auto) Lymph # (Auto) Baso # (Auto) Seg Neutrophils % Seg Neuts % (Manual) Lymphocytes % (Manual) Nucleated RBC % Seg Neutrophils # Seg Neutrophils # Man Lymphocytes # (Manual) PT 27.3 H INR 2.15 H APTT > 240.0 H* Fibrinogen D-Dimer Heparin Anti-Xa Level 1.86 H ABG pH ABG pO2 ABG HCO3 ABG O2 Saturation ABG Base Excess ABG Hemoglobin Sodium Potassium Chloride 114.0 H Carbon Dioxide 19 L BUN 45 H Creatinine 2.5 H Glucose 110 H POC Glucose Lactic Acid Iron TIBC Ferritin Lactate Dehydrogenase Troponin T C-Reactive Protein Total Protein Albumin LDL Cholesterol Direct HDL Cholesterol Coronavirus (PCR) Crossmatch 07/03/22 07/04/22 07/04/22 23:35 07:56 07:56 WBC 11.2 H RBC 2.88 L Hgb 8.5 L Hct 25.8 L RDW 20.1 H Plt Count 52 L Lymph % (Auto) Lymph # (Auto) Baso # (Auto) 0.2 H Seg Neutrophils % Seg Neuts % (Manual) 96.0 H Lymphocytes % (Manual) 0 L Nucleated RBC % 2.0 H Seg Neutrophils # 10.0 H Seg Neutrophils # Man 10.8 H Lymphocytes # (Manual) 0.0 L PT INR APTT Fibrinogen D-Dimer Heparin Anti-Xa Level ABG pH ABG pO2 149.9 H ABG HCO3 14.9 L ABG O2 Saturation ABG Base Excess -8.9 L ABG Hemoglobin 7.6 L Sodium 146 H Potassium Chloride 115.7 H Carbon Dioxide 16 L BUN 51 H Creatinine 2.9 H Glucose POC Glucose Lactic Acid Iron TIBC Ferritin Lactate Dehydrogenase Troponin T C-Reactive Protein Total Protein Albumin LDL Cholesterol Direct HDL Cholesterol Coronavirus (PCR) Crossmatch 07/04/22 07/04/22 07/05/22 17:23 21:00 04:14 WBC RBC 2.22 L Hgb 6.5 L Hct 19.7 L* D RDW 19.4 H Plt Count 41 L Lymph % (Auto) Lymph # (Auto) Baso # (Auto) Seg Neutrophils % Seg Neuts % (Manual) Lymphocytes % (Manual) Nucleated RBC % Seg Neutrophils # Seg Neutrophils # Man Lymphocytes # (Manual) PT INR APTT Fibrinogen D-Dimer Heparin Anti-Xa Level ABG pH 7.451 H ABG pO2 375.8 H ABG HCO3 19.7 L ABG O2 Saturation 99.5 H ABG Base Excess -3.8 L ABG Hemoglobin 6.5 L Sodium Potassium Chloride Carbon Dioxide BUN Creatinine Glucose POC Glucose 108 H Lactic Acid Iron TIBC Ferritin Lactate Dehydrogenase Troponin T C-Reactive Protein Total Protein Albumin LDL Cholesterol Direct HDL Cholesterol Coronavirus (PCR) Crossmatch 07/05/22 07/05/22 07/05/22 04:14 04:14 04:14 WBC RBC Hgb Hct RDW Plt Count Lymph % (Auto) Lymph # (Auto) Baso # (Auto) Seg Neutrophils % Seg Neuts % (Manual) Lymphocytes % (Manual) Nucleated RBC % Seg Neutrophils # Seg Neutrophils # Man Lymphocytes # (Manual) PT 24.7 H INR 1.90 H APTT 37.7 H Fibrinogen 110 L* D-Dimer Heparin Anti-Xa Level ABG pH ABG pO2 ABG HCO3 ABG O2 Saturation ABG Base Excess ABG Hemoglobin Sodium Potassium 3.1 L Chloride 113.8 H Carbon Dioxide 19 L BUN 52 H Creatinine 3.1 H Glucose 135 H POC Glucose Lactic Acid 2.20 H* Iron 40 L TIBC 31 L Ferritin Lactate Dehydrogenase Troponin T C-Reactive Protein 2.90 H Total Protein 3.7 L Albumin 1.5 L LDL Cholesterol Direct HDL Cholesterol Coronavirus (PCR) Crossmatch 07/05/22 07/05/22 07/05/22 05:16 08:00 Unknown WBC RBC Hgb Hct RDW Plt Count Lymph % (Auto) Lymph # (Auto) Baso # (Auto) Seg Neutrophils % Seg Neuts % (Manual) Lymphocytes % (Manual) Nucleated RBC % Seg Neutrophils # Seg Neutrophils # Man Lymphocytes # (Manual) PT INR APTT Fibrinogen D-Dimer Heparin Anti-Xa Level ABG pH ABG pO2 ABG HCO3 ABG O2 Saturation ABG Base Excess ABG Hemoglobin Sodium Potassium Chloride Carbon Dioxide BUN Creatinine Glucose POC Glucose 118 H Lactic Acid 2.50 H* Iron TIBC Ferritin Lactate Dehydrogenase Troponin T C-Reactive Protein Total Protein Albumin LDL Cholesterol Direct HDL Cholesterol Coronavirus (PCR) Crossmatch See Detail Allied health notes reviewed: nursing
--- NOTE | 2022-07-05 11:25 | Progress Note ---
<GRETEL VERA - Last Filed: 07/05/22 16:44> Assessment and Plan Assessment and plan: This is a 72-year-old male who is a detention resident, with known past medical history of CVA, recent COVID 19 infection, chronic renal insufficiency, hypertension, cognitive communication deficit, dysphagia, DVT s/p IVC filter and was on Eliquis at home, and hyperlipidemia initially admitted to the floor for sepsis and acute hypoxic respiratory failure 2/2 pneumonia. Patient was transferred to the ICU overnight due to hypotension and hypoxia now on continuous Bipap. Hospital Course to Date: 06/29: Patient seen and examined, Imaging studies on admission showed left lobar pneumonia. BG is improved, will monitor blood sugars patient was initially with a sugar level of 14. At this point he remains with acute encephalopathy and as a result is not tolerating anything p.o. Will obtain swallow evaluation. Keep head of bed elevated. We will continue empiric antibiotic coverage and consult infectious disease for assistance with management. I have asked to have patient wean from Venturi mask and if this is unable to be done in the next 24 hours will obtain pulmonary consultation. In addition to the management listed below he does have metabolic acidosis for which I will give him a dose of bicarb while awaiting nephrology evaluation. He did have severe protein calorie malnutrition it appeared that he had a PEG tube at some point I have tried to call the family to get more information but no one is picking up. I do not have access to the facility where he came from. In the meantime a Dobbhoff may need to be inserted if there is no improvement in mental status for diet. Anemia concern is unknown if the patient who is on Eliquis and with elevated INR has not any bleed. I have asked the nurse to check stool for occult blood. We will monitor H&H closely and start the patient on PPI. Patient remains critically ill and requires to continue in the hospital for full evaluation. 06/30: Patient seen and examined this morning no worsening respiratory distress discussed with nurse and respiratory therapist to wean oxygen off. Does not have any fever. Still awaiting for a.m. labs. Was reported that he does have urinary retention mentioned yesterday on the notes. We will obtain a CT abdomen and pelvis have asked the nurse to place a Boyle catheter if unable to place and patient does not void will obtain urology consultation. He does not exhibit any pain during my examination. For now continue antibiotics continue steroids. There is no mention of hematuria or blood around the penis. 07/01: Patient seen and examined no worsening distress. Unable to place Boyle due to pain and hematuria. Urologist input noted CTAP showed mild bladder distention with right JJ stent that was placed elsewhere. Bilateral atrophic kidneys. Patient remains on Eliquis and could be the consideration of the hematuria. Urology recommends to start Flomax on hold Boyle at this time. Still waiting for repeat labs from yesterday and today. ID input is also noted patient was restarted on steroid therapy. Again does not appear to be in any significant distress. Speech therapist recommended pured diet with nectar thick fluids. Patient will need assistance with home enteral feeding at this time. I have tried to call the family multiple times unable to reach family Case management is also assisting. Would like to discuss goals of care with the family. Anticipate discharge in 24 to 48 hours once all goals of care is established Dr. Fam SPOKE to daughter who told himn that the patient was very conversational although has not been able to walk for years but regressed in the last month due Covid. Daughter stated that the patient was feeding himself and was ordering stuff on [employer]. She acknowledges that while he may be stubborn and sometimes does not want to interact that he is also been depressed since losing his in January. She informed us that he had a gastric bypass a few years ago and had lost significant amount of weight since then. She states that if he continues refusing diet that we should go ahead and proceed placing a feeding tube in place. We will consult surgery to evaluate in the meantime we will hold the Eliquis. 07/02: I attempted to reach the daughter and spouse but unsuccessful. We need to obtain information/old records regarding gastric bypass regarding anatomy for possible PEG placement. Eliquis stopped in anticipation for possible PEG placement. CTAP showed mild bladder distention with right JJ stent that was placed elsewhere. Bilateral atrophic kidneys. Urology recommended Flomax and hold on Boyle for now. We will continue dexamethasone for total of 10 days. Patient not a candidate for remdesivir due to CKD. Complete 5 days of cefepime, azithromycin for superimposed bacterial pneumonia with elevated procalcitonin. Continue to trend CRP. ID following 07/03: We will continue to attempt to contact the family regarding records of gastric bypass surgery for PEG placement. Eliquis stopped in anticipation for possible PEG placement. Continue dexamethasone. Patient with saturations at 95% on 2 L nasal cannula. Complete 5 days of cefepime, azithromycin for superimposed bacterial pneumonia with elevated procalcitonin per ID recommenda tions. Continue to trend CRP. ID following 07/04: Code met overnight due to hypotension and hypoxia. BP improved after 1amp of bcarb, Levophed was never initiated. Patient remains on bcarb gtt per Nephro. Patient mentation is unchanged- lethargic and only arousable to tactile stimuli. 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 Warming blanket applied. This am ABG and CXR reviewed, patient remains on PO steroids per ID wean O2 supplementation as tolerated. Heparin gtt held this am due to worsen thrombocytopenia and coagulopathy. Possible hematology consult per CCM. Possible CT head/brain once more stable. General surgery also on consult for possible PEG-tube placement, procedure on hold awaiting on medical records from Joaquin Scherer' office, from [place] [facility]. D/W [facility], will insert NGT for now for meds and enteral nutrition. 07/05: Unresponsive this am. CT head/brain unremarkable, ammonia level normal. Will check EEG to r/o seizures. Neurology consulted. weaned off bipap this am, patientn is stable on 40% ventimask this am, SPO2 at 100%. Drop in H&H with worsen coagulopathy and low fibrinogen this am. No s/s of any active bleeding, VSS. Concern for DIC, Blood products ordered and HEME is following. Patient is also with worsen renal function with anuria, remains on Bcarb gtt. No indication for MOUTHPIECE MAKER at this time per Nephro. Assessment and Plan #Hypotension-resolved #Metabolic Acidosis - Initially presented for sepsis 2/2 PNA, COVID +. completed IV Abx course - Patient was with low Co2 level on Bcarb gtt - 07/04 Code met overnight due to hypotension and hypoxia, transferred to ICU - BP improved after 1amp of bcarb, Levophed was never initiated - Remains on Bcarb gtt per Nephro - Continue blood pressure monitor per protocol - Maintain MAP above 65 #Acute Hypoxic Respiratory Failure #Left Lower Lobe Pneumonia #COVID-19 Infection - Presented with hypoxia and SOB - COVID PCR positive - Completed X5 days course of Cefepine and Azithro and on PO Steroids X10 days - ID is following. Patient not candidate for remdesevir due to acute on CKD - Code met overnight due to Hypoxia and hypotension requiring continuous Bipap - This am ABG noted - CXR noted with persistent LLL PNA, no acute findings - Bipap weaned to 40% Ventimask this am, SPO2 at 100% - Continue O2 supplementation and wean down as tolerated - Aspiration precaution HOB above 30 - Continue SPO2 monitoring for SPO2 goal above 92% - [facility] consulted, appreciate recommendations #Sepsis #Left Lower Lobe Pneumonia #COVID-19 Infection #Metabolic Acidosis - Presented with hypoxia and SOB - COVID PCR positive - Imaging revealed LLE PNA - ID is following, appreciate recommendations - Completed X5 days course of Cefepine and Azithro and on PO Steroids X10 days - Patient not candidate for remdesevir due to acute on CKD - Blood cultures negative - On bcarb gtt - Continue to trend CBC - Panculture if febrile and leukocytosis worsen #Toxic Metabolic Encephalopathy #H/o CVA & Cognitive Communication Deficit - Remains lethargic and only arousable to tactile stimuli - CT head/brain unremarkable - Ammonia level wnr - EEG ordered to r/o seizures - Avoid benzodiazepine to reduce the possibility of delirium - PRN Analgesia for pain control - Maintenance of sleep-wake cycle - Neurology consulted #Acute on Chronic Renal Failure #Urinary Retention - Nephrology on consult, appreciated recommendation - Coude catheter inserted by Urology. - worsen renal function with anuria today - On bcarb gtt per Nephro - Per nephro, no indication for MOUTHPIECE MAKER at this time - Strict intake and output - Avoid nephrotoxic medications; Renally dose medications - Monitor and replace electrolytes as needed #Thrombocytopenia #Coagulopathy/Elevated INR #Normocytic Anemia #H/o DVT s/p IVC Filter was on Eliquis at home - Drop in H&H with worsen coagulopathy and low fibrinogen this am. - No s/s of any active bleeding - HIT panel pending - 1unit of PRBCs and 1unit of FFP ordered - Heparin gtt held due to worsen thrombocytopenia - Continue to trend CBC and coags - Hematology consulted - Transfuse for hgb less than 7 - SCDs to bilateral lower extremities while in bed #Dysphagia - Per family patient had a PEG-tube 3months ago, however not present on admit - Per record, patient was admitted on march 2022 because his G-tube fell out. Patient was AAO and was eating at the time, decision was made not to replace G- tube - General Surgery consulted this am for PEG-tube placement - Procedure on hold for now, awaiting on medical records from Dr. Vazquez,from [facility] due to patient's history of gastric bypass - Will insert NGT for meds and enteral nutrition for now - Nutrition consulted #Hypoglycemia - Presented with a BG level of 14 - Currently on continuous IVF - Continue BG check Q6hrs - Avoid Hypoglycemia - Continue hypoglycemic protocol #GI/DVT Prophylaxis - PPI- Lansoprazole - SCDs to bilateral lower extremities while in bed The high probability of a clinically significant, sudden or life threatening deterioration of the [multiple] system(s) required my full and direct attention, intervention and personal management. The aggregate critical care time was [60] minutes. This time is in addition to time spent performing reported procedures but includes the following: [x] Data Review and interpretation [x] Patient assessment and monitoring of vital signs [x] Documentation [x] Medication orders and management Disposition Plan: ICU Total Time Spent with Patient (Minutes): 60 History Interval history: Patient seen and examined at the bedside. Obtunded this am, switched to 40%venti mask this am, SPO2 at 100%. On Bcarb gtt. Drop in H&H with worsen coagulopathy and low fibrinogen this am. No s/s of any active bleeding, VSS. Blood products ordered. Hospitalist Physical - Physical exam Narrative exam: General appearance: Present: no acute distress, cachectic, other(Unresponsive) - EENT Eyes: Present: PERRL ENT: other - Neck Neck: Present: normal ROM - Respiratory Respiratory effort: normal Respiratory: bilateral: diminished - Cardiovascular Rhythm: regular Heart Sounds: Present: S1 & S2 - Extremities Extremities: no ischemia, pulses intact, pulses symmetrical Extremity abnormal: edema - Peripheral Assessment Bilateral Upper Extremity Edema Type: Pitting Edema Degree: 3+ Capillary Refill: < 3 seconds Skin Temperature: Warm Bilateral Lower Extremity Edema Type: Pitting Edema Degree: 2+ Capillary Refill: < 3 seconds Skin Temperature: Warm Peripheral Pulses: within normal limits - Abdominal General gastrointestinal: soft, non-distended, normal bowel sounds - Integumentary Integumentary: Present: warm, dry - Psychiatric Psychiatric: other (Obtunded, unresponsive) - Neurologic Neurologic: other (Obtunded, unresponsive) - Allied Health Allied health notes reviewed: nursing, case management - Constitutional Vitals: Temp Pulse Resp BP Pulse Ox 97.4 F L 84 9 L 153/58 100 07/05/22 03:26 07/05/22 08:01 07/05/22 10:00 07/05/22 10:00 07/05/22 10:00 HEART Score - HEART Score Risk factors: 1-2 risk factors Troponin: Troponin T 0.135 ng/mL (0.00-0.029) H* 06/28/22 14:57 Troponin: < normal limit - Critical Actions Critical Actions: 0-3 pts:0.9-1.7%risk of adverse cardiac event.Candidate for discharge Results - Labs CBC & Chem 7: 07/05/22 04:14 07/05/22 04:14 Labs: Laboratory Last Values WBC 7.7 K/mm3 (4.5-11.0) 07/05/22 04:14 RBC 2.22 M/mm3 (3.65-5.03) L 07/05/22 04:14 Hgb 6.5 gm/dl (11.8-15.2) L 07/05/22 04:14 Hct 19.7 % (35.5-45.6) L* D 07/05/22 04:14 MCV 89 fl (84-94) 07/05/22 04:14 MCH 29 pg (28-32) 07/05/22 04:14 MCHC 33 % (32-34) 07/05/22 04:14 RDW 19.4 % (13.2-15.2) H 07/05/22 04:14 Plt Count 41 K/mm3 (140-440) L 07/05/22 04:14 Lymph % (Auto) 7.2 % (13.4-35.0) L 06/29/22 03:57 Glasscock % (Auto) 3.5 % (0.0-7.3) 07/04/22 07:56 Eos % (Auto) 0.0 % (0.0-4.3) 07/04/22 07:56 Baso % (Auto) 0.1 % (0.0-1.8) 06/29/22 03:57 Lymph # (Auto) 0.5 K/mm3 (1.2-5.4) L 06/29/22 03:57 Glasscock # (Auto) 0.4 K/mm3 (0.0-0.8) 07/04/22 07:56 Eos # (Auto) 0.0 K/mm3 (0.0-0.4) 07/04/22 07:56 Baso # (Auto) 0.2 K/mm3 (0.0-0.1) H 07/04/22 07:56 Add Manual Diff Complete 07/04/22 07:56 Total Counted 100 07/04/22 07:56 Seg Neutrophils % Car Tracer 07/04/22 07:56 Seg Neuts % (Manual) 96.0 % (40.0-70.0) H 07/04/22 07:56 Band Neutrophils % 2.0 % 07/04/22 07:56 Lymphocytes % (Manual) 0 % (13.4-35.0) L 07/04/22 07:56 Reactive Lymphs % (Man) 0 % 07/04/22 07:56 Monocytes % (Manual) 2.0 % (0.0-7.3) 07/04/22 07:56 Eosinophils % (Manual) 0 % (0.0-4.3) 07/04/22 07:56 Basophils % (Manual) 0 % (0.0-1.8) 07/04/22 07:56 Metamyelocytes % 0 % 07/04/22 07:56 Myelocytes % 0 % 07/04/22 07:56 Promyelocytes % 0 % 07/04/22 07:56 Blast Cells % 0 % 07/04/22 07:56 Nucleated RBC % 2.0 % (0.0-0.9) H 07/04/22 07:56 Seg Neutrophils # 10.0 K/mm3 (1.8-7.7) H 07/04/22 07:56 Seg Neutrophils # Man 10.8 K/mm3 (1.8-7.7) H 07/04/22 07:56 Band Neutrophils # 0.2 K/mm3 07/04/22 07:56 Lymphocytes # (Manual) 0.0 K/mm3 (1.2-5.4) L 07/04/22 07:56 Abs React Lymphs (Man) 0.0 K/mm3 07/04/22 07:56 Monocytes # (Manual) 0.2 K/mm3 (0.0-0.8) 07/04/22 07:56 Eosinophils # (Manual) 0.0 K/mm3 (0.0-0.4) 07/04/22 07:56 Basophils # (Manual) 0.0 K/mm3 (0.0-0.1) 07/04/22 07:56 Metamyelocytes # 0.0 K/mm3 07/04/22 07:56 Myelocytes # 0.0 K/mm3 07/04/22 07:56 Promyelocytes # 0.0 K/mm3 07/04/22 07:56 Blast Cells # 0.0 K/mm3 07/04/22 07:56 WBC Morphology Not Reportable 07/04/22 07:56 Hypersegmented Neuts Not Reportable 07/04/22 07:56 Hyposegmented Neuts Not Reportable 07/04/22 07:56 Hypogranular Neuts Not Reportable 07/04/22 07:56 Smudge Cells Not Reportable 07/04/22 07:56 Toxic Granulation Not Reportable 07/04/22 07:56 Toxic Vacuolation Not Reportable 07/04/22 07:56 Dohle Bodies Not Reportable 07/04/22 07:56 Pelger-Huet Anomaly Not Reportable 07/04/22 07:56 Sonja Rods Not Reportable 07/04/22 07:56 Platelet Estimate Consistent w auto 07/04/22 07:56 Clumped Platelets Not Reportable 07/04/22 07:56 Plt Clumps, EDTA Not Reportable 07/04/22 07:56 Large Platelets Not Reportable 07/04/22 07:56 Giant Platelets Not Reportable 07/04/22 07:56 Platelet Satelliting Not Reportable 07/04/22 07:56 Plt Morphology Comment Not Reportable 07/04/22 07:56 RBC Morphology Not Reportable 07/04/22 07:56 Dimorphic RBCs Not Reportable 07/04/22 07:56 Polychromasia Not Reportable 07/04/22 07:56 Hypochromasia 2+ 07/04/22 07:56 Poikilocytosis 1+ 07/04/22 07:56 Anisocytosis 1+ 07/04/22 07:56 Microcytosis 1+ 07/04/22 07:56 Macrocytosis Not Reportable 07/04/22 07:56 Spherocytes 1+ 07/04/22 07:56 Pappenheimer Bodies Not Reportable 07/04/22 07:56 Sickle Cells Not Reportable 07/04/22 07:56 Target Cells 1+ 07/04/22 07:56 Tear Drop Cells Not Reportable 07/04/22 07:56 Ovalocytes Not Reportable 07/04/22 07:56 Helmet Cells Not Reportable 07/04/22 07:56 Herrera-Arco Bodies Not Reportable 07/04/22 07:56 [place] Rings Not Reportable 07/04/22 07:56 Patito Cells Not Reportable 07/04/22 07:56 Bite Cells Not Reportable 07/04/22 07:56 Crenated Cell Not Reportable 07/04/22 07:56 Elliptocytes Not Reportable 07/04/22 07:56 Acanthocytes (Spur) Not Reportable 07/04/22 07:56 Rouleaux Not Reportable 07/04/22 07:56 Hemoglobin C Crystals Not Reportable 07/04/22 07:56 Schistocytes Not Reportable 07/04/22 07:56 Malaria parasites Not Reportable 07/04/22 07:56 Percent Retic 0.79 % (0.78-2.58) 07/05/22 04:14 Isaac Bodies Not Reportable 07/04/22 07:56 Hem Pathologist Commnt No 07/04/22 07:56 PT 24.7 Sec. (12.2-14.9) H 07/05/22 04:14 INR 1.90 (0.87-1.13) H 07/05/22 04:14 APTT 37.7 Sec. (24.2-36.6) H 07/05/22 04:14 Fibrinogen 110 mg/dl (211-480) L* 07/05/22 04:14 D-Dimer 273.84 ng/mlDDU (0-234) H 06/28/22 16:11 Heparin Anti-Xa Level 1.86 U.I./ml (0.3-0.7) H 07/03/22 21:15 ABG pH 7.451 pH Units (7.350-7.450) H 07/04/22 21:00 ABG pCO2 28.9 mm Hg 07/04/22 21:00 ABG pO2 375.8 mm Hg (80.0-90.0) H 07/04/22 21:00 ABG HCO3 19.7 mmol/L (20.0-26.0) L 07/04/22 21:00 ABG O2 Saturation 99.5 % (95.0-99.0) H 07/04/22 21:00 ABG O2 Content 10.1 (0.0-44) 07/04/22 21:00 ABG Base Excess -3.8 mmol/L (-2.0-3.0) L 07/04/22 21:00 ABG Hemoglobin 6.5 gm/dl (14.0-18.0) L 07/04/22 21:00 ABG Carboxyhemoglobin 0.3 % (0.0-5.0) 07/04/22 21:00 ABG Methemoglobin 0.3 % (0.0-1.5) 07/04/22 21:00 Oxyhemoglobin 98.9 % (95.0-99.0) 07/04/22 21:00 FiO2 90 % 07/04/22 21:00 Sodium 142 mmol/L (137-145) 07/05/22 04:14 Potassium 3.1 mmol/L (3.6-5.0) L 07/05/22 04:14 Chloride 113.8 mmol/L (98-107) H 07/05/22 04:14 Carbon Dioxide 19 mmol/L (22-30) L 07/05/22 04:14 Anion Gap 12 mmol/L 07/05/22 04:14 BUN 52 mg/dL (9-20) H 07/05/22 04:14 Creatinine 3.1 mg/dL (0.8-1.3) H 07/05/22 04:14 Estimated GFR 24 ml/min 07/05/22 04:14 BUN/Creatinine Ratio 17 % 07/05/22 04:14 Glucose 135 mg/dL (75-100) H 07/05/22 04:14 POC Glucose 118 mg/dL (70-105) H 07/05/22 05:16 Lactic Acid 2.50 mmol/L (0.7-2.0) H* 07/05/22 Unknown Calcium 8.4 mg/dL (8.4-10.2) 07/05/22 04:14 Iron 40 ug/dL (49-181) L 07/05/22 04:14 TIBC 31 mcg/dL (250-450) L 07/05/22 04:14 Ferritin 2520.0 ng/mL (30.0-300.0) H 06/28/22 16:11 Total Bilirubin 0.40 mg/dL (0.1-1.2) 07/05/22 04:14 AST 28 units/L (5-40) 07/05/22 04:14 ALT 17 units/L (7-56) 07/05/22 04:14 Alkaline Phosphatase 84 units/L (35-129) 07/05/22 04:14 Ammonia 29.0 umol/L (25-60) 07/05/22 04:14 Lactate Dehydrogenase 199 units/L (91-180) H 06/28/22 16:11 Troponin T 0.135 ng/mL (0.00-0.029) H* 06/28/22 14:57 C-Reactive Protein 2.90 mg/dL (0.00-1.30) H 07/05/22 04:14 Total Protein 3.7 g/dL (6.3-8.2) L 07/05/22 04:14 Albumin 1.5 g/dL (3.9-5) L 07/05/22 04:14 Albumin/Globulin Ratio 0.7 % 07/05/22 04:14 Triglycerides 95 mg/dL (2-149) 06/28/22 14:57 Cholesterol 74 mg/dL (50-199) 06/28/22 14:57 LDL Cholesterol Direct 21 mg/dL (50-130) L 06/28/22 14:57 HDL Cholesterol 22 mg/dL (40-59) L 06/28/22 14:57 Cholesterol/HDL Ratio 3.36 % 06/28/22 14:57 Procalcitonin 0.47 ng/mL (<0.15) 07/01/22 19:20 Coronavirus (PCR) Positive (Negative) A 06/29/22 Unknown Hepatitis A IgM Ab Non-reactive (NonReactive) 07/01/22 19:20 Hep Bs Antigen Non-reactive (Negative) 07/01/22 19:20 Hep B Core IgM Ab Non-reactive (NonReactive) 07/01/22 19:20 Hepatitis C Antibody Non-reactive (NonReactive) 07/01/22 19:20 Blood Type O POSITIVE 07/05/22 08:00 Antibody Screen Negative 07/05/22 08:00 Crossmatch See Detail 07/05/22 08:00 Boyle/IV: Voiding Method Indwelling Catheter Active Medications - Current Medications Current Medications: Generic Name Dose Route Start Last Admin Trade Name Freq PRN Reason Stop Dose Admin Acetaminophen 650 mg 06/28/22 18:42 Acetaminophen 325 Mg Tab PO Q4H PRN Pain MILD(1-3)/Fever >100.5/GILES Ascorbic Acid 500 mg 07/05/22 22:00 Ascorbic Acid 500 Mg Tab PO BID PARRISH Dexamethasone 8 mg 07/03/22 10:00 07/05/22 10:51 Dexamethasone 4 Mg Tab PO 07/08/22 10:59 8 mg DAILY PARRISH Administration Dextrose 50 ml 07/04/22 15:07 Dextrose 50% In Water (25gm) 50 Ml Syringe IV Q30MIN PRN Hypoglycemia Protocol NORepinephrine/NS 8 MG-250 ML 8 mg in 250 mls @ 3.75 mls/hr 07/03/22 23:45 Norepinephrine/Ns 8 Mg-250 Ml (Double Conc) IV TITRATE PARRISH Protocol 2 MCG/MIN Sodium Bicarbonate 50 meq/ 1,050 mls @ 100 mls/hr 07/04/22 13:00 07/05/22 03:38 Sodium Chloride IV 100 mls/hr DIRECT PARRISH Administration Ferric Sodium Gluconate 110 mls @ 100 mls/hr 07/05/22 10:00 Complex 125 mg/ Sodium IV 07/11/22 09:59 Chloride DAILY PARRISH Lansoprazole 30 mg 07/05/22 10:00 07/05/22 10:51 Lansoprazole 30 Mg Solutab FEEDTUBE 30 mg QDAY PARRISH Administration Mirtazapine 7.5 mg 06/30/22 22:00 07/04/22 22:13 Mirtazapine 15 Mg Tab PO 7.5 mg QHS PARRISH Administration Morphine Sulfate 2 mg 06/28/22 16:55 07/03/22 01:48 Morphine 2 Mg/1 Ml Inj IV 2 mg Q4H PRN Administration Pain, Moderate (4-6) Ondansetron HCl 4 mg 06/28/22 18:42 Ondansetron 4 Mg/2 Ml Inj IV Q8H PRN Nausea And Vomiting Oxycodone/Acetaminophen 1 tab 06/28/22 18:42 Oxycodone /Acetaminophen 5-325mg Tab PO Q6H PRN Pain, Moderate (4-6) Sodium Chloride 10 ml 06/28/22 22:00 07/05/22 11:06 Sodium Chloride 0.9% 10 Ml Flush Syringe IV 10 ml BID PARRISH Administration Sodium Chloride 10 ml 06/28/22 18:42 Sodium Chloride 0.9% 10 Ml Flush Syringe IV PRN PRN LINE FLUSH Tamsulosin HCl 0.4 mg 07/01/22 11:00 07/05/22 11:06 Tamsulosin 0.4 Mg Cap PO Not Given QDAY PARRISH Zinc Sulfate 220 mg 07/05/22 22:00 Zinc Sulfate 220 Mg Cap PO BID [facility] Nutrition/Malnutrition Assess - Dietary Evaluation Nutrition/Malnutrition Findings: Nutrition Notes Start: 06/30/22 11:11 Freq: Status: Active Protocol: Document 07/04/22 13:50 LEANNA (Rec: 07/04/22 14:19 LEANNA [id number]) Nutrition Notes Initial or Follow up Brief Note Current Diagnosis Acute Kidney Injury,CKD(stage I-IV),Sepsis,Hypertension, Respiratory Failure,Stroke, Hyperlipidemia Other Pertinent Diagnosis DVT, COVID-19, Dysphagia, Pneumonia, Anemia, Metabolic & Lactic Acidosis... Current Diet TF-Nepro w/CARBSTEADY @ 40 ml/ hr (from D 07/04). Height 5 ft 11 in Weight 43.5 kg [place] Body Weight (kg) 78.18 BMI 13.4 Weight change and time frame 2.668 Kg body weight gain in 2 days reported. Weight Status Underweight Subjective/Other Information RD consult for write/manage TF . I will prescribe TF to provide Pt with energy/protein needs during LOS. Percent of energy/protein needs met: Prescribed TF-Nepro w/ CARBSTEADY @ 40 ml/hr provides for energy/protein needs (1, 745 Kcal/79 g) during LOS, 82% Kcal; 148% AA. #2 Nutrition Diagnosis Underweight Diagnosis Progress(for reassessment Continues documentation) #1 Nutrition Diagnosis Inadequate protein-energy intake Comments: Prescribed TF-Nepro w/ CARBSTEADY @ 40 ml/hr provides for energy/protein needs (1, 745 Kcal/79 g) during LOS, 82% Kcal; 148% AA. Diagnosis Progress(for reassessment Resolved documentation) Is patient on ventilator? No Is Patient Ambulatory and/or Out of Bed No REE-([place]-confined to bed) 1460.844 Kcal/Kg value to use for calculation 49 Approximate Energy Requirements Using 2132 kcal/Kg Calculation Used for Recommendations Kcal/kg Additional Notes Protein: 0.8-1.2 g/Kg ABW; 35- 53 g/day. Fluids: 1 ml/Kcal, or as per MD. Nutrition Intervention Change Diet Order: Discontinue. Nutrition Support: Start TF-Nepro w/CARBSTEADY @ 40 ml/hr. Flush: 250 ml water Q 4 hr, or as per MD. Kcal 1,745 Protein (gm) 79 Carbohydrates (gm) 156 Fat (gm) 93 Fluid (mL) 705 Fiber (gm) 12 % RDI: 82% Kcal; 148% AA. Add Supplement/Snack (indicate name/kcal Discontinue. /protein ) Goal #1 Provide at least 75% of energy /protein needs through Enteral Feeding during LOS. Follow-Up By: 07/06/22 Additional Comments Start monitoring TF tolerance and BM. <ANIL FAM - Last Filed: 07/06/22 07:29> Assessment and Plan Assessment and plan: I saw and evaluated the patient. I agree with the findings and the plan of care as documented in the Nurse Practitioner's~note, with the following corrections and additions. Hospitalist Physical - Constitutional Vitals: Temp Pulse Resp BP Pulse Ox 96.4 F L 90 14 141/51 100 07/06/22 04:00 07/06/22 07:01 07/06/22 07:01 07/06/22 07:01 07/06/22 07:01 HEART Score - HEART Score Troponin: Troponin T 0.135 ng/mL (0.00-0.029) H* 06/28/22 14:57 Results - Labs CBC & Chem 7: 07/05/22 04:14 07/05/22 04:14 Labs: Laboratory Last Values WBC 7.7 K/mm3 (4.5-11.0) 07/05/22 04:14 RBC 2.22 M/mm3 (3.65-5.03) L 07/05/22 04:14 Hgb 6.5 gm/dl (11.8-15.2) L 07/05/22 04:14 Hct 19.7 % (35.5-45.6) L* D 07/05/22 04:14 MCV 89 fl (84-94) 07/05/22 04:14 MCH 29 pg (28-32) 07/05/22 04:14 MCHC 33 % (32-34) 07/05/22 04:14 RDW 19.4 % (13.2-15.2) H 07/05/22 04:14 Plt Count 41 K/mm3 (140-440) L 07/05/22 04:14 Lymph % (Auto) 7.2 % (13.4-35.0) L 06/29/22 03:57 Glasscock % (Auto) 3.5 % (0.0-7.3) 07/04/22 07:56 Eos % (Auto) 0.0 % (0.0-4.3) 07/04/22 07:56 Baso % (Auto) 0.1 % (0.0-1.8) 06/29/22 03:57 Lymph # (Auto) 0.5 K/mm3 (1.2-5.4) L 06/29/22 03:57 Glasscock # (Auto) 0.4 K/mm3 (0.0-0.8) 07/04/22 07:56 Eos # (Auto) 0.0 K/mm3 (0.0-0.4) 07/04/22 07:56 Baso # (Auto) 0.2 K/mm3 (0.0-0.1) H 07/04/22 07:56 Add Manual Diff Complete 07/04/22 07:56 Total Counted 100 07/04/22 07:56 Seg Neutrophils % Car Tracer 07/04/22 07:56 Seg Neuts % (Manual) 96.0 % (40.0-70.0) H 07/04/22 07:56 Band Neutrophils % 2.0 % 07/04/22 07:56 Lymphocytes % (Manual) 0 % (13.4-35.0) L 07/04/22 07:56 Reactive Lymphs % (Man) 0 % 07/04/22 07:56 Monocytes % (Manual) 2.0 % (0.0-7.3) 07/04/22 07:56 Eosinophils % (Manual) 0 % (0.0-4.3) 07/04/22 07:56 Basophils % (Manual) 0 % (0.0-1.8) 07/04/22 07:56 Metamyelocytes % 0 % 07/04/22 07:56 Myelocytes % 0 % 07/04/22 07:56 Promyelocytes % 0 % 07/04/22 07:56 Blast Cells % 0 % 07/04/22 07:56 Nucleated RBC % 2.0 % (0.0-0.9) H 07/04/22 07:56 Seg Neutrophils # 10.0 K/mm3 (1.8-7.7) H 07/04/22 07:56 Seg Neutrophils # Man 10.8 K/mm3 (1.8-7.7) H 07/04/22 07:56 Band Neutrophils # 0.2 K/mm3 07/04/22 07:56 Lymphocytes # (Manual) 0.0 K/mm3 (1.2-5.4) L 07/04/22 07:56 Abs React Lymphs (Man) 0.0 K/mm3 07/04/22 07:56 Monocytes # (Manual) 0.2 K/mm3 (0.0-0.8) 07/04/22 07:56 Eosinophils # (Manual) 0.0 K/mm3 (0.0-0.4) 07/04/22 07:56 Basophils # (Manual) 0.0 K/mm3 (0.0-0.1) 07/04/22 07:56 Metamyelocytes # 0.0 K/mm3 07/04/22 07:56 Myelocytes # 0.0 K/mm3 07/04/22 07:56 Promyelocytes # 0.0 K/mm3 07/04/22 07:56 Blast Cells # 0.0 K/mm3 07/04/22 07:56 WBC Morphology Not Reportable 07/04/22 07:56 Hypersegmented Neuts Not Reportable 07/04/22 07:56 Hyposegmented Neuts Not Reportable 07/04/22 07:56 Hypogranular Neuts Not Reportable 07/04/22 07:56 Smudge Cells Not Reportable 07/04/22 07:56 Toxic Granulation Not Reportable 07/04/22 07:56 Toxic Vacuolation Not Reportable 07/04/22 07:56 Dohle Bodies Not Reportable 07/04/22 07:56 Pelger-Huet Anomaly Not Reportable 07/04/22 07:56 Sonja Rods Not Reportable 07/04/22 07:56 Platelet Estimate Consistent w auto 07/04/22 07:56 Clumped Platelets Not Reportable 07/04/22 07:56 Plt Clumps, EDTA Not Reportable 07/04/22 07:56 Large Platelets Not Reportable 07/04/22 07:56 Giant Platelets Not Reportable 07/04/22 07:56 Platelet Satelliting Not Reportable 07/04/22 07:56 Plt Morphology Comment Not Reportable 07/04/22 07:56 RBC Morphology Not Reportable 07/04/22 07:56 Dimorphic RBCs Not Reportable 07/04/22 07:56 Polychromasia Not Reportable 07/04/22 07:56 Hypochromasia 2+ 07/04/22 07:56 Poikilocytosis 1+ 07/04/22 07:56 Anisocytosis 1+ 07/04/22 07:56 Microcytosis 1+ 07/04/22 07:56 Macrocytosis Not Reportable 07/04/22 07:56 Spherocytes 1+ 07/04/22 07:56 Pappenheimer Bodies Not Reportable 07/04/22 07:56 Sickle Cells Not Reportable 07/04/22 07:56 Target Cells 1+ 07/04/22 07:56 Tear Drop Cells Not Reportable 07/04/22 07:56 Ovalocytes Not Reportable 07/04/22 07:56 Helmet Cells Not Reportable 07/04/22 07:56 Herrera-Arco Bodies Not Reportable 07/04/22 07:56 [place] Rings Not Reportable 07/04/22 07:56 Patito Cells Not Reportable 07/04/22 07:56 Bite Cells Not Reportable 07/04/22 07:56 Crenated Cell Not Reportable 07/04/22 07:56 Elliptocytes Not Reportable 07/04/22 07:56 Acanthocytes (Spur) Not Reportable 07/04/22 07:56 Rouleaux Not Reportable 07/04/22 07:56 Hemoglobin C Crystals Not Reportable 07/04/22 07:56 Schistocytes Not Reportable 07/04/22 07:56 Malaria parasites Not Reportable 07/04/22 07:56 Percent Retic 0.79 % (0.78-2.58) 07/05/22 04:14 Isaac Bodies Not Reportable 07/04/22 07:56 Hem Pathologist Commnt No 07/04/22 07:56 PT 24.7 Sec. (12.2-14.9) H 07/05/22 04:14 INR 1.90 (0.87-1.13) H 07/05/22 04:14 APTT 37.7 Sec. (24.2-36.6) H 07/05/22 04:14 Fibrinogen 110 mg/dl (211-480) L* 07/05/22 04:14 D-Dimer 273.84 ng/mlDDU (0-234) H 06/28/22 16:11 Heparin Anti-Xa Level 1.86 U.I./ml (0.3-0.7) H 07/03/22 21:15 ABG pH 7.421 pH Units (7.350-7.450) 07/05/22 14:15 ABG pCO2 31.8 mm Hg 07/05/22 14:15 ABG pO2 97.6 mm Hg (80.0-90.0) H 07/05/22 14:15 ABG HCO3 20.2 mmol/L (20.0-26.0) 07/05/22 14:15 ABG O2 Saturation 97.4 % (95.0-99.0) 07/05/22 14:15 ABG O2 Content 8.7 (0.0-44) 07/05/22 14:15 ABG Base Excess -3.9 mmol/L (-2.0-3.0) L 07/05/22 14:15 ABG Hemoglobin 6.3 gm/dl (14.0-18.0) L 07/05/22 14:15 ABG Carboxyhemoglobin 0.6 % (0.0-5.0) 07/05/22 14:15 ABG Methemoglobin 0.2 % (0.0-1.5) 07/05/22 14:15 Oxyhemoglobin 96.6 % (95.0-99.0) 07/05/22 14:15 FiO2 40 % 07/05/22 14:15 Sodium 142 mmol/L (137-145) 07/05/22 04:14 Potassium 3.1 mmol/L (3.6-5.0) L 07/05/22 04:14 Chloride 113.8 mmol/L (98-107) H 07/05/22 04:14 Carbon Dioxide 19 mmol/L (22-30) L 07/05/22 04:14 Anion Gap 12 mmol/L 07/05/22 04:14 BUN 52 mg/dL (9-20) H 07/05/22 04:14 Creatinine 3.1 mg/dL (0.8-1.3) H 07/05/22 04:14 Estimated GFR 24 ml/min 07/05/22 04:14 BUN/Creatinine Ratio 17 % 07/05/22 04:14 Glucose 135 mg/dL (75-100) H 07/05/22 04:14 POC Glucose 188 mg/dL (70-105) H 07/06/22 00:20 Lactic Acid 2.50 mmol/L (0.7-2.0) H* 07/05/22 Unknown Calcium 8.4 mg/dL (8.4-10.2) 07/05/22 04:14 Iron 40 ug/dL (49-181) L 07/05/22 04:14 TIBC 31 mcg/dL (250-450) L 07/05/22 04:14 Ferritin 2520.0 ng/mL (30.0-300.0) H 06/28/22 16:11 Total Bilirubin 0.40 mg/dL (0.1-1.2) 07/05/22 04:14 AST 28 units/L (5-40) 07/05/22 04:14 ALT 17 units/L (7-56) 07/05/22 04:14 Alkaline Phosphatase 84 units/L (35-129) 07/05/22 04:14 Ammonia 29.0 umol/L (25-60) 07/05/22 04:14 Lactate Dehydrogenase 199 units/L (91-180) H 06/28/22 16:11 Troponin T 0.135 ng/mL (0.00-0.029) H* 06/28/22 14:57 C-Reactive Protein 2.90 mg/dL (0.00-1.30) H 07/05/22 04:14 Total Protein 3.7 g/dL (6.3-8.2) L 07/05/22 04:14 Albumin 1.5 g/dL (3.9-5) L 07/05/22 04:14 Albumin/Globulin Ratio 0.7 % 07/05/22 04:14 Triglycerides 95 mg/dL (2-149) 06/28/22 14:57 Cholesterol 74 mg/dL (50-199) 06/28/22 14:57 LDL Cholesterol Direct 21 mg/dL (50-130) L 06/28/22 14:57 HDL Cholesterol 22 mg/dL (40-59) L 06/28/22 14:57 Cholesterol/HDL Ratio 3.36 % 06/28/22 14:57 Procalcitonin 0.63 ng/mL (<0.15) 07/05/22 04:14 Complement C3 47 mg/dL (82-185) L 07/01/22 19:20 Complement C4 40 mg/dL (15-53) 07/01/22 19:20 Coronavirus (PCR) Positive (Negative) A 06/29/22 Unknown Hepatitis A IgM Ab Non-reactive (NonReactive) 07/01/22 19:20 Hep Bs Antigen Non-reactive (Negative) 07/01/22 19:20 Hep B Core IgM Ab Non-reactive (NonReactive) 07/01/22 19:20 Hepatitis C Antibody Non-reactive (NonReactive) 07/01/22 19:20 Blood Type O POSITIVE 07/05/22 08:00 Antibody Screen Negative 07/05/22 08:00 Crossmatch See Detail 07/05/22 08:00 Boyle/IV: Voiding Method Indwelling Catheter Active Medications - Current Medications Current Medications: Generic Name Dose Route Start Last Admin Trade Name Freq PRN Reason Stop Dose Admin Acetaminophen 650 mg 06/28/22 18:42 Acetaminophen 325 Mg Tab PO Q4H PRN Pain MILD(1-3)/Fever >100.5/GILES Ascorbic Acid 500 mg 07/05/22 22:00 07/05/22 21:31 Ascorbic Acid 500 Mg Tab PO 500 mg BID PARRISH Administration Dexamethasone 8 mg 07/03/22 10:00 07/05/22 10:51 Dexamethasone 4 Mg Tab PO 07/08/22 10:59 8 mg DAILY PARRISH Administration Dextrose 50 ml 07/04/22 15:07 Dextrose 50% In Water (25gm) 50 Ml Syringe IV Q30MIN PRN Hypoglycemia Protocol NORepinephrine/NS 8 MG-250 ML 8 mg in 250 mls @ 3.75 mls/hr 07/03/22 23:45 Norepinephrine/Ns 8 Mg-250 Ml (Double Conc) IV TITRATE PARRISH Protocol 2 MCG/MIN Ferric Sodium Gluconate 110 mls @ 100 mls/hr 07/05/22 10:00 07/05/22 15:00 Complex 125 mg/ Sodium IV 07/11/22 09:59 Infused Chloride DAILY PARRISH Infusion Sodium Chloride 1,000 mls @ 100 mls/hr 07/05/22 13:00 07/06/22 00:22 Nacl 0.45% 1000 Ml IV 100 mls/hr DIRECT PARRISH Administration Lansoprazole 30 mg 07/05/22 10:00 07/05/22 10:51 Lansoprazole 30 Mg Solutab FEEDTUBE 30 mg QDAY PARRISH Administration Ondansetron HCl 4 mg 06/28/22 18:42 Ondansetron 4 Mg/2 Ml Inj IV Q8H PRN Nausea And Vomiting Sodium Bicarbonate 1,300 mg 07/05/22 22:00 07/05/22 21:31 Sodium Bicarbonate 650 Mg Tab PO 1,300 mg BID PARRISH Administration Sodium Chloride 10 ml 06/28/22 22:00 07/05/22 21:32 Sodium Chloride 0.9% 10 Ml Flush Syringe IV 10 ml BID PARRISH Administration Sodium Chloride 10 ml 06/28/22 18:42 Sodium Chloride 0.9% 10 Ml Flush Syringe IV PRN PRN LINE FLUSH Tamsulosin HCl 0.4 mg 07/01/22 11:00 07/05/22 11:06 Tamsulosin 0.4 Mg Cap PO Not Given QDAY PARRISH Zinc Sulfate 220 mg 07/05/22 22:00 07/05/22 21:31 Zinc Sulfate 220 Mg Cap PO 220 mg BID PARRISH Administration Nutrition/Malnutrition Assess - Dietary Evaluation Nutrition/Malnutrition Findings: Nutrition Notes Start: 06/30/22 11:11 Freq: Status: Active Protocol: Document 07/05/22 13:54 DEIDRE (Rec: 07/05/22 14:14 DEIDRE [email or web address]) Nutrition Notes Initial or Follow up Reassessment Current Diagnosis Sepsis,Hypertension, Respiratory Failure,Stroke, Hyperlipidemia Other Pertinent Diagnosis COVID-19 (+), LLL pneu, Dysphagia Current Diet TF - Nepro at 40ml/hr Labs/Tests K 3.1 BUN 52 Cr 3.1 Iron 40 TIBC 31 Pertinent Medications Decadron, Ferric sodium gluconate gtt Height 5 ft 11 in Weight 43.5 kg [place] Body Weight (kg) 78.18 BMI 13.4 Weight Status Underweight Subjective/Other Information Per RN, TF infusing at 30ml/hr ; rate to be increased to goal rate today at 17:00. Pt tolerating TF. Pt on continuous BiPap support. General surgery consulted for possible PEG placement. Percent of energy/protein needs met: 89% energy 100% pro Burn Absent Trauma Absent #2 Nutrition Diagnosis Underweight Diagnosis Progress(for reassessment Continues documentation) Is patient on ventilator? No Is Patient Ambulatory and/or Out of Bed No REE-([facility]-confined to bed) 1460.844 Kcal/Kg value to use for calculation 45 Approximate Energy Requirements Using 1958 kcal/Kg Calculation Used for Recommendations [facility][1] Additional Notes Pro needs 0.8-1.2g/k-52g/ day Fluid needs per MD. Nutrition Intervention Nutrition Support: Decrease TF goal rate to 35ml/ hr to provide less protein. Current rate provides 1.79g/kg and pt's needs are only 0.8-1 .2g/kg at this time. Provide 150ml water flush q4h. Kcal 1,512 Protein (gm) 68 Carbohydrates (gm) 135 Fat (gm) 81 Fluid (mL) 611 Fiber (gm) 11 Goal #1 TF tolerance Goal #2 TF to meet 100% energy and pro needs Goal #3 Wt maintenance and/or gain Anticipated Discharge Needs: Continue EN support Follow-Up By: 07/08/22 Additional Comments F/U: TF tolerance, renal function, resp status
--- NOTE | 2022-07-05 11:35 | Progress Note ---
Assessment and Plan Cultures: SARS CoV2 PCR: positive 06/28/2022 blood culture: No growth Hepatitis panel: negative A/P: 72-year-old male with prior CVA, DVT on anticoagulation, CKD, hypertension, dysphagia was admitted [facility] the [facility] after being diagnosed with COVID and noted to have shortness of breath with hypoxia: #COVID-19 pneumonia: PCR positive. CT chest with left lower lobe pneumonia. Completed empiric abx. DVT scan negative #Acute hypoxic respiratory failure: with worsening, requiring BiPAP / Venti mask #MALIHA on CKD: Renally adjust antibiotics. Nephrology following. #Acute anemia, worsening thrombocytopenia: Hematology following #Leukopenia: Likely related to viral illness. Improved. #Acute encephalopathy: CT head without acute intracranial abnormality. Recs: -patient is s/p empiric course of Cefepime and Azithromycin. WBC and CRP low, afebrile. Continue off abx -Continue IV/PO Dexamethasone x 10 days -Not a candidate for remdesivir due to CKD/elevated creatinine -guarded prognosis Deyanira Sutherland MD, FACP, [facility] ([facility] O: [phone] F: [phone] C: [phone] Subjective Date of service: 07/05/22 Principal diagnosis: malhia on ckd Interval history: No fever. Remains drowsy. On Venturi mask. Dropped his hemoglobin. Platelets remain low at 41. Objective - Exam Narrative Exam: Physical Exam: Constitutional: Drowsy, unresponsive Head, Ears, Nose: Normocephalic, atraumatic. External ears, nose normal Eyes: Conjunctivae/corneas clear. No icterus. No ptosis. Neck: Supple, no meningeal signs Cardiovascular: S1, S2 + Respiratory: Good air entry, clear to auscultation bilaterally GI: Soft, non-tender; bowel sounds normal. No peritoneal signs Musculoskeletal: No pedal edema, no cyanosis. Skin: No rash or abscess Hem/Lymphatic: No palpable cervical or supraclavicular nodes. No lymphangitis Psych: Drowsy Neurological: Unresponsive - Constitutional Vitals: Vital Signs Temp Pulse Resp BP Pulse Ox 97.4 F L 84 9 L 153/58 100 07/05/22 03:26 07/05/22 08:01 07/05/22 10:00 07/05/22 10:00 07/05/22 10:00 Temperature -Last 24 Hours Temperature 97.4 F Temperature 94.8 F Temperature 99.1 F - Labs CBC & Chem 7: 07/05/22 04:14 07/05/22 04:14 Labs: Abnormal lab results 07/04/22 07/04/22 07/05/22 Range/Units 17:23 21:00 04:14 RBC 2.22 L (3.65-5.03) M/mm3 Hgb 6.5 L (11.8-15.2) gm/dl Hct 19.7 L* D (35.5-45.6) % RDW 19.4 H (13.2-15.2) % Plt Count 41 L (140-440) K/mm3 PT (12.2-14.9) Sec. INR (0.87-1.13) APTT (24.2-36.6) Sec. Fibrinogen (211-480) mg/dl ABG pH 7.451 H (7.350-7.450) pH Units ABG pO2 375.8 H (80.0-90.0) mm Hg ABG HCO3 19.7 L (20.0-26.0) mmol/L ABG O2 Saturation 99.5 H (95.0-99.0) % ABG Base Excess -3.8 L (-2.0-3.0) mmol/L ABG Hemoglobin 6.5 L (14.0-18.0) gm/dl Potassium (3.6-5.0) mmol/L Chloride (98-107) mmol/L Carbon Dioxide (22-30) mmol/L BUN (9-20) mg/dL Creatinine (0.8-1.3) mg/dL Glucose (75-100) mg/dL POC Glucose 108 H (70-105) mg/dL Lactic Acid (0.7-2.0) mmol/L Iron (49-181) ug/dL TIBC (250-450) mcg/dL C-Reactive Protein (0.00-1.30) mg/dL Total Protein (6.3-8.2) g/dL Albumin (3.9-5) g/dL Crossmatch 07/05/22 07/05/22 07/05/22 Range/Units 04:14 04:14 04:14 RBC (3.65-5.03) M/mm3 Hgb (11.8-15.2) gm/dl Hct (35.5-45.6) % RDW (13.2-15.2) % Plt Count (140-440) K/mm3 PT 24.7 H (12.2-14.9) Sec. INR 1.90 H (0.87-1.13) APTT 37.7 H (24.2-36.6) Sec. Fibrinogen 110 L* (211-480) mg/dl ABG pH (7.350-7.450) pH Units ABG pO2 (80.0-90.0) mm Hg ABG HCO3 (20.0-26.0) mmol/L ABG O2 Saturation (95.0-99.0) % ABG Base Excess (-2.0-3.0) mmol/L ABG Hemoglobin (14.0-18.0) gm/dl Potassium 3.1 L (3.6-5.0) mmol/L Chloride 113.8 H (98-107) mmol/L Carbon Dioxide 19 L (22-30) mmol/L BUN 52 H (9-20) mg/dL Creatinine 3.1 H (0.8-1.3) mg/dL Glucose 135 H (75-100) mg/dL POC Glucose (70-105) mg/dL Lactic Acid 2.20 H* (0.7-2.0) mmol/L Iron 40 L (49-181) ug/dL TIBC 31 L (250-450) mcg/dL C-Reactive Protein 2.90 H (0.00-1.30) mg/dL Total Protein 3.7 L (6.3-8.2) g/dL Albumin 1.5 L (3.9-5) g/dL Crossmatch 07/05/22 07/05/22 07/05/22 Range/Units 05:16 08:00 Unknown RBC (3.65-5.03) M/mm3 Hgb (11.8-15.2) gm/dl Hct (35.5-45.6) % RDW (13.2-15.2) % Plt Count (140-440) K/mm3 PT (12.2-14.9) Sec. INR (0.87-1.13) APTT (24.2-36.6) Sec. Fibrinogen (211-480) mg/dl ABG pH (7.350-7.450) pH Units ABG pO2 (80.0-90.0) mm Hg ABG HCO3 (20.0-26.0) mmol/L ABG O2 Saturation (95.0-99.0) % ABG Base Excess (-2.0-3.0) mmol/L ABG Hemoglobin (14.0-18.0) gm/dl Potassium (3.6-5.0) mmol/L Chloride (98-107) mmol/L Carbon Dioxide (22-30) mmol/L BUN (9-20) mg/dL Creatinine (0.8-1.3) mg/dL Glucose (75-100) mg/dL POC Glucose 118 H (70-105) mg/dL Lactic Acid 2.50 H* (0.7-2.0) mmol/L Iron (49-181) ug/dL TIBC (250-450) mcg/dL C-Reactive Protein (0.00-1.30) mg/dL Total Protein (6.3-8.2) g/dL Albumin (3.9-5) g/dL Crossmatch See Detail
--- NOTE | 2022-07-05 12:49 | Progress Note ---
Subjective Date of service: 07/05/22 Principal diagnosis: AHRF; Sepsis; AMS; Pneumonia; MALIHA; COVID-19 infxn; Anemia; Thrombocytopenia Interval history: Impression * Acute on chronic renal failure. Baseline creatinine 1.8-2.0 from March 2022 * metabolic acidosis. Lactic acidosis * Altered mental status * Sepsis * thrombocytopenia * History of CVA * History of hypertension * History of DVT * Anemia Recommendations * Follow-up results of UA as well as fractional excretion of sodium * heme/onc notes reviewed * CT scan of his abdomen shows mildly distended bladder. Patient currently has a condom catheter in place. * urology consult noted * Continue iVFS, replete k and mag prn * cr is stable today, continue ivfs, acidosis is better * follow up am lytes * Avoid nephrotoxins * Monitor fluid status and electrolytes closely * No urgent indication for renal replacement therapy today Subjective Interval history: events noted labs and chart reviewed Objective Physical exam: primary team exam noted full exam deferred for preservation of PPE Objective - Vital Signs Vital signs: Vital Signs - 12hr 07/05/22 07/05/22 07/05/22 01:01 02:00 03:00 Temperature Pulse Rate 92 H 92 H 91 H Pulse Rate [ Left Radial] Pulse Rate [ Right Radial] Respiratory 12 14 14 Rate Blood Pressure 138/52 155/47 143/52 O2 Sat by Pulse Oximetry 07/05/22 07/05/22 07/05/22 03:26 04:00 04:01 Temperature 97.4 F L Pulse Rate 88 89 Pulse Rate [ 90 Left Radial] Pulse Rate [ 90 Right Radial] Respiratory 12 12 Rate Blood Pressure 112/48 O2 Sat by Pulse 100 Oximetry 07/05/22 07/05/22 07/05/22 05:00 06:00 07:01 Temperature Pulse Rate 84 84 87 Pulse Rate [ Left Radial] Pulse Rate [ Right Radial] Respiratory 10 L 11 L 11 L Rate Blood Pressure 128/55 113/56 106/50 O2 Sat by Pulse Oximetry 07/05/22 07/05/22 07/05/22 07:52 07:54 08:01 Temperature Pulse Rate 82 84 Pulse Rate [ Left Radial] Pulse Rate [ Right Radial] Respiratory 20 10 L Rate Blood Pressure 106/50 110/51 O2 Sat by Pulse 100 100 98 Oximetry 07/05/22 07/05/22 07/05/22 09:00 09:50 10:00 Temperature Pulse Rate Pulse Rate [ Left Radial] Pulse Rate [ Right Radial] Respiratory 14 9 L Rate Blood Pressure 131/67 153/58 O2 Sat by Pulse 100 100 Oximetry 07/05/22 07/05/22 11:39 11:54 Temperature 95.2 F L Pulse Rate 95 H 64 Pulse Rate [ Left Radial] Pulse Rate [ Right Radial] Respiratory 12 10 L Rate Blood Pressure 157/54 129/51 O2 Sat by Pulse 100 100 Oximetry - Lab 07/05/22 04:14 07/05/22 04:14 Most recent lab results ABG pH 7.451 pH Units (7.350-7.450) H 07/04/22 21:00 ABG pCO2 28.9 mm Hg 07/04/22 21:00 ABG pO2 375.8 mm Hg (80.0-90.0) H 07/04/22 21:00 ABG HCO3 19.7 mmol/L (20.0-26.0) L 07/04/22 21:00 ABG O2 Saturation 99.5 % (95.0-99.0) H 07/04/22 21:00 Calcium 8.4 mg/dL (8.4-10.2) 07/05/22 04:14 Medications & Allergies - Medications Allergies/Adverse Reactions: Allergies No Known Allergies Allergy (Verified 06/28/22 13:48) Home Medications: Home Medications Medication Instructions Recorded Confirmed Last Taken Type Aspirin 325 mg PO QDAY #30 tablet 03/07/22 07/01/22 Unknown Rx AtorvaSTATin [Lipitor] 40 mg PO QHS 30 Days #30 tab 03/07/22 07/01/22 Unknown Rx Active Medications: Generic Name Dose Route Start Last Admin Trade Name Freq PRN Reason Stop Dose Admin Acetaminophen 650 mg 06/28/22 18:42 Acetaminophen 325 Mg Tab PO Q4H PRN Pain MILD(1-3)/Fever >100.5/GILES Ascorbic Acid 500 mg 07/05/22 22:00 Ascorbic Acid 500 Mg Tab PO BID PARRISH Dexamethasone 8 mg 07/03/22 10:00 07/05/22 10:51 Dexamethasone 4 Mg Tab PO 07/08/22 10:59 8 mg DAILY PARRISH Administration Dextrose 50 ml 07/04/22 15:07 Dextrose 50% In Water (25gm) 50 Ml Syringe IV Q30MIN PRN Hypoglycemia Protocol NORepinephrine/NS 8 MG-250 ML 8 mg in 250 mls @ 3.75 mls/hr 07/03/22 23:45 Norepinephrine/Ns 8 Mg-250 Ml (Double Conc) IV TITRATE PARRISH Protocol 2 MCG/MIN Ferric Sodium Gluconate 110 mls @ 100 mls/hr 07/05/22 10:00 Complex 125 mg/ Sodium IV 07/11/22 09:59 Chloride DAILY PARRISH Sodium Chloride 1,000 mls @ 100 mls/hr 07/05/22 13:00 Nacl 0.45% 1000 Ml IV DIRECT PARRISH Lansoprazole 30 mg 07/05/22 10:00 07/05/22 10:51 Lansoprazole 30 Mg Solutab FEEDTUBE 30 mg QDAY PARRISH Administration Ondansetron HCl 4 mg 06/28/22 18:42 Ondansetron 4 Mg/2 Ml Inj IV Q8H PRN Nausea And Vomiting Sodium Bicarbonate 1,300 mg 07/05/22 13:00 Sodium Bicarbonate 650 Mg Tab PO BID PARRISH Sodium Chloride 10 ml 06/28/22 22:00 07/05/22 11:06 Sodium Chloride 0.9% 10 Ml Flush Syringe IV 10 ml BID PARRISH Administration Sodium Chloride 10 ml 06/28/22 18:42 Sodium Chloride 0.9% 10 Ml Flush Syringe IV PRN PRN LINE FLUSH Tamsulosin HCl 0.4 mg 07/01/22 11:00 07/05/22 11:06 Tamsulosin 0.4 Mg Cap PO Not Given QDAY [facility] Zinc Sulfate 220 mg 07/05/22 22:00 Zinc Sulfate 220 Mg Cap PO BID [facility]
[2022-07-05] MEDS: SODIUM FERRIC GLUCON/SUCRO 125 MG in SODIUM CHLORIDE 0.9% 100 ML IV SCH (13:54)
[2022-07-05 14:27] LABS: ABG Base Excess -3.9 mmol/L (-2.0-3.0); ABG HCO3 20.2 mmol/L (20.0-26.0); ABG Methemoglobin 0.2 % (0.0-1.5); ABG Oxygen Saturation 97.4 % (95.0-99.0); ABG PCO2 31.8 mm Hg; ABG PH 7.421 pH Units (7.350-7.450); ABG PO2 97.6 mm Hg (80.0-90.0)
[2022-07-05] MEDS: SODIUM CHLORIDE 0.45% 1000 ML 1,000 ML IV SCH (14:44)
[2022-07-05] MEDS: SODIUM BICARBONATE 650 MG TAB PO SCH (21:31)
[2022-07-05] MEDS: ASCORBIC ACID 500 MG TAB PO SCH (21:31)
[2022-07-05] MEDS: ZINC SULFATE 220 MG CAP PO SCH (21:31)
[2022-07-06] MEDS: SODIUM CHLORIDE 0.45% 1000 ML 1,000 ML IV SCH (00:22)
--- NOTE | 2022-07-06 07:36 | Progress Note ---
Assessment and Plan 72-year male with history of CVA and DVT presents from senior living with COVID- 19 (diagnosed 06/21/2022), chronic renal insufficiency, hypertension, cognitive communication deficit, dysphagia, DVT currently on Eliquis, and hyperlipidemia with complaints of hypoxia and shortness of breath. EMS reports that patient is on 3 L of nasal cannula at the senior living they were unable to obtain a accurate O2 sat. Patient was placed on nonrebreather for transport to the hospital. Patient appears to have mild to moderate respiratory distress on nonrebreather upon ED presentation. Patient is also hyperglycemic initially' Patient has history of CVA, DVT. Patient has PEG tube, According to the chart No history of smoking. No known drug allergies. Patient sleeping. Not responding to verbal stimuli.Patient weak. Patient is on 3 litres O2. O2 saturation running 100%. BIPAP 14/10, Rate 20, FIO2 45% stand by in the room. Patient afebrile. No leukocytosis. Blood pressure 128/74, Pulse 84, Respirations 11. Patients to days HGB 6.5. Recommend blood transfusion to keep HGB above 7.0. Patient also has thrombocytopenia, Platelets 07/06/22 reported 35,000 Patients BMP 07/06/22 Na+ 136 , K+ 3.0, BUN 54 , Creatinine 3.2. Management as per nephrology. Chest xray done 06/28/22 reported Irregular parenchymal opacity in the left retrocardiac region medially may be inflammatory or neoplastic. CT chest may be helpful in further evaluation. CT of chest with out contrast 06/28/22 reported Suspected left lower lobe pneumonia given the patient's history of covid 19 and shortness of breath, which likely accounts for the abnormality seen on the prior chest radiograph. Small left pleural effusion. Venous doppler studies of both legs 07/04/22 reported No sonographic evidence for DVT in either lower extremity. Patient is on Nor epinephrine, Prevacid and Dexamethasone. I spent critical care time of 50 minutes, review the chart, examine the patient, review the imaging, laborotary results, talking to the nursing staff and work up plan of treatment in this critically ill patient with multiple medical problems. - Patient Problems (1) Acute respiratory failure with hypoxia Current Visit: Yes Status: Acute Plan to address problem: O2 3 litres via nasal canula. BIPAP 14/10, Respirations 20, FIO2 40% stand by in the room. Patient is on decadron. Recommend albuterol/atrovent aerosol treatments as needed for shortness of breath Continue prevacid. Recommend SCDs. (2) Acute on chronic renal failure Current Visit: Yes Status: Acute Qualifiers: Acute renal failure type: unspecified Plan to address problem: Management as per nephrology. (3) COVID-19 Current Visit: Yes Status: Acute Plan to address problem: Patients Wiley virus PCR 06/29/22 is positive. (4) Elevated troponin Current Visit: Yes Status: Acute Plan to address problem: Management as per cardiology. (5) Left lower lobe pneumonia Current Visit: Yes Status: Acute Plan to address problem: Patient was treated with cefepime and Vancomycin. (6) Hx of deep venous thrombosis Current Visit: Yes Status: Chronic Plan to address problem: Recommend SCDs for time being. (7) Dysphagia Current Visit: No Status: Acute Plan to address problem: Patient has PEG tube placement. Recommend aspiration precautions. Subjective Date of service: 07/06/22 Principal diagnosis: AHRF; Sepsis; AMS; Pneumonia; MALIHA; COVID-19 infxn; Anemia; Thrombocytopenia Interval history: 72-year male with history of CVA and DVT presents from senior living with COVID- 19 (diagnosed 06/21/2022), chronic renal insufficiency, hypertension, cognitive communication deficit, dysphagia, DVT currently on Eliquis, and hyperlipidemia with complaints of hypoxia and shortness of breath. EMS reports that patient is on 3 L of nasal cannula at the senior living they were unable to obtain a accurate O2 sat. Patient was placed on nonrebreather for transport to the hospital. Patient appears to have mild to moderate respiratory distress on nonrebreather upon ED presentation. Patient is also hyperglycemic initially' Patient has history of CVA, DVT. Patient has PEG tube, According to the chart No history of smoking. No known drug allergies. Patient sleeping. Not responding to verbal stimuli.Patient weak. Patient is on 3 litres O2. O2 saturation running 100%. BIPAP 14/10, Rate 20, FIO2 45% stand by in the room. Patient afebrile. No leukocytosis. Blood pressure 128/74, Pulse 84, Respirations 11. Patients to days HGB 6.5. Recommend blood transfusion to keep HGB above 7.0. Patient also has thrombocytopenia, Platelets 07/06/22 reported 35,000 Patients BMP 07/06/22 Na+ 136 , K+ 3.0, BUN 54 , Creatinine 3.2. Management as per nephrology. Chest xray done 06/28/22 reported Irregular parenchymal opacity in the left retrocardiac region medially may be inflammatory or neoplastic. CT chest may be helpful in further evaluation. CT of chest with out contrast 06/28/22 reported Suspected left lower lobe pneumonia given the patient's history of covid 19 and shortness of breath, which likely accounts for the abnormality seen on the prior chest radiograph. Small left pleural effusion. Venous doppler studies of both legs 07/04/22 reported No sonographic evidence for DVT in either lower extremity. Patient is on Nor epinephrine, Prevacid and Dexamethasone. Objective Vital Signs - 12hr 07/05/22 07/05/22 07/05/22 20:00 20:28 21:00 Temperature 95.4 F L Pulse Rate 87 80 Pulse Rate [ 88 Right Radial] Respiratory 11 L 11 L Rate Blood Pressure 160/70 156/62 O2 Sat by Pulse 100 100 90 Oximetry 07/05/22 07/05/22 07/05/22 21:05 22:00 23:00 Temperature Pulse Rate 82 77 79 Pulse Rate [ Right Radial] Respiratory 12 8 L 10 L Rate Blood Pressure 150/63 155/63 136/64 O2 Sat by Pulse 71 L 83 L Oximetry 07/06/22 07/06/22 07/06/22 00:00 00:02 01:01 Temperature 96.4 F L Pulse Rate 85 66 90 Pulse Rate [ 87 Right Radial] Respiratory 15 22 12 Rate Blood Pressure 156/58 156/58 141/48 O2 Sat by Pulse 100 100 100 Oximetry 07/06/22 07/06/22 07/06/22 02:00 03:00 04:00 Temperature 96.4 F L Pulse Rate 92 H 98 H 95 H Pulse Rate [ 87 Right Radial] Respiratory 12 13 17 Rate Blood Pressure 135/63 138/66 146/61 O2 Sat by Pulse 100 100 100 Oximetry 07/06/22 07/06/22 07/06/22 05:00 06:00 07:01 Temperature Pulse Rate 93 H 96 H 90 Pulse Rate [ Right Radial] Respiratory 13 16 14 Rate Blood Pressure 144/56 148/55 141/51 O2 Sat by Pulse 100 100 100 Oximetry Constitutional: no acute distress, asleep, other (elderly and chronically ill looking male with normal but shallow respiratory effort at rest) Eyes: non-icteric ENT: oropharynx moist Neck: supple, no lymphadenopathy, no JVD Effort: normal Ascultation: Bilateral: diminished breath sounds Percussion: Bilateral: not dull Cardiovascular: regular rate and rhythm, other (+ ocassional extrasystole's) Gastrointestinal: normoactive bowel sounds, soft, non-tender, non-distended Integumentary: other (poor turgor) Extremities: no cyanosis, pulses normal, edema (2+) Neurologic: pupils equal and round, unable to assess Psychiatric: other (unable to assess re: AMS) CBC and BMP: 07/06/22 10:22 07/06/22 10:22 ABG, PT/INR, D-dimer: ABG ABG pH 7.421 pH Units (7.350-7.450) 07/05/22 14:15 ABG pCO2 31.8 mm Hg 07/05/22 14:15 ABG pO2 97.6 mm Hg (80.0-90.0) H 07/05/22 14:15 ABG O2 Saturation 97.4 % (95.0-99.0) 07/05/22 14:15 PT/INR, D-dimer PT 24.7 Sec. (12.2-14.9) H 07/05/22 04:14 INR 1.90 (0.87-1.13) H 07/05/22 04:14 D-Dimer 273.84 ng/mlDDU (0-234) H 06/28/22 16:11 Abnormal lab findings: Abnormal Labs 06/28/22 06/28/22 06/28/22 14:53 14:57 14:57 WBC 3.5 L RBC 3.22 L Hgb 9.5 L Hct 29.6 L RDW 20.0 H Plt Count Lymph % (Auto) Lymph # (Auto) 0.6 L Baso # (Auto) Seg Neutrophils % 77.0 H Seg Neuts % (Manual) Lymphocytes % (Manual) Nucleated RBC % Seg Neutrophils # Seg Neutrophils # Man Lymphocytes # (Manual) PT 28.4 H INR 2.31 H APTT 49.0 H Fibrinogen D-Dimer Heparin Anti-Xa Level ABG pH ABG pO2 390.9 H ABG HCO3 11.1 L ABG O2 Saturation 99.5 H ABG Base Excess -12.3 L ABG Hemoglobin 9.0 L Sodium Potassium Chloride Carbon Dioxide BUN Creatinine Glucose POC Glucose Lactic Acid Iron TIBC Ferritin Lactate Dehydrogenase Troponin T C-Reactive Protein Total Protein Albumin LDL Cholesterol Direct HDL Cholesterol Complement C3 Coronavirus (PCR) Crossmatch 06/28/22 06/28/22 06/28/22 14:57 14:57 15:01 WBC RBC Hgb Hct RDW Plt Count Lymph % (Auto) Lymph # (Auto) Baso # (Auto) Seg Neutrophils % Seg Neuts % (Manual) Lymphocytes % (Manual) Nucleated RBC % Seg Neutrophils # Seg Neutrophils # Man Lymphocytes # (Manual) PT INR APTT Fibrinogen D-Dimer Heparin Anti-Xa Level ABG pH ABG pO2 ABG HCO3 ABG O2 Saturation ABG Base Excess ABG Hemoglobin Sodium 134 L Potassium Chloride 110.8 H Carbon Dioxide 13 L BUN 51 H Creatinine 2.7 H Glucose POC Glucose 14 L Lactic Acid 3.40 H* Iron TIBC Ferritin Lactate Dehydrogenase Troponin T 0.135 H* C-Reactive Protein Total Protein 4.9 L Albumin 1.6 L LDL Cholesterol Direct 21 L HDL Cholesterol 22 L Complement C3 Coronavirus (PCR) Crossmatch 06/28/22 06/28/22 06/28/22 16:11 16:11 16:11 WBC RBC Hgb Hct RDW Plt Count Lymph % (Auto) Lymph # (Auto) Baso # (Auto) Seg Neutrophils % Seg Neuts % (Manual) Lymphocytes % (Manual) Nucleated RBC % Seg Neutrophils # Seg Neutrophils # Man Lymphocytes # (Manual) PT INR APTT Fibrinogen D-Dimer 273.84 H Heparin Anti-Xa Level ABG pH ABG pO2 ABG HCO3 ABG O2 Saturation ABG Base Excess ABG Hemoglobin Sodium Potassium Chloride Carbon Dioxide BUN Creatinine Glucose 218 H POC Glucose Lactic Acid 3.30 H* Iron TIBC Ferritin Lactate Dehydrogenase 199 H Troponin T C-Reactive Protein 4.60 H Total Protein Albumin LDL Cholesterol Direct HDL Cholesterol Complement C3 Coronavirus (PCR) Crossmatch 06/28/22 06/28/22 06/28/22 16:11 17:25 22:14 WBC RBC Hgb Hct RDW Plt Count Lymph % (Auto) Lymph # (Auto) Baso # (Auto) Seg Neutrophils % Seg Neuts % (Manual) Lymphocytes % (Manual) Nucleated RBC % Seg Neutrophils # Seg Neutrophils # Man Lymphocytes # (Manual) PT INR APTT Fibrinogen D-Dimer Heparin Anti-Xa Level ABG pH ABG pO2 ABG HCO3 ABG O2 Saturation ABG Base Excess ABG Hemoglobin Sodium Potassium Chloride Carbon Dioxide BUN Creatinine Glucose POC Glucose 119 H 137 H Lactic Acid Iron TIBC Ferritin 2520.0 H Lactate Dehydrogenase Troponin T C-Reactive Protein Total Protein Albumin LDL Cholesterol Direct HDL Cholesterol Complement C3 Coronavirus (PCR) Crossmatch 06/29/22 06/29/22 06/29/22 00:09 00:09 00:09 WBC RBC 2.59 L Hgb 7.7 L Hct 23.1 L D RDW 19.0 H Plt Count 137 L Lymph % (Auto) Lymph # (Auto) Baso # (Auto) Seg Neutrophils % Seg Neuts % (Manual) Lymphocytes % (Manual) Nucleated RBC % Seg Neutrophils # Seg Neutrophils # Man Lymphocytes # (Manual) PT 30.2 H INR 2.49 H APTT 54.1 H Fibrinogen D-Dimer Heparin Anti-Xa Level ABG pH ABG pO2 ABG HCO3 ABG O2 Saturation ABG Base Excess ABG Hemoglobin Sodium Potassium Chloride Carbon Dioxide BUN Creatinine 2.5 H Glucose POC Glucose Lactic Acid Iron TIBC Ferritin Lactate Dehydrogenase Troponin T C-Reactive Protein Total Protein Albumin LDL Cholesterol Direct HDL Cholesterol Complement C3 Coronavirus (PCR) Crossmatch 06/29/22 06/29/22 06/29/22 03:57 03:57 05:52 WBC RBC 2.68 L Hgb 7.8 L Hct 24.4 L RDW 19.6 H Plt Count 138 L Lymph % (Auto) 7.2 L Lymph # (Auto) 0.5 L Baso # (Auto) Seg Neutrophils % 88.6 H Seg Neuts % (Manual) Lymphocytes % (Manual) Nucleated RBC % Seg Neutrophils # Seg Neutrophils # Man Lymphocytes # (Manual) PT INR APTT Fibrinogen D-Dimer Heparin Anti-Xa Level ABG pH ABG pO2 ABG HCO3 ABG O2 Saturation ABG Base Excess ABG Hemoglobin Sodium Potassium Chloride 115.5 H Carbon Dioxide 11 L BUN 50 H Creatinine 2.5 H Glucose 183 H POC Glucose 134 H Lactic Acid Iron TIBC Ferritin Lactate Dehydrogenase Troponin T C-Reactive Protein Total Protein 4.2 L Albumin 1.4 L LDL Cholesterol Direct HDL Cholesterol Complement C3 Coronavirus (PCR) Crossmatch 06/29/22 06/29/22 06/29/22 11:16 23:26 Unknown WBC RBC Hgb Hct RDW Plt Count Lymph % (Auto) Lymph # (Auto) Baso # (Auto) Seg Neutrophils % Seg Neuts % (Manual) Lymphocytes % (Manual) Nucleated RBC % Seg Neutrophils # Seg Neutrophils # Man Lymphocytes # (Manual) PT INR APTT Fibrinogen D-Dimer Heparin Anti-Xa Level ABG pH ABG pO2 ABG HCO3 ABG O2 Saturation ABG Base Excess ABG Hemoglobin Sodium Potassium Chloride Carbon Dioxide BUN Creatinine Glucose POC Glucose 148 H 170 H Lactic Acid Iron TIBC Ferritin Lactate Dehydrogenase Troponin T C-Reactive Protein Total Protein Albumin LDL Cholesterol Direct HDL Cholesterol Complement C3 Coronavirus (PCR) Positive A Crossmatch 06/30/22 06/30/22 06/30/22 05:39 11:32 17:33 WBC RBC Hgb Hct RDW Plt Count Lymph % (Auto) Lymph # (Auto) Baso # (Auto) Seg Neutrophils % Seg Neuts % (Manual) Lymphocytes % (Manual) Nucleated RBC % Seg Neutrophils # Seg Neutrophils # Man Lymphocytes # (Manual) PT INR APTT Fibrinogen D-Dimer Heparin Anti-Xa Level ABG pH ABG pO2 ABG HCO3 ABG O2 Saturation ABG Base Excess ABG Hemoglobin Sodium Potassium Chloride Carbon Dioxide BUN Creatinine Glucose POC Glucose 147 H 136 H 136 H Lactic Acid Iron TIBC Ferritin Lactate Dehydrogenase Troponin T C-Reactive Protein Total Protein Albumin LDL Cholesterol Direct HDL Cholesterol Complement C3 Coronavirus (PCR) Crossmatch 06/30/22 07/01/22 07/01/22 21:42 06:26 11:01 WBC RBC Hgb Hct RDW Plt Count Lymph % (Auto) Lymph # (Auto) Baso # (Auto) Seg Neutrophils % Seg Neuts % (Manual) Lymphocytes % (Manual) Nucleated RBC % Seg Neutrophils # Seg Neutrophils # Man Lymphocytes # (Manual) PT INR APTT Fibrinogen D-Dimer Heparin Anti-Xa Level ABG pH ABG pO2 ABG HCO3 ABG O2 Saturation ABG Base Excess ABG Hemoglobin Sodium Potassium Chloride Carbon Dioxide BUN Creatinine Glucose POC Glucose 125 H 130 H 135 H Lactic Acid Iron TIBC Ferritin Lactate Dehydrogenase Troponin T C-Reactive Protein Total Protein Albumin LDL Cholesterol Direct HDL Cholesterol Complement C3 Coronavirus (PCR) Crossmatch 07/01/22 07/01/22 07/01/22 17:18 19:20 19:20 WBC RBC 2.57 L Hgb 7.7 L Hct 23.1 L RDW 20.0 H Plt Count 68 L Lymph % (Auto) Lymph # (Auto) Baso # (Auto) Seg Neutrophils % Seg Neuts % (Manual) Lymphocytes % (Manual) Nucleated RBC % Seg Neutrophils # Seg Neutrophils # Man Lymphocytes # (Manual) PT INR APTT Fibrinogen D-Dimer Heparin Anti-Xa Level ABG pH ABG pO2 ABG HCO3 ABG O2 Saturation ABG Base Excess ABG Hemoglobin Sodium Potassium Chloride Carbon Dioxide BUN Creatinine Glucose POC Glucose 119 H Lactic Acid Iron TIBC Ferritin Lactate Dehydrogenase Troponin T C-Reactive Protein Total Protein Albumin LDL Cholesterol Direct HDL Cholesterol Complement C3 47 L Coronavirus (PCR) Crossmatch 07/01/22 07/01/22 07/01/22 19:20 19:20 23:19 WBC RBC Hgb Hct RDW Plt Count Lymph % (Auto) Lymph # (Auto) Baso # (Auto) Seg Neutrophils % Seg Neuts % (Manual) Lymphocytes % (Manual) Nucleated RBC % Seg Neutrophils # Seg Neutrophils # Man Lymphocytes # (Manual) PT 27.4 H INR 2.16 H APTT Fibrinogen D-Dimer Heparin Anti-Xa Level ABG pH ABG pO2 ABG HCO3 ABG O2 Saturation ABG Base Excess ABG Hemoglobin Sodium Potassium Chloride 113.0 H Carbon Dioxide 18 L D BUN 46 H Creatinine 2.3 H Glucose 181 H POC Glucose 121 H Lactic Acid Iron TIBC Ferritin Lactate Dehydrogenase Troponin T C-Reactive Protein Total Protein Albumin LDL Cholesterol Direct HDL Cholesterol Complement C3 Coronavirus (PCR) Crossmatch 07/02/22 07/02/22 07/03/22 07:18 07:18 20:32 WBC RBC 2.54 L Hgb 7.7 L 8.4 L Hct 22.5 L 25.4 L RDW 19.4 H Plt Count 60 L 56 L Lymph % (Auto) Lymph # (Auto) Baso # (Auto) Seg Neutrophils % Seg Neuts % (Manual) 99.0 H Lymphocytes % (Manual) 1.0 L Nucleated RBC % Seg Neutrophils # Seg Neutrophils # Man 7.8 H Lymphocytes # (Manual) 0.1 L PT INR APTT Fibrinogen D-Dimer Heparin Anti-Xa Level ABG pH ABG pO2 ABG HCO3 ABG O2 Saturation ABG Base Excess ABG Hemoglobin Sodium Potassium Chloride 114.0 H Carbon Dioxide 19 L BUN 45 H Creatinine 2.5 H Glucose 110 H POC Glucose Lactic Acid Iron TIBC Ferritin Lactate Dehydrogenase Troponin T C-Reactive Protein Total Protein Albumin LDL Cholesterol Direct HDL Cholesterol Complement C3 Coronavirus (PCR) Crossmatch 07/03/22 07/03/22 07/04/22 21:15 23:35 07:56 WBC 11.2 H RBC 2.88 L Hgb 8.5 L Hct 25.8 L RDW 20.1 H Plt Count 52 L Lymph % (Auto) Lymph # (Auto) Baso # (Auto) 0.2 H Seg Neutrophils % Seg Neuts % (Manual) 96.0 H Lymphocytes % (Manual) 0 L Nucleated RBC % 2.0 H Seg Neutrophils # 10.0 H Seg Neutrophils # Man 10.8 H Lymphocytes # (Manual) 0.0 L PT 27.3 H INR 2.15 H APTT > 240.0 H* Fibrinogen D-Dimer Heparin Anti-Xa Level 1.86 H ABG pH ABG pO2 149.9 H ABG HCO3 14.9 L ABG O2 Saturation ABG Base Excess -8.9 L ABG Hemoglobin 7.6 L Sodium Potassium Chloride Carbon Dioxide BUN Creatinine Glucose POC Glucose Lactic Acid Iron TIBC Ferritin Lactate Dehydrogenase Troponin T C-Reactive Protein Total Protein Albumin LDL Cholesterol Direct HDL Cholesterol Complement C3 Coronavirus (PCR) Crossmatch 07/04/22 07/04/22 07/04/22 07:56 17:23 21:00 WBC RBC Hgb Hct RDW Plt Count Lymph % (Auto) Lymph # (Auto) Baso # (Auto) Seg Neutrophils % Seg Neuts % (Manual) Lymphocytes % (Manual) Nucleated RBC % Seg Neutrophils # Seg Neutrophils # Man Lymphocytes # (Manual) PT INR APTT Fibrinogen D-Dimer Heparin Anti-Xa Level ABG pH 7.451 H ABG pO2 375.8 H ABG HCO3 19.7 L ABG O2 Saturation 99.5 H ABG Base Excess -3.8 L ABG Hemoglobin 6.5 L Sodium 146 H Potassium Chloride 115.7 H Carbon Dioxide 16 L BUN 51 H Creatinine 2.9 H Glucose POC Glucose 108 H Lactic Acid Iron TIBC Ferritin Lactate Dehydrogenase Troponin T C-Reactive Protein Total Protein Albumin LDL Cholesterol Direct HDL Cholesterol Complement C3 Coronavirus (PCR) Crossmatch 07/05/22 07/05/22 07/05/22 04:14 04:14 04:14 WBC RBC 2.22 L Hgb 6.5 L Hct 19.7 L* D RDW 19.4 H Plt Count 41 L Lymph % (Auto) Lymph # (Auto) Baso # (Auto) Seg Neutrophils % Seg Neuts % (Manual) Lymphocytes % (Manual) Nucleated RBC % Seg Neutrophils # Seg Neutrophils # Man Lymphocytes # (Manual) PT 24.7 H INR 1.90 H APTT 37.7 H Fibrinogen 110 L* D-Dimer Heparin Anti-Xa Level ABG pH ABG pO2 ABG HCO3 ABG O2 Saturation ABG Base Excess ABG Hemoglobin Sodium Potassium 3.1 L Chloride 113.8 H Carbon Dioxide 19 L BUN 52 H Creatinine 3.1 H Glucose 135 H POC Glucose Lactic Acid Iron 40 L TIBC 31 L Ferritin Lactate Dehydrogenase Troponin T C-Reactive Protein 2.90 H Total Protein 3.7 L Albumin 1.5 L LDL Cholesterol Direct HDL Cholesterol Complement C3 Coronavirus (PCR) Crossmatch 07/05/22 07/05/22 07/05/22 04:14 05:16 08:00 WBC RBC Hgb Hct RDW Plt Count Lymph % (Auto) Lymph # (Auto) Baso # (Auto) Seg Neutrophils % Seg Neuts % (Manual) Lymphocytes % (Manual) Nucleated RBC % Seg Neutrophils # Seg Neutrophils # Man Lymphocytes # (Manual) PT INR APTT Fibrinogen D-Dimer Heparin Anti-Xa Level ABG pH ABG pO2 ABG HCO3 ABG O2 Saturation ABG Base Excess ABG Hemoglobin Sodium Potassium Chloride Carbon Dioxide BUN Creatinine Glucose POC Glucose 118 H Lactic Acid 2.20 H* Iron TIBC Ferritin Lactate Dehydrogenase Troponin T C-Reactive Protein Total Protein Albumin LDL Cholesterol Direct HDL Cholesterol Complement C3 Coronavirus (PCR) Crossmatch See Detail 07/05/22 07/05/22 07/05/22 14:15 17:14 Unknown WBC RBC Hgb Hct RDW Plt Count Lymph % (Auto) Lymph # (Auto) Baso # (Auto) Seg Neutrophils % Seg Neuts % (Manual) Lymphocytes % (Manual) Nucleated RBC % Seg Neutrophils # Seg Neutrophils # Man Lymphocytes # (Manual) PT INR APTT Fibrinogen D-Dimer Heparin Anti-Xa Level ABG pH ABG pO2 97.6 H ABG HCO3 ABG O2 Saturation ABG Base Excess -3.9 L ABG Hemoglobin 6.3 L Sodium Potassium Chloride Carbon Dioxide BUN Creatinine Glucose POC Glucose 172 H Lactic Acid 2.50 H* Iron TIBC Ferritin Lactate Dehydrogenase Troponin T C-Reactive Protein Total Protein Albumin LDL Cholesterol Direct HDL Cholesterol Complement C3 Coronavirus (PCR) Crossmatch 07/06/22 00:20 WBC RBC Hgb Hct RDW Plt Count Lymph % (Auto) Lymph # (Auto) Baso # (Auto) Seg Neutrophils % Seg Neuts % (Manual) Lymphocytes % (Manual) Nucleated RBC % Seg Neutrophils # Seg Neutrophils # Man Lymphocytes # (Manual) PT INR APTT Fibrinogen D-Dimer Heparin Anti-Xa Level ABG pH ABG pO2 ABG HCO3 ABG O2 Saturation ABG Base Excess ABG Hemoglobin Sodium Potassium Chloride Carbon Dioxide BUN Creatinine Glucose POC Glucose 188 H Lactic Acid Iron TIBC Ferritin Lactate Dehydrogenase Troponin T C-Reactive Protein Total Protein Albumin LDL Cholesterol Direct HDL Cholesterol Complement C3 Coronavirus (PCR) Crossmatch Chest x-ray: report reviewed, image reviewed Additional Studies: CHEST 1 VIEW 06/28/2022 1:52 PM INDICATION / CLINICAL INFORMATION: COVID + and SOB. COMPARISON: None available. FINDINGS: SUPPORT DEVICES: None. HEART / MEDIASTINUM: The heart size and pulmonary vasculature are normal. LUNGS / PLEURA: There is a focal irregular parenchymal opacity in the left retrocardiac region medially. The lungs are otherwise clear. No pleural effusion. No pneumothorax. ADDITIONAL FINDINGS: No significant additional findings. IMPRESSION: Irregular parenchymal opacity in the left retrocardiac region medially may be inflammatory or neoplastic. CT chest may be helpful in further evaluation. CT CHEST WITHOUT CONTRAST 06/28/22 INDICATION / CLINICAL INFORMATION: sob, possible lung mass. TECHNIQUE: Axial CT images were obtained through the chest without contrast. All CT scans at this location are performed using CT dose reduction for ALARA by means of automated exposure control. COMPARISON: One view of the chest performed earlier today. FINDINGS: HEART: No significant abnormality. CORONARY ARTERY CALCIFICATION: Present -- Moderate. THORACIC AORTA: Moderate atherosclerotic calcification without acute abnormality. MEDIASTINUM / SUJEY: No significant abnormality. PLEURA: Small left pleural effusion. No pneumothorax. LUNGS: There is left lower lobe atelectasis versus pneumonia. Probable mild dependent atelectasis is also noted on the right. No other significant abnormality. ADDITIONAL FINDINGS: There is generalized subcutaneous edema. UPPER ABDOMEN: Cholelithiasis is seen without evidence of acute cholecystitis. There is a small amount of perihepatic and perisplenic ascites. A right ureteral stent is in expected position as visualized. There are multiple nonobstructive bilateral renal stones. There is generalized peritoneal edema. SKELETAL SYSTEM: No acute findings. There is moderate spondylosis. IMPRESSION: 1. Suspected left lower lobe pneumonia given the patient's history of covid 19 and shortness of breath, which likely accounts for the abnormality seen on the prior chest radiograph. 2. Small left pleural effusion. 3. Additional findings as above. DUPLEX DOPPLER LOWER EXTREMITY VEINS, BILATERAL 07/04/22 INDICATION: DVTs. Swelling. Covid pneumonia TECHNIQUE: Duplex doppler imaging was performed through the veins of both lower extremities using venous compression and other maneuvers. COMPARISON: No relevant prior imaging study available. FINDINGS: Right Common femoral vein: Negative. Right Superficial femoral vein: Negative. Right Popliteal vein: Negative. Right Calf veins: Negative. Left Common femoral vein: Negative. Left Superficial femoral vein: Negative. Left Popliteal vein: Negative. Left Calf veins: Negative. Additional findings: None. IMPRESSION: No sonographic evidence for DVT in either lower extremity. Allied health notes reviewed: nursing
--- NOTE | 2022-07-06 10:33 | XRay Report ---
CHEST 1 VIEW INDICATION: SEPTIC SHOCK. COMPARISON: 07/04/2022 FINDINGS: SUPPORT DEVICES: NG tube projects below the [id number] into the upper abdomen region. Temperature probe in the midesophagus. HEART: Within normal limits. LUNGS/PLEURA: Probable small layering effusion on the left with mild streaky left basilar airspace di sease. Clear right lung. ADDITIONAL FINDINGS: None. IMPRESSION: 1. Lung findings as above. Signer Name: Kun Castro MD Signed: 07/06/2022 10:28 AM Workstation Name: [id number]
--- NOTE | 2022-07-06 10:46 | Progress Note ---
<GRETEL VERA - Last Filed: 07/06/22 19:20> Assessment and Plan Assessment and plan: This is a 72-year-old male who is a skilled nursing resident, with known past medical history of CVA, recent COVID 19 infection, chronic renal insufficiency, hypertension, cognitive communication deficit, dysphagia, DVT s/p IVC filter and was on Eliquis at home, and hyperlipidemia initially admitted to the floor for sepsis and acute hypoxic respiratory failure 2/2 pneumonia. Patient was transferred to the ICU overnight due to hypotension and hypoxia now on continuous Bipap. Hospital Course to Date: 06/29: Patient seen and examined, Imaging studies on admission showed left lobar pneumonia. BG is improved, will monitor blood sugars patient was initially with a sugar level of 14. At this point he remains with acute encephalopathy and as a result is not tolerating anything p.o. Will obtain swallow evaluation. Keep head of bed elevated. We will continue empiric antibiotic coverage and consult infectious disease for assistance with management. I have asked to have patient wean from Venturi mask and if this is unable to be done in the next 24 hours will obtain pulmonary consultation. In addition to the management listed below he does have metabolic acidosis for which I will give him a dose of bicarb while awaiting nephrology evaluation. He did have severe protein calorie malnutrition it appeared that he had a PEG tube at some point I have tried to call the family to get more information but no one is picking up. I do not have access to the facility where he came from. In the meantime a Dobbhoff may need to be inserted if there is no improvement in mental status for diet. Anemia concern is unknown if the patient who is on Eliquis and with elevated INR has not any bleed. I have asked the nurse to check stool for occult blood. We will monitor H&H closely and start the patient on PPI. Patient remains critically ill and requires to continue in the hospital for full evaluation. 06/30: Patient seen and examined this morning no worsening respiratory distress discussed with nurse and respiratory therapist to wean oxygen off. Does not have any fever. Still awaiting for a.m. labs. Was reported that he does have urinary retention mentioned yesterday on the notes. We will obtain a CT abdomen and pelvis have asked the nurse to place a Boyle catheter if unable to place and patient does not void will obtain urology consultation. He does not exhibit any pain during my examination. For now continue antibiotics continue steroids. There is no mention of hematuria or blood around the penis. 07/01: Patient seen and examined no worsening distress. Unable to place Boyle due to pain and hematuria. Urologist input noted CTAP showed mild bladder distention with right JJ stent that was placed elsewhere. Bilateral atrophic kidneys. Patient remains on Eliquis and could be the consideration of the hematuria. Urology recommends to start Flomax on hold Boyle at this time. Still waiting for repeat labs from yesterday and today. ID input is also noted patient was restarted on steroid therapy. Again does not appear to be in any significant distress. Speech therapist recommended pured diet with nectar thick fluids. Patient will need assistance with home enteral feeding at this time. I have tried to call the family multiple times unable to reach family Case management is also assisting. Would like to discuss goals of care with the family. Anticipate discharge in 24 to 48 hours once all goals of care is established Dr. Fam SPOKE to daughter who told himn that the patient was very conversational although has not been able to walk for years but regressed in the last month due Covid. Daughter stated that the patient was feeding himself and was ordering stuff on [employer]. She acknowledges that while he may be stubborn and sometimes does not want to interact that he is also been depressed since losing his in January. She informed us that he had a gastric bypass a few years ago and had lost significant amount of weight since then. She states that if he continues refusing diet that we should go ahead and proceed placing a feeding tube in place. We will consult surgery to evaluate in the meantime we will hold the Eliquis. 07/02: I attempted to reach the daughter and spouse but unsuccessful. We need to obtain information/old records regarding gastric bypass regarding anatomy for possible PEG placement. Eliquis stopped in anticipation for possible PEG placement. CTAP showed mild bladder distention with right JJ stent that was placed elsewhere. Bilateral atrophic kidneys. Urology recommended Flomax and hold on Boyle for now. We will continue dexamethasone for total of 10 days. Patient not a candidate for remdesivir due to CKD. Complete 5 days of cefepime, azithromycin for superimposed bacterial pneumonia with elevated procalcitonin. Continue to trend CRP. ID following 07/03: We will continue to attempt to contact the family regarding records of gastric bypass surgery for PEG placement. Eliquis stopped in anticipation for possible PEG placement. Continue dexamethasone. Patient with saturations at 95% on 2 L nasal cannula. Complete 5 days of cefepime, azithromycin for superimposed bacterial pneumonia with elevated procalcitonin per ID recommenda tions. Continue to trend CRP. ID following 07/04: Code met overnight due to hypotension and hypoxia. BP improved after 1amp of bcarb, Levophed was never initiated. Patient remains on bcarb gtt per Nephro. Patient mentation is unchanged- lethargic and only arousable to tactile stimuli. On continuous bipap, unable to fruit or nut picker O2 stat probably due to hypothermia. Warming blanket applied. This am ABG and CXR reviewed, patient remains on PO steroids per ID wean O2 supplementation as tolerated. Heparin gtt held this am due to worsen thrombocytopenia and coagulopathy. Possible hematology consult per [facility]. Possible CT head/brain once more stable. General surgery also on consult for possible PEG-tube placement, procedure on hold awaiting on medical records from Joaquin Scherer' office, from [place] and [facility]. D/W [facility], will insert NGT for now for meds and enteral nutrition. 07/05: Unresponsive this am. CT head/brain unremarkable, ammonia level normal. Will check EEG to r/o seizures. Neurology consulted. weaned off bipap this am, patientn is stable on 40% ventimask this am, SPO2 at 100%. Drop in H&H with worsen coagulopathy and low fibrinogen this am. No s/s of any active bleeding, VSS. Concern for DIC, Blood products ordered and HEME is following. Patient is also with worsen renal function with anuria, remains on Bcarb gtt. No indication for STRETCHER AND DRIER at this time per Nephro. 07/06: Mentation unchanged. EEG and Neurology consult pending, daily providil initiated. Patient back to home O2 requirements at 3L NC, SPO2 at 100%, this am ABG is unremarkable. Hgb remains 6.5 despite 1unit of PRBCs yesterday. No s/s of any active bleeding, VSS. 1unit of PRBCs per hematology. Renal function is unchanged, still with no UOP with electrolytes imbalance. Electrolytes repleted, continue IVF hydration per Nephrology. Elevated D-Dimer, BLE doppler is negative for DVT. BUE swelling noted, will also get BUE doppler to r/o DVT. Assessment and Plan #Hypotension-resolved #Metabolic Acidosis-improved - Initially presented for sepsis 2/2 PNA, COVID +. completed IV Abx course - Patient was with low Co2 level on Bcarb gtt - 07/04 Code met overnight due to hypotension and hypoxia, transferred to ICU - BP improved after 1amp of bcarb, Levophed was never initiated - Off Bcarb gtt, VSS - Continue blood pressure monitor per protocol - Maintain MAP above 65 #Acute Hypoxic Respiratory Failure #Left Lower Lobe Pneumonia #COVID-19 Infection - Presented with hypoxia and SOB - COVID PCR positive - Completed X5 days course of Cefepine and Azithro and on PO Steroids X10 days - ID is following. Patient not candidate for remdesevir due to acute on CKD - Code met on the floor due to Hypoxia and hypotension requiring continuous Bipap - CXR noted with persistent LLL PNA, no acute findings - Down to home O2 requirement at 3L NC. This am ABG is unremarkable - Continue O2 supplementation - Aspiration precaution HOB above 30 - Continue SPO2 monitoring for SPO2 goal above 92% - CCM consulted, appreciate recommendations #Sepsis #Left Lower Lobe Pneumonia #COVID-19 Infection #Metabolic Acidosis - Presented with hypoxia and SOB - COVID PCR positive - Imaging revealed LLE PNA - ID is following, appreciate recommendations - Completed X5 days course of Cefepine and Azithro and on PO Steroids X10 days - Patient not candidate for remdesevir due to acute on CKD - Blood cultures negative - S/p bcarb gtt - Continue to trend CBC - Panculture if febrile and leukocytosis worsen #Toxic Metabolic Encephalopathy #H/o CVA & Cognitive Communication Deficit - Remains lethargic and only arousable to tactile stimuli - CT head/brain unremarkable - Ammonia level wnr - EEG ordered to r/o seizures - Neurology consulted pending - Daily providil initiated - Avoid benzodiazepine to reduce the possibility of delirium - PRN Analgesia for pain control - Maintenance of sleep-wake cycle #Acute on Chronic Renal Failure #Urinary Retention - Nephrology on consult, appreciated recommendation - Coude catheter inserted by Urology. - worsen renal function with anuria today - S/p bcarb gtt per Nephro - Per nephro, no indication for STRETCHER AND DRIER at this time - Continue IVF hydration per Nephro - Strict intake and output - Avoid nephrotoxic medications; Renally dose medications - Monitor and replace electrolytes as needed #Thrombocytopenia #Coagulopathy/Elevated INR #Normocytic Anemia #Elevated D-Dimer #H/o DVT s/p IVC Filter was on Eliquis at home - Drop in H&H with worsen coagulopathy and low fibrinogen this am. - No s/s of any active bleeding - HIT panel pending - S/p 1unit of PRBCs and 1unit of FFP ordered - H&H is still low this am, coags improved. 1unit of PRBCs ordered - Heparin gtt held due to worsen thrombocytopenia - Continue to trend CBC and coags - Hematology consulted - Transfuse for hgb less than 7 - elevated D-Dimer today, PE less likely due no hypoxia from this am, stable on 3L NC - BLE doppler negative DVT - BUE swelling noted, will check BUE doppler as well to r/o DVT - SCDs to bilateral lower extremities while in bed #Dysphagia - Per family patient had a PEG-tube 3months ago, however not present on admit - Per record, patient was admitted on march 2022 because his G-tube fell out. P atient was AAO and was eating at the time, decision was made not to replace G- tube - General Surgery consulted this am for PEG-tube placement - Procedure on hold for now, awaiting on medical records from Dr. Vazquez,from [place] and [facility] due to patient's history of gastric bypass - NGT inserted and enteral nutrition initiated - Nutrition consulted #Hypoglycemia - Presented with a BG level of 14 - Currently on continuous IVF - Continue BG check Q6hrs - Avoid Hypoglycemia - Continue hypoglycemic protocol #GI/DVT Prophylaxis - PPI- Lansoprazole - SCDs to bilateral lower extremities while in bed The high probability of a clinically significant, sudden or life threatening deterioration of the [multiple] system(s) required my full and direct attention, intervention and personal management. The aggregate critical care time was [60] minutes. This time is in addition to time spent performing reported procedures but includes the following: [x] Data Review and interpretation [x] Patient assessment and monitoring of vital signs [x] Documentation [x] Medication orders and management Disposition Plan: ICU Total Time Spent with Patient (Minutes): 60 History Interval history: Patient seen and examined at the bedside. Mentation is unchanged, stable on 3L NC. Tolerating TF and on continuous IVF per Nephro. No improvement in H&H this am, coags better. 1units of PRBCs ordered. No s/s of any active bleeding, VSS. YAEL overnight Hospitalist Physical - Physical exam Narrative exam: General appearance: Present: no acute distress, cachectic, other(Unresponsive) - EENT Eyes: Present: PERRL ENT: other - Neck Neck: Present: normal ROM - Respiratory Respiratory effort: normal Respiratory: bilateral: diminished - Cardiovascular Rhythm: regular Heart Sounds: Present: S1 & S2 - Extremities Extremities: no ischemia, pulses intact, pulses symmetrical Extremity abnormal: edema - Peripheral Assessment Bilateral Upper Extremity Edema Type: Pitting Edema Degree: 4+ Capillary Refill: < 3 seconds Skin Temperature: Warm Bilateral Lower Extremity Edema Type: Pitting Edema Degree: 2+ Capillary Refill: < 3 seconds Skin Temperature: Warm Peripheral Pulses: within normal limits - Abdominal General gastrointestinal: soft, non-distended, normal bowel sounds - Integumentary Integumentary: Present: warm, dry - Psychiatric Psychiatric: other (Obtunded, unresponsive) - Neurologic Neurologic: other (Obtunded, unresponsive) - Allied Health Allied health notes reviewed: nursing, case management - Constitutional Vitals: Temp Pulse Resp BP Pulse Ox 97.7 F 77 10 L 151/67 100 07/06/22 08:00 07/06/22 09:00 07/06/22 10:00 07/06/22 10:00 07/06/22 10:00 HEART Score - HEART Score Risk factors: 1-2 risk factors Troponin: Troponin T 0.135 ng/mL (0.00-0.029) H* 06/28/22 14:57 Troponin: < normal limit - Critical Actions Critical Actions: 0-3 pts:0.9-1.7%risk of adverse cardiac event.Candidate for discharge Results - Labs CBC & Chem 7: 07/06/22 10:22 07/06/22 10:22 Labs: Laboratory Last Values WBC 7.7 K/mm3 (4.5-11.0) 07/05/22 04:14 RBC 2.22 M/mm3 (3.65-5.03) L 07/05/22 04:14 Hgb 6.5 gm/dl (11.8-15.2) L 07/05/22 04:14 Hct 19.7 % (35.5-45.6) L* D 07/05/22 04:14 MCV 89 fl (84-94) 07/05/22 04:14 MCH 29 pg (28-32) 07/05/22 04:14 MCHC 33 % (32-34) 07/05/22 04:14 RDW 19.4 % (13.2-15.2) H 07/05/22 04:14 Plt Count 41 K/mm3 (140-440) L 07/05/22 04:14 Lymph % (Auto) 7.2 % (13.4-35.0) L 06/29/22 03:57 Garza % (Auto) 3.5 % (0.0-7.3) 07/04/22 07:56 Eos % (Auto) 0.0 % (0.0-4.3) 07/04/22 07:56 Baso % (Auto) 0.1 % (0.0-1.8) 06/29/22 03:57 Lymph # (Auto) 0.5 K/mm3 (1.2-5.4) L 06/29/22 03:57 Garza # (Auto) 0.4 K/mm3 (0.0-0.8) 07/04/22 07:56 Eos # (Auto) 0.0 K/mm3 (0.0-0.4) 07/04/22 07:56 Baso # (Auto) 0.2 K/mm3 (0.0-0.1) H 07/04/22 07:56 Add Manual Diff Complete 07/04/22 07:56 Total Counted 100 07/04/22 07:56 Seg Neutrophils % [employer] Clerk 07/04/22 07:56 Seg Neuts % (Manual) 96.0 % (40.0-70.0) H 07/04/22 07:56 Band Neutrophils % 2.0 % 07/04/22 07:56 Lymphocytes % (Manual) 0 % (13.4-35.0) L 07/04/22 07:56 Reactive Lymphs % (Man) 0 % 07/04/22 07:56 Monocytes % (Manual) 2.0 % (0.0-7.3) 07/04/22 07:56 Eosinophils % (Manual) 0 % (0.0-4.3) 07/04/22 07:56 Basophils % (Manual) 0 % (0.0-1.8) 07/04/22 07:56 Metamyelocytes % 0 % 07/04/22 07:56 Myelocytes % 0 % 07/04/22 07:56 Promyelocytes % 0 % 07/04/22 07:56 Blast Cells % 0 % 07/04/22 07:56 Nucleated RBC % 2.0 % (0.0-0.9) H 07/04/22 07:56 Seg Neutrophils # 10.0 K/mm3 (1.8-7.7) H 07/04/22 07:56 Seg Neutrophils # Man 10.8 K/mm3 (1.8-7.7) H 07/04/22 07:56 Band Neutrophils # 0.2 K/mm3 07/04/22 07:56 Lymphocytes # (Manual) 0.0 K/mm3 (1.2-5.4) L 07/04/22 07:56 Abs React Lymphs (Man) 0.0 K/mm3 07/04/22 07:56 Monocytes # (Manual) 0.2 K/mm3 (0.0-0.8) 07/04/22 07:56 Eosinophils # (Manual) 0.0 K/mm3 (0.0-0.4) 07/04/22 07:56 Basophils # (Manual) 0.0 K/mm3 (0.0-0.1) 07/04/22 07:56 Metamyelocytes # 0.0 K/mm3 07/04/22 07:56 Myelocytes # 0.0 K/mm3 07/04/22 07:56 Promyelocytes # 0.0 K/mm3 07/04/22 07:56 Blast Cells # 0.0 K/mm3 07/04/22 07:56 WBC Morphology Not Reportable 07/04/22 07:56 Hypersegmented Neuts Not Reportable 07/04/22 07:56 Hyposegmented Neuts Not Reportable 07/04/22 07:56 Hypogranular Neuts Not Reportable 07/04/22 07:56 Smudge Cells Not Reportable 07/04/22 07:56 Toxic Granulation Not Reportable 07/04/22 07:56 Toxic Vacuolation Not Reportable 07/04/22 07:56 Dohle Bodies Not Reportable 07/04/22 07:56 Pelger-Huet Anomaly Not Reportable 07/04/22 07:56 Sonja Rods Not Reportable 07/04/22 07:56 Platelet Estimate Consistent w auto 07/04/22 07:56 Clumped Platelets Not Reportable 07/04/22 07:56 Plt Clumps, EDTA Not Reportable 07/04/22 07:56 Large Platelets Not Reportable 07/04/22 07:56 Giant Platelets Not Reportable 07/04/22 07:56 Platelet Satelliting Not Reportable 07/04/22 07:56 Plt Morphology Comment Not Reportable 07/04/22 07:56 RBC Morphology Not Reportable 07/04/22 07:56 Dimorphic RBCs Not Reportable 07/04/22 07:56 Polychromasia Not Reportable 07/04/22 07:56 Hypochromasia 2+ 07/04/22 07:56 Poikilocytosis 1+ 07/04/22 07:56 Anisocytosis 1+ 07/04/22 07:56 Microcytosis 1+ 07/04/22 07:56 Macrocytosis Not Reportable 07/04/22 07:56 Spherocytes 1+ 07/04/22 07:56 Pappenheimer Bodies Not Reportable 07/04/22 07:56 Sickle Cells Not Reportable 07/04/22 07:56 Target Cells 1+ 07/04/22 07:56 Tear Drop Cells Not Reportable 07/04/22 07:56 Ovalocytes Not Reportable 07/04/22 07:56 Helmet Cells Not Reportable 07/04/22 07:56 Herrera[place] Bodies Not Reportable 07/04/22 07:56 Perry Rings Not Reportable 07/04/22 07:56 Patito Cells Not Reportable 07/04/22 07:56 Bite Cells Not Reportable 07/04/22 07:56 Crenated Cell Not Reportable 07/04/22 07:56 Elliptocytes Not Reportable 07/04/22 07:56 Acanthocytes (Spur) Not Reportable 07/04/22 07:56 Rouleaux Not Reportable 07/04/22 07:56 Hemoglobin C Crystals Not Reportable 07/04/22 07:56 Schistocytes Not Reportable 07/04/22 07:56 Malaria parasites Not Reportable 07/04/22 07:56 Percent Retic 0.79 % (0.78-2.58) 07/05/22 04:14 Isaac Bodies Not Reportable 07/04/22 07:56 Hem Pathologist Commnt No 07/04/22 07:56 PT 24.7 Sec. (12.2-14.9) H 07/05/22 04:14 INR 1.90 (0.87-1.13) H 07/05/22 04:14 APTT 37.7 Sec. (24.2-36.6) H 07/05/22 04:14 Fibrinogen 110 mg/dl (211-480) L* 07/05/22 04:14 D-Dimer 273.84 ng/mlDDU (0-234) H 06/28/22 16:11 Heparin Anti-Xa Level 1.86 U.I./ml (0.3-0.7) H 07/03/22 21:15 ABG pH 7.421 pH Units (7.350-7.450) 07/05/22 14:15 ABG pCO2 31.8 mm Hg 07/05/22 14:15 ABG pO2 97.6 mm Hg (80.0-90.0) H 07/05/22 14:15 ABG HCO3 20.2 mmol/L (20.0-26.0) 07/05/22 14:15 ABG O2 Saturation 97.4 % (95.0-99.0) 07/05/22 14:15 ABG O2 Content 8.7 (0.0-44) 07/05/22 14:15 ABG Base Excess -3.9 mmol/L (-2.0-3.0) L 07/05/22 14:15 ABG Hemoglobin 6.3 gm/dl (14.0-18.0) L 07/05/22 14:15 ABG Carboxyhemoglobin 0.6 % (0.0-5.0) 07/05/22 14:15 ABG Methemoglobin 0.2 % (0.0-1.5) 07/05/22 14:15 Oxyhemoglobin 96.6 % (95.0-99.0) 07/05/22 14:15 FiO2 40 % 07/05/22 14:15 Sodium 142 mmol/L (137-145) 07/05/22 04:14 Potassium 3.1 mmol/L (3.6-5.0) L 07/05/22 04:14 Chloride 113.8 mmol/L (98-107) H 07/05/22 04:14 Carbon Dioxide 19 mmol/L (22-30) L 07/05/22 04:14 Anion Gap 12 mmol/L 07/05/22 04:14 BUN 52 mg/dL (9-20) H 07/05/22 04:14 Creatinine 3.1 mg/dL (0.8-1.3) H 07/05/22 04:14 Estimated GFR 24 ml/min 07/05/22 04:14 BUN/Creatinine Ratio 17 % 07/05/22 04:14 Glucose 135 mg/dL (75-100) H 07/05/22 04:14 POC Glucose 188 mg/dL (70-105) H 07/06/22 00:20 Lactic Acid 2.50 mmol/L (0.7-2.0) H* 07/05/22 Unknown Calcium 8.4 mg/dL (8.4-10.2) 07/05/22 04:14 Iron 40 ug/dL (49-181) L 07/05/22 04:14 TIBC 31 mcg/dL (250-450) L 07/05/22 04:14 Ferritin 2520.0 ng/mL (30.0-300.0) H 06/28/22 16:11 Total Bilirubin 0.40 mg/dL (0.1-1.2) 07/05/22 04:14 AST 28 units/L (5-40) 07/05/22 04:14 ALT 17 units/L (7-56) 07/05/22 04:14 Alkaline Phosphatase 84 units/L (35-129) 07/05/22 04:14 Ammonia 29.0 umol/L (25-60) 07/05/22 04:14 Lactate Dehydrogenase 199 units/L (91-180) H 06/28/22 16:11 Troponin T 0.135 ng/mL (0.00-0.029) H* 06/28/22 14:57 C-Reactive Protein 2.90 mg/dL (0.00-1.30) H 07/05/22 04:14 Total Protein 3.7 g/dL (6.3-8.2) L 07/05/22 04:14 Albumin 1.5 g/dL (3.9-5) L 07/05/22 04:14 Albumin/Globulin Ratio 0.7 % 07/05/22 04:14 Triglycerides 95 mg/dL (2-149) 06/28/22 14:57 Cholesterol 74 mg/dL (50-199) 06/28/22 14:57 LDL Cholesterol Direct 21 mg/dL (50-130) L 06/28/22 14:57 HDL Cholesterol 22 mg/dL (40-59) L 06/28/22 14:57 Cholesterol/HDL Ratio 3.36 % 06/28/22 14:57 Procalcitonin 0.63 ng/mL (<0.15) 07/05/22 04:14 Complement C3 47 mg/dL (82-185) L 07/01/22 19:20 Complement C4 40 mg/dL (15-53) 07/01/22 19:20 Coronavirus (PCR) Positive (Negative) A 06/29/22 Unknown Hepatitis A IgM Ab Non-reactive (NonReactive) 07/01/22 19:20 Hep Bs Antigen Non-reactive (Negative) 07/01/22 19:20 Hep B Core IgM Ab Non-reactive (NonReactive) 07/01/22 19:20 Hepatitis C Antibody Non-reactive (NonReactive) 07/01/22 19:20 Blood Type O POSITIVE 07/05/22 08:00 Antibody Screen Negative 07/05/22 08:00 Crossmatch See Detail 07/05/22 08:00 Boyle/IV: Voiding Method Indwelling Catheter Active Medications - Current Medications Current Medications: Generic Name Dose Route Start Last Admin Trade Name Freq PRN Reason Stop Dose Admin Acetaminophen 650 mg 06/28/22 18:42 Acetaminophen 325 Mg Tab PO Q4H PRN Pain MILD(1-3)/Fever >100.5/GILES Ascorbic Acid 500 mg 07/05/22 22:00 07/05/22 21:31 Ascorbic Acid 500 Mg Tab PO 500 mg BID PARRISH Administration Dexamethasone 8 mg 07/03/22 10:00 07/05/22 10:51 Dexamethasone 4 Mg Tab PO 07/08/22 10:59 8 mg DAILY PARRISH Administration Dextrose 50 ml 07/04/22 15:07 Dextrose 50% In Water (25gm) 50 Ml Syringe IV Q30MIN PRN Hypoglycemia Protocol NORepinephrine/NS 8 MG-250 ML 8 mg in 250 mls @ 3.75 mls/hr 07/03/22 23:45 Norepinephrine/Ns 8 Mg-250 Ml (Double Conc) IV TITRATE PARRISH Protocol 2 MCG/MIN Ferric Sodium Gluconate 110 mls @ 100 mls/hr 07/05/22 10:00 07/05/22 15:00 Complex 125 mg/ Sodium IV 07/11/22 09:59 Infused Chloride DAILY PARRISH Infusion Sodium Chloride 1,000 mls @ 100 mls/hr 07/05/22 13:00 07/06/22 00:22 Nacl 0.45% 1000 Ml IV 100 mls/hr DIRECT PARRISH Administration Lansoprazole 30 mg 07/05/22 10:00 07/05/22 10:51 Lansoprazole 30 Mg Solutab FEEDTUBE 30 mg QDAY PARRISH Administration Ondansetron HCl 4 mg 06/28/22 18:42 Ondansetron 4 Mg/2 Ml Inj IV Q8H PRN Nausea And Vomiting Sodium Bicarbonate 1,300 mg 07/05/22 22:00 07/05/22 21:31 Sodium Bicarbonate 650 Mg Tab PO 1,300 mg BID PARRISH Administration Sodium Chloride 10 ml 06/28/22 22:00 07/05/22 21:32 Sodium Chloride 0.9% 10 Ml Flush Syringe IV 10 ml BID PARRISH Administration Sodium Chloride 10 ml 06/28/22 18:42 Sodium Chloride 0.9% 10 Ml Flush Syringe IV PRN PRN LINE FLUSH Tamsulosin HCl 0.4 mg 07/01/22 11:00 07/05/22 11:06 Tamsulosin 0.4 Mg Cap PO Not Given QDAY PARRISH Zinc Sulfate 220 mg 07/05/22 22:00 07/05/22 21:31 Zinc Sulfate 220 Mg Cap PO 220 mg BID PARRISH Administration Nutrition/Malnutrition Assess - Dietary Evaluation Nutrition/Malnutrition Findings: Nutrition Notes Start: 06/30/22 11:11 Freq: Status: Active Protocol: Document 07/05/22 13:54 DEIDRE (Rec: 07/05/22 14:14 DEIDRE [email or web address]) Nutrition Notes Initial or Follow up Reassessment Current Diagnosis Sepsis,Hypertension, Respiratory Failure,Stroke, Hyperlipidemia Other Pertinent Diagnosis COVID-19 (+), LLL pneu, Dysphagia Current Diet TF - Nepro at 40ml/hr Labs/Tests K 3.1 BUN 52 Cr 3.1 Iron 40 TIBC 31 Pertinent Medications Decadron, Ferric sodium gluconate gtt Height 5 ft 11 in Weight 43.5 kg Gregory Body Weight (kg) 78.18 BMI 13.4 Weight Status Underweight Subjective/Other Information Per RN, TF infusing at 30ml/hr ; rate to be increased to goal rate today at 17:00. Pt tolerating TF. Pt on continuous BiPap support. General surgery consulted for possible PEG placement. Percent of energy/protein needs met: 89% energy 100% pro Burn Absent Trauma Absent #2 Nutrition Diagnosis Underweight Diagnosis Progress(for reassessment Continues documentation) Is patient on ventilator? No Is Patient Ambulatory and/or Out of Bed No REE-([place]-confined to bed) 1460.844 Kcal/Kg value to use for calculation 45 Approximate Energy Requirements Using 1958 kcal/Kg Calculation [facility]ations [facility] Additional Notes Pro needs 0.8-1.2g/k-52g/ day Fluid needs per MD. Nutrition Intervention Nutrition Support: Decrease TF goal rate to 35ml/ hr to provide less protein. Current rate provides 1.79g/kg and pt's needs are only 0.8-1 .2g/kg at this time. Provide 150ml water flush q4h. Kcal 1,512 Protein (gm) 68 Carbohydrates (gm) 135 Fat (gm) 81 Fluid (mL) 611 Fiber (gm) 11 Goal #1 TF tolerance Goal #2 TF to meet 100% energy and pro needs Goal #3 Wt maintenance and/or gain Anticipated Discharge Needs: Continue EN support Follow-Up By: 07/08/22 Additional Comments F/U: TF tolerance, renal function, resp status <ANIL FAM - Last Filed: 07/07/22 07:12> Assessment and Plan Assessment and plan: I saw and evaluated the patient. I agree with the findings and the plan of care as documented in the Nurse Practitioner's~note, with the following corrections and additions. Hospitalist Physical - Constitutional Vitals: Temp Pulse Resp BP Pulse Ox 96.8 F L 117 H 31 H 106/19 47 L 07/07/22 04:00 07/07/22 06:50 07/07/22 06:50 07/07/22 06:50 07/07/22 06:50 HEART Score - HEART Score Troponin: Troponin T 0.135 ng/mL (0.00-0.029) H* 06/28/22 14:57 Results - Labs CBC & Chem 7: 07/06/22 10:22 07/06/22 10:22 Labs: Laboratory Last Values WBC 8.4 K/mm3 (4.5-11.0) 07/06/22 10:22 RBC 2.15 M/mm3 (3.65-5.03) L 07/06/22 10:22 Hgb 6.5 gm/dl (11.8-15.2) L 07/06/22 10:22 Hct 19.8 % (35.5-45.6) L* 07/06/22 10:22 MCV 89 fl (84-94) 07/06/22 10:22 MCH 30 pg (28-32) 07/06/22 10:22 MCHC 34 % (32-34) 07/06/22 10:22 RDW 19.2 % (13.2-15.2) H 07/06/22 10:22 Plt Count 35 K/mm3 (140-440) L 07/06/22 10:22 Lymph % (Auto) 7.2 % (13.4-35.0) L 06/29/22 03:57 Garza % (Auto) 3.5 % (0.0-7.3) 07/04/22 07:56 Eos % (Auto) 0.0 % (0.0-4.3) 07/04/22 07:56 Baso % (Auto) 0.1 % (0.0-1.8) 06/29/22 03:57 Lymph # (Auto) 0.5 K/mm3 (1.2-5.4) L 06/29/22 03:57 Garza # (Auto) 0.4 K/mm3 (0.0-0.8) 07/04/22 07:56 Eos # (Auto) 0.0 K/mm3 (0.0-0.4) 07/04/22 07:56 Baso # (Auto) 0.2 K/mm3 (0.0-0.1) H 07/04/22 07:56 Add Manual Diff Complete 07/04/22 07:56 Total Counted 100 07/04/22 07:56 Seg Neutrophils % [employer] 07/04/22 07:56 Seg Neuts % (Manual) 96.0 % (40.0-70.0) H 07/04/22 07:56 Band Neutrophils % 2.0 % 07/04/22 07:56 Lymphocytes % (Manual) 0 % (13.4-35.0) L 07/04/22 07:56 Reactive Lymphs % (Man) 0 % 07/04/22 07:56 Monocytes % (Manual) 2.0 % (0.0-7.3) 07/04/22 07:56 Eosinophils % (Manual) 0 % (0.0-4.3) 07/04/22 07:56 Basophils % (Manual) 0 % (0.0-1.8) 07/04/22 07:56 Metamyelocytes % 0 % 07/04/22 07:56 Myelocytes % 0 % 07/04/22 07:56 Promyelocytes % 0 % 07/04/22 07:56 Blast Cells % 0 % 07/04/22 07:56 Nucleated RBC % 2.0 % (0.0-0.9) H 07/04/22 07:56 Seg Neutrophils # 10.0 K/mm3 (1.8-7.7) H 07/04/22 07:56 Seg Neutrophils # Man 10.8 K/mm3 (1.8-7.7) H 07/04/22 07:56 Band Neutrophils # 0.2 K/mm3 07/04/22 07:56 Lymphocytes # (Manual) 0.0 K/mm3 (1.2-5.4) L 07/04/22 07:56 Abs React Lymphs (Man) 0.0 K/mm3 07/04/22 07:56 Monocytes # (Manual) 0.2 K/mm3 (0.0-0.8) 07/04/22 07:56 Eosinophils # (Manual) 0.0 K/mm3 (0.0-0.4) 07/04/22 07:56 Basophils # (Manual) 0.0 K/mm3 (0.0-0.1) 07/04/22 07:56 Metamyelocytes # 0.0 K/mm3 07/04/22 07:56 Myelocytes # 0.0 K/mm3 07/04/22 07:56 Promyelocytes # 0.0 K/mm3 07/04/22 07:56 Blast Cells # 0.0 K/mm3 07/04/22 07:56 WBC Morphology Not Reportable 07/04/22 07:56 Hypersegmented Neuts Not Reportable 07/04/22 07:56 Hyposegmented Neuts Not Reportable 07/04/22 07:56 Hypogranular Neuts Not Reportable 07/04/22 07:56 Smudge Cells Not Reportable 07/04/22 07:56 Toxic Granulation Not Reportable 07/04/22 07:56 Toxic Vacuolation Not Reportable 07/04/22 07:56 Dohle Bodies Not Reportable 07/04/22 07:56 Pelger-Huet Anomaly Not Reportable 07/04/22 07:56 Sonja Rods Not Reportable 07/04/22 07:56 Platelet Estimate Consistent w auto 07/04/22 07:56 Clumped Platelets Not Reportable 07/04/22 07:56 Plt Clumps, EDTA Not Reportable 07/04/22 07:56 Large Platelets Not Reportable 07/04/22 07:56 Giant Platelets Not Reportable 07/04/22 07:56 Platelet Satelliting Not Reportable 07/04/22 07:56 Plt Morphology Comment Not Reportable 07/04/22 07:56 RBC Morphology Not Reportable 07/04/22 07:56 Dimorphic RBCs Not Reportable 07/04/22 07:56 Polychromasia Not Reportable 07/04/22 07:56 Hypochromasia 2+ 07/04/22 07:56 Poikilocytosis 1+ 07/04/22 07:56 Anisocytosis 1+ 07/04/22 07:56 Microcytosis 1+ 07/04/22 07:56 Macrocytosis Not Reportable 07/04/22 07:56 Spherocytes 1+ 07/04/22 07:56 Pappenheimer Bodies Not Reportable 07/04/22 07:56 Sickle Cells Not Reportable 07/04/22 07:56 Target Cells 1+ 07/04/22 07:56 Tear Drop Cells Not Reportable 07/04/22 07:56 Ovalocytes Not Reportable 07/04/22 07:56 Helmet Cells Not Reportable 07/04/22 07:56 Herrera-[place] Bodies Not Reportable 07/04/22 07:56 Perry Rings Not Reportable 07/04/22 07:56 Reynolds Cells Not Reportable 07/04/22 07:56 Bite Cells Not Reportable 07/04/22 07:56 Crenated Cell Not Reportable 07/04/22 07:56 Elliptocytes Not Reportable 07/04/22 07:56 Acanthocytes (Spur) Not Reportable 07/04/22 07:56 Rouleaux Not Reportable 07/04/22 07:56 Hemoglobin C Crystals Not Reportable 07/04/22 07:56 Schistocytes Not Reportable 07/04/22 07:56 Malaria parasites Not Reportable 07/04/22 07:56 Percent Retic 0.79 % (0.78-2.58) 07/05/22 04:14 Isaac Bodies Not Reportable 07/04/22 07:56 Hem Pathologist Commnt No 07/04/22 07:56 PT 19.4 Sec. (12.2-14.9) H 07/06/22 10:22 INR 1.41 (0.87-1.13) H 07/06/22 10:22 APTT 42.1 Sec. (24.2-36.6) H 07/06/22 10:22 Fibrinogen 151 mg/dl (211-480) L 07/06/22 10:22 D-Dimer 895.26 ng/mlDDU (0-234) H 07/06/22 Unknown Heparin Anti-Xa Level 1.86 U.I./ml (0.3-0.7) H 07/03/22 21:15 ABG pH 7.414 (7.320-7.450) 07/07/22 04:39 POC ABG pCO2 24.2 mmHg (32.0-48.0) L 07/07/22 04:39 ABG pCO2 29.9 mm Hg 07/06/22 10:29 POC ABG pO2 184.7 mmHg (83-108) H 07/07/22 04:39 ABG pO2 157.4 mm Hg (80.0-90.0) H 07/06/22 10:29 POC ABG HCO3 15.1 07/07/22 04:39 ABG HCO3 18.0 mmol/L (20.0-26.0) L 07/06/22 10:29 ABG O2 Saturation 98.9 (0-100) 07/07/22 04:39 ABG O2 Content 98.9 07/07/22 04:39 POC ABG Base Excess -8.5 07/07/22 04:39 ABG Base Excess -6.2 mmol/L (-2.0-3.0) L 07/06/22 10:29 ABG Hemoglobin 7.3 (12.0-17.5) L 07/07/22 04:39 ABG Oxyhemoglobin 98.0 (94-98) 07/07/22 04:39 ABG Carboxyhemoglobin 0.6 % (0.0-5.0) 07/06/22 10:29 ABG Methemoglobin 0.2 (0.0-1.5) 07/07/22 04:39 Oxyhemoglobin 97.9 % (95.0-99.0) 07/06/22 10:29 Carboxyhemoglobin 0.7 (0.5-1.5) 07/07/22 04:39 FiO2 32 % 07/06/22 10:29 FiO2 % 80.0 07/07/22 04:39 Sodium 136 mmol/L (137-145) L 07/06/22 10:22 Sodium 138 mmol/L (137-145) 07/06/22 10:22 Potassium 3.0 mmol/L (3.6-5.0) L 07/06/22 10:22 Potassium 3.0 mmol/L (3.6-5.0) L 07/06/22 10:22 Chloride 107.7 mmol/L (98-107) H 07/06/22 10:22 Chloride 109.5 mmol/L (98-107) H 07/06/22 10:22 Carbon Dioxide 18 mmol/L (22-30) L 07/06/22 10:22 Carbon Dioxide 18 mmol/L (22-30) L 07/06/22 10:22 Anion Gap 13 mmol/L 07/06/22 10:22 Anion Gap 14 mmol/L 07/06/22 10:22 BUN 54 mg/dL (9-20) H 07/06/22 10:22 BUN 54 mg/dL (9-20) H 07/06/22 10:22 Creatinine 3.2 mg/dL (0.8-1.3) H 07/06/22 10:22 Creatinine 3.3 mg/dL (0.8-1.3) H 07/06/22 10:22 Estimated GFR 22 ml/min 07/06/22 10:22 Estimated GFR 23 ml/min 07/06/22 10:22 BUN/Creatinine Ratio 16 % 07/06/22 10:22 BUN/Creatinine Ratio 17 % 07/06/22 10:22 Glucose 182 mg/dL (75-100) H 07/06/22 10:22 Glucose 185 mg/dL (75-100) H 07/06/22 10:22 POC Glucose 140 mg/dL (70-105) H 07/07/22 06:07 Lactic Acid 3.60 mmol/L (0.7-2.0) H* 07/06/22 20:55 Calcium 7.8 mg/dL (8.4-10.2) L 07/06/22 10:22 Calcium 8.0 mg/dL (8.4-10.2) L 07/06/22 10:22 Phosphorus 2.20 mg/dL (2.5-4.5) L 07/06/22 10:22 Magnesium 1.60 mg/dL (1.7-2.3) L 07/06/22 10:22 Iron 40 ug/dL (49-181) L 07/05/22 04:14 TIBC 31 mcg/dL (250-450) L 07/05/22 04:14 Ferritin 2520.0 ng/mL (30.0-300.0) H 06/28/22 16:11 Total Bilirubin 0.40 mg/dL (0.1-1.2) 07/05/22 04:14 AST 28 units/L (5-40) 07/05/22 04:14 ALT 17 units/L (7-56) 07/05/22 04:14 Alkaline Phosphatase 84 units/L (35-129) 07/05/22 04:14 Ammonia 29.0 umol/L (25-60) 07/05/22 04:14 Lactate Dehydrogenase 281 units/L (91-180) H 07/06/22 10:22 Troponin T 0.135 ng/mL (0.00-0.029) H* 06/28/22 14:57 C-Reactive Protein 2.90 mg/dL (0.00-1.30) H 07/05/22 04:14 Serum Total Protein 4.1 g/dL (6.1-8.1) L 07/01/22 19:20 Total Protein 3.7 g/dL (6.3-8.2) L 07/05/22 04:14 Albumin 1.5 g/dL (3.9-5) L 07/05/22 04:14 Albumin/Globulin Ratio 0.7 % 07/05/22 04:14 Ixwbt-7-[id number] 0.3 g/dL (0.2-0.3) 07/01/22 19:20 Uerxw-1-[id number] 0.5 g/dL (0.5-0.9) 07/01/22 19:20 Beta Globulins 0.3 g/dL (0.2-0.5) 07/01/22 19:20 Gamma Globulins 1.3 g/dL (0.8-1.7) 07/01/22 19:20 Abnorm Protein Band 1 see below 07/01/22 19:20 PEP Interpretation see below H 07/01/22 19:20 Triglycerides 95 mg/dL (2-149) 06/28/22 14:57 Cholesterol 74 mg/dL (50-199) 06/28/22 14:57 LDL Cholesterol Direct 21 mg/dL (50-130) L 06/28/22 14:57 HDL Cholesterol 22 mg/dL (40-59) L 06/28/22 14:57 Cholesterol/HDL Ratio 3.36 % 06/28/22 14:57 Procalcitonin 0.63 ng/mL (<0.15) 07/05/22 04:14 Proteinase 3 (PR3) Ab <1.0 AI (<1.0) 07/01/22 19:20 Myeloperoxidase Ab <1.0 AI (<1.0) 07/01/22 19:20 Complement C3 47 mg/dL (82-185) L 07/01/22 19:20 Complement C4 40 mg/dL (15-53) 07/01/22 19:20 Coronavirus (PCR) Positive (Negative) A 06/29/22 Unknown Hepatitis A IgM Ab Non-reactive (NonReactive) 07/01/22 19:20 Hep Bs Antigen Non-reactive (Negative) 07/01/22 19:20 Hep B Core IgM Ab Non-reactive (NonReactive) 07/01/22 19:20 Hepatitis C Antibody Non-reactive (NonReactive) 07/01/22 19:20 Blood Type O POSITIVE 07/05/22 08:00 Antibody Screen Negative 07/05/22 08:00 Crossmatch See Detail 07/05/22 08:00 Boyle/IV: Voiding Method Indwelling Catheter Active Medications - Current Medications Current Medications: Generic Name Dose Route Start Last Admin Trade Name Freq PRN Reason Stop Dose Admin Acetaminophen 650 mg 06/28/22 18:42 Acetaminophen 325 Mg Tab PO Q4H PRN Pain MILD(1-3)/Fever >100.5/GILES Ascorbic Acid 500 mg 07/05/22 22:00 07/06/22 21:02 Ascorbic Acid 500 Mg Tab PO 500 mg BID PARRISH Administration Dexamethasone 8 mg 07/03/22 10:00 07/06/22 10:58 Dexamethasone 4 Mg Tab PO 07/08/22 10:59 8 mg DAILY PARRISH Administration Dextrose 50 ml 07/04/22 15:07 Dextrose 50% In Water (25gm) 50 Ml Syringe IV Q30MIN PRN Hypoglycemia Protocol NORepinephrine/NS 8 MG-250 ML 8 mg in 250 mls @ 3.75 mls/hr 07/03/22 23:45 07/07/22 06:15 Norepinephrine/Ns 8 Mg-250 Ml (Double Conc) IV 30 mcg/min TITRATE PARRISH 56.25 mls/hr Titration Protocol 2 MCG/MIN Ferric Sodium Gluconate 110 mls @ 100 mls/hr 07/05/22 10:00 07/06/22 12:04 Complex 125 mg/ Sodium IV 07/11/22 09:59 Infused Chloride DAILY PARRISH Infusion Potassium Chloride/Sodium Chloride 20 meq in 1,000 mls @ 125 mls/hr 07/06/22 21:35 07/06/22 23:47 Ns 0.45/Kcl 20meq IV 125 mls/hr DIRECT PARRISH Administration Lansoprazole 30 mg 07/05/22 10:00 07/06/22 10:58 Lansoprazole 30 Mg Solutab FEEDTUBE 30 mg QDAY PARRISH Administration Modafinil 100 mg 07/06/22 11:00 07/06/22 11:34 Modafinil 100 Mg Tab PO 100 mg QAM PARRISH Administration Ondansetron HCl 4 mg 06/28/22 18:42 Ondansetron 4 Mg/2 Ml Inj IV Q8H PRN Nausea And Vomiting Sodium Bicarbonate 1,300 mg 07/05/22 22:00 07/06/22 21:01 Sodium Bicarbonate 650 Mg Tab PO 1,300 mg BID PARRISH Administration Sodium Chloride 10 ml 06/28/22 22:00 07/06/22 21:03 Sodium Chloride 0.9% 10 Ml Flush Syringe IV 10 ml BID PARRISH Administration Sodium Chloride 10 ml 06/28/22 18:42 Sodium Chloride 0.9% 10 Ml Flush Syringe IV PRN PRN LINE FLUSH Tamsulosin HCl 0.4 mg 07/01/22 11:00 07/06/22 10:59 Tamsulosin 0.4 Mg Cap PO Not Given QDAY PARRISH Zinc Sulfate 220 mg 07/05/22 22:00 07/06/22 21:02 Zinc Sulfate 220 Mg Cap PO 220 mg BID PARRISH Administration Nutrition/Malnutrition Assess - Dietary Evaluation Nutrition/Malnutrition Findings: Nutrition Notes Start: 06/30/22 11:11 Freq: Status: Active Protocol: Document 07/05/22 13:54 DEIDRE (Rec: 07/05/22 14:14 DEIDRE [email or web address]) Nutrition Notes Initial or Follow up Reassessment Current Diagnosis Sepsis,Hypertension, Respiratory Failure,Stroke, Hyperlipidemia Other Pertinent Diagnosis COVID-19 (+), LLL pneu, Dysphagia Current Diet TF - Nepro at 40ml/hr Labs/Tests K 3.1 BUN 52 Cr 3.1 Iron 40 TIBC 31 Pertinent Medications Decadron, Ferric sodium gluconate gtt Height 5 ft 11 in Weight 43.5 kg Gregory Body Weight (kg) 78.18 BMI 13.4 Weight Status Underweight Subjective/Other Information Per RN, TF infusing at 30ml/hr ; rate to be increased to goal rate today at 17:00. Pt tolerating TF. Pt on continuous BiPap support. General surgery consulted for possible PEG placement. Percent of energy/protein needs met: 89% energy 100% pro Burn Absent Trauma Absent #2 Nutrition Diagnosis Underweight Diagnosis Progress(for reassessment Continues documentation) Is patient on ventilator? No Is Patient Ambulatory and/or Out of Bed No REE-([facility]-confined to bed) 1460.844 Kcal/Kg value to use for calculation 45 Approximate Energy Requirements Using 1958 kcal/Kg Calculation Used for Recommendations [facility] Additional Notes Pro needs 0.8-1.2g/k-52g/ day Fluid needs per MD. Nutrition Intervention Nutrition Support: Decrease TF goal rate to 35ml/ hr to provide less protein. Current rate provides 1.79g/kg and pt's needs are only 0.8-1 .2g/kg at this time. Provide 150ml water flush q4h. Kcal 1,512 Protein (gm) 68 Carbohydrates (gm) 135 Fat (gm) 81 Fluid (mL) 611 Fiber (gm) 11 Goal #1 TF tolerance Goal #2 TF to meet 100% energy and pro needs Goal #3 Wt maintenance and/or gain Anticipated Discharge Needs: Continue EN support Follow-Up By: 07/08/22 Additional Comments F/U: TF tolerance, renal function, resp status
--- NOTE | 2022-07-06 10:46 | Progress Note ---
Assessment and Plan Cultures: SARS CoV2 PCR: positive 06/28/2022 blood culture: No growth Hepatitis panel: negative A/P: 72-year-old male with prior CVA, DVT on anticoagulation, CKD, hypertension, dysphagia was admitted from the [facility] after being diagnosed with COVID and noted to have shortness of breath with hypoxia: #COVID-19 pneumonia: PCR positive. CT chest with left lower lobe pneumonia. Completed empiric abx. DVT scan negative #Acute hypoxic respiratory failure: with worsening, requiring BiPAP / Venti mask #MALIHA on CKD: Renally adjust antibiotics. Nephrology following. #Acute anemia, worsening thrombocytopenia: Hematology following #Leukopenia: Likely related to viral illness. Improved. #Acute encephalopathy: CT head without acute intracranial abnormality. Recs: -patient is s/p empiric course of Cefepime and Azithromycin. WBC and CRP low, afebrile. Continue off abx -Continue IV/PO Dexamethasone x 10 days -Not a candidate for remdesivir due to CKD/elevated creatinine -Per discussion with RN, patient's initial COVID-19 PCR test was positive on 06/21/2022 at the [facility]. Since today is day 15 from initial positivity, would be considered noninfectious COVID, okay to discontinue isolation -guarded prognosis Deyanira Sutherland MD, FACP, [facility] ([facility] O: [phone] F: [phone] C: [phone] Subjective Date of service: 07/06/22 Principal diagnosis: AHRF; Sepsis; AMS; Pneumonia; MALIHA; COVID-19 infxn; Anemia; Thrombocytopenia Interval history: Afebrile. Remains drowsy, unresponsive. On nasal cannula oxygen. Elevated lactate. Creatinine 3.1. Objective - Exam Narrative Exam: Physical Exam: Constitutional: Drowsy, unresponsive Head, Ears, Nose: Normocephalic, atraumatic. External ears, nose normal Eyes: Conjunctivae/corneas clear. No icterus. No ptosis. Neck: Supple, no meningeal signs Cardiovascular: S1, S2 + Respiratory: Good air entry, clear to auscultation bilaterally GI: Soft, non-tender; bowel sounds normal. No peritoneal signs Musculoskeletal: No pedal edema, no cyanosis. Skin: No rash or abscess Hem/Lymphatic: No palpable cervical or supraclavicular nodes. No lymphangitis Psych: Drowsy Neurological: Unresponsive - Constitutional Vitals: Vital Signs Temp Pulse Resp BP Pulse Ox 97.7 F 77 10 L 151/67 100 07/06/22 08:00 07/06/22 09:00 07/06/22 10:00 07/06/22 10:00 07/06/22 10:00 Temperature -Last 24 Hours Temperature 97.7 F Temperature 96.4 F Temperature 96.4 F Temperature 95.4 F Temperature 94.8 F Temperature 94.3 F Temperature 94.1 F Temperature 91.6 F Temperature 96.2 F Temperature 95.2 F - Labs CBC & Chem 7: 07/05/22 04:14 07/05/22 04:14 Labs: Abnormal lab results 07/01/22 07/05/22 07/05/22 Range/Units 19:20 08:00 14:15 ABG pO2 97.6 H (80.0-90.0) mm Hg ABG Base Excess -3.9 L (-2.0-3.0) mmol/L ABG Hemoglobin 6.3 L (14.0-18.0) gm/dl POC Glucose (70-105) mg/dL Complement C3 47 L (82-185) mg/dL Crossmatch See Detail 07/05/22 07/06/22 Range/Units 17:14 00:20 ABG pO2 (80.0-90.0) mm Hg ABG Base Excess (-2.0-3.0) mmol/L ABG Hemoglobin (14.0-18.0) gm/dl POC Glucose 172 H 188 H (70-105) mg/dL Complement C3 (82-185) mg/dL Crossmatch - Imaging and cardiology Chest x-ray: report reviewed, image reviewed (Chest x-ray with mild streaky infiltrates on the left, right lung appears clear.)
[2022-07-06] MEDS: LANSOPRAZOLE 30 MG SOLUTAB FEEDTUBE SCH (10:58)
[2022-07-06] MEDS: SODIUM BICARBONATE 650 MG TAB PO SCH ×2 (10:58→21:01)
[2022-07-06] MEDS: ASCORBIC ACID 500 MG TAB PO SCH ×2 (10:58→21:02)
[2022-07-06] MEDS: SODIUM FERRIC GLUCON/SUCRO 125 MG in SODIUM CHLORIDE 0.9% 100 ML IV SCH (10:58)
[2022-07-06] MEDS: DEXAMETHASONE 4 MG TAB PO SCH (10:58)
[2022-07-06] MEDS: ZINC SULFATE 220 MG CAP PO SCH ×2 (10:58→21:02)
[2022-07-06 10:59] LABS: ABG Base Excess -6.2 mmol/L (-2.0-3.0); ABG Methemoglobin 0.3 % (0.0-1.5); ABG Oxygen Saturation 98.9 % (95.0-99.0); ABG PCO2 29.9 mm Hg; ABG PH 7.398 pH Units (7.350-7.450); ABG PO2 157.4 mm Hg (80.0-90.0)
[2022-07-06] MEDS: TAMSULOSIN 0.4 MG CAP PO SCH (10:59)
[2022-07-06] MEDS ORDERED: MODAFINIL 100 MG TAB PO SCH (11:00)
[2022-07-06 11:05] LABS: Calcium 7.8 mg/dL (8.4-10.2)
[2022-07-06 11:08] LABS: Hemoglobin 6.5 gm/dl (11.8-15.2); Mean Corpuscular HGB Conc 34 % (32-34); Mean Corpuscular Volume 89 fl (84-94); Red Blood Count 2.15 M/mm3 (3.65-5.03); Red Cell Distribution Width 19.2 % (13.2-15.2)
[2022-07-06 11:13] LABS: Hemoglobin 6.5 gm/dl (11.8-15.2)
[2022-07-06 11:28] LABS: INR 1.41 (0.87-1.13); Partial Thromboplastin Time 42.1 Sec. (24.2-36.6)
[2022-07-06 11:33] LABS: Hematocrit 19.8 % (35.5-45.6)
[2022-07-06 11:34] LABS: Platelet Count 35 K/mm3 (140-440)
[2022-07-06 11:35] LABS: Hematocrit 19.8 % (35.5-45.6)
[2022-07-06] MEDS ORDERED: SODIUM CHLORIDE 0.9% 500 ML 500 ML IV SCH (11:39)
--- NOTE | 2022-07-06 11:53 | Progress Note ---
Subjective Date of service: 07/06/22 Principal diagnosis: AHRF; Sepsis; AMS; Pneumonia; MALIHA; COVID-19 infxn; Anemia; Thrombocytopenia Interval history: Impression * Acute on chronic renal failure. Baseline creatinine 1.8-2.0 from March 2022 * metabolic acidosis. Lactic acidosis * Altered mental status * Sepsis * thrombocytopenia * History of CVA * History of hypertension * History of DVT * Anemia Recommendations * cr relatively stable today * replete k and mag today and follow up results * continue po sodium bicarb, * heme/onc notes reviewed * CT scan of his abdomen shows mildly distended bladder. Patient currently has a condom catheter in place. * urology consult noted * follow up am lytes * Avoid nephrotoxins * Monitor fluid status and electrolytes closely * No urgent indication for renal replacement therapy today Subjective Interval history: events noted labs and chart reviewed Objective Physical exam: primary team exam noted full exam deferred for preservation of PPE Objective - Vital Signs Vital signs: Vital Signs - 12hr 07/06/22 07/06/22 07/06/22 00:00 00:02 01:01 Temperature 96.4 F L Pulse Rate 85 66 90 Pulse Rate [ 87 Right Radial] Respiratory 15 22 12 Rate Blood Pressure 156/58 156/58 141/48 O2 Sat by Pulse 100 100 100 Oximetry 07/06/22 07/06/22 07/06/22 02:00 03:00 04:00 Temperature 96.4 F L Pulse Rate 92 H 98 H 95 H Pulse Rate [ 87 Right Radial] Respiratory 12 13 17 Rate Blood Pressure 135/63 138/66 146/61 O2 Sat by Pulse 100 100 100 Oximetry 07/06/22 07/06/22 07/06/22 05:00 06:00 07:01 Temperature Pulse Rate 93 H 96 H 90 Pulse Rate [ Right Radial] Respiratory 13 16 14 Rate Blood Pressure 144/56 148/55 141/51 O2 Sat by Pulse 100 100 100 Oximetry 07/06/22 07/06/22 07/06/22 08:00 08:30 09:00 Temperature 97.7 F Pulse Rate 88 77 Pulse Rate [ 75 Right Radial] Respiratory 13 11 L 10 L Rate Blood Pressure 134/55 134/58 O2 Sat by Pulse 100 100 100 Oximetry 07/06/22 07/06/22 07/06/22 09:07 10:00 11:00 Temperature Pulse Rate 84 Pulse Rate [ Right Radial] Respiratory 10 L 11 L Rate Blood Pressure 151/67 128/74 O2 Sat by Pulse 100 100 100 Oximetry - Lab 07/06/22 10:22 07/06/22 10:22 Most recent lab results ABG pH 7.398 pH Units (7.350-7.450) 07/06/22 10:29 ABG pCO2 29.9 mm Hg 07/06/22 10:29 ABG pO2 157.4 mm Hg (80.0-90.0) H 07/06/22 10:29 ABG HCO3 18.0 mmol/L (20.0-26.0) L 07/06/22 10:29 ABG O2 Saturation 98.9 % (95.0-99.0) 07/06/22 10:29 Calcium 7.8 mg/dL (8.4-10.2) L 07/06/22 10: Calcium 8.0 mg/dL (8.4-10.2) L 07/06/22 10: Phosphorus 2.20 mg/dL (2.5-4.5) L 07/06/22 10: Magnesium 1.60 mg/dL (1.7-2.3) L 07/06/22 10:22 Medications & Allergies - Medications Allergies/Adverse Reactions: Allergies No Known Allergies Allergy (Verified 06/28/22 13:48) Home Medications: Home Medications Medication Instructions Recorded Confirmed Last Taken Type Aspirin 325 mg PO QDAY #30 tablet 03/07/22 07/01/22 Unknown Rx AtorvaSTATin [Lipitor] 40 mg PO QHS 30 Days #30 tab 03/07/22 07/01/22 Unknown Rx Active Medications: Generic Name Dose Route Start Last Admin Trade Name Freq PRN Reason Stop Dose Admin Acetaminophen 650 mg 06/28/22 18:42 Acetaminophen 325 Mg Tab PO Q4H PRN Pain MILD(1-3)/Fever >100.5/GILES Ascorbic Acid 500 mg 07/05/22 22:00 07/06/22 10:58 Ascorbic Acid 500 Mg Tab PO 500 mg BID PARRISH Administration Dexamethasone 8 mg 07/03/22 10:00 07/06/22 10:58 Dexamethasone 4 Mg Tab PO 07/08/22 10:59 8 mg DAILY PARRISH Administration Dextrose 50 ml 07/04/22 15:07 Dextrose 50% In Water (25gm) 50 Ml Syringe IV Q30MIN PRN Hypoglycemia Protocol NORepinephrine/NS 8 MG-250 ML 8 mg in 250 mls @ 3.75 mls/hr 07/03/22 23:45 Norepinephrine/Ns 8 Mg-250 Ml (Double Conc) IV TITRATE PARRISH Protocol 2 MCG/MIN Ferric Sodium Gluconate 110 mls @ 100 mls/hr 07/05/22 10:00 07/06/22 10:58 Complex 125 mg/ Sodium IV 07/11/22 09:59 100 mls/hr Chloride DAILY PARRISH Administration Sodium Chloride 500 mls @ 0 mls/hr 07/06/22 11:39 Nacl 0.9% 500 Ml IV ONCE PARRISH As Directed Potassium Chloride 20 meq/ 1,010 mls @ 100 mls/hr 07/06/22 11:48 Sodium Chloride IV DIRECT PARRISH Magnesium Sulfate 2 gm in 50 mls @ 25 mls/hr 07/06/22 11:47 Magnesium Sulfate 2gm/50ml IV 07/06/22 13:46 ONCE ONE Lansoprazole 30 mg 07/05/22 10:00 07/06/22 10:58 Lansoprazole 30 Mg Solutab FEEDTUBE 30 mg QDAY PARRISH Administration Modafinil 100 mg 07/06/22 11:00 07/06/22 11:34 Modafinil 100 Mg Tab PO 100 mg QAM PARRISH Administration Ondansetron HCl 4 mg 06/28/22 18:42 Ondansetron 4 Mg/2 Ml Inj IV Q8H PRN Nausea And Vomiting Sodium Bicarbonate 1,300 mg 07/05/22 22:00 07/06/22 10:58 Sodium Bicarbonate 650 Mg Tab PO 1,300 mg BID PARRISH Administration Sodium Chloride 10 ml 06/28/22 22:00 07/06/22 10:59 Sodium Chloride 0.9% 10 Ml Flush Syringe IV 10 ml BID PARRISH Administration Sodium Chloride 10 ml 06/28/22 18:42 Sodium Chloride 0.9% 10 Ml Flush Syringe IV PRN PRN LINE FLUSH Tamsulosin HCl 0.4 mg 07/01/22 11:00 07/06/22 10:59 Tamsulosin 0.4 Mg Cap PO Not Given QDAY PARRISH Zinc Sulfate 220 mg 07/05/22 22:00 07/06/22 10:58 Zinc Sulfate 220 Mg Cap PO 220 mg BID PARRISH Administration
[2022-07-06] MEDS ORDERED: SODIUM CHLORIDE 0.45% 1000 ML 1,000 ML with POTASSIUM CHLORIDE 20 MEQ IV SCH (13:00)
[2022-07-06] MEDS ORDERED: MAGNESIUM SULFATE 2 GM/50 ML BAG IV ONE (13:00)
[2022-07-06] MEDS ORDERED: NACL 0.45%/KCL 20 MEQ 20 MEQ/1,000 ML BAG IV SCH ×2 (14:00→21:35)
[2022-07-06 18:02] LABS: Albumin 1.6 g/dL (3.8-4.8); Gamma Globulin 1.3 g/dL (0.8-1.7)
[2022-07-06 20:07] LABS: Myeloperoxidase Antibody <1.0 AI (<1.0)
[2022-07-07] MEDS ORDERED: EPINEPHrine 1 MG/10 ML SYRINGE ONE (06:25)
[2022-07-07] MEDS ORDERED: SODIUM BICARB 8.4% 50 MEQ/50 ML SYRINGE IV ONE (06:25)
--- NOTE | 2022-07-07 07:05 | Event Note ---
Date: 07/07/22 VENUS READ called on 72-year-old -Portuguese male who has been on admission for left lower lobe pneumonia metabolic, encephalopathy, acute hypoxic respiratory failure, COVID-19 positive. Resuscitative measures were commenced according to ACLS protocol. Patient had multiple rounds of epinephrine and sodium bicarb. All resuscitative measures proved futile. Upon exam: Pupils were fixed and dilated. Chest: No breath sounds Cardiovascular exam: No heart sounds and no peripheral pulses Abdomen: Soft Extremities: Cold and clammy Central nervous system: No reflexes Patient pronounced on July 07, 2022 at 6:50 AM. Daughter was notified by phone regarding patient's change in condition.
[2022-07-07 07:09] VITALS: BP 106/19
--- NOTE | 2022-07-07 07:30 | Death Summary ---
Summary - Providers Date of service: 07/07/22 Consults: 06/29/22 06:37 Consult to Physician [CONS] Routine Comment: Consulting Provider: RANDOLPH CERVANTES Physician Instructions: Reason For Exam: MALIHA/CKD 06/29/22 08:14 Consult to Physician [CONS] Routine Comment: Consulting Provider: VLAD FRENCH Physician Instructions: Reason For Exam: sepsis secondary to COVID 06/29/22 11:28 Speech Therapy Evaluation and Treat [CONS] Routine Reason For Exam: swallow eval 06/30/22 09:47 Consult to Physician [CONS] Routine Comment: Consulting Provider: FANTASMA RIVERA Physician Instructions: Reason For Exam: depression 06/30/22 11:05 Consult to Mental Health [CONS] Routine Reason For Exam: depression 06/30/22 12:44 Consult to Physician [CONS] Routine Comment: Consulting Provider: ANGIE ANDERSON Physician Instructions: Reason For Exam: Hematuria with Urinary Retention 07/01/22 14:21 Consult to Physician [CONS] Routine Comment: Consulting Provider: PATRIZIA CRAWFORD Physician Instructions: Reason For Exam: J TUBE 07/03/22 23:58 Consult to Physician [CONS] Routine Comment: Consulting Provider: MADHURI HERNÁNDEZ Physician Instructions: Reason For Exam: Covid 19, resp. Distress 07/04/22 11:06 Consult to Dietitian/Nutrition [CONS] Routine Physician Instructions: Reason For Exam: Reason for Consult: Write/Manage Tube Feeding 07/04/22 12:43 Consult to Physician [CONS] Routine Comment: rowan christianson/ jaclyn Consulting Provider: GENNA JORDAN Physician Instructions: Reason For Exam: Thrombocytopenia; DVT s/p IVC filter; possible PE 07/05/22 11:26 Consult to Physician [CONS] Routine Comment: left message on voice mail/ravi Consulting Provider: BEHZAD MARTINEZ Physician Instructions: Reason For Exam: Encephalopathy Attending: ANIL GROVE MD - summary Date of admission: 06/28/22 16:37 Date of : 07/07/22 Reason for admission: Acute Hypoxic Respiratory Failure secondary to COVID Pneumonia Disposition: This is a 72-year-old male who is a [facility] resident, with known past medical history of CVA, recent COVID 19 infection (diagnosed 06/21/2022), chronic renal insufficiency, hypertension, cognitive communication deficit, dysphagia, 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 EMS reports that patient is on 3 L of nasal cannula at the [facility] they were unable to obtain a accurate O2 sat. Patient was placed on nonrebreather for transport to the hospital. Upon ED presentation, patient appears to have mild to moderate respiratory distress on nonrebreather and was hypoglycemic with a blood glucose level of 14. Patient's hypoglycemia was treated per hypoglycemic protocol and imaging studies on admission showed left lobar pneumonia. Patient was also found with acute metabolic encephalopathy and acute on chronic renal failure. Patient was admitted to the floor for sepsis and acute hypoxic respiratory failure secondary to COVID 19 pneumonia. Sepsis protocol, empiric IV antiobiotic- Cefepine and Azithro, and steroids were initiated. ID was also consulted, patient not candidate for remdesevir due to acute on CKD. And nephrology was also consulted for acute on CKD. While on the floor, patient completed X5 days course of IV antibiotics and was on steroids. Patient developed urinary retention and nursing staffs were unable to placed a newberry catheter, urology was consulted. A coude catheter was placed and flomax was initiated. Patient also remained encephalopathic and was unable to tolerated PO due lethargy and altered mentation status. Family opted for PEG- tube placement, general surgery was consulted. Patient has a prior history of gastric bypass, medical records were requested from [facility] which delayed Peg-Tube placement. PO eliquis was switched to heparin drip in anticipating for PEG-tube placement. on 07/04/2022 patient's decompensated and had a code met overnight due to hypotension and hypoxia was transferred to ICU. BP improved after 1amp of bcarb, pressor was never initiated. Patient was found in metabolic acidosis and required continuous sodium bicarb infusion per Nephrology. Patient was with worsen encephalothy, patient was lethargic and only arousable to tactile stimuli on continuous Bipap. CT head/brain was unremarkable, repeat chest x-ray reveal persistent left lower lobe pneumonia, and arterial blood gas was unremarkable, oxygen supplementation was wean down to 3L NC. Patient also developed worsen anemia and worsen coagulopathy concerning for ITP versus DIC, probably related to worsening sepsis. Heparin gtt was held and Hematology was also consulted. Patient received multiple blood products, no signs and symptoms of any active bleeding were noted. Stool occult was negative. Patient renal function also worsen and became anuric. Patient's diagnoses, worsening condition, and overal poor prognosis were thoroughly discussed with patient's daughter. Goal of care was also discussed, patient's daughter wanted everything done for patient including intubation and rescussitve measures in case of cardiac arrest On 07/07/2022 patient's PEA arrested, a CODE BLUE was called and resuscitative measures were initiated according to ACLS protocol. Patient had multiple rounds of epinephrine and sodium bicarb. All resuscitative measures proved futile. Upon exam: Pupils were fixed and dilated with no breath sounds, no heart sounds and no peripheral pulses. Extremities were cold and clammy with no central nervous system reflexes Patient pronounced on July 07, 2022 at 6:50 AM. Patient's daughter was notified via phone. Bereavement arrangements to be made per protocol and family's request. Nursing staffs to arrange. #Acute Hypoxic Respiratory Failure #Left Lower Lobe Pneumonia #COVID-19 Infection #Hypotension #Metabolic Acidosis #Sepsis #Left Lower Lobe Pneumonia #Toxic Metabolic Encephalopathy #H/o CVA & Cognitive Communication Deficit #Acute on Chronic Renal Failure #Urinary Retention #Thrombocytopenia #Coagulopathy/Elevated INR- Concern for ITP vs DIC #Normocytic Anemia #Elevated D-Dimer #H/o DVT s/p IVC Filter was on Eliquis at home #Dysphagia #Hypoglycemia
[2022-07-08 10:42] LABS: ANA Screen, IFA Negative (Negative)
[2022-07-09 15:18] LABS: Heparin-Induced Platelet Antib Negative (Negative); Unfractionated Heparin Negative (Negative)
== END 2022-07-07 06:50 | DRG 871 ==
LOC: ED 13:31 → 3A 16:37 → CC1 07-04 00:28
PROVIDERS: ADMIT Internal Medicine; ATTEND Internal Medicine
PROC: 4A033R1 Measurement of Arterial Saturation, Peripheral, Percutaneous Approach (ICD-10-PCS; principal; 2022-06-28)
PROC: 5A09457 Assistance with Respiratory Ventilation, 24-96 Consecutive Hours, Continuous Positive Airway Pressure (ICD-10-PCS; 2022-07-04)
PROC: 5A09357 Assistance with Respiratory Ventilation, Less than 24 Consecutive Hours, Continuous Positive Airway Pressure (ICD-10-PCS; 2022-07-06)
PROC: 0BH17EZ Insertion of Endotracheal Airway into Trachea, Via Natural or Artificial Opening (ICD-10-PCS; 2022-07-07)
PROC: 5A12012 Performance of Cardiac Output, Single, Manual (ICD-10-PCS; 2022-07-07)
PROC: 5A09357 Assistance with Respiratory Ventilation, Less than 24 Consecutive Hours, Continuous Positive Airway Pressure (ICD-10-PCS; 2022-07-07)
DX: A41.9 Sepsis, unspecified organism (principal); G92.8 Other toxic encephalopathy; U07.1 COVID-19; J12.82 Pneumonia due to coronavirus disease 2019; J96.01 Acute respiratory failure with hypoxia; N17.9 Acute kidney failure, unspecified; D68.8 Other specified coagulation defects; F03.91 Unspecified dementia, unspecified severity, with behavioral disturbance; E87.0 Hyperosmolality and hypernatremia; R91.8 Other nonspecific abnormal finding of lung field; R77.8 Other specified abnormalities of plasma proteins; I12.9 Hypertensive chronic kidney disease with stage 1 through stage 4 chronic kidney disease, or unspecified chronic kidney disease; E78.5 Hyperlipidemia, unspecified; E16.2 Hypoglycemia, unspecified; D63.1 Anemia in chronic kidney disease; N18.30 Chronic kidney disease, stage 3 unspecified; R33.9 Retention of urine, unspecified; D69.6 Thrombocytopenia, unspecified; R13.12 Dysphagia, oropharyngeal phase; I46.9 Cardiac arrest, cause unspecified; Z86.73 Personal history of transient ischemic attack (TIA), and cerebral infarction without residual deficits; Z79.82 Long term (current) use of aspirin; Z86.718 Personal history of other venous thrombosis and embolism; Z79.01 Long term (current) use of anticoagulants
CPT/HCPCS: 31500; 36415; 36600; 70450; 71045; 71250; 74018; 74176; 76770; 80048; 80053; 80061; 80074; 82140; 82565; 82728; 82803; 82805; 82947; 82962; 83010; 83550; 83615; 83735; 84100; 84145; 84165; 84484; 85007; 85014; 85018; 85025; 85027; 85045; 85049; 85379; 85384; 85520; 85610; 85730; 86021; 86022; 86038; 86140; 86160; 86225; 86334; 86850; 86900; 86901; 86920; 87040; 92950; 93005; 93970; 94660; 94760; G0378; J2354; J3490; C9113; J0171; J0456; J0692; J1100; J1644; J2270; J2916; J3370; J3475; J3480; J7030; J7040; J7042; J7070; J8540; P9012; P9016; U0003